=== PATIENT | male | born 1940 | race Caucasian/White ===

== ENCOUNTER 2017-02-03 17:30 | Inpatient (IN) | payer MEDICARE, BC ==
[2017-02-03 18:35] LABS: Anisocytosis Slight; Basophils % (A) 1 %; CHCM 30.7; Eosinophils # (A) 0.1 k/uL (0-0.7); Eosinophils % (A) 1 %; HCT 24.3 % (39.0-53.0); HGB 7.2 gm/dL (13.0-17.5); Hypochromasia Marked; Luc # (Auto) 0.15; Luc % (Auto) 4; Lymphocytes # (A) 0.5 k/uL (1.0-4.8); Lymphocytes % (A) 11 %; MCH 26.2 pg (25.0-35.0); MCHC 29.6 g/dL (31.0-37.0); MCV 88.5 fL (80.0-100.0); Mean Platelet Volume 10.4; Monocytes # (A) 0.5 k/uL (0-1.0); Monocytes % (A) 11 %; Neutrophils % (A) 73 %; Poikilocytosis Slight; RBC 2.75 m/uL (4.30-5.90); WBC 4.2 k/uL (3.8-10.6); WBC (Perox) 4.41
--- NOTE | 2017-02-03 18:35 | ED ---
General Adult HPI - General Chief complaint: Recheck/Abnormal Lab/Rx Stated complaint: low HGB sent by PCP Time Seen by Provider: 02/03/17 18:19 Source: patient, RN notes reviewed Mode of arrival: ambulatory Limitations: no limitations - History of Present Illness Initial comments: Patient is a 76-year-old male who presents emergency room today with a chief complaint of an abnormal lab value that occurred earlier today. He states he was told his hemoglobin was 7.1 earlier today and to come to emergency room. He does admit that over the last month they've been watching his hemoglobin closely. He doesn't that he had a recent colonoscopy to look for any bleeding which was essentially negative patient denies any symptoms to the emergency room. Denies any dizziness, shortness of breath, lightheadedness. Patient denies any recent fever, chills, shortness of breath, chest pain, back pain, abdominal pain, nausea or vomiting, numbness or tingling, dysuria or hematuria, constipation or diarrhea, headaches or visual changes, or any other complaints. - Related Data Home Medications Medication Instructions Recorded Confirmed Atorvastatin [Lipitor] 10 mg PO DAILY 03/24/14 02/03/17 Cholecalciferol [Vitamin D3] 3,000 unit PO DAILY 03/24/14 02/03/17 Potassium Chloride [Klor-Con 20] 20 meq PO TID 03/24/14 02/03/17 Tamsulosin HCl [Flomax] 0.4 mg PO DAILY 03/24/14 02/03/17 levETIRAcetam [Keppra] 1,000 mg PO BID 03/24/14 02/03/17 metFORMIN HCL [Glucophage] 500 mg PO BID 03/24/14 02/03/17 Bumetanide [BUMEX] 2 mg PO BID 02/03/17 02/03/17 Cranberry Fruit Concentrate [Azo 500 mg PO DAILY 02/03/17 02/03/17 Cranberry] Ferrous Sulfate [Feosol] 650 mg PO DAILY 02/03/17 02/03/17 Glimepiride [Amaryl] 1 mg PO DAILY 02/03/17 02/03/17 Levothyroxine Sodium [Synthroid] 200 mcg PO DAILY 02/03/17 02/03/17 Lisinopril [Zestril] 5 mg PO DAILY 02/03/17 02/03/17 Metolazone [Zaroxolyn] 5 mg PO Q48H 02/03/17 02/03/17 Omeprazole [PriLOSEC] 20 mg PO DAILY 02/03/17 02/03/17 Rivaroxaban [Xarelto] 15 mg PO HS 02/03/17 02/03/17 Sotalol HCl [Betapace] 80 mg PO Q12H 02/03/17 02/03/17 Allergies Allergy/AdvReac Type Severity Reaction Status Date / Time amiodarone Allergy Unknown Verified 02/03/17 19:09 amitriptyline Allergy Unknown Verified 02/03/17 19:09 simvastatin [From Zocor] Allergy Unknown Verified 02/03/17 19:09 Review of Systems ROS Statement: Those systems with pertinent positive or pertinent negative responses have been documented in the HPI. ROS Other: All systems not noted in ROS Statement are negative. Past Medical History Past Medical History: Atrial Fibrillation, CVA/TIA, Dementia, Prostate Disorder , Thyroid Disorder Additional Past Medical History / Comment(s): SEIZURE DISORDER, BXO (balantis Xerotica Obliterans) History of Any Multi-Drug Resistant Organisms: None Reported Past Surgical History: AICD Past Anesthesia/Blood Transfusion Reactions: No Reported Reaction Type of Cardiac Device: Permanent Pacemaker Device Placement Date:: 2011 Past Psychological History: No Psychological Hx Reported Smoking Status: Never smoker Past Alcohol Use History: Rare Past Drug Use History: None Reported - Past Family History Father Family Medical History: Myocardial Infarction ([place]) Mother Family Medical History: Myocardial Infarction ([place]) Brother(s) Additional Family Medical History / Comment(s): from [place]. It was all through his body. Unknown as to what kind General Exam - General Exam Comments Initial Comments: General: The patient is awake and alert, in no distress, and does not appear acutely ill. Eye: Pupils are equal, round and reactive to light, extra-ocular movements are intact. No nystagmus. There is normal conjunctiva bilaterally. No signs of icterus. Ears, nose, mouth and throat: There are moist mucous membranes and no oral lesions. Neck: The neck is supple, there is no tenderness or JVD. Cardiovascular: There is a regular rate and rhythm. No murmur, rub or gallop is appreciated. Respiratory: Lungs are clear to auscultation, respirations are non-labored, breath sounds are equal. No wheezes, stridor, rales, or rhonchi. Gastrointestinal: Soft, non-distended, non-tender abdomen without masses or organomegaly noted. There is no rebound or guarding present. No CVA tenderness. Bowel sounds are unremarkable. Musculoskeletal: Normal ROM, no tenderness. Strength 5/5. Sensation intact. Pulses equal bilaterally 2+. Neurological: A&O x 3. CN II-XII intact, There are no obvious motor or sensory deficits. Coordination appears grossly intact. Speech is normal. Skin: Skin is warm and dry and no rashes or lesions are noted. Psychiatric: Cooperative, appropriate mood & affect, normal judgment. Limitations: no limitations Course Vital Signs 02/03/17 02/03/17 17:42 18:54 Temperature 98.6 F Pulse Rate 104 H 116 H Respiratory 17 18 Rate Blood Pressure 131/65 117/57 O2 Sat by Pulse 94 L 96 Oximetry Medical Decision Making - Medical Decision Making Patient's labs been reviewed and does show positive for quiet test. He does admit to dark bowel movements recently. No sign of bright red blood. Patient is on a blood thinner ulcer multiple due to history of A. fib. Hemoglobin 7.2. Does have shortness of breath on exertion. Patient will be admitted for serial H and H. Patient and family are aware the plan states understanding - Lab Data Result diagrams: 02/03/17 18:20 02/03/17 18:20 Lab Results 02/03/17 02/03/17 02/03/17 Range/Units 18:20 18:20 18:20 WBC 4.2 (3.8-10.6) k/uL RBC 2.75 L (4.30-5.90) m/uL Hgb 7.2 L (13.0-17.5) gm/dL Hct 24.3 L (39.0-53.0) % MCV 88.5 (80.0-100.0) fL MCH 26.2 (25.0-35.0) pg MCHC 29.6 L (31.0-37.0) g/dL RDW 17.0 H (11.5-15.5) % Plt Count 159 (150-450) k/uL Neutrophils % 73 % Lymphocytes % 11 % Monocytes % 11 % Eosinophils % 1 % Basophils % 1 % Neutrophils # 3.0 (1.3-7.7) k/uL Lymphocytes # 0.5 L (1.0-4.8) k/uL Monocytes # 0.5 (0-1.0) k/uL Eosinophils # 0.1 (0-0.7) k/uL Basophils # 0.0 (0-0.2) k/uL Hypochromasia Marked Poikilocytosis Slight Anisocytosis Slight PT 12.2 H (9.0-12.0) sec INR 1.2 H (<1.2) APTT 23.3 (22.0-30.0) sec Sodium 142 (137-145) mmol/L Potassium 4.5 (3.5-5.1) mmol/L Chloride 106 (98-107) mmol/L Carbon Dioxide 26 (22-30) mmol/L Anion Gap 10 mmol/L BUN 26 H (9-20) mg/dL Creatinine 1.27 H (0.66-1.25) mg/dL Est GFR (MDRD) Af Amer >60 (>60 ml/min/1.73 sqM) Est GFR (MDRD) Non-Af 55 (>60 ml/min/1.73 sqM) Glucose 121 H (74-99) mg/dL Calcium 9.2 (8.4-10.2) mg/dL Total Bilirubin 0.5 (0.2-1.3) mg/dL AST 26 (17-59) U/L ALT 23 (21-72) U/L Alkaline Phosphatase 112 (38-126) U/L Total Protein 7.3 (6.3-8.2) g/dL Albumin 4.1 (3.5-5.0) g/dL Stool Occult Blood (Negative) 02/03/17 Range/Units 18:58 WBC (3.8-10.6) k/uL RBC (4.30-5.90) m/uL Hgb (13.0-17.5) gm/dL Hct (39.0-53.0) % MCV (80.0-100.0) fL MCH (25.0-35.0) pg MCHC (31.0-37.0) g/dL RDW (11.5-15.5) % Plt Count (150-450) k/uL Neutrophils % % Lymphocytes % % Monocytes % % Eosinophils % % Basophils % % Neutrophils # (1.3-7.7) k/uL Lymphocytes # (1.0-4.8) k/uL Monocytes # (0-1.0) k/uL Eosinophils # (0-0.7) k/uL Basophils # (0-0.2) k/uL Hypochromasia Poikilocytosis Anisocytosis PT (9.0-12.0) sec INR (<1.2) APTT (22.0-30.0) sec Sodium (137-145) mmol/L Potassium (3.5-5.1) mmol/L Chloride (98-107) mmol/L Carbon Dioxide (22-30) mmol/L Anion Gap mmol/L BUN (9-20) mg/dL Creatinine (0.66-1.25) mg/dL Est GFR (MDRD) Af Amer (>60 ml/min/1.73 sqM) Est GFR (MDRD) Non-Af (>60 ml/min/1.73 sqM) Glucose (74-99) mg/dL Calcium (8.4-10.2) mg/dL Total Bilirubin (0.2-1.3) mg/dL AST (17-59) U/L ALT (21-72) U/L Alkaline Phosphatase (38-126) U/L Total Protein (6.3-8.2) g/dL Albumin (3.5-5.0) g/dL Stool Occult Blood Positive (Negative) Disposition Clinical Impression: Symptomatic anemia, Guaiac positive stools Disposition: ADMITTED IP TO THIS [facility] Condition: Stable Referrals: Pernell Brower MD [Primary Care Provider] - 1-2 days Time of Disposition: 19:23
[2017-02-03 18:47] LABS: ALT 23 U/L (21-72); AST 26 U/L (17-59); Alkaline Phosphatase 112 U/L (38-126); Anion Gap 10 mmol/L; Blood Urea Nitrogen 26 mg/dL (9-20); Calcium 9.2 mg/dL (8.4-10.2); Carbon Dioxide 26 mmol/L (22-30); Chloride 106 mmol/L (98-107); Glucose 121 mg/dL (74-99); INR 1.2 (<1.2); Non-African American GFR(MDRD) 55 (>60 ml/min/1.73 sqM); Partial Thromboplastin Time 23.3 sec (22.0-30.0); Potassium 4.5 mmol/L (3.5-5.1); Prothrombin Time 12.2 sec (9.0-12.0); Sodium 142 mmol/L (137-145); Total Bilirubin 0.5 mg/dL (0.2-1.3); Total Protein 7.3 g/dL (6.3-8.2)
[2017-02-03] MEDS ORDERED: SODIUM CHLORIDE 0.9% 1,000 ML IV ONE (19:24)
[2017-02-03] MEDS ORDERED: POTASSIUM CHLORIDE ER 20 MEQ TAB.ER PO SCH (22:00)
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
[2017-02-03 23:17] LABS: Anisocytosis Slight; CH 26.1; CHCM 28.9; HCT 24.2 % (39.0-53.0); HDW 3.38; HGB 7.1 gm/dL (13.0-17.5); Hypochromasia Marked; MCH 26.5 pg (25.0-35.0); MCHC 29.3 g/dL (31.0-37.0); MCV 90.6 fL (80.0-100.0); Mean Platelet Volume 8.6; RBC 2.67 m/uL (4.30-5.90); RDW 16.2 % (11.5-15.5); WBC 4.1 k/uL (3.8-10.6)
[2017-02-03] MEDS: ATORVASTATIN 10 MG TAB PO SCH (23:39)
[2017-02-03] MEDS: levETIRAcetam 500 MG TAB PO SCH (23:39)
[2017-02-03] MEDS: PANTOPRAZOLE 40 MG TABLET PO SCH (23:39)
[2017-02-03] MEDS: SOTALOL 80 MG TAB PO SCH (23:40)
[2017-02-04] MEDS: levETIRAcetam 500 MG TAB PO SCH ×3 (00:33→22:37)
[2017-02-04] MEDS: SODIUM CHLORIDE 0.9% 1,000 ML IV SCH ×3 (00:34→17:55)
[2017-02-04] MEDS: LEVOTHYROXINE 100 MCG TAB PO SCH (06:33)
[2017-02-04] MEDS ORDERED: FERROUS SULFATE 325 MG TAB PO SCH (07:30)
[2017-02-04 07:47] LABS: Anisocytosis Slight; CH 26.1; HCT 28.5 % (39.0-53.0); HGB 8.1 gm/dL (13.0-17.5); Hypochromasia Marked; MCH 26.7 pg (25.0-35.0); MCHC 28.6 g/dL (31.0-37.0); MCV 93.6 fL (80.0-100.0); Mean Platelet Volume 9.2; RBC 3.04 m/uL (4.30-5.90); RDW 16.1 % (11.5-15.5); WBC 5.7 k/uL (3.8-10.6)
[2017-02-04] MEDS: INSULIN LISPRO (humaLOG) 300 UNIT/3 ML VIAL SQ SCH ×4 (07:54→23:16)
[2017-02-04] MEDS: SOTALOL 80 MG TAB PO SCH ×2 (07:55→22:37)
[2017-02-04 07:56] LABS: Glucose,Whole Blood 108 mg/dL (75-99)
[2017-02-04] MEDS: TAMSULOSIN 0.4 MG CAP.ER.24H PO SCH (07:56)
[2017-02-04] MEDS: ATORVASTATIN 10 MG TAB PO SCH (07:56)
[2017-02-04] MEDS: PANTOPRAZOLE 40 MG TABLET PO SCH ×2 (07:56→17:55)
[2017-02-04 07:57] LABS: ALT 28 U/L (21-72); AST 23 U/L (17-59); Alkaline Phosphatase 120 U/L (38-126); Anion Gap 12 mmol/L; Blood Urea Nitrogen 28 mg/dL (9-20); Calcium 9.4 mg/dL (8.4-10.2); Carbon Dioxide 23 mmol/L (22-30); Chloride 107 mmol/L (98-107); Glucose 101 mg/dL (74-99); Non-African American GFR(MDRD) >60 (>60 ml/min/1.73 sqM); Potassium 4.4 mmol/L (3.5-5.1); Sodium 142 mmol/L (137-145); Total Bilirubin 0.5 mg/dL (0.2-1.3); Total Protein 7.4 g/dL (6.3-8.2)
[2017-02-04] MEDS ORDERED: BUMETANIDE 1 MG TAB PO SCH (09:00)
[2017-02-04] MEDS ORDERED: LISINOPRIL 5 MG TAB PO SCH (09:00)
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
--- NOTE | 2017-02-04 10:55 | P.PN ---
Subjective Progress Note Date: 02/04/17 Principal diagnosis: Is being followed up by his PCP in the outpatient setting recently had EGD colonoscopy possibly 22 weeks ago showing gastritis and esophagitis, presented with a hemoglobin of 7.1. And a positive Hemoccult admitted for possible GI bleed and symptomatic anemia he was typed and crossed follow-up hemoglobin is 8.1. He started on PPI therapy Protonix 40 mg by mouth twice a day. The county engineer also been consulted Objective - Vital Signs Vital signs: Vital Signs Temp 97.4 F L 02/04/17 07:00 Pulse 79 02/04/17 07:00 Resp 20 02/04/17 07:00 BP 114/56 02/04/17 07:00 Pulse Ox 97 02/04/17 07:00 Intake & Output 02/03/17 02/04/17 02/04/17 18:59 06:59 18:59 Weight 81.647 kg Other: Voiding Method Toilet Toilet # Voids 3 - Exam Constitutional: No acute distress, conversant, pleasant Eyes: Anicteric sclerae, moist conjunctiva, no lid-lag, PERRLA ENMT: NC/AT,Oropharynx clear, no erythema, exudates Neck:Supple, FROM, no masses, or JVD, No carotid bruits; No thyromegaly Lungs: Clear to auscultation, Clear to percussion, Normal respiratory effort, no accessory muscle use Cardiovascular: Irregularly irregular, No murmurs, gallops, or rubs no peripheral edema Abdominal: Soft Nontender, nom distended, no guarding, no rebound or rigidity, Normoactive bowel sounds No hepatomegaly, No splenomegaly, No palpable mass No abdominal wall hernia noted Skin: Normal temperature, tone, texture, turgor, No induration No subcutaneous nodules, No rash, lesions, No ulcers Extremities:No digital cyanosis No clubbing, Pedal pulses intact and symmetrical Radial pulses intact and symmetrical Normal gait and station, No calf tenderness Psychiatric: Alert and oriented to person, place and time, Appropriate affect Intact judgement Neuro: Muscles Strength 5/5 in all 4 extremities, Sensation to light touch grossly present throughout, Cranial nerves II-XII grossly intact. No focal sensory deficits - Labs CBC & Chem 7: 02/04/17 07:19 02/04/17 07:19 Labs: Abnormal Lab Results - Last 24 Hours (Table) 02/03/17 02/03/17 02/03/17 Range/Units 18:20 18:20 18:20 RBC 2.75 L (4.30-5.90) m/uL Hgb 7.2 L (13.0-17.5) gm/dL Hct 24.3 L (39.0-53.0) % MCHC 29.6 L (31.0-37.0) g/dL RDW 17.0 H (11.5-15.5) % Lymphocytes # 0.5 L (1.0-4.8) k/uL PT 12.2 H (9.0-12.0) sec INR 1.2 H (<1.2) BUN 26 H (9-20) mg/dL Creatinine 1.27 H (0.66-1.25) mg/dL Glucose 121 H (74-99) mg/dL POC Glucose (mg/dL) (75-99) mg/dL 02/03/17 02/04/17 02/04/17 Range/Units 22:25 07:19 07:19 RBC 2.67 L 3.04 L (4.30-5.90) m/uL Hgb 7.1 L 8.1 L (13.0-17.5) gm/dL Hct 24.2 L 28.5 L (39.0-53.0) % MCHC 29.3 L 28.6 L (31.0-37.0) g/dL RDW 16.2 H 16.1 H (11.5-15.5) % Lymphocytes # (1.0-4.8) k/uL PT (9.0-12.0) sec INR (<1.2) BUN 28 H (9-20) mg/dL Creatinine (0.66-1.25) mg/dL Glucose 101 H (74-99) mg/dL POC Glucose (mg/dL) (75-99) mg/dL 02/04/17 Range/Units 07:52 RBC (4.30-5.90) m/uL Hgb (13.0-17.5) gm/dL Hct (39.0-53.0) % MCHC (31.0-37.0) g/dL RDW (11.5-15.5) % Lymphocytes # (1.0-4.8) k/uL PT (9.0-12.0) sec INR (<1.2) BUN (9-20) mg/dL Creatinine (0.66-1.25) mg/dL Glucose (74-99) mg/dL POC Glucose (mg/dL) 108 H (75-99) mg/dL Assessment and Plan (1) Symptomatic anemia Narrative/Plan: Reports of prior EGD showing gastritis and esophagitis GI consult is pending capsule endoscopy tomorrow, hemoglobin stable at 8.1 we' ll continue to monitor. Iron studies pending Continue with PPI therapy Anticoagulation for A. fib held Status: Acute (2) Guaiac positive stools Status: Acute (3) GERD with esophagitis Status: Acute (4) Afib Narrative/Plan: Stable continue beta giselle therapy Status: Chronic (5) Afib Status: Acute
[2017-02-04 11:29] LABS: Glucose,Whole Blood 488 mg/dL (75-99)
[2017-02-04 11:29] LABS: Glucose,Whole Blood 270 mg/dL (75-99)
[2017-02-04 11:37] LABS: Iron Saturation 7.01 (15.00-50.00)
--- NOTE | 2017-02-04 12:21 | ECHOF ---
Referral Reason:shortness of breath MEASUREMENTS -------- HEIGHT: 165.1 cm WEIGHT: 81.7 kg BP: 114/56 RVIDd: 3.5 cm (< 3.3) IVSd: 1.4 cm (0.6 - 1.1) LVIDd: 4.2 cm (3.9 - 5.3) LVPWd: 1.5 cm (0.6 - 1.1) IVSs: 1.7 cm LVIDs: 3.7 cm LVPWs: 1.5 cm LA Diam: 4.5 cm (2.7 - 3.8) LAESV Index (A-L): 41.24 ml/m Ao Diam: 3.1 cm (2.0 - 3.7) AV Cusp: 1.3 cm (1.5 - 2.6) LA Diam: 5.1 cm (2.7 - 3.8) MV EXCURSION: 21.020 mm (> 18.000) MV EF SLOPE: 116 mm/s (70 - 150) EPSS: 0.4 cm MV E Thuan: 0.96 m/s MV DecT: 158 ms MV A Thuan: 0.38 m/s MV E/A Ratio: 2.50 RAP: 15.00 mmHg RVSP: 97.86 mmHg FINDINGS -------- Undetermined rhythm. This was a technically adequate study. There is mild concentric left ventricular hypertrophy. There is normal global left ventricular contractility. Overall left ventricular systolic function is low-normal with, an EF between 50 - 55 %. The right ventricle is mild to moderately enlarged. LA is severely dilated >40 ml/m2 The right atrial size is normal. There is mild aortic valve sclerosis. There is no evidence of aortic regurgitation. Mild mitral annular calcification present. Moderate mitral regurgitation is present. [id number] tricuspid regurgitation present. There is moderate to severe pulmonary hypertension. The right ventricular systolic pressure, as measured by Doppler, is 97.86mmHg. Trace/mild (physiologic) pulmonic regurgitation. The aortic root size is normal. The inferior vena cava is mildly dilated. There is no pericardial effusion. CONCLUSIONS -------- 1. There is mild concentric left ventricular hypertrophy. 2. The right ventricular systolic pressure, as measured by Doppler, is 97.86mmHg. 3. Trace/mild (physiologic) pulmonic regurgitation. 4. The aortic root size is normal. 5. The inferior vena cava is mildly dilated. 6. There is no pericardial effusion. 7. There is normal global left ventricular contractility. 8. Overall left ventricular systolic function is low-normal with, an EF between 50 - 55 %. 9. The right ventricle is mild to moderately enlarged. 10. LA is severely dilated >40 ml/m2 11. There is mild aortic valve sclerosis. 12. Mild mitral annular calcification present. 13. [id number] tricuspid regurgitation present. 14. There is moderate to severe pulmonary hypertension. COVERER: Melba Lopez RDCS
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
[2017-02-04] MEDS ORDERED: MAGNESIUM CITRATE 296 ML BOTTLE PO ONE (17:00)
[2017-02-04 17:25] LABS: Glucose,Whole Blood 205 mg/dL (75-99)
[2017-02-04 20:51] LABS: Glucose,Whole Blood 262 mg/dL (75-99)
[2017-02-04] MEDS ORDERED: RIVAROXABAN 15 MG TAB PO SCH (21:00)
[2017-02-04 22:50] LABS: Glucose,Whole Blood 221 mg/dL (75-99)
[2017-02-05] MEDS: SODIUM CHLORIDE 0.9% 1,000 ML IV SCH ×4 (04:52→21:42)
[2017-02-05] MEDS: LEVOTHYROXINE 100 MCG TAB PO SCH (06:14)
[2017-02-05 07:32] LABS: Glucose,Whole Blood 129 mg/dL (75-99)
[2017-02-05] MEDS: INSULIN LISPRO (humaLOG) 300 UNIT/3 ML VIAL SQ SCH ×4 (07:34→21:38)
[2017-02-05] MEDS: PANTOPRAZOLE 40 MG TABLET PO SCH ×2 (07:34→17:44)
[2017-02-05] MEDS ORDERED: METOLAZONE 5 MG TAB PO SCH (09:00)
[2017-02-05] MEDS: TAMSULOSIN 0.4 MG CAP.ER.24H PO SCH (09:15)
--- NOTE | 2017-02-05 09:33 | P.PN ---
Subjective Progress Note Date: 02/05/17 Principal diagnosis: gi bleed anemia Capsule endoscopy scheduled this morning. Small to moderate loose black bowel movement 1 this morning. Denies abdominal pain. CBC pending. Objective - Vital Signs Vital signs: Vital Signs Temp 97.9 F 02/05/17 07:00 Pulse 71 02/05/17 07:00 Resp 20 02/05/17 07:00 BP 123/64 02/05/17 07:00 Pulse Ox 95 02/05/17 07:00 Intake & Output 02/04/17 02/05/17 02/05/17 18:59 06:59 18:59 Intake Total 1590 Balance 1590 Intake: Intake, IV Titration 1000 Amount Sodium Chloride 0.9% 1, 1000 000 ml @ 125 mls/hr IV . Q8H [facility] Rx#:[id number] Oral 590 Other: Voiding Method Toilet Toilet Toilet # Voids 2 2 # Bowel Movements 2 - Exam General appearance: The patient is alert, oriented, in no acute distress. HET: Head is normocephalic and atraumatic. Pupils are equal and reactive. Oropharynx is clear without lesions. Neck: Supple without lymphadenopathy. Trachea midline. Heart: S1 S2. Lungs: No crackles or wheezes are heard. Abdomen: Soft, nontender, nondistended with bowel sounds. No peritoneal signs. No palpable organomegaly or masses. Extremities: Normal skin color and turgor. No cyanosis, rash, ulceration, clubbing, or edema. Radial and pedal pulses are 2/4 bilaterally. Neurological: No focal deficits. Strength and sensation are grossly intact. - Labs CBC & Chem 7: 02/04/17 07:19 02/04/17 07:19 Labs: Abnormal Lab Results - Last 24 Hours (Table) 02/03/17 02/04/17 02/04/17 Range/Units 22:25 11:23 11:24 POC Glucose (mg/dL) 488 H 270 H (75-99) mg/dL Iron 27 L (65-175) ug/dL Iron Saturation 7.01 L (15.00-50.00) Ferritin 18.6 L (22.0-322.0) ng/mL 02/04/17 02/04/17 02/04/17 Range/Units 17:20 20:50 22:48 POC Glucose (mg/dL) 205 H 262 H 221 H (75-99) mg/dL Iron (65-175) ug/dL Iron Saturation (15.00-50.00) Ferritin (22.0-322.0) ng/mL 02/05/17 Range/Units 07:10 POC Glucose (mg/dL) 129 H (75-99) mg/dL Iron (65-175) ug/dL Iron Saturation (15.00-50.00) Ferritin (22.0-322.0) ng/mL Assessment and Plan (1) Symptomatic anemia Narrative/Plan: GI bleed with Hemoccult positive stools possible small bowel source status post EGD colonoscopy 2 weeks ago with no active bleeding or sources for potential bleeding. Component of acute blood loss anemia. Status: Acute (2) Guaiac positive stools Status: Acute Plan: 1. Small bowel capsule endoscopy scheduled today further recommendations forthcoming after review of study. Continue monitor CBC. GI prophylaxis. Hold anticoagulation. We'll continue to follow closely. Assessment and plan of care discussed with Dr. Boyce.
[2017-02-05 09:46] LABS: Anisocytosis Slight; CH 26.7; CHCM 28.9; HCT 25.5 % (39.0-53.0); HDW 3.45; HGB 7.5 gm/dL (13.0-17.5); Hypochromasia Marked; MCH 27.4 pg (25.0-35.0); MCHC 29.5 g/dL (31.0-37.0); MCV 92.9 fL (80.0-100.0); Mean Platelet Volume 8.6; Poikilocytosis Slight; RBC 2.74 m/uL (4.30-5.90); RDW 18.2 % (11.5-15.5); WBC 6.7 k/uL (3.8-10.6)
--- NOTE | 2017-02-05 09:55 | P.PN ---
Subjective Progress Note Date: 02/05/17 Mr. Bauer is a 76-year-old male with past medical history for atrial fibrillation on long term care pharmacist anticoagulation, CVA and diabetes mellitus. He follows regularly with a cut and print machine operator out of town. He is currently undergoing workup for anemia and GI bleeding. Anticoagulation has been on hold. He is having a capsule study today with GI. He denies chest pain, palpitations, dizziness or active bleeding. EKG still not complete from yesterday, will reorder today. Objective - Vital Signs Vital signs: Vital Signs Temp 97.9 F 02/05/17 07:00 Pulse 71 02/05/17 07:00 Resp 20 02/05/17 07:00 BP 123/64 02/05/17 07:00 Pulse Ox 95 02/05/17 07:00 Intake & Output 02/04/17 02/05/17 02/05/17 18:59 06:59 18:59 Intake Total 1590 Balance 1590 Intake: Intake, IV Titration 1000 Amount Sodium Chloride 0.9% 1, 1000 000 ml @ 125 mls/hr IV . Q8H [facility] Rx#:[id number] Oral 590 Other: Voiding Method Toilet Toilet Toilet # Voids 2 2 # Bowel Movements 2 - Exam GENERAL: Well-appearing, well-nourished and in no acute distress. NECK: Supple without JVD or thyromegaly. LUNGS: Breath sounds clear to auscultation bilaterally. Respiration equal and unlabored. No wheezes, rales or rhonchi. HEART: Irregular rate and rhythm without murmurs, rubs or gallops. S1 and S2 heard. EXTREMITIES: Normal range of motion, no edema. No clubbing or cyanosis. Peripheral pulses intact and strong. - Labs CBC & Chem 7: 02/04/17 07:19 02/04/17 07:19 Labs: Abnormal Lab Results - Last 24 Hours (Table) 02/03/17 02/04/17 02/04/17 Range/Units 22:25 11:23 11:24 POC Glucose (mg/dL) 488 H 270 H (75-99) mg/dL Iron 27 L (65-175) ug/dL Iron Saturation 7.01 L (15.00-50.00) Ferritin 18.6 L (22.0-322.0) ng/mL 02/04/17 02/04/17 02/04/17 Range/Units 17:20 20:50 22:48 POC Glucose (mg/dL) 205 H 262 H 221 H (75-99) mg/dL Iron (65-175) ug/dL Iron Saturation (15.00-50.00) Ferritin (22.0-322.0) ng/mL 02/05/17 Range/Units 07:10 POC Glucose (mg/dL) 129 H (75-99) mg/dL Iron (65-175) ug/dL Iron Saturation (15.00-50.00) Ferritin (22.0-322.0) ng/mL Assessment and Plan Plan: ASSESSMENT 1. Chronic atrial fibrillation on [facility] anticoagulation with controlled ventricular response 2. Active GI bleeding with positive stool for occult blood and low hemoglobin 3. Anemia of unknown cause 4. Sick sinus syndrome with permanent pacemaker 5. Hypertension 6. Hyperlipidemia 7. Diabetes mellitus PLAN Continue to hold Xarelto until bleeding has been controlled and source determined. Should be resumed as soon as possible to reduce the risk of stroke. His risk of stroke is high while anticoagulation is held. He should follow up with his cut and print machine operator upon discharge. We will see this patient as needed for the rest of his hospital stay. Please feel free to call with questions or concerns. The above impression and plan of care have been discussed and directed by the signing physician. Aye Becerra, nurse practitioner, acting as scribe for signing physician.
[2017-02-05] MEDS ORDERED: SIMETHICONE 40 MG/0.6 ML DROPS 2,000 MG/30 ML BOTTLE PO ONE (10:00)
--- NOTE | 2017-02-05 10:13 | P.PN ---
Subjective Progress Note Date: 02/05/17 Principal diagnosis: Is being followed up by his PCP in the outpatient setting recently had EGD colonoscopy possibly 22 weeks ago showing gastritis and esophagitis, presented with a hemoglobin of 7.1. And a positive Hemoccult admitted for possible GI bleed and symptomatic anemia he was typed and crossed follow-up hemoglobin is 7.5. He started on PPI therapy Protonix 40 mg by mouth twice a day. The assembler trim Dr. gupta has been consulted and plans a capsular endoscopy today. Patient's anticoagulation Xarelto that he was on for A. fib was held Patient feeling well and has no complaints did mention a dark melanotic stool 1. Denies any fevers chills or night sweats night light headedness or dizziness or headache No acute events overnight Objective - Vital Signs Vital signs: Vital Signs Temp 97.9 F 02/05/17 07:00 Pulse 71 02/05/17 07:00 Resp 20 02/05/17 07:00 BP 123/64 02/05/17 07:00 Pulse Ox 95 02/05/17 07:00 Intake & Output 02/04/17 02/05/17 02/05/17 18:59 06:59 18:59 Intake Total 1590 Balance 1590 Intake: Intake, IV Titration 1000 Amount Sodium Chloride 0.9% 1, 1000 000 ml @ 125 mls/hr IV . Q8H [facility] Rx#:[id number] Oral 590 Other: Voiding Method Toilet Toilet Toilet # Voids 2 2 # Bowel Movements 2 - Exam Constitutional: No acute distress, conversant, pleasant Eyes: Anicteric sclerae, moist conjunctiva, no lid-lag, PERRLA ENMT: NC/AT,Oropharynx clear, no erythema, exudates Neck:Supple, FROM, no masses, or JVD, No carotid bruits; No thyromegaly Lungs: Clear to auscultation, Clear to percussion, Normal respiratory effort, no accessory muscle use Cardiovascular: Irregularly irregular, No murmurs, gallops, or rubs no peripheral edema Abdominal: Soft Nontender, nom distended, no guarding, no rebound or rigidity, Normoactive bowel sounds No hepatomegaly, No splenomegaly, No palpable mass No abdominal wall hernia noted Skin: Normal temperature, tone, texture, turgor, No induration No subcutaneous nodules, No rash, lesions, No ulcers Extremities:No digital cyanosis No clubbing, Pedal pulses intact and symmetrical Radial pulses intact and symmetrical Normal gait and station, No calf tenderness Psychiatric: Alert and oriented to person, place and time, Appropriate affect Intact judgement Neuro: Muscles Strength 5/5 in all 4 extremities, Sensation to light touch grossly present throughout, Cranial nerves II-XII grossly intact. No focal sensory deficits - Labs CBC & Chem 7: 02/05/17 09:14 02/04/17 07:19 Labs: Abnormal Lab Results - Last 24 Hours (Table) 02/03/17 02/04/17 02/04/17 Range/Units 22:25 11:23 11:24 RBC (4.30-5.90) m/uL Hgb (13.0-17.5) gm/dL Hct (39.0-53.0) % MCHC (31.0-37.0) g/dL RDW (11.5-15.5) % POC Glucose (mg/dL) 488 H 270 H (75-99) mg/dL Iron 27 L (65-175) ug/dL Iron Saturation 7.01 L (15.00-50.00) Ferritin 18.6 L (22.0-322.0) ng/mL 02/04/17 02/04/17 02/04/17 Range/Units 17:20 20:50 22:48 RBC (4.30-5.90) m/uL Hgb (13.0-17.5) gm/dL Hct (39.0-53.0) % MCHC (31.0-37.0) g/dL RDW (11.5-15.5) % POC Glucose (mg/dL) 205 H 262 H 221 H (75-99) mg/dL Iron (65-175) ug/dL Iron Saturation (15.00-50.00) Ferritin (22.0-322.0) ng/mL 02/05/17 02/05/17 Range/Units 07:10 09:14 RBC 2.74 L (4.30-5.90) m/uL Hgb 7.5 L (13.0-17.5) gm/dL Hct 25.5 L (39.0-53.0) % MCHC 29.5 L (31.0-37.0) g/dL RDW 18.2 H (11.5-15.5) % POC Glucose (mg/dL) 129 H (75-99) mg/dL Iron (65-175) ug/dL Iron Saturation (15.00-50.00) Ferritin (22.0-322.0) ng/mL Assessment and Plan (1) Symptomatic anemia Narrative/Plan: Iron deficiecny anemia Reports of prior EGD showing gastritis and esophagitis GI consult is pending capsule endoscopy today, hemoglobin stable at 7.6 we'll continue to monitor. Continue with PPI therapy Anticoagulation for A. fib held Status: Acute (2) Guaiac positive stools Status: Acute (3) GERD with esophagitis Status: Acute (4) Afib Narrative/Plan: Stable continue beta giselle therapy Status: Chronic
[2017-02-05 11:28] LABS: Glucose,Whole Blood 115 mg/dL (75-99)
[2017-02-05] MEDS: SOTALOL 80 MG TAB PO SCH ×2 (11:57→21:39)
[2017-02-05] MEDS: ATORVASTATIN 10 MG TAB PO SCH (11:57)
[2017-02-05] MEDS: levETIRAcetam 500 MG TAB PO SCH ×2 (11:57→21:39)
[2017-02-05 17:37] LABS: Glucose,Whole Blood 208 mg/dL (75-99)
[2017-02-05 20:29] LABS: Glucose,Whole Blood 233 mg/dL (75-99)
[2017-02-05 22:09] LABS: Anisocytosis Slight; CH 26.7; CHCM 28.7; HCT 29.6 % (39.0-53.0); HDW 3.46; HGB 8.4 gm/dL (13.0-17.5); Hypochromasia Marked; MCH 26.7 pg (25.0-35.0); MCHC 28.4 g/dL (31.0-37.0); MCV 93.9 fL (80.0-100.0); Macrocytosis Slight; Mean Platelet Volume 9.7; Poikilocytosis Slight; RBC 3.15 m/uL (4.30-5.90); RDW 18.6 % (11.5-15.5)
[2017-02-06 07:32] LABS: Glucose,Whole Blood 172 mg/dL (75-99)
[2017-02-06 07:44] LABS: Anisocytosis Slight; CHCM 27.9; HCT 24.3 % (39.0-53.0); HDW 3.45; Hypochromasia Marked; MCH 27.2 pg (25.0-35.0); MCHC 28.9 g/dL (31.0-37.0); Macrocytosis Slight; Mean Platelet Volume 8.7; Poikilocytosis Slight; RBC 2.58 m/uL (4.30-5.90); RDW 17.8 % (11.5-15.5); WBC 7.8 k/uL (3.8-10.6)
[2017-02-06] MEDS: SODIUM CHLORIDE 0.9% 1,000 ML IV SCH (07:56)
[2017-02-06] MEDS: LEVOTHYROXINE 100 MCG TAB PO SCH (07:59)
[2017-02-06] MEDS: SOTALOL 80 MG TAB PO SCH ×2 (07:59→20:17)
[2017-02-06] MEDS: levETIRAcetam 500 MG TAB PO SCH ×2 (07:59→20:17)
[2017-02-06] MEDS: PANTOPRAZOLE 40 MG TABLET PO SCH ×2 (07:59→17:21)
[2017-02-06] MEDS: TAMSULOSIN 0.4 MG CAP.ER.24H PO SCH (07:59)
[2017-02-06] MEDS: ATORVASTATIN 10 MG TAB PO SCH (07:59)
[2017-02-06] MEDS: INSULIN LISPRO (humaLOG) 300 UNIT/3 ML VIAL SQ SCH ×4 (08:02→20:25)
--- NOTE | 2017-02-06 09:47 | P.PN ---
Subjective Progress Note Date: 02/06/17 Principal diagnosis: gi bleed anemia 76-year-old gentleman admitted with black colored bowel movements anemia with recent unremarkable EGD colonoscopy. Small bowel capsule endoscopy completed yesterday results are pending. Denies overt bleeding in the last 24 hours such as hematemesis hematochezia melena. Denies abdominal pain. Afebrile. Hemoglobin this morning is 7 down from 8.4 yesterday. Iron indices reviewed; iron deficiency with low iron and ferritin. Objective - Vital Signs Vital signs: Vital Signs Temp 97.8 F 02/06/17 07:00 Pulse 90 02/06/17 07:00 Resp 18 02/06/17 07:00 BP 119/63 02/06/17 07:00 Pulse Ox 90 L 02/06/17 07:00 Intake & Output 02/05/17 02/06/17 02/06/17 18:59 06:59 18:59 Intake Total 1000 250 Balance 1000 250 Intake: IV 250 Sodium Chloride 0.9% 1, 250 000 ml @ 125 mls/hr IV . Q8H [facility] Rx#:[id number] Intake, IV Titration 1000 Amount Sodium Chloride 0.9% 1, 1000 000 ml @ 125 mls/hr IV . Q8H [facility] Rx#:[id number] Other: Voiding Method Toilet Toilet # Voids 1 - Exam General appearance: The patient is alert, oriented, in no acute distress. HET: Head is normocephalic and atraumatic. Pupils are equal and reactive. Oropharynx is clear without lesions. Neck: Supple without lymphadenopathy. Trachea midline. Heart: S1 S2. Lungs: No crackles or wheezes are heard. Abdomen: Soft, nontender, nondistended with bowel sounds. No peritoneal signs. No palpable organomegaly or masses. Extremities: Normal skin color and turgor. No cyanosis, rash, ulceration, clubbing, or edema. Radial and pedal pulses are 2/4 bilaterally. Neurological: No focal deficits. Strength and sensation are grossly intact. - Labs CBC & Chem 7: 02/06/17 07:05 02/04/17 07:19 Labs: Abnormal Lab Results - Last 24 Hours (Table) 02/03/17 02/05/17 02/05/17 Range/Units 22:25 09:14 11:21 RBC 2.74 L (4.30-5.90) m/uL Hgb 7.5 L (13.0-17.5) gm/dL Hct 25.5 L (39.0-53.0) % MCHC 29.5 L (31.0-37.0) g/dL RDW 18.2 H (11.5-15.5) % POC Glucose (mg/dL) 115 H (75-99) mg/dL RBC Folate 1,890 H (280 - 791) ng/mL 02/05/17 02/05/17 02/05/17 Range/Units 17:22 20:27 21:57 RBC 3.15 L (4.30-5.90) m/uL Hgb 8.4 L (13.0-17.5) gm/dL Hct 29.6 L (39.0-53.0) % MCHC 28.4 L (31.0-37.0) g/dL RDW 18.6 H (11.5-15.5) % POC Glucose (mg/dL) 208 H 233 H (75-99) mg/dL RBC Folate (280 - 791) ng/mL 02/06/17 02/06/17 Range/Units 07:05 07:17 RBC 2.58 L (4.30-5.90) m/uL Hgb 7.0 L* (13.0-17.5) gm/dL Hct 24.3 L (39.0-53.0) % MCHC 28.9 L (31.0-37.0) g/dL RDW 17.8 H (11.5-15.5) % POC Glucose (mg/dL) 172 H (75-99) mg/dL RBC Folate (280 - 791) ng/mL Assessment and Plan (1) Symptomatic anemia Narrative/Plan: obscure GI bleed with Hemoccult positive stools possible small bowel source status post EGD colonoscopy 2 weeks ago with no active bleeding or sources for potential bleeding. Component of acute blood loss anemia. Status: Acute (2) Guaiac positive stools Status: Acute Plan: 1. Small bowel capsule endoscopy results are pending. Hemoglobin has decreased over last 24 hours without overt bleeding. 2. Continue CBC monitoring; patient is declining blood transfusion today. 3. Continue consistent carb diet. Possible repeat endoscopy tomorrow based on small bowel capsule results today. Assessment and plan of care discussed with Dr. Boyce
[2017-02-06] MEDS ORDERED: SODIUM FERRIC GLUCONAT-SUCROSE 125 MG in SODIUM CHLORIDE 0.9% 100 ML IVPB ONE (10:00)
--- NOTE | 2017-02-06 11:51 | P.PN ---
Subjective Progress Note Date: 02/06/17 Principal diagnosis: Is being followed up by his PCP in the outpatient setting recently had EGD colonoscopy possibly 2 weeks ago showing gastritis and esophagitis, presented with a hemoglobin of 7.1. And a positive Hemoccult admitted for possible GI bleed and symptomatic anemia he was typed and crossed follow-up hemoglobin is 7.5. He started on PPI therapy Protonix 40 mg by mouth twice a day. The c developer Dr. hightower has been consulted and plans a capsular endoscopy today. Patient's anticoagulation Xarelto that he was on for A. fib was held Patient feeling well and has no complaints did mention a dark melanotic stool 1 overnight hemoglobin 7 g this morning patient refusing transfusion today. Denies any fevers chills or night sweats night light headedness or dizziness or headache No acute events overnight Objective - Vital Signs Vital signs: Vital Signs Temp 97.8 F 02/06/17 07:00 Pulse 90 02/06/17 07:00 Resp 18 02/06/17 07:00 BP 119/63 02/06/17 07:00 Pulse Ox 90 L 02/06/17 07:00 Intake & Output 02/05/17 02/06/17 02/06/17 18:59 06:59 18:59 Intake Total 1000 250 Balance 1000 250 Intake: IV 250 Sodium Chloride 0.9% 1, 250 000 ml @ 125 mls/hr IV . Q8H [facility] Rx#:[id number] Intake, IV Titration 1000 Amount Sodium Chloride 0.9% 1, 1000 000 ml @ 125 mls/hr IV . Q8H [facility] Rx#:[id number] Other: Voiding Method Toilet Toilet # Voids 1 - Exam Constitutional: No acute distress, conversant, pleasant Eyes: Anicteric sclerae, moist conjunctiva, no lid-lag, PERRLA ENMT: NC/AT,Oropharynx clear, no erythema, exudates Neck:Supple, FROM, no masses, or JVD, No carotid bruits; No thyromegaly Lungs: Clear to auscultation, Clear to percussion, Normal respiratory effort, no accessory muscle use Cardiovascular: Irregularly irregular, No murmurs, gallops, or rubs no peripheral edema Abdominal: Soft Nontender, nom distended, no guarding, no rebound or rigidity, Normoactive bowel sounds No hepatomegaly, No splenomegaly, No palpable mass No abdominal wall hernia noted Skin: Normal temperature, tone, texture, turgor, No induration No subcutaneous nodules, No rash, lesions, No ulcers Extremities:No digital cyanosis No clubbing, Pedal pulses intact and symmetrical Radial pulses intact and symmetrical Normal gait and station, No calf tenderness Psychiatric: Alert and oriented to person, place and time, Appropriate affect Intact judgement Neuro: Muscles Strength 5/5 in all 4 extremities, Sensation to light touch grossly present throughout, Cranial nerves II-XII grossly intact. No focal sensory deficits - Labs CBC & Chem 7: 02/06/17 07:05 02/04/17 07:19 Labs: Abnormal Lab Results - Last 24 Hours (Table) 02/03/17 02/05/17 02/05/17 Range/Units 22:25 17:22 20:27 RBC (4.30-5.90) m/uL Hgb (13.0-17.5) gm/dL Hct (39.0-53.0) % MCHC (31.0-37.0) g/dL RDW (11.5-15.5) % POC Glucose (mg/dL) 208 H 233 H (75-99) mg/dL RBC Folate 1,890 H (280 - 791) ng/mL Crossmatch 02/05/17 02/06/17 02/06/17 Range/Units 21:57 07:05 07:17 RBC 3.15 L 2.58 L (4.30-5.90) m/uL Hgb 8.4 L 7.0 L* (13.0-17.5) gm/dL Hct 29.6 L 24.3 L (39.0-53.0) % MCHC 28.4 L 28.9 L (31.0-37.0) g/dL RDW 18.6 H 17.8 H (11.5-15.5) % POC Glucose (mg/dL) 172 H (75-99) mg/dL RBC Folate (280 - 791) ng/mL Crossmatch 02/06/17 Range/Units 08:31 RBC (4.30-5.90) m/uL Hgb (13.0-17.5) gm/dL Hct (39.0-53.0) % MCHC (31.0-37.0) g/dL RDW (11.5-15.5) % POC Glucose (mg/dL) (75-99) mg/dL RBC Folate (280 - 791) ng/mL Crossmatch See Detail Assessment and Plan (1) Symptomatic anemia Narrative/Plan: Iron deficiecny anemia Reports of prior EGD showing gastritis and esophagitis Capsule endoscopy results pending and hopefully will have the results today, hemoglobin dropped to 7 g we'll continue to monitor. 125 mg of IV venafur Continue with PPI therapy, continue to monitor hemoglobin Anticoagulation for A. fib held Status: Acute (2) Guaiac positive stools Status: Acute (3) GERD with esophagitis Status: Acute (4) Afib Status: Chronic
[2017-02-06 12:00] LABS: Glucose,Whole Blood 157 mg/dL (75-99)
[2017-02-06 17:10] LABS: Glucose,Whole Blood 243 mg/dL (75-99)
[2017-02-06 20:11] LABS: Glucose,Whole Blood 202 mg/dL (75-99)
[2017-02-07] MEDS: LEVOTHYROXINE 100 MCG TAB PO SCH (06:05)
[2017-02-07 07:49] LABS: Glucose,Whole Blood 149 mg/dL (75-99)
[2017-02-07] MEDS: INSULIN LISPRO (humaLOG) 300 UNIT/3 ML VIAL SQ SCH ×2 (08:04→11:32)
[2017-02-07] MEDS: PANTOPRAZOLE 40 MG TABLET PO SCH (08:04)
[2017-02-07] MEDS: ATORVASTATIN 10 MG TAB PO SCH (08:04)
[2017-02-07] MEDS: TAMSULOSIN 0.4 MG CAP.ER.24H PO SCH (08:04)
[2017-02-07] MEDS: levETIRAcetam 500 MG TAB PO SCH (08:04)
[2017-02-07] MEDS: SOTALOL 80 MG TAB PO SCH (08:06)
[2017-02-07 08:46] LABS: Anisocytosis Slight; Basophils % (A) 0 %; CH 26.9; CHCM 30.5; Eosinophils # (A) 0.1 k/uL (0-0.7); Eosinophils % (A) 1 %; HCT 23.8 % (39.0-53.0); HDW 3.72; HGB 7.2 gm/dL (13.0-17.5); Hypochromasia Marked; Luc # (Auto) 0.19; Luc % (Auto) 3; Lymphocytes # (A) 0.6 k/uL (1.0-4.8); Lymphocytes % (A) 8 %; MCHC 30.2 g/dL (31.0-37.0); MCV 89.3 fL (80.0-100.0); Mean Platelet Volume 9.6; Monocytes # (A) 0.9 k/uL (0-1.0); Monocytes % (A) 12 %; Neutrophils # (A) 5.8 k/uL (1.3-7.7); Neutrophils % (A) 77 %; Poikilocytosis Slight; RBC 2.67 m/uL (4.30-5.90); RDW 18.8 % (11.5-15.5); WBC 7.6 k/uL (3.8-10.6); WBC (Perox) 7.37
[2017-02-07 11:18] LABS: Glucose,Whole Blood 225 mg/dL (75-99)
--- NOTE | 2017-02-07 11:19 | P.PN ---
Subjective Progress Note Date: 02/07/17 Principal diagnosis: gi bleed anemia 76-year-old gentleman admitted with black colored bowel movements anemia with recent unremarkable EGD colonoscopy. Small bowel capsule endoscopy completed results reviewed this morning no evidence of active bleeding or bleeding sources. Denies overt bleeding in the last 48 hours such as hematemesis hematochezia melena. Denies abdominal pain. Afebrile. Hemoglobin this morning is 7.2 relatively unchanged from yesterday 7.0. Iron indices reviewed; iron deficiency with low iron and ferritin. Received IV iron yesterday. Cardiology consulted for anticoagulation recommendations; presently on hold Objective - Vital Signs Vital signs: Vital Signs Temp 97.4 F L 02/07/17 07:00 Pulse 98 02/07/17 07:00 Resp 18 02/07/17 07:00 BP 130/82 02/07/17 07:00 Pulse Ox 94 L 02/07/17 07:00 Intake & Output 02/06/17 02/07/17 02/07/17 18:59 06:59 18:59 Intake Total 590 Balance 590 Intake: Oral 590 Other: Voiding Method Toilet Toilet # Voids 1 2 - Exam General appearance: The patient is alert, oriented, in no acute distress. HET: Head is normocephalic and atraumatic. Pupils are equal and reactive. Oropharynx is clear without lesions. Neck: Supple without lymphadenopathy. Trachea midline. Heart: S1 S2. Lungs: No crackles or wheezes are heard. Abdomen: Soft, nontender, nondistended with bowel sounds. No peritoneal signs. No palpable organomegaly or masses. Extremities: Normal skin color and turgor. No cyanosis, rash, ulceration, clubbing, or edema. Radial and pedal pulses are 2/4 bilaterally. Neurological: No focal deficits. Strength and sensation are grossly intact. - Labs CBC & Chem 7: 02/07/17 07:40 02/04/17 07:19 Labs: Abnormal Lab Results - Last 24 Hours (Table) 02/06/17 02/06/17 02/06/17 Range/Units 08:31 11:58 16:56 RBC (4.30-5.90) m/uL Hgb (13.0-17.5) gm/dL Hct (39.0-53.0) % MCHC (31.0-37.0) g/dL RDW (11.5-15.5) % Lymphocytes # (1.0-4.8) k/uL POC Glucose (mg/dL) 157 H 243 H (75-99) mg/dL Crossmatch See Detail 02/06/17 02/07/17 02/07/17 Range/Units 20:10 07:40 07:44 RBC 2.67 L (4.30-5.90) m/uL Hgb 7.2 L (13.0-17.5) gm/dL Hct 23.8 L (39.0-53.0) % MCHC 30.2 L (31.0-37.0) g/dL RDW 18.8 H (11.5-15.5) % Lymphocytes # 0.6 L (1.0-4.8) k/uL POC Glucose (mg/dL) 202 H 149 H (75-99) mg/dL Crossmatch Assessment and Plan (1) Symptomatic anemia Narrative/Plan: obscure GI bleed with Hemoccult positive stools possible small bowel source status post EGD colonoscopy 2 weeks ago with no active bleeding or sources for potential bleeding. Component of acute blood loss anemia. Status post small bowel capsule endoscopy with no evidence of active bleeding or potential sources of bleeding. Status: Acute (2) Guaiac positive stools Status: Acute Plan: 1. From a GI standpoint agreeable for discharge. We'll defer to cardiology for anticoagulation guidance. Return GI office in 1 week for reevaluation. Discharge home with iron supplementation. Repeat CBC in 3-5 days. No further workup. Assessment and plan a care discussed with Dr. Boyce.
--- NOTE | 2017-02-07 13:31 | P.DS ---
Providers Date of admission: 02/03/17 19:26 Expected date of discharge: 02/07/17 Attending physician: Safia Mraquez MD Consults: 02/03/17 21:41 Consult Physician Routine Consulting Provider: Debby Boyce Consult Reason/Comments: possible GI bleeding Do you want consulting provider notified?: Yes Primary care physician: Pernell Brower - Discharge Diagnosis(es) (1) Iron deficiency anemia Current Visit: Yes Status: Acute (2) Guaiac positive stools Current Visit: Yes Status: Acute (3) GERD with esophagitis Current Visit: Yes Status: Acute (4) Afib Current Visit: Yes Status: Chronic Hospital Course: The patient is a 76-year-old male with a history of A. fib on anticoagulation was a relative that presented with an iron deficiency anemia with positive Hemoccults and was admitted for concern of GI bleed, he had previously had a colonoscopy and EGD 2 weeks ago with no source of bleeding at that time, only showed gastritis and esophagitis. GI was consulted and the patient was prepped for a capsule endoscopy, results did not find a source of bleed however the patient's hemoglobin did drop down to as low as 7. He was typed and crossed but she refuses transfusion as he was not symptomatic he denied any headache lightheadedness and presyncope or weakness. Cardiology was also consulted and they recommended that the patient continue to hold his Xarelto until following up with his primary senior graduate advisor. Patient did receive IV iron and was continued on oral iron supplementation at time of discharge. He was discharged home in stable condition and told to follow-up with his PCP in 3-5 days and to follow up with his senior graduate advisor within the week. This discharge process took less than 30 minutes Patient Condition at Discharge: Stable Plan - Discharge Summary New Discharge Prescriptions: Continue Cholecalciferol [Vitamin D3] 3,000 unit PO DAILY metFORMIN HCL [Glucophage] 500 mg PO BID Atorvastatin [Lipitor] 10 mg PO DAILY Potassium Chloride [Klor-Con 20] 20 meq PO TID levETIRAcetam [Keppra] 1,000 mg PO BID Tamsulosin HCl [Flomax] 0.4 mg PO DAILY Glimepiride [Amaryl] 1 mg PO DAILY Sotalol HCl [Betapace] 80 mg PO Q12H Lisinopril [Zestril] 5 mg PO DAILY Omeprazole [PriLOSEC] 20 mg PO DAILY Ferrous Sulfate [Iron (65 MG Elemental)] 650 mg PO DAILY Metolazone [Zaroxolyn] 5 mg PO Q48H Bumetanide [BUMEX] 2 mg PO BID Levothyroxine Sodium [Synthroid] 200 mcg PO DAILY Cranberry Fruit Concentrate [Azo Cranberry] 500 mg PO DAILY Discontinued Rivaroxaban [Xarelto] 15 mg PO HS Discharge Medication List Atorvastatin [Lipitor] 10 mg PO DAILY 03/24/14 [History] Cholecalciferol [Vitamin D3] 3,000 unit PO DAILY 03/24/14 [History] Potassium Chloride [Klor-Con 20] 20 meq PO TID 03/24/14 [History] Tamsulosin HCl [Flomax] 0.4 mg PO DAILY 03/24/14 [History] levETIRAcetam [Keppra] 1,000 mg PO BID 03/24/14 [History] metFORMIN HCL [Glucophage] 500 mg PO BID 03/24/14 [History] Bumetanide [BUMEX] 2 mg PO BID 02/03/17 [History] Cranberry Fruit Concentrate [Azo Cranberry] 500 mg PO DAILY 02/03/17 [History] Ferrous Sulfate [Iron (65 MG Elemental)] 650 mg PO DAILY 02/03/17 [History] Glimepiride [Amaryl] 1 mg PO DAILY 02/03/17 [History] Levothyroxine Sodium [Synthroid] 200 mcg PO DAILY 02/03/17 [History] Lisinopril [Zestril] 5 mg PO DAILY 02/03/17 [History] Metolazone [Zaroxolyn] 5 mg PO Q48H 02/03/17 [History] Omeprazole [PriLOSEC] 20 mg PO DAILY 02/03/17 [History] Sotalol HCl [Betapace] 80 mg PO Q12H 02/03/17 [History] Follow up Appointment(s)/Referral(s): Debby Boyce MD [STAFF PHYSICIAN] - 02/10/17 12:00 pm Pernell Brower MD [Primary Care Provider] - 1-2 days Patient Instructions/Handouts: Gastroesophageal Reflux Disease (DC), Anemia (DC )
[2017-02-07 15:42] VITALS: BP 124/63; PULSE 104; RESP 16; TEMP 97.3
== END 2017-02-07 16:00 | disposition home or self-care (01) | DRG 378 ==
LOC: EC 17:30 → 5MS5E 19:26
PROVIDERS: ADMIT Internal Medicine; ATTEND Internal Medicine
PROC: 0DJ07ZZ Inspection of Upper Intestinal Tract, Via Natural or Artificial Opening (ICD-10-PCS; principal; 2017-02-05 07:00)
DX: K92.2 Gastrointestinal hemorrhage, unspecified (principal); D62 Acute posthemorrhagic anemia; N17.9 Acute kidney failure, unspecified; I49.5 Sick sinus syndrome; I48.2 Chronic atrial fibrillation; F03.90 Unspecified dementia, unspecified severity, without behavioral disturbance, psychotic disturbance, mood disturbance, and anxiety; E11.9 Type 2 diabetes mellitus without complications; G40.909 Epilepsy, unspecified, not intractable, without status epilepticus; I10 Essential (primary) hypertension; E07.9 Disorder of thyroid, unspecified; D50.9 Iron deficiency anemia, unspecified; E78.5 Hyperlipidemia, unspecified; K21.0 Gastro-esophageal reflux disease with esophagitis; N40.0 Benign prostatic hyperplasia without lower urinary tract symptoms; N48.0 Leukoplakia of penis; Z66 Do not resuscitate; Z79.84 Long term (current) use of oral hypoglycemic drugs; Z79.01 Long term (current) use of anticoagulants; Z79.899 Other long term (current) drug therapy; Z88.8 Allergy status to other drugs, medicaments and biological substances; Z95.810 Presence of automatic (implantable) cardiac defibrillator; Z82.49 Family history of ischemic heart disease and other diseases of the circulatory system
CPT/HCPCS: 36415; 80053; 82272; 82607; 82728; 82747; 83540; 83550; 85025; 85027; 85610; 85730; 86850; 86900; 86901; 86920; 91110; 93005; 93306; 99284

== ENCOUNTER → 2017-04-16 | Outpatient (CLI) | payer MEDICARE, BC ==
--- NOTE | 2017-04-16 16:42 | CT ---
EXAMINATION TYPE: High-resolution CT chest DATE OF EXAM: 04/16/2017 COMPARISON: 03/25/2016 HISTORY: 76-year-old male follow-up fibrosis of lungs TECHNIQUE: Contiguous high-resolution axial scanning of the chest without IV contrast. 1 mm slice thi ckness with 1 cm gap was utilized per HRCT protocol. Both prone and supine imaging was performed. CT DLP: 790.6 mGycm Automated exposure control for dose reduction was used. FINDINGS: Left anterior chest wall pacemaker generator with right atrial and right ventricular leads. Heart is mildly enlarged without pericardial effusion. Ascending aorta is ectatic at 3.6 cm. There is conventional arterial vessel branching anatomy. Scattered nonenlarged mediastinal lymph nodes are present, either stable or smaller from 03/17/2016 m easuring up to 8 mm. Subcarinal lymph node is stable to slightly smaller at 1.4 cm. There is a trace left effusion and some mild to moderate peribronchial cuffing throughout. Chronic pl eural-parenchymal thickening along the lingula extending to the hilum with strandy density is unchang ed suggesting scarring. No cystic change or honeycombing. No significant thickening of the bronchovascular bundles. Mild bibasilar bronchiectasis is noted with some minimal interstitial infiltrate at the medial right base, new from prior. No dominant groundglass. A tiny 1.1 cm patch of groundglass is seen within the right upper lobe. HRCT technique limits assessment for pulmonary nodule. Mild bilateral gynecomastia. Visualized upper abdomen shows scattered moderate stool. Bones: Endplate spondylosis throughout. IMPRESSION: 1. CARDIOMEGALY AND TRACE LEFT EFFUSION. 2. CHRONIC PLEURAL-PARENCHYMAL SCARRING AT THE INFERIOR LINGULA. 3. STABLE PERIBRONCHIAL CUFFING, CORRELATE FOR BRONCHITIS OR CHRONIC ASTHMA. THERE IS MILD BIBASILAR BRONCHIECTASIS THAT COULD BE IDIOPATHIC OR ON A CHRONIC POSTINFLAMMATORY BASIS. NO DOMINANT FINDINGS OF UIP OR NSIP. 4. SOME INCREASED CENTRAL RIGHT LOWER LOBE INTERSTITIAL OPACITY. CORRELATE FOR ANY INFECTIOUS SIGNS/S YMPTOMS TO EXCLUDE ATYPICAL PNEUMONIAS. 5. A 1.1 CM AREA OF GROUNDGLASS IN THE RIGHT UPPER LOBE SUGGESTS A NONSPECIFIC SMALL INFECTIOUS/INFLA MMATORY FOCUS.
== END | disposition home or self-care (01) ==
LOC: RADCTMAIN 16:00
PROVIDERS: ATTEND Internal Medicine Critical Care Medicine
DX: I51.7 Cardiomegaly (principal); J98.4 Other disorders of lung; J47.9 Bronchiectasis, uncomplicated; R91.8 Other nonspecific abnormal finding of lung field
CPT/HCPCS: 71250

== ENCOUNTER 2018-08-03 22:16 | Inpatient (IN) | payer MEDICARE ==
[2018-08-03 22:55] LABS: Basophils % (A) 0 %; Eosinophils # (A) 0.1 k/uL (0-0.7); Eosinophils % (A) 1 %; HCT 25.3 % (39.0-53.0); HGB 8.1 gm/dL (13.0-17.5); Hypochromasia Slight; Lymphocytes # (A) 0.3 k/uL (1.0-4.8); Lymphocytes % (A) 2 %; MCH 26.8 pg (25.0-35.0); MCHC 32.2 g/dL (31.0-37.0); MCV 83.4 fL (80.0-100.0); Mean Platelet Volume 7.6; Monocytes # (A) 0.9 k/uL (0-1.0); Monocytes % (A) 6 %; Neutrophils # (A) 14.9 k/uL (1.3-7.7); Neutrophils % (A) 92 %; Platelet Count 208 k/uL (150-450); RBC 3.03 m/uL (4.30-5.90); RDW 15.6 % (11.5-15.5); WBC 16.2 k/uL (3.8-10.6)
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
[2018-08-03 23:06] LABS: Ammonia <9 umol/L (<30)
[2018-08-03 23:07] LABS: Albumin 3.5 g/dL (3.5-5.0); Calcium 8.8 mg/dL (8.4-10.2); Magnesium 1.6 mg/dL (1.6-2.3); Total Bilirubin 1.1 mg/dL (0.2-1.3); Total Protein 7.3 g/dL (6.3-8.2)
[2018-08-03 23:18] LABS: Potassium 4.1 mmol/L (3.5-5.1)
[2018-08-03 23:20] LABS: Lactic Acid, Venous 2.6 mmol/L (0.7-2.0)
--- NOTE | 2018-08-04 00:15 | XR ---
EXAM: XR Chest, 2 Views CLINICAL HISTORY: Pain TECHNIQUE: Frontal and lateral views of the chest. COMPARISON: No relevant prior studies available. FINDINGS: Lungs: Subtle diffuse airspace opacities which may represent pulmonary vascular congestion versus an inflammatory or infectious process. Stable scarring within the mid left lung. Pleural space: Unremarkable. No pneumothorax. Heart: Unremarkable. No cardiomegaly. Mediastinum: Unremarkable. Bones/joints: Unremarkable. Tubes, lines and devices: Heart is enlarged with dual-chamber cardiac pacemaker. IMPRESSION: Subtle diffuse airspace opacities which may represent pulmonary vascular congestion versus an inflammatory or infectious process.
[2018-08-04 00:19] LABS: VBG PH 7.57 (7.31-7.41)
[2018-08-04] MEDS ORDERED: cefTRIAXone IN SWFI 1,000 MG/10 ML SYRINGE IVP STA (00:28)
--- NOTE | 2018-08-04 00:46 | CT ---
EXAM: CT Head Without Intravenous Contrast CLINICAL HISTORY: Pain TECHNIQUE: Axial computed tomography images of the head/brain without intravenous contrast. CTDI is 0.085, 0.085, 49.1 mGy and DLP is 1193.4 mGy-cm. This CT exam was performed using one or more of the following dose reduction techniques: automated exposure control, adjustment of the mA and/or kV according to patient size, and/or use of iterative reconstruction technique. COMPARISON: CT head dated 03/24/2014 FINDINGS: Brain: No acute infarct, hemorrhage, mass or edema. Chronic small vessel ischemic disease and senescent changes. Patchy areas of encephalomalacia within both cerebral hemispheres in the left cerebellum. Ventricles: Unremarkable. No ventriculomegaly. Bones/joints: Unremarkable. No acute fracture. Soft tissues: Unremarkable. Sinuses: Minimal mucosal thickening in the paranasal sinuses. Mastoid air cells: Unremarkable as visualized. No mastoid effusion. IMPRESSION: No acute findings.
[2018-08-04] MEDS ORDERED: ONDANSETRON 4 MG/2 ML VIAL IVP PRN (01:10)
[2018-08-04] MEDS ORDERED: NALOXONE 0.4 MG/ML 1 ML VIAL IV PRN (01:10)
[2018-08-04] MEDS ORDERED: ACETAMINOPHEN TAB 325 MG TAB PO PRN (01:10)
[2018-08-04] MEDS ORDERED: VANCOMYCIN 1,000 MG in SODIUM CHLORIDE 0.9% 250 ML IVPB STA (01:13)
[2018-08-04] MEDS ORDERED: VANCOMYCIN 1,500 MG in SODIUM CHLORIDE 0.9% 250 ML IVPB STA (01:15)
[2018-08-04 01:30] LABS: Appearance,Urine Turbid (Clear); Bacteria,Urine Many /hpf; Bilirubin,Urine Negative (Negative); Blood,Urine Moderate (Negative); Color,Urine Yellow; Glucose,Urine (UA) Negative (Negative); Hyaline Casts,Urine 84 /lpf (0-2); Ketones,Urine Negative (Negative); Leukocyte Esterase,Urine Large (Negative); Mucus,Urine Moderate /hpf; Nitrite,Urine Negative (Negative); PH, Urine 5.5 (5.0-8.0); Protein,Urine 2+ (Negative); RBC,Urine 146 /hpf (0-5); Squamous Epithelial Cell,Urine 47 /hpf (0-4); WBC,Urine >182 /hpf (0-5)
[2018-08-04 01:34] LABS: Amphetamine Screen,Urine Not Detected (NotDetected); Barbiturate Screen,Urine Not Detected (NotDetected); Benzodiazepines Screen,Urine Not Detected (NotDetected); Cocaine Screen,Urine Not Detected (NotDetected); Methadone Screen, Urine Not Detected (NotDetected); Opiate Screen,Urine Not Detected (NotDetected); Oxycodone Screen, Urine Not Detected (NotDetected); Phencyclidine Screen,Urine Not Detected (NotDetected); Tricyclic Antidepressant,Urine Not Detected (NotDetected); Urn Cannabinoid Scrn Not Detected (NotDetected)
[2018-08-04 02:16] LABS: Specific Gravity,Urine 1.016 (1.001-1.035)
[2018-08-04 12:06] LABS: Glucose,Whole Blood 156 mg/dL (75-99)
[2018-08-04] MEDS: PANTOPRAZOLE 40 MG/10 ML VIAL IV SCH (14:17)
[2018-08-04] MEDS: BUMETANIDE 1 MG TAB PO SCH (14:17)
[2018-08-04] MEDS: SILDENAFIL 20 MG TAB PO SCH ×2 (14:18→20:53)
[2018-08-04] MEDS ORDERED: DILTIAZEM CD 180 MG CAP.ER.24H PO SCH (16:15)
[2018-08-04 16:28] LABS: Glucose,Whole Blood 148 mg/dL (75-99)
[2018-08-04] MEDS ORDERED: DILTIAZEM CD 180 MG CAP.ER.24H PO STA (16:40)
[2018-08-04] MEDS: VANCOMYCIN 1,500 MG in SODIUM CHLORIDE 0.9% 250 ML IVPB SCH (17:17)
--- NOTE | 2018-08-04 17:34 | P.CRDCN ---
History of Present Illness History of present illness: This is Dr. Hernandez dictating a consult on this patient The patient was interviewed and examined by me IMPRESSION / ASSESSMENT: Atrial fibrillation with RVR Dementia Elevated white count febrile possible UTI cough bilateral infiltrates in the lungs Patient admitted for sepsis Troponin sent in the ER and it is mildly abnormal PLAN: HPI Patient brought in by EMS for generalized weakness, febrile, altered mental status He has a history of dementia ROS: No fever chills or rigors, no cough, phlegm or expectoration, no nausea, vomiting or diarrhea, no hematuria, dysuria, no musculoskeletal complaints, no strokes or seizures, no skin lesions. EXAMINATION: Blood pressure 90/60 and 120 607 7 mmHg Heart rate 190 beats minute afebrile REVIEW OF LABS, ECG & MEDICAL DATA Twelve-lead ECG shows atrial fibrillation with RVR and occasional PVCs The patient is on ELIQUIS 0.5 mg twice daily Bumex 2 mg by mouth twice a day Diltiazem 180 mg by mouth daily Chest x-ray shows diffuse air space disease White count 16,000 hemoglobin 8.1 Sodium 138 potassium 4.1 BUN 26 creatinine 0.95 lactic acid 2.6 Troponin 0.13 Past Medical History Past Medical History: Atrial Fibrillation, CVA/TIA, Dementia, Diabetes Mellitus, GERD/Reflux, GI Bleed, Prostate Disorder, Seizure Disorder, Thyroid Disorder Additional Past Medical History / Comment(s): NIDDM type II-diet controlled, 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 History of Any Multi-Drug Resistant Organisms: None Reported Past Surgical History: AICD, Pacemaker Additional Past Surgical History / Comment(s): EGD, colonoscipy, capsule en doscopy. Past Anesthesia/Blood Transfusion Reactions: No Reported Reaction Type of Cardiac Device: Permanent Pacemaker, AICD Device Placement Date:: 2011 Smoking Status: Never smoker - Past Family History Father Family Medical History: Myocardial Infarction ([place]) Mother Family Medical History: Myocardial Infarction (CT) Brother(s) Additional Family Medical History / Comment(s): from [place]. It was all through his body. Unknown as to what kind Medications and Allergies Home Medications Medication Instructions Recorded Confirmed Type Atorvastatin [Lipitor] 10 mg PO HS@199903/24/14 08/04/18 History Potassium Chloride [Klor-Con 20] 20 meq PO BID@06,199903/24/14 08/04/18 History Tamsulosin HCl [Flomax] 0.4 mg PO DAILY@0600 03/24/14 08/04/18 History levETIRAcetam [Keppra] 1,000 mg PO BID@06,199903/24/14 08/04/18 History metFORMIN HCL [Glucophage] 500 mg PO BID@0600,199903/24/14 08/04/18 History Bumetanide [BUMEX] 2 mg PO BID@0600,1200 02/03/17 08/04/18 History Cranberry Fruit Concentrate [Azo 500 mg PO DAILY@0600 02/03/17 08/04/18 History Cranberry] Ferrous Sulfate [Iron (65 MG 325 mg PO BID@0600,199902/03/17 08/04/18 History Elemental)] Omeprazole [PriLOSEC] 20 mg PO DAILY@0600 02/03/17 08/04/18 History Apixaban [Eliquis] 2.5 mg PO BID@0600,199908/04/18 08/04/18 History Cholecalciferol (Vitamin D3) 6,000 unit PO DAILY@0600 08/04/18 08/04/18 History [Vitamin D3] Diltiazem Cd [Cardizem Cd] 180 mg PO DAILY@0600 08/04/18 08/04/18 History Levothyroxine Sodium [Synthroid] 175 mcg PO DAILY@0600 08/04/18 08/04/18 History Sildenafil [Revatio] 10 mg PO TID@0600,1200,199908/04/18 08/04/18 History Allergies Allergy/AdvReac Type Severity Reaction Status Date / Time amiodarone Allergy Unknown Verified 08/04/18 06:47 amitriptyline Allergy Unknown Verified 08/04/18 06:47 simvastatin [From Zocor] Allergy Unknown Verified 08/04/18 06:47 Physical Exam Vitals: Vital Signs Temp Pulse Pulse Resp BP BP BP 08/04/18 15:30 98.4 F 119 H 18 121/72 08/04/18 14:58 100 08/04/18 14:45 98.1 F 148 H 20 126/77 08/04/18 13:25 97.9 F 137 H 20 119/60 08/04/18 12:05 98.8 F 99 18 108/75 08/04/18 09:45 98.6 F 98 18 96/72 08/04/18 07:39 118 H 16 08/04/18 07:04 97.8 F 58 L 16 139/93 08/04/18 06:10 125/92 08/04/18 06:00 115/50 08/04/18 05:50 115/50 08/04/18 05:20 119/53 08/04/18 04:50 136/64 08/04/18 04:40 114/66 08/04/18 04:10 127/77 08/04/18 03:40 123/63 08/04/18 03:10 135/71 08/04/18 02:50 125/75 08/04/18 02:40 121/82 08/04/18 02:20 140/70 08/04/18 02:10 132/63 08/04/18 02:00 129/58 08/04/18 01:50 110 H 129/58 08/04/18 01:40 133/69 08/04/18 01:20 128/56 08/04/18 01:10 124/59 08/04/18 01:05 98.3 F 08/04/18 00:50 128/58 08/04/18 00:40 120/62 08/04/18 00:20 139/41 08/04/18 00:00 133/59 08/03/18 23:50 133/59 08/03/18 23:40 130/57 08/03/18 23:20 124/61 08/03/18 23:10 128/71 08/03/18 22:50 132/58 08/03/18 22:40 131/60 08/03/18 22:30 135/54 08/03/18 22:29 100.1 F H 123 H 16 131/60 08/03/18 22:28 Pulse Ox 08/04/18 15:30 08/04/18 14:58 08/04/18 14:45 100 08/04/18 13:25 98 08/04/18 12:05 98 08/04/18 09:45 98 08/04/18 07:39 97 08/04/18 07:04 99 08/04/18 06:10 96 08/04/18 06:00 96 08/04/18 05:50 97 08/04/18 05:20 96 08/04/18 04:50 95 08/04/18 04:40 98 08/04/18 04:10 87 L 08/04/18 03:40 95 08/04/18 03:10 81 L 08/04/18 02:50 95 08/04/18 02:40 95 08/04/18 02:20 91 L 08/04/18 02:10 84 L 08/04/18 02:00 93 L 08/04/18 01:50 97 08/04/18 01:40 97 08/04/18 01:20 97 08/04/18 01:10 97 08/04/18 01:05 08/04/18 00:50 97 08/04/18 00:40 97 08/04/18 00:20 96 08/04/18 00:00 08/03/18 23:50 92 L 08/03/18 23:40 94 L 08/03/18 23:20 92 L 08/03/18 23:10 89 L 08/03/18 22:50 91 L 08/03/18 22:40 91 L 08/03/18 22:30 89 L 08/03/18 22:29 92 L 08/03/18 22:28 92 L Intake and Output 08/04/18 08/04/18 08/04/18 06:59 14:59 22:59 Intake Total 50 Output Total 100 Balance -50 Intake: IV 50 cefTRIAXone 1 gm In 50 Sodium Chloride 0.9% 50 ml @ 100 mls/hr IVPB Q24HR [facility] Rx#:[id number] Output: Urine 100 Other: Voiding Method Urinal # Voids 1 # Bowel Movements 1 Results 08/03/18 20:44 08/03/18 20:44 Cardiac Enzymes 08/03/18 08/03/18 Range/Units 20:44 20:44 AST 69 H (17-59) U/L Troponin I 0.130 H* (0.000-0.034) ng/mL CBC 08/03/18 Range/Units 20:44 WBC 16.2 H (3.8-10.6) k/uL RBC 3.03 L (4.30-5.90) m/uL Hgb 8.1 L (13.0-17.5) gm/dL Hct 25.3 L (39.0-53.0) % Plt Count 208 (150-450) k/uL Comprehensive Metabolic Panel 08/03/18 Range/Units 20:44 Sodium 138 (137-145) mmol/L Potassium 4.1 (3.5-5.1) mmol/L Chloride 100 (98-107) mmol/L Carbon Dioxide 26 (22-30) mmol/L BUN 26 H (9-20) mg/dL Creatinine 0.95 (0.66-1.25) mg/dL Glucose 201 H (74-99) mg/dL Calcium 8.8 (8.4-10.2) mg/dL AST 69 H (17-59) U/L ALT 25 (21-72) U/L Alkaline Phosphatase 118 (38-126) U/L Total Protein 7.3 (6.3-8.2) g/dL Albumin 3.5 (3.5-5.0) g/dL Current Medications Generic Name Dose Route Start Last Admin Trade Name Freq PRN Reason Stop Dose Admin Acetaminophen 650 mg 08/04/18 01:10 Tylenol Tab PO Q6HR PRN Mild Pain or Fever > 100.5 Apixaban 2.5 mg 08/04/18 20:00 Eliquis PO BID@0600,2000 [facility] Atorvastatin Calcium 10 mg 08/04/18 20:00 Lipitor PO HS@1999 [facility] Bumetanide 2 mg 08/04/18 12:00 08/04/18 14:17 Bumex PO 2 mg BID@0600,1200 [facility] Administration Cholecalciferol 6,000 unit 08/05/18 06:00 Vitamin D3 PO DAILY@0600 [facility] Diltiazem HCl 180 mg 08/05/18 06:00 Cardizem Cd PO DAILY [facility] Ferrous Sulfate 325 mg 08/04/18 20:00 Feosol PO BID@0600,2000 [facility] Vancomycin HCl 1,500 mg/ 250 mls @ 125 mls/hr 08/04/18 18:00 08/04/18 17:17 Sodium Chloride IVPB 125 mls/hr Q16H [facility] Administration Ceftriaxone Sodium 1 gm/ 50 mls @ 100 mls/hr 08/04/18 12:00 08/04/18 14:18 Sodium Chloride IVPB 100 mls/hr Q24HR [facility] Administration Levetiracetam 1,000 mg 08/04/18 20:00 Keppra PO BID@06,1999 [facility] Levothyroxine Sodium 176 mcg 08/05/18 06:00 Synthroid PO DAILY@0600 [facility] Metformin HCl 500 mg 08/04/18 20:00 Glucophage PO BID@0600,1999 [facility] Naloxone HCl 0.2 mg 08/04/18 01:10 Narcan IV Q2M PRN Opioid Reversal Ondansetron HCl 4 mg 08/04/18 01:10 Zofran IVP Q8HR PRN Nausea And Vomiting Pantoprazole Sodium 40 mg 08/04/18 09:00 08/04/18 14:17 Protonix IV 40 mg DAILY [facility] Administration Potassium Chloride 20 meq 08/04/18 20:00 K-Dur 20 PO BID@0600,1999 [facility] Sildenafil Citrate 10 mg 08/04/18 12:00 08/04/18 14:18 Revatio PO 10 mg TID@0600,1200,1999 [facility] Administration Tamsulosin HCl 0.4 mg 08/05/18 06:00 Flomax PO DAILY@0600 [facility] Intake and Output 08/04/18 08/04/18 08/04/18 06:59 14:59 22:59 Intake Total 50 Output Total 100 Balance -50 Intake: IV 50 cefTRIAXone 1 gm In 50 Sodium Chloride 0.9% 50 ml @ 100 mls/hr IVPB Q24HR [facility] Rx#:[id number] Output: Urine 100 Other: Voiding Method Urinal # Voids 1 # Bowel Movements 1 08/03/18 20:44 08/03/18 20:44
--- NOTE | 2018-08-04 19:18 | ECHOF ---
Referral Reason:high [facility] MEASUREMENTS -------- HEIGHT: 167.6 cm WEIGHT: 78.9 kg BP: 108/75 RVIDd: 3.1 cm (< 3.3) IVSd: 1.3 cm (0.6 - 1.1) LVIDd: 4.1 cm (3.9 - 5.3) LVPWd: 1.2 cm (0.6 - 1.1) IVSs: 1.6 cm LVIDs: 3.1 cm LVPWs: 1.2 cm LA Diam: 4.3 cm (2.7 - 3.8) LAESV Index (A-L): 39.69 ml/m Ao Diam: 3.2 cm (2.0 - 3.7) AV Cusp: 1.6 cm (1.5 - 2.6) MV EXCURSION: 22.907 mm (> 18.000) MV EF SLOPE: 168 mm/s (70 - 150) EPSS: 0.4 cm AV maxP.26 mmHg AV meanP.03 mmHg RAP: 15.00 mmHg RVSP: 74.76 mmHg FINDINGS -------- Atrial fibrillation. AICD This was a technically difficult study with suboptimal apical views. The left ventricular size is normal. There is mild concentric left ventricular hypertrophy. Overa ll left ventricular systolic function is low-normal with, an EF between 50 - 55 %. The right ventricle is normal in size. LA is moderately dilated 34-39 ml/m2 The right atrium is normal in size. 3 ml of Lumason was utilized for enhancement of images. There is mild aortic valve sclerosis. There is mild aortic stenosis present. Mild mitral annular calcification present. Mild tricuspid regurgitation present. There is severe pulmonary hypertension. The right ventricul ar systolic pressure, as measured by Doppler, is 74.76mmHg. Trace/mild (physiologic) pulmonic regurgitation. The aortic root size is normal. The inferior vena cava is dilated with no significant inspiratory collapse which is consistent estima george right atrial pressure of >15 mmHg. There is no pericardial effusion. CONCLUSIONS -------- 1. Atrial fibrillation. 2. AICD 3. This was a technically difficult study with suboptimal apical views. 4. The left ventricular size is normal. 5. There is mild concentric left ventricular hypertrophy. 6. The right ventricle is normal in size. 7. LA is moderately dilated 34-39 ml/m2 8. The right atrium is normal in size. 9. 3 ml of Lumason was utilized for enhancement of images. 10. There is mild aortic valve sclerosis. 11. There is mild aortic stenosis present. 12. Mild mitral annular calcification present. 13. Mild tricuspid regurgitation present. 14. There is severe pulmonary hypertension. 15. The right ventricular systolic pressure, as measured by Doppler, is 74.76mmHg. 16. Trace/mild (physiologic) pulmonic regurgitation. 17. The aortic root size is normal. 18. The inferior vena cava is dilated with no significant inspiratory collapse which is consistent es timated right atrial pressure of >15 mmHg. 19. There is no pericardial effusion. CONTINUOUS MINING MACHINE LODE MINER: Malissa Lucas RDCS
--- NOTE | 2018-08-04 19:27 | P.CRDCN ---
History of Present Illness History of present illness: This is Dr. Hernandez dictating a consult on this patient The patient was interviewed and examined by me IMPRESSION / ASSESSMENT: Atrial fibrillation with RVR Dementia, patient is a poor historian but he states his heart was racing Elevated white count febrile possible UTI cough bilateral infiltrates in the lungs Patient admitted for sepsis Troponin sent in the ER and it is mildly abnormal PLAN: Rate control and anticoagulation for atrial fibrillation Maximize calcium channel blockers Check TSH HPI Patient brought in by EMS for generalized weakness, febrile, altered mental status He has a history of dementia ROS: No fever chills or rigors, no cough, phlegm or expectoration, no nausea, vomiting or diarrhea, no hematuria, dysuria, no musculoskeletal complaints, no strokes or seizures, no skin lesions. EXAMINATION: Blood pressure 90/60 and 120 607 7 mmHg Heart rate 190 beats minute afebrile REVIEW OF LABS, ECG & MEDICAL DATA Twelve-lead ECG shows atrial fibrillation with RVR and occasional PVCs The patient is on ELIQUIS 0.5 mg twice daily Bumex 2 mg by mouth twice a day Diltiazem 180 mg by mouth daily Chest x-ray shows diffuse air space disease White count 16,000 hemoglobin 8.1 Sodium 138 potassium 4.1 BUN 26 creatinine 0.95 lactic acid 2.6 Troponin 0.13 Past Medical History Past Medical History: Atrial Fibrillation, CVA/TIA, Dementia, Diabetes Mellitus, GERD/Reflux, GI Bleed, Prostate Disorder, Seizure Disorder, Thyroid Disorder Additional Past Medical History / Comment(s): NIDDM type II-diet controlled, 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 History of Any Multi-Drug Resistant Organisms: None Reported Past Surgical History: AICD, Pacemaker Additional Past Surgical History / Comment(s): EGD, colonoscipy, capsule endoscopy. Past Anesthesia/Blood Transfusion Reactions: No Reported Reaction Type of Cardiac Device: Permanent Pacemaker, AICD Device Placement Date:: 2011 Smoking Status: Never smoker - Past Family History Father Family Medical History: Myocardial Infarction (AL) Mother Family Medical History: Myocardial Infarction ([place]) Brother(s) Additional Family Medical History / Comment(s): from [place]. It was all through his body. Unknown as to what kind Medications and Allergies Home Medications Medication Instructions Recorded Confirmed Type Atorvastatin [Lipitor] 10 mg PO HS@199903/24/14 08/04/18 History Potassium Chloride [Klor-Con 20] 20 meq PO BID@0600,199903/24/14 08/04/18 History Tamsulosin HCl [Flomax] 0.4 mg PO DAILY@0600 03/24/14 08/04/18 History levETIRAcetam [Keppra] 1,000 mg PO BID@0600,199903/24/14 08/04/18 History metFORMIN HCL [Glucophage] 500 mg PO BID@0600,199903/24/14 08/04/18 History Bumetanide [BUMEX] 2 mg PO BID@0600,1200 02/03/17 08/04/18 History Cranberry Fruit Concentrate [Azo 500 mg PO DAILY@0600 02/03/17 08/04/18 History Cranberry] Ferrous Sulfate [Iron (65 MG 325 mg PO BID@06,199902/03/17 08/04/18 History Elemental)] Omeprazole [PriLOSEC] 20 mg PO DAILY@0600 02/03/17 08/04/18 History Apixaban [Eliquis] 2.5 mg PO BID@0600,199908/04/18 08/04/18 History Cholecalciferol (Vitamin D3) 6,000 unit PO DAILY@0600 08/04/18 08/04/18 History [Vitamin D3] Diltiazem Cd [Cardizem Cd] 180 mg PO DAILY@0600 08/04/18 08/04/18 History Levothyroxine Sodium [Synthroid] 175 mcg PO DAILY@0600 08/04/18 08/04/18 History Sildenafil [Revatio] 10 mg PO TID@0600,1199,199908/04/18 08/04/18 History Allergies Allergy/AdvReac Type Severity Reaction Status Date / Time amiodarone Allergy Unknown Verified 08/04/18 06:47 amitriptyline Allergy Unknown Verified 08/04/18 06:47 simvastatin [From Zocor] Allergy Unknown Verified 08/04/18 06:47 Physical Exam Vitals: Vital Signs Temp Pulse Pulse Resp BP BP BP 04/09/19 16:00 18 08/04/18 15:30 98.4 F 119 H 18 121/72 08/04/18 14:58 100 08/04/18 14:45 98.1 F 148 H 20 126/77 08/04/18 13:25 97.9 F 137 H 18 119/60 08/04/18 12:05 98.8 F 99 18 108/75 08/04/18 09:45 98.6 F 98 18 96/72 08/04/18 07:39 118 H 16 08/04/18 07:04 97.8 F 58 L 16 139/93 08/04/18 06:10 125/92 08/04/18 06:00 115/50 08/04/18 05:50 115/50 08/04/18 05:20 119/53 08/04/18 04:50 136/64 08/04/18 04:40 114/66 08/04/18 04:10 127/77 08/04/18 03:40 123/63 08/04/18 03:10 135/71 08/04/18 02:50 125/75 08/04/18 02:40 121/82 08/04/18 02:20 140/70 08/04/18 02:10 132/63 08/04/18 02:00 129/58 08/04/18 01:50 110 H 129/58 08/04/18 01:40 133/69 08/04/18 01:20 128/56 08/04/18 01:10 124/59 08/04/18 01:05 98.3 F 08/04/18 00:50 128/58 08/04/18 00:40 120/62 08/04/18 00:20 139/41 08/04/18 00:00 133/59 08/03/18 23:50 133/59 08/03/18 23:40 130/57 08/03/18 23:20 124/61 08/03/18 23:10 128/71 08/03/18 22:50 132/58 08/03/18 22:40 131/60 08/03/18 22:30 135/54 08/03/18 22:29 100.1 F H 123 H 16 131/60 08/03/18 22:28 Pulse Ox 08/04/18 16:00 08/04/18 15:30 08/04/18 14:58 08/04/18 14:45 100 08/04/18 13:25 98 08/04/18 12:05 98 08/04/18 09:45 98 08/04/18 07:39 97 08/04/18 07:04 99 08/04/18 06:10 96 08/04/18 06:00 96 08/04/18 05:50 97 08/04/18 05:20 96 08/04/18 04:50 95 08/04/18 04:40 98 08/04/18 04:10 87 L 08/04/18 03:40 95 08/04/18 03:10 81 L 08/04/18 02:50 95 08/04/18 02:40 95 08/04/18 02:20 91 L 08/04/18 02:10 84 L 08/04/18 02:00 93 L 08/04/18 01:50 97 08/04/18 01:40 97 08/04/18 01:20 97 08/04/18 01:10 97 08/04/18 01:05 08/04/18 00:50 97 08/04/18 00:40 97 08/04/18 00:20 96 08/04/18 00:00 08/03/18 23:50 92 L 08/03/18 23:40 94 L 08/03/18 23:20 92 L 08/03/18 23:10 89 L 08/03/18 22:50 91 L 08/03/18 22:40 91 L 08/03/18 22:30 89 L 08/03/18 22:29 92 L 08/03/18 22:28 92 L Intake and Output 08/04/18 08/04/18 08/04/18 06:59 14:59 22:59 Intake Total 410 Output Total 100 Balance 310 Intake: IV 50 cefTRIAXone 1 gm In 50 Sodium Chloride 0.9% 50 ml @ 100 mls/hr IVPB Q24HR [facility] Rx#:[id number] Oral 360 Output: Urine 100 Other: Voiding Method Urinal Urinal # Voids 1 # Bowel Movements 1 Results 08/03/18 20:44 08/03/18 20:44 Cardiac Enzymes 08/03/18 08/03/18 Range/Units 20:44 20:44 AST 69 H (17-59) U/L Troponin I 0.130 H* (0.000-0.034) ng/mL CBC 08/03/18 Range/Units 20:44 WBC 16.2 H (3.8-10.6) k/uL RBC 3.03 L (4.30-5.90) m/uL Hgb 8.1 L (13.0-17.5) gm/dL Hct 25.3 L (39.0-53.0) % Plt Count 208 (150-450) k/uL Comprehensive Metabolic Panel 08/03/18 Range/Units 20:44 Sodium 138 (137-145) mmol/L Potassium 4.1 (3.5-5.1) mmol/L Chloride 100 (98-107) mmol/L Carbon Dioxide 26 (22-30) mmol/L BUN 26 H (9-20) mg/dL Creatinine 0.95 (0.66-1.25) mg/dL Glucose 201 H (74-99) mg/dL Calcium 8.8 (8.4-10.2) mg/dL AST 69 H (17-59) U/L ALT 25 (21-72) U/L Alkaline Phosphatase 118 (38-126) U/L Total Protein 7.3 (6.3-8.2) g/dL Albumin 3.5 (3.5-5.0) g/dL Current Medications Generic Name Dose Route Start Last Admin Trade Name Freq PRN Reason Stop Dose Admin Acetaminophen 650 mg 08/04/18 01:10 Tylenol Tab PO Q6HR PRN Mild Pain or Fever > 100.5 Apixaban 2.5 mg 08/04/18 20:00 Eliquis PO BID@0600,1999 [facility] Atorvastatin Calcium 10 mg 08/04/18 20:00 Lipitor PO HS@1999 [facility] Bumetanide 2 mg 08/04/18 12:00 08/04/18 14:17 Bumex PO 2 mg BID@0600,1200 [facility] Administration Cholecalciferol 6,000 unit 08/05/18 06:00 Vitamin D3 PO DAILY@0600 [facility] Diltiazem HCl 180 mg 08/05/18 06:00 Cardizem Cd PO DAILY [facility] Ferrous Sulfate 325 mg 08/04/18 20:00 Feosol PO BID@0600,1999 [facility] Vancomycin HCl 1,500 mg/ 250 mls @ 125 mls/hr 08/04/18 18:00 08/04/18 17:17 Sodium Chloride IVPB 125 mls/hr Q16H [facility] Administration Ceftriaxone Sodium 1 gm/ 50 mls @ 100 mls/hr 08/04/18 12:00 08/04/18 14:18 Sodium Chloride IVPB 100 mls/hr Q24HR [facility] Administration Levetiracetam 1,000 mg 08/04/18 20:00 Keppra PO BID@0600,1999 [facility] Levothyroxine Sodium 176 mcg 08/05/18 06:00 Synthroid PO DAILY@0600 [facility] Metformin HCl 500 mg 08/04/18 20:00 Glucophage PO BID@0600,1999 [facility] Naloxone HCl 0.2 mg 08/04/18 01:10 Narcan IV Q2M PRN Opioid Reversal Ondansetron HCl 4 mg 08/04/18 01:10 Zofran IVP Q8HR PRN Nausea And Vomiting Pantoprazole Sodium 40 mg 08/04/18 09:00 08/04/18 14:17 Protonix IV 40 mg DAILY [facility] Administration Potassium Chloride 20 meq 08/04/18 20:00 K-Dur 20 PO BID@0600,1999 [facility] Sildenafil Citrate 10 mg 08/04/18 12:00 08/04/18 14:18 Revatio PO 10 mg TID@0600,1200,1999 [facility] Administration Tamsulosin HCl 0.4 mg 08/05/18 06:00 Flomax PO DAILY@0600 [facility] Intake and Output 08/04/18 08/04/18 08/04/18 06:59 14:59 22:59 Intake Total 410 Output Total 100 Balance 310 Intake: IV 50 cefTRIAXone 1 gm In 50 Sodium Chloride 0.9% 50 ml @ 100 mls/hr IVPB Q24HR [facility] Rx#:[id number] Oral 360 Output: Urine 100 Other: Voiding Method Urinal Urinal # Voids 1 # Bowel Movements 1 08/03/18 20:44 08/03/18 20:44
[2018-08-04] MEDS: levETIRAcetam 500 MG TAB PO SCH (20:54)
[2018-08-04] MEDS: ATORVASTATIN 10 MG TAB PO SCH (20:55)
[2018-08-04] MEDS: POTASSIUM CHLORIDE ER 20 MEQ TAB.ER PO SCH (20:55)
[2018-08-04] MEDS: APIXABAN 2.5 MG TABLET PO SCH (20:55)
[2018-08-04 20:58] LABS: Glucose,Whole Blood 217 mg/dL (75-99)
[2018-08-04] MEDS: FERROUS SULFATE 325 MG TAB PO SCH (20:58)
[2018-08-04] MEDS: metFORMIN 500 MG TAB PO SCH (21:00)
[2018-08-04 21:21] LABS: Glucose,Whole Blood 238 mg/dL (75-99)
[2018-08-04] MEDS: SODIUM CHLORIDE 0.9% 1,000 ML IV SCH (23:52)
--- NOTE | 2018-08-04 23:53 | HP ---
HISTORY AND PHYSICAL DATE OF SERVICE: 08/04/2018 CHIEF COMPLAINTS: Change in mental status and weakness. HISTORY OF PRESENT ILLNESS: This 77-year-old gentleman with a past medical history of multiple medical problems including atrial ablation, CVA, TIA, dementia, diabetes, GERD, GI bleed, history of seizures, hypothyroidism, history of AICD, pacemaker, being followed by Dr. Ibarra in the outpatient setting is an [facility] resident. The patient apparently noted to have some change in mental status, complaints of weakness and staff thought the patient was febrile and the patient taken to [facility] and admitted for further evaluation and treatment. There is no history of any headache, loss of consciousness, seizures at this time. The patient was found to have UTI. Patient is on IV antibiotics. PAST MEDICAL HISTORY: History of atrial fibrillation, history of CVA, TIA, dementia, diabetes, GERD, prostate disorder, seizure disorder, diabetes, AICD pacemaker. MEDICATIONS: Prior to admission home medications are: 1. Glucophage 500 mg p.o. b.i.d. 2. Keppra 1000 mg p.o. b.i.d. 3. Flomax 0.4 daily. 4. Revatio 10 mg p.o. t.i.d. 5. Klor-Con 20 mEq p.o. b.i.d. 6. Prilosec 20 mg p.o. daily. 7. Synthroid 175 mcg p.o. daily. 8. Iron sulfate 320 mg p.o. b.i.d. 9. Cardizem CD 180 mg p.o. daily. 10.Cranberry 1 daily. 11.Vitamin D3 6000 daily. 12.Bumex 2 mg p.o. b.i.d. 13.Lipitor 10 mg q.h.s. 14.Eliquis 2.5 mg p.o. b.i.d. ALLERGIES: AMIODARONE, AMITRIPTYLINE AND ZOCOR. FAMILY HISTORY: History of myocardial infarction in the family and cancer in the family. SOCIAL HISTORY: History of occasional alcohol. No history of smoking. REVIEW OF SYSTEMS: ENT: No diminished hearing or vision. CARDIOVASCULAR: No angina or palpitations. RESPIRATION: As mentioned earlier. GI as mentioned earlier. GENITOURINARY: As mentioned earlier. NERVOUS SYSTEM: No numbness or weakness. ALLERGY/IMMUNOLOGY: No asthma, hayfever. MUSCULOSKELETAL: As mentioned earlier. HEMATOLOGY/ONCOLOGY: No history of anemia. ENDOCRINE: Hypothyroidism. CONSTITUTIONAL: As mentioned. Dermatology: Negative. Rheumatology: Negative. Psychiatry: As mentioned earlier. PHYSICAL EXAMINATION: Alert and oriented times three. Pulse is 119, blood pressure 120/72, respiration 18, temperature 98.4, pulse ox 100 percent on 3 L. HEENT is conjunctivae normal. Oral mucosa dry. NECK is no jugular venous distention. No carotid bruit. No lymph node enlargement. CARDIOVASCULAR SYSTEM: S1, S2 muffled. No S3. No S4. Respiratory: Breath sounds diminished in the bases. A few scattered rhonchi and crackles. ABDOMEN: Soft, nontender. No mass palpable. LEGS: No edema. No swelling. NERVOUS SYSTEM: Higher functions as mentioned earlier. Moves all 4 limbs. Mild diffuse weakness. Lymphatics: No lymph nodes palpable in the neck, axillae or groin. SKIN: No ulcer. No rash. No bleeding. JOINTS: No active deforming arthropathy. LABS: At this time shows WBC 16.2, hemoglobin is 8.1, sodium 130, potassium 4.1. Lactic acid 2.6. Troponin 0.130. UA noted. ASSESSMENT: 1. Acute urinary tract infection with possible sepsis present on admission. 2. Change in mental status acute metabolic encephalopathy secondary from urinary tract infection with sepsis. 3. Increased plasma lactic acid. 4. Troponin 0.130, indeterminate. Rule out myocardial infarction. 5. Increased WBC. 6. Anemia, normocytic anemia of chronic disease. 7. History of atrial fibrillation. 8. History of cerebrovascular accident, transient ischemic attack. 9. Dementia. 10.Diabetes mellitus type 2. 11.Gastroesophageal reflux disease. 12.History of gastrointestinal bleed. 13.Seizure disorder. 14.Hypothyroidism. 15.History of cerebrovascular accident, transient ischemic attack without any residual effects. 16.History of iron deficiency anemia. 17.History of BXO. 18.History of lower gastrointestinal bleed. 19.History of AICD. 20.History of pacemaker. 21.FULL CODE. RECOMMENDATIONS AND DISCUSSION: In this 77-year-old gentleman who presented with multiple complex medical issues, we will monitor the patient closely, continue the current medications, monitoring, symptomatic treatment. I recommend IV antibiotics, cultures. Resume the home medications. Monitor blood sugars closely. I would also recommend IV fluids and repeat evaluations. I would also recommend Cardiology evaluation and for the elevated troponin and we will also recommend monitor closely on telemetry. Overall prognosis guarded because of multiple complex medical issues. Further recommendations to follow. Copy of dictation being forwarded to Stacey Fairbanks, who is the primary physician. RACHEL / GUILHERME: [id number] /
[2018-08-05] MEDS ORDERED: DILTIAZEM CD 180 MG CAP.ER.24H PO SCH (06:00)
[2018-08-05] MEDS ORDERED: NON-FORMULARY DRUG (Cranberry Fruit Concentrate [Azo Cranberry] 500 MG) PO SCH (06:00)
[2018-08-05] MEDS ORDERED: NON-FORMULARY DRUG (Omeprazole 20 MG) PO SCH (06:00)
[2018-08-05 06:19] LABS: Glucose,Whole Blood 132 mg/dL (75-99)
[2018-08-05 06:48] LABS: Basophils % (A) 0 %; Eosinophils % (A) 0 %; HCT 27.3 % (39.0-53.0); HGB 8.5 gm/dL (13.0-17.5); Hypochromasia Slight; Lymphocytes # (A) 0.3 k/uL (1.0-4.8); Lymphocytes % (A) 4 %; MCH 26.6 pg (25.0-35.0); MCHC 31.3 g/dL (31.0-37.0); MCV 84.9 fL (80.0-100.0); Mean Platelet Volume 8.5; Monocytes # (A) 0.5 k/uL (0-1.0); Monocytes % (A) 6 %; Neutrophils # (A) 7.6 k/uL (1.3-7.7); Neutrophils % (A) 88 %; Platelet Count 165 k/uL (150-450); RBC 3.22 m/uL (4.30-5.90); RDW 15.7 % (11.5-15.5); WBC 8.7 k/uL (3.8-10.6)
[2018-08-05] MEDS: CHOLECALCIFEROL 1,000 UNIT TAB PO SCH (06:50)
[2018-08-05] MEDS: SILDENAFIL 20 MG TAB PO SCH ×3 (06:51→20:04)
[2018-08-05] MEDS: APIXABAN 2.5 MG TABLET PO SCH ×2 (06:55→19:59)
[2018-08-05] MEDS: levETIRAcetam 500 MG TAB PO SCH ×2 (06:56→19:58)
[2018-08-05] MEDS: TAMSULOSIN 0.4 MG CAP.ER.24H PO SCH (06:56)
[2018-08-05] MEDS: FERROUS SULFATE 325 MG TAB PO SCH ×2 (06:56→19:59)
[2018-08-05] MEDS: POTASSIUM CHLORIDE ER 20 MEQ TAB.ER PO SCH ×2 (06:56→19:59)
[2018-08-05] MEDS: metFORMIN 500 MG TAB PO SCH ×2 (06:56→19:58)
[2018-08-05] MEDS: LEVOTHYROXINE 88 MCG TAB PO SCH (06:56)
[2018-08-05] MEDS: DILTIAZEM CD 180 MG CAP.ER.24H PO SCH ×2 (07:01→09:48)
[2018-08-05 07:04] LABS: Anion Gap 4 mmol/L; Blood Urea Nitrogen 21 mg/dL (9-20); Calcium 8.3 mg/dL (8.4-10.2); Carbon Dioxide 32 mmol/L (22-30); Chloride 103 mmol/L (98-107); Glucose 117 mg/dL (74-99); Potassium 3.6 mmol/L (3.5-5.1); Sodium 139 mmol/L (137-145)
[2018-08-05] MEDS: PANTOPRAZOLE 40 MG/10 ML VIAL IV SCH (09:48)
[2018-08-05] MEDS: BUMETANIDE 1 MG TAB PO SCH ×2 (09:48→13:17)
[2018-08-05 12:03] LABS: Glucose,Whole Blood 235 mg/dL (75-99)
[2018-08-05] MEDS: VANCOMYCIN 1,500 MG in SODIUM CHLORIDE 0.9% 250 ML IVPB SCH (12:06)
[2018-08-05] MEDS: SODIUM CHLORIDE 0.9% 1,000 ML IV SCH ×2 (12:07→17:58)
[2018-08-05 17:00] LABS: Glucose,Whole Blood 197 mg/dL (75-99)
[2018-08-05] MEDS: ATORVASTATIN 10 MG TAB PO SCH (19:58)
--- NOTE | 2018-08-05 20:06 | PN ---
PROGRESS NOTE DATE OF SERVICE: 08/05/2018 This 77-year-old gentleman who was admitted with change in mental status also with possible sepsis is being closely monitored at this time. The patient also has possible UTI with sepsis. EXAM: Alert and oriented x3. The pulse is 100, blood pressure 107/58, respiration 18, temperature 98.1. Pulse ox 100 percent on 2 L. HEENT: Conjunctivae normal. NECK: No jugular venous distention. CARDIOVASCULAR: S1, S2 muffled. RESPIRATIONS: Breath sounds diminished in the bases. A few scattered rhonchi and crackles. ABDOMEN is soft, nontender. LEGS are no edema, no swelling. CENTRAL NERVOUS SYSTEM: No focal deficits. LABS: WBC 8.2, hemoglobin is 8.5, troponin is noted. Accu-Cheks noted. The cultures are showing Aerococcus urinae. ASSESSMENT: 1. Acute urinary tract infection with possible sepsis present on admission. 2. Change in mental status acute metabolic encephalopathy secondary to urinary tract infection with sepsis. 3. Increased plasma lactic acid. 4. Troponin 0.13 indeterminate, of undetermined etiology. 5. Increased WBC. 6. Anemia, normocytic anemia of chronic disease. 7. History of atrial fibrillation. 8. History of cerebrovascular accident, transient ischemic attack. 9. Dementia. 10.Diabetes mellitus type 2. 11.Gastroesophageal reflux disease. 12.History of gastrointestinal bleed. 13.History of seizure disorder. 14.Hypothyroidism. 15.History of cerebrovascular accident, transient ischemic attack without residual effects. 16.History of iron deficiency anemia. 17.History of BXO. 18.History of lower gastrointestinal bleed. 19.History of AICD. 20.History of pacemaker. 21.FULL CODE. RECOMMENDATIONS AND DISCUSSION: Recommend to continue current medications, management and symptomatic treatment. Otherwise, at this time, I recommend closely monitor. I would also recommend antibiotics, PT/OT evaluation. Possible ECF rehab. Guarded prognosis. Further recommendations to follow. See orders for details. MMODL / IJN: [id number] /
[2018-08-05 20:09] LABS: Glucose,Whole Blood 191 mg/dL (75-99)
[2018-08-06] MEDS: VANCOMYCIN 1,500 MG in SODIUM CHLORIDE 0.9% 250 ML IVPB SCH (02:10)
[2018-08-06] MEDS: SODIUM CHLORIDE 0.9% 1,000 ML IV SCH ×3 (02:10→23:32)
[2018-08-06] MEDS: POTASSIUM CHLORIDE ER 20 MEQ TAB.ER PO SCH ×2 (05:43→19:30)
[2018-08-06] MEDS: levETIRAcetam 500 MG TAB PO SCH ×2 (05:43→19:57)
[2018-08-06] MEDS: FERROUS SULFATE 325 MG TAB PO SCH ×2 (05:43→19:30)
[2018-08-06] MEDS: LEVOTHYROXINE 88 MCG TAB PO SCH (05:43)
[2018-08-06] MEDS: TAMSULOSIN 0.4 MG CAP.ER.24H PO SCH (05:43)
[2018-08-06] MEDS: CHOLECALCIFEROL 1,000 UNIT TAB PO SCH (05:43)
[2018-08-06] MEDS: SILDENAFIL 20 MG TAB PO SCH ×3 (05:43→19:57)
[2018-08-06] MEDS: BUMETANIDE 1 MG TAB PO SCH ×2 (05:44→11:03)
[2018-08-06] MEDS: metFORMIN 500 MG TAB PO SCH ×2 (05:44→19:30)
[2018-08-06] MEDS: APIXABAN 2.5 MG TABLET PO SCH ×2 (05:44→19:30)
[2018-08-06 07:32] LABS: Glucose,Whole Blood 149 mg/dL (75-99)
[2018-08-06] MEDS: PANTOPRAZOLE 40 MG/10 ML VIAL IV SCH (07:34)
[2018-08-06] MEDS: DILTIAZEM CD 180 MG CAP.ER.24H PO SCH (08:31)
--- NOTE | 2018-08-06 09:28 | CDI ---
Documentation Clarification Form Date: 08/06/2018 9:13:42 AM From: Lyndsey AminNIRALI, CCDS Admit Date: 08/04/2018 1:11:00 AM Patient Name: Eloy Bauer Visit Number: [id number] Discharge Date: ATTENTION: The Clinical Documentation Specialists (CDI) and [facility] Coding Staff appreciate your assistance in clarifying documentation. Please respond to the clarification below the line at the bottom and electronically sign. The CDI & [facility] Coding staff will review the response and follow-up if needed. Please note: Queries are made part of the Legal Health Record. If you have any questions, please contact the author of this message via ITS. Dr. Jakob Hernandez: Per the 08/04 Cardiology Consult: "Atrial fibrillation with RVR." History/Risk Factors: Atrial fibrillation, Anemia of chronic disease, CVA, Dementia, DM II, GERD, Seizure disorder, Hypothyroidism. Clinical Indicators: Patient presented febrile and had some signs of altered mental status. Patient was also tachycardic. Patient states that he has no pain at this time, slight cough, incontinent to urine w/foul odor, chronically debilitated, diapered. EKG/telemetry: R 122 A fib w/RVR w/PVCs, nonspecific ST & T wave abnormality, probably digitalis effect. HR: 123 - 110 - 58 - 118 Treatment: Rate control & anticoagulation for atrial fibrillation, Maximize calcium channel blockers, Check TSH. PO Bumex, Cardizem, Eliquis. Also on IV Rocephin & IV Vancomycin for Sepsis with UTI. In your professional opinion, can you please clarify the type of Atrial Fibrillation, if known? Chronic/Permanent Paroxysmal Persistent Other, please specify Unable to determine (Last Revision: July 2017) MTDD
[2018-08-06 11:07] LABS: Anion Gap 9 mmol/L; Basophils % (A) 0 %; Blood Urea Nitrogen 18 mg/dL (9-20); Calcium 8.7 mg/dL (8.4-10.2); Carbon Dioxide 26 mmol/L (22-30); Chloride 104 mmol/L (98-107); Eosinophils # (A) 0.1 k/uL (0-0.7); Eosinophils % (A) 1 %; Glucose 148 mg/dL (74-99); HCT 27.9 % (39.0-53.0); HGB 8.7 gm/dL (13.0-17.5); Hypochromasia Marked; Lymphocytes # (A) 0.4 k/uL (1.0-4.8); Lymphocytes % (A) 6 %; MCH 27.4 pg (25.0-35.0); MCHC 31.1 g/dL (31.0-37.0); MCV 88.1 fL (80.0-100.0); Mean Platelet Volume 8.4; Monocytes # (A) 0.4 k/uL (0-1.0); Monocytes % (A) 6 %; Neutrophils # (A) 5.4 k/uL (1.3-7.7); Neutrophils % (A) 83 %; Platelet Count 166 k/uL (150-450); Poikilocytosis Slight; RBC 3.17 m/uL (4.30-5.90); RDW 15.5 % (11.5-15.5); Sodium 139 mmol/L (137-145); WBC 6.5 k/uL (3.8-10.6)
[2018-08-06] MEDS ORDERED: VANCOMYCIN 1,500 MG in SODIUM CHLORIDE 0.9% 250 ML IVPB SCH (12:00)
[2018-08-06 12:11] LABS: Glucose,Whole Blood 154 mg/dL (75-99)
[2018-08-06 16:38] LABS: Glucose,Whole Blood 215 mg/dL (75-99)
[2018-08-06] MEDS: AMPICILLIN-SULBACTAM 1.5 GM in SODIUM CHLORIDE 0.9% 50 ML IVPB SCH ×2 (19:29→23:35)
[2018-08-06] MEDS: ATORVASTATIN 10 MG TAB PO SCH (19:30)
--- NOTE | 2018-08-06 19:37 | PN ---
PROGRESS NOTE DATE OF SERVICE: 08/06/2018 This is a 77-year-old gentleman with a past medical history of multiple medical problems, including acute UTI with possible sepsis, present on admission. The patient was being treated with antibiotics. The patient has tachycardia. Patient also had a previous elevated heart rate. The EKG shows a suggestion of supraventricular tachycardia and the patient was admitted for further evaluation and treatment. The patient is being transferred to telemetry at this time. The patient had atrial fibrillation with fast ventricular rate yesterday. The cultures are showing Aerococcus urinae. Otherwise, patient is being closely monitored at this time. The patient is mildly confused, which is a slight improvement from admission. Past medical history reviewed. REVIEW OF SYSTEMS: CARDIOVASCULAR SYSTEM: No angina, palpitations. RESPIRATORY SYSTEM: As mentioned earlier. GI: As mentioned earlier. : No dysuria or retention. NERVOUS SYSTEM: As mentioned earlier. CURRENT MEDICATIONS: Reviewed. They include: 1. Tylenol 650 q.6 p.r.n. 2. Eliquis 2.5 mg p.o. b.i.d. 3. Lipitor 10 mg at bedtime. 4. Bumex 2 mg p.o. b.i.d. 5. Rocephin 1 gram daily. 6. Vitamin D3 6000 daily. 7. Cardizem CD 180 mg daily. 8. Iron sulfate 325 mg p.o. b.i.d. 9. Keppra 1000 mg b.i.d. 10.Synthroid 176 mcg p.o. daily. 11.Glucophage 500 mg p.o. b.i.d. 12.Vancomycin. 13.Narcan 0.2 q.2 p.r.n. 14.Zofran 4 mg daily. 15.Protonix 40 mg daily. 16.K-Dur. 17.Revatio. 18.Flomax. PHYSICAL EXAMINATION: Patient is alert, oriented x2. Pulse is 114, blood pressure 140/70, respiration 18, temperature 97.9, pulse ox normal. HEENT: Conjunctivae normal. Oral mucosa moist. NECK: No jugular venous distention. No carotid bruit. No lymph node enlargement. CARDIOVASCULAR SYSTEM: S1, S2 muffled. Tachycardic. RESPIRATORY SYSTEM: Breath sounds diminished at the bases. No rhonchi. No crackles. ABDOMEN: Soft, non-tender. No mass palpable. LEGS: No edema. No swelling. NERVOUS SYSTEM: Higher functions as mentioned earlier. Moves all 4 limbs. No focal motor or sensory deficit. LYMPHATICS: No lymph node palpable in neck, axillae or groin. SKIN: No ulcer, rash, bleeding. JOINTS: No active deforming arthropathy. LABS: WBC 6.5, hemoglobin 8.7. Sodium 139, glucose 148. ASSESSMENT: 1. Acute urinary tract infection with possible sepsis, present on admission, with change in mental status, acute metabolic encephalopathy secondary to urinary tract infection with sepsis. 2. Increased plasma lactic acid. 3. Atrial fibrillation, paroxysmal, with fast ventricular rate. 4. Supraventricular tachycardia possibly. 5. Troponin 0.13, indeterminate, of undetermined etiology. 6. Increased white count. 7. Anemia, normocytic; anemia of chronic disease. 8. History of atrial fibrillation, paroxysmal. 9. History of cerebrovascular accident, transient ischemic attack. 10.Dementia. 11.Diabetes mellitus, type 2. 12.History of gastroesophageal reflux disease. 13.Gastrointestinal bleed. 14.History of seizure disorder. 15.History of hypothyroidism. 16.History of cerebrovascular accident, transient ischemic attack without any residual effects. 17.Iron deficiency anemia. 18.History of BXO. 19.History of lower gastrointestinal bleed. 20.History of automated implantable cardioverter defibrillator. 21.History of pacemaker. 22.FULL CODE. RECOMMENDATIONS AND DISCUSSION: I recommend to continue current medications, continue symptomatic treatment. PT/OT evaluation. Otherwise, monitor the patient closely. Transfer to telemetry. Cardiology consultation. Guarded prognosis because of multiple complex medical issues. Further recommendations to follow. See orders for further details. Continue the antibiotics. Patient is on diltiazem at this time and apixaban. Further recommendations to follow. MMODL / IJN: [id number] /
[2018-08-06 20:42] LABS: Glucose,Whole Blood 150 mg/dL (75-99)
--- NOTE | 2018-08-06 22:25 | CONS ---
CONSULTATION DATE OF SERVICE: 08/06/2018. REASON FOR CONSULTATION: Urinary tract infection. HISTORY OF PRESENT ILLNESS: The patient is a 77-year-old male who was brought in to the ER at [facility] on 08/03/2018 with the patient complaining of generalized weakness. The patient who is [facility] The patient was noticed to have a fever and mental status changes at that facility. The patient apparently was also tachycardic. With these symptoms, the patient was brought into the [facility] ER where the patient has been evaluated by the ER physician. On arrival to the ER, the patient did have a fever of 100.1 degrees Fahrenheit. The patient was slightly tachycardic. His white count on admission was elevated at 16.2. The patient did have a positive UA with large leukocyte esterase with more than 1-2 WBC with many bacteria. Cultures are showing Enterococcus urinae. The patient has been treated with Rocephin and vancomycin. Infectious disease was consulted for further recommendations regarding antibiotic therapy. The patient did mention he was having some difficulty with urination, slight burning of the urine. The patient denies any suprapubic pain. No flank pain. No nausea, vomiting. No abdominal pain or any diarrhea. The patient did have evidence of SVT for which the patient has been transferred to the [facility]. REVIEW OF SYSTEMS: Positive points have been mentioned in HPI. Rest of systems are negative. PAST MEDICAL HISTORY: Significant for atrial fibrillation, CVA, TIA, dementia, prostate disorder, hypothyroidism, seizure disorder. PAST SURGICAL HISTORY: AICD placement. SOCIAL HISTORY: No history of smoking, rarely drinks. No drug use. FAMILY HISTORY: Both parents with a history of VT. ALLERGIES: TO AMIODARONE, AMITRIPTYLINE AND SIMVASTATIN. MEDICATION: Currently include the patient is on vancomycin 1500 q.12. He is on Flomax, Revatio, K- Dur, Protonix, Zofran, Narcan, Glucophage, Synthroid, iron sulfate, ceftriaxone, Bumex, Eliquis, and Tylenol. PHYSICAL EXAMINATION: Blood pressure is 114/75 with a pulse of 140, temperature 97.9. He is 91% on room air. General description is an elderly male up in the bed in no distress. No tachypnea or accessory muscles of respiration use. HEENT: Shows pallor. No scleral icterus. Oral mucous membranes dry. No pharyngeal erythema or thrush. Neck: Trachea central. No thyromegaly. Lungs unlabored breathing. Clear to auscultation anteriorly. Heart S1, S2. Regular rate and rhythm. ABDOMEN: Soft, no tenderness. No tenderness. No guarding. No rigidity. EXTREMITIES: No edema of the feet. SKIN examination: No rash or mass palpable. NEUROLOGICAL: Patient is awake, alert and oriented x2. Mood and affect normal. LABS: Hemoglobin 8.7, white count of 16.2 and admission BUN of 18, creatinine 0.69. Electrolytes have been normal. Urine has been positive. Influenza serology was negative. report negative. DIAGNOSTIC IMPRESSION AND PLAN: Patient admitted to the hospital with acute mental status changes likely multifactorial. The patient did have a low-grade fever significantly positive UA with positive urine symptoms likely representing a symptomatic urinary tract infection in this patient urine showing Enterococcus species, which is usually penicillin sensitive. PLAN: 1. Discontinue the Rocephin and vancomycin. 2. We will start the patient on Unasyn 1.5 gram q.6 hours. 3. Gentle IV fluid. 4. We will follow up on clinical condition and culture to further adjust medication if needed. Thank you for this consultation. Will follow the patient along with you. MMODL / IJN: [id number] /
[2018-08-07 06:29] LABS: Glucose,Whole Blood 121 mg/dL (75-99)
[2018-08-07 06:54] LABS: Basophils % (A) 0 %; Eosinophils # (A) 0.1 k/uL (0-0.7); Eosinophils % (A) 2 %; HCT 24.9 % (39.0-53.0); HGB 7.6 gm/dL (13.0-17.5); Hypochromasia Marked; Lymphocytes # (A) 0.4 k/uL (1.0-4.8); Lymphocytes % (A) 8 %; MCH 26.5 pg (25.0-35.0); MCHC 30.4 g/dL (31.0-37.0); MCV 87.3 fL (80.0-100.0); Mean Platelet Volume 7.8; Monocytes # (A) 0.3 k/uL (0-1.0); Monocytes % (A) 6 %; Neutrophils % (A) 81 %; Platelet Count 160 k/uL (150-450); RBC 2.85 m/uL (4.30-5.90); RDW 15.7 % (11.5-15.5); WBC 4.9 k/uL (3.8-10.6)
[2018-08-07] MEDS: AMPICILLIN-SULBACTAM 1.5 GM in SODIUM CHLORIDE 0.9% 50 ML IVPB SCH ×4 (07:03→23:42)
[2018-08-07] MEDS: metFORMIN 500 MG TAB PO SCH ×3 (07:04→20:40)
[2018-08-07] MEDS: LEVOTHYROXINE 88 MCG TAB PO SCH (07:04)
[2018-08-07 07:12] LABS: Anion Gap 5 mmol/L; Blood Urea Nitrogen 16 mg/dL (9-20); Calcium 8.4 mg/dL (8.4-10.2); Carbon Dioxide 29 mmol/L (22-30); Chloride 104 mmol/L (98-107); Glucose 111 mg/dL (74-99); Potassium 3.6 mmol/L (3.5-5.1); Sodium 138 mmol/L (137-145)
[2018-08-07] MEDS: PANTOPRAZOLE 40 MG/10 ML VIAL IV SCH (08:20)
[2018-08-07] MEDS: CHOLECALCIFEROL 1,000 UNIT TAB PO SCH (08:20)
[2018-08-07] MEDS: FERROUS SULFATE 325 MG TAB PO SCH ×2 (08:20→20:40)
[2018-08-07] MEDS: TAMSULOSIN 0.4 MG CAP.ER.24H PO SCH (08:21)
[2018-08-07] MEDS: levETIRAcetam 500 MG TAB PO SCH ×2 (08:21→20:39)
[2018-08-07] MEDS: APIXABAN 2.5 MG TABLET PO SCH ×2 (08:22→22:02)
[2018-08-07] MEDS: BUMETANIDE 1 MG TAB PO SCH ×2 (08:22→20:40)
[2018-08-07] MEDS: DILTIAZEM CD 180 MG CAP.ER.24H PO SCH (08:23)
[2018-08-07] MEDS: POTASSIUM CHLORIDE ER 20 MEQ TAB.ER PO SCH ×2 (08:23→20:39)
[2018-08-07] MEDS: SODIUM CHLORIDE 0.9% 1,000 ML IV SCH ×2 (08:32→16:14)
[2018-08-07] MEDS: SILDENAFIL 20 MG TAB PO SCH ×3 (09:54→20:40)
[2018-08-07] MEDS ORDERED: VANCOMYCIN TROUGH DUE 1 EACH MISC MISCELLANE ONE (11:00)
[2018-08-07 11:21] LABS: Glucose,Whole Blood 155 mg/dL (75-99)
[2018-08-07] MEDS ORDERED: DILTIAZEM ORAL 60 MG TAB PO STA (12:59)
--- NOTE | 2018-08-07 14:36 | P.PN ---
Subjective Patient is sitting up comfortably in the chair His heart rates are about 100 110 beats a minute irregular Afebrile 97.8F Blood pressure 129/69 mmHg Breath sounds are clear no rhonchi no crackles Heart sounds S1 and S2 are soft but irregular Abdomen soft nontender Extended is warm Impression Atrial fibrillation with RVR currently on ELIQUIS 2.5 mg twice daily I will increase the dose of diltiazem to 240 mg by mouth daily for better rate control Labs are reviewed hemoglobin 7.6 BUN 16 creatinine 0.64 TSH 3.9 Objective - Vital Signs Vital signs: Vital Signs Temp 97.8 F 08/07/18 11:37 Pulse 103 H 08/07/18 11:37 Resp 20 08/07/18 11:37 BP 109/69 08/07/18 11:37 Pulse Ox 97 08/07/18 11:37 Intake & Output 08/06/18 08/07/18 08/07/18 18:59 06:59 18:59 Intake Total 360 300 540 Output Total 400 Balance 360 300 140 Weight 86 kg Intake: Intake, IV Titration 300 Amount Sodium Chloride 0.9% 1, 300 000 ml @ 100 mls/hr IV . Q10H [facility] Rx#:[id number] Oral 360 540 Output: Urine 400 Other: Voiding Method Toilet Toilet # Voids 0 2 # Bowel Movements 0 - Labs CBC & Chem 7: 08/07/18 06:17 08/07/18 06:17 Labs: Abnormal Lab Results - Last 24 Hours (Table) 08/06/18 08/06/18 08/07/18 Range/Units 16:37 20:40 06:05 RBC (4.30-5.90) m/uL Hgb (13.0-17.5) gm/dL Hct (39.0-53.0) % MCHC (31.0-37.0) g/dL RDW (11.5-15.5) % Lymphocytes # (1.0-4.8) k/uL Creatinine (0.66-1.25) mg/dL Glucose (74-99) mg/dL POC Glucose (mg/dL) 215 H 150 H 121 H (75-99) mg/dL 08/07/18 08/07/18 08/07/18 Range/Units 06:17 06:17 11:19 RBC 2.85 L (4.30-5.90) m/uL Hgb 7.6 L (13.0-17.5) gm/dL Hct 24.9 L (39.0-53.0) % MCHC 30.4 L (31.0-37.0) g/dL RDW 15.7 H (11.5-15.5) % Lymphocytes # 0.4 L (1.0-4.8) k/uL Creatinine 0.64 L (0.66-1.25) mg/dL Glucose 111 H (74-99) mg/dL POC Glucose (mg/dL) 155 H (75-99) mg/dL Microbiology - Last 24 Hours (Table) 08/04/18 00:05 Blood Culture Gram Stain - Preliminary Blood 08/04/18 00:05 Blood Culture - Final Blood
[2018-08-07 16:02] LABS: Hemoglobin A1C 7.1 % (4.0-6.0)
[2018-08-07 17:10] LABS: Glucose,Whole Blood 178 mg/dL (75-99)
--- NOTE | 2018-08-07 18:05 | PN ---
PROGRESS NOTE DATE OF SERVICE: 08/07/2018 REASON FOR FOLLOWUP: Urinary tract infection. INTERVAL HISTORY: The patient is afebrile. The patient is more awake and alert today. He is breathing comfortably. Denies having any chest pain or cough. No abdominal pain. His urinary symptoms have improved. PHYSICAL EXAMINATION: Blood pressure 109/69 with a pulse of 103, temperature 97.8. He is 97% on room air. General description is an elderly male up in the chair in no distress. RESPIRATORY SYSTEM: Unlabored breathing. Clear to auscultation anteriorly. HEART: S1, S2. Regular rate and rhythm. ABDOMEN: Soft. No tenderness. EXTREMITIES: No edema of the feet. LABS: Hemoglobin 7.6, white count 4.9 with a BUN of 16, creatinine 0.64. DIAGNOSTIC IMPRESSION AND PLAN: Patient with enterococcus urinary tract infection. Patient now did have evidence of gram-positive bacteremia. The patient's blood cultures will be repeated to make sure there is no evidence of any persistent bacteremia. Will obtain an ultrasound of the kidneys and the bladder area to make sure there is no evidence of any structural abnormality and monitor the patient's clinical course closely. Continue with supportive care. MMODL / IJN: [id number] /
--- NOTE | 2018-08-07 19:23 | US ---
EXAMINATION TYPE: US renals and bladder DATE OF EXAM: 08/07/2018 COMPARISON: NONE CLINICAL HISTORY: uti , bacteremia , r/o structural abnormality. EXAM MEASUREMENTS: Right Kidney: 11.4 x 4.4. x 5.5 cm Left Kidney: 10.7 x 5.8 x 5.2 cm Right Kidney: cyst measuring 1.0 x 1.0 x 1.0cm Left Kidney: No hydronephrosis or masses seen Bladder: wnl IMPRESSION: No evidence of renal mass or obstruction. Normal urinary bladder. 1 cm right renal cortical cyst.
[2018-08-07] MEDS: ATORVASTATIN 10 MG TAB PO SCH (20:40)
[2018-08-07 20:52] LABS: Glucose,Whole Blood 206 mg/dL (75-99)
[2018-08-07 20:59] LABS: HCT 27.5 % (39.0-53.0); HGB 8.8 gm/dL (13.0-17.5); Hypochromasia Marked; MCH 28.2 pg (25.0-35.0); MCHC 31.9 g/dL (31.0-37.0); MCV 88.5 fL (80.0-100.0); Mean Platelet Volume 8.5; Platelet Count 204 k/uL (150-450); Poikilocytosis Slight; RBC 3.11 m/uL (4.30-5.90); RDW 15.6 % (11.5-15.5); WBC 6.1 k/uL (3.8-10.6)
--- NOTE | 2018-08-07 21:26 | PN ---
PROGRESS NOTE DATE OF SERVICE: 08/07/2018 This 77-year-old gentleman who was admitted with acute urinary tract infection with possible sepsis also had some change in mental status. Patient closely monitored. No chest pain. No palpitations. No fever. The patient also had atrial fibrillation with fast ventricular rate. EXAM: Alert and oriented x3. The pulse is 100, blood pressure 105/38, respiration 20, temperature 98.4, pulse ox 97% on room air. HEENT: Conjunctivae normal. NECK: No jugular venous distention. CARDIOVASCULAR: S1, S2 muffled. RESPIRATIONS: Breath sounds diminished in the bases. A few scattered rhonchi and crackles. Abdomen is soft. Nontender. LAB: Hemoglobin 7.6, glucose noted. ASSESSMENT: 1. Acute urinary tract infection with possible sepsis present on admission, change in mental status, acute metabolic encephalopathy secondary to urinary tract infection infection in the past. 2. Tachycardia, possibly atrial fibrillation with fast ventricular rate and as well as supraventricular tachycardia. 3. Increased plasma lactic acid. 4. Paroxysmal atrial fibrillation with fast ventricular rate. 5. Troponin 0.13, indeterminate of undetermined etiology. 6. Increased WBC. 7. Anemia, normocytic anemia of chronic disease. 8. History of atrial fibrillation paroxysmal. 9. History of cerebrovascular accident, transient ischemic attack. 10.Dementia. 11.Diabetes mellitus type 2. 12.History of gastroesophageal reflux disease. 13.History of gastrointestinal bleed. 14.History of seizure disorder. 15.History of hypothyroidism. 16.History of cerebrovascular accident, transient ischemic attack without any residual effect. 17.History of iron deficiency anemia. 18.History of BX0. 19.History of lower gastrointestinal bleed. 20.History of AICD. 21.History of pacemaker. 22.Symptomatic anemia. 23.FULL CODE. RECOMMENDATIONS AND DISCUSSION: I recommend to continue current medications and symptomatic treatment. Otherwise at this time I would recommend also one unit of transfusion because of symptomatic anemia. Otherwise, I would also recommend close follow with Cardiology. Monitor in the cardiac rhythm. Guarded prognosis because of multiple complex medical issues. Further recommendations to follow. MMODL / IJN: [id number] /
[2018-08-08] MEDS: AMPICILLIN-SULBACTAM 1.5 GM in SODIUM CHLORIDE 0.9% 50 ML IVPB SCH ×3 (06:01→16:25)
[2018-08-08] MEDS: LEVOTHYROXINE 88 MCG TAB PO SCH (06:01)
[2018-08-08] MEDS: SODIUM CHLORIDE 0.9% 1,000 ML IV SCH ×2 (06:02→16:26)
[2018-08-08 06:24] LABS: Glucose,Whole Blood 137 mg/dL (75-99)
[2018-08-08 06:41] LABS: Basophils % (A) 0 %; Eosinophils # (A) 0.1 k/uL (0-0.7); Eosinophils % (A) 2 %; HCT 27.1 % (39.0-53.0); HGB 7.9 gm/dL (13.0-17.5); Hypochromasia Marked; Lymphocytes # (A) 0.5 k/uL (1.0-4.8); Lymphocytes % (A) 9 %; MCH 25.9 pg (25.0-35.0); MCHC 29.3 g/dL (31.0-37.0); MCV 88.2 fL (80.0-100.0); Mean Platelet Volume 8.1; Monocytes # (A) 0.4 k/uL (0-1.0); Monocytes % (A) 8 %; Neutrophils # (A) 4.3 k/uL (1.3-7.7); Neutrophils % (A) 78 %; Platelet Count 196 k/uL (150-450); RBC 3.07 m/uL (4.30-5.90); RDW 15.7 % (11.5-15.5); WBC 5.5 k/uL (3.8-10.6)
[2018-08-08 06:48] LABS: Anion Gap 8 mmol/L; Blood Urea Nitrogen 13 mg/dL (9-20); Calcium 8.6 mg/dL (8.4-10.2); Carbon Dioxide 26 mmol/L (22-30); Chloride 105 mmol/L (98-107); Glucose 130 mg/dL (74-99); Potassium 3.7 mmol/L (3.5-5.1); Sodium 139 mmol/L (137-145)
[2018-08-08] MEDS: BUMETANIDE 1 MG TAB PO SCH ×2 (08:16→20:48)
[2018-08-08] MEDS: SILDENAFIL 20 MG TAB PO SCH ×3 (08:16→22:19)
[2018-08-08] MEDS: FERROUS SULFATE 325 MG TAB PO SCH ×2 (08:16→20:50)
[2018-08-08] MEDS: levETIRAcetam 500 MG TAB PO SCH ×2 (08:16→20:49)
[2018-08-08] MEDS: metFORMIN 500 MG TAB PO SCH ×2 (08:17→20:49)
[2018-08-08] MEDS: DILTIAZEM CD 240 MG CAP.ER.24H PO SCH (08:17)
[2018-08-08] MEDS: PANTOPRAZOLE 40 MG/10 ML VIAL IV SCH (08:17)
[2018-08-08] MEDS: CHOLECALCIFEROL 1,000 UNIT TAB PO SCH (08:17)
[2018-08-08] MEDS: POTASSIUM CHLORIDE ER 20 MEQ TAB.ER PO SCH ×2 (08:17→20:49)
[2018-08-08] MEDS: APIXABAN 2.5 MG TABLET PO SCH ×2 (08:17→20:49)
[2018-08-08] MEDS: TAMSULOSIN 0.4 MG CAP.ER.24H PO SCH (08:17)
[2018-08-08 11:37] LABS: Glucose,Whole Blood 135 mg/dL (75-99)
--- NOTE | 2018-08-08 11:46 | P.PN ---
Subjective this is a pleasant 77-year-old male past medical history significant for atrial fibrillation. Currently being treated for atrial fibrillation with rapid ventricular response. He is maintained on long-term anticoagulation. His dose of diltiazem was increased yesterday for better heart rate control. He is seen and examined walking around his room in no acute distress. He denies symptoms of chest discomfort, shortness of breath, dizziness or palpitations. He states yesterday after taking an additional dose of verapamil he did feel mildly dizzy. He laid down and took a nap and when he woke up he has been feeling fine with no further dizziness. Blood [id number] heart rate this morning was 112. Maintaining oxygen saturation on room air and afebrile. laboratory data reviewed, WBC 5.5, hemoglobin 7.9, platelets 196, sodium 139, potassium 3.7, creatinine 0.62. Currently maintained on Eliquis 2.5 mg twice a day, atorvastatin 10 mg daily, diltiazem 240 mg daily. GENERAL: Well-appearing, well-nourished and in no acute distress. NECK: Supple without JVD or thyromegaly. LUNGS: Breath sounds clear to auscultation bilaterally. Respiration equal and unlabored. No wheezes, rales or rhonchi. HEART: Irregular rate and rhythm without murmurs, rubs or gallops. S1 and S2 heard. EXTREMITIES: Normal range of motion, no edema. No clubbing or cyanosis. Peripheral pulses intact. ASSESSMENT chronic persistent atrial fibrillation on long-term anticoagulation with poorly controlled ventricular rates Urinary tract infection causing sepsis Hypertension Dyslipidemia Diabetes mellitus Sick sinus syndrome status post permanent pacemaker implantation PLAN Continue with verapamil at increase dose and add lopressor 25 mg BID for better heart rate control. Will continue to follow and make recommendations accordingly. Nurse Practitioner note has been reviewed, I agree with a documented findings and plan of care. Patient was seen and examined. Objective - Vital Signs Vital signs: Vital Signs Temp 98.4 F 08/08/18 08:00 Pulse 112 H 08/08/18 08:00 Resp 18 08/08/18 08:00 BP 123/71 08/08/18 08:00 Pulse Ox 98 08/08/18 08:00 Intake & Output 08/07/18 08/08/18 08/08/18 18:59 06:59 18:59 Intake Total 660 120 Output Total 400 Balance 260 120 Weight 87 kg Intake: Oral 660 120 Output: Urine 400 Other: Voiding Method Toilet # Voids 4 - Labs CBC & Chem 7: 08/08/18 06:03 08/08/18 06:03 Labs: Abnormal Lab Results - Last 24 Hours (Table) 08/07/18 08/07/18 08/07/18 Range/Units 06:17 17:09 19:11 RBC (4.30-5.90) m/uL Hgb (13.0-17.5) gm/dL Hct (39.0-53.0) % MCHC (31.0-37.0) g/dL RDW (11.5-15.5) % Lymphocytes # (1.0-4.8) k/uL Creatinine (0.66-1.25) mg/dL Glucose (74-99) mg/dL POC Glucose (mg/dL) 178 H (75-99) mg/dL Hemoglobin A1c 7.1 H (4.0-6.0) % Crossmatch See Detail 08/07/18 08/07/18 08/08/18 Range/Units 19:18 20:50 06:03 RBC 3.11 L 3.07 L (4.30-5.90) m/uL Hgb 8.8 L 7.9 L (13.0-17.5) gm/dL Hct 27.5 L 27.1 L (39.0-53.0) % MCHC 29.3 L (31.0-37.0) g/dL RDW 15.6 H 15.7 H (11.5-15.5) % Lymphocytes # 0.5 L (1.0-4.8) k/uL Creatinine (0.66-1.25) mg/dL Glucose (74-99) mg/dL POC Glucose (mg/dL) 206 H (75-99) mg/dL Hemoglobin A1c (4.0-6.0) % Crossmatch 08/08/18 08/08/18 Range/Units 06:03 06:17 RBC (4.30-5.90) m/uL Hgb (13.0-17.5) gm/dL Hct (39.0-53.0) % MCHC (31.0-37.0) g/dL RDW (11.5-15.5) % Lymphocytes # (1.0-4.8) k/uL Creatinine 0.62 L (0.66-1.25) mg/dL Glucose 130 H (74-99) mg/dL POC Glucose (mg/dL) 137 H (75-99) mg/dL Hemoglobin A1c (4.0-6.0) % Crossmatch Microbiology - Last 24 Hours (Table) 08/04/18 00:05 Blood Culture Gram Stain - Preliminary Blood 08/04/18 00:05 Blood Culture - Final Blood
[2018-08-08] MEDS: METOPROLOL TARTRATE 25 MG TAB PO SCH ×2 (12:05→21:00)
[2018-08-08 16:27] LABS: Glucose,Whole Blood 201 mg/dL (75-99)
--- NOTE | 2018-08-08 16:33 | PN ---
PROGRESS NOTE DATE OF SERVICE: 08/08/2018 REASON FOR FOLLOWUP: Enterococcus urinary tract infection bacteremia. INTERVAL HISTORY: The patient is currently afebrile. The patient is breathing comfortably. He denies having any chest pain. No shortness of breath or cough. No abdominal pain. No diarrhea. PHYSICAL EXAMINATION: Blood pressure 121/58 with a pulse of 80, temperature 98. He is 98% on room air. General description is an elderly male lying in bed in no distress. RESPIRATORY SYSTEM: Unlabored breathing. Clear to auscultation anteriorly. HEART: S1, S2. Regular rate and rhythm. ABDOMEN: Soft. No tenderness. EXTREMITIES: No edema of the feet. LABS: Hemoglobin 7.9, white count 5.5, BUN of 13, creatinine 0.62. Blood cultures with gram- positive. ID and sensitivities are pending. DIAGNOSTIC IMPRESSION AND PLAN: 1. Patient with enterococcus urinary tract infection, for which the patient is currently covered with Unasyn. 2. Positive blood culture. Waiting for the final ID to determine further workup. Repeat blood culture has been ordered, which is currently pending. MMODL / IJN: [id number] /
--- NOTE | 2018-08-08 17:54 | PN ---
PROGRESS NOTE DATE OF SERVICE: 08/08/2018 This 77-year-old gentleman who was admitted with acute urinary tract infection with possible sepsis present on admission, also had change in mental status. The patient also had metabolic encephalopathy. The patient had tachycardia, atrial fibrillation. Patient was transferred to telemetry. Cardiology saw the patient and beta blockers have been initiated. A renal ultrasound showed no evidence of any mass or obstruction. No chest pain. No palpitations. No fever. EXAM: Alert and oriented times three. Pulse 112, blood pressure 120/71, respirations 18. Temperature 98.4, pulse ox 98% on room air. HEENT is conjunctivae normal. Neck is no jugular venous distention. CARDIOVASCULAR: S1, S2 muffled. RESPIRATORY: Breath sounds diminished at the bases. A few scattered rhonchi and crackles. Abdomen is soft, nontender. Central nervous system: No focal deficits. LABORATORY DATA: WBC 5.2, hemoglobin 7.9, sodium 130, potassium 3.7. ASSESSMENT: 1. Acute urinary tract infection with Aerococcus possible sepsis present on admission with change in mental status acute metabolic encephalopathy secondary to urinary tract infection. 2. Tachycardia, possibly atrial fibrillation with fast ventricular rate as well as supraventricular tachycardia. 3. Increased plasma lactic acid. 4. Paroxysmal atrial fibrillation with fast ventricular rate. 5. Troponin 0.13, indeterminate of undetermined etiology. 6. Increased WBC. 7. Anemia, normocytic anemia of chronic disease. 8. History of atrial ablation, paroxysmal. 9. History of cerebrovascular accident, transient ischemic attack. 10.Dementia. 11.Diabetes mellitus type 2. 12.History of gastroesophageal reflux disease. 13.History of gastrointestinal bleed. 14.History of seizure disorder. 15.History of hypothyroidism. 16.History of cerebrovascular accident, transient ischemic attack without interstitial defect. 17.History of iron deficiency anemia. 18.History of BX0. 19.History of lower gastrointestinal bleed. 20.History AICD. 21.History of pacemaker. 22.History of symptomatic anemia. 23.FULL CODE. RECOMMENDATIONS AND DISCUSSION: Recommend to continue current medications, continue with monitoring, symptomatic treatment. Continue with beta blockers. Continue the rest of medications. Antibiotics per Infectious Disease. Further recommendations to follow. MMODL / IJN: [id number] / MTDD
[2018-08-08] MEDS: ATORVASTATIN 10 MG TAB PO SCH (20:49)
[2018-08-08] MEDS: AMOXIC-POT CLAV 875-125MG 1 EACH TAB PO SCH (20:50)
[2018-08-08 21:02] LABS: Glucose,Whole Blood 143 mg/dL (75-99)
[2018-08-09] MEDS: LEVOTHYROXINE 88 MCG TAB PO SCH (06:15)
[2018-08-09] MEDS: SODIUM CHLORIDE 0.9% 1,000 ML IV SCH (06:17)
[2018-08-09 06:25] LABS: Glucose,Whole Blood 132 mg/dL (75-99)
[2018-08-09 06:59] LABS: Anion Gap 7 mmol/L; Blood Urea Nitrogen 13 mg/dL (9-20); Carbon Dioxide 31 mmol/L (22-30); Chloride 102 mmol/L (98-107); Glucose 114 mg/dL (74-99); Potassium 3.9 mmol/L (3.5-5.1); Sodium 140 mmol/L (137-145)
[2018-08-09 07:03] LABS: Anisocytosis Slight; Basophils % (A) 0 %; Eosinophils # (A) 0.1 k/uL (0-0.7); Eosinophils % (A) 2 %; HCT 27.7 % (39.0-53.0); HGB 8.6 gm/dL (13.0-17.5); Hypochromasia Marked; Lymphocytes # (A) 0.7 k/uL (1.0-4.8); Lymphocytes % (A) 11 %; MCH 27.1 pg (25.0-35.0); MCHC 31.1 g/dL (31.0-37.0); Mean Platelet Volume 8.5; Monocytes # (A) 0.4 k/uL (0-1.0); Monocytes % (A) 7 %; Neutrophils # (A) 4.5 k/uL (1.3-7.7); Neutrophils % (A) 77 %; Platelet Count 234 k/uL (150-450); Poikilocytosis Slight; RBC 3.19 m/uL (4.30-5.90); RDW 16.8 % (11.5-15.5); WBC 5.9 k/uL (3.8-10.6)
[2018-08-09] MEDS: APIXABAN 2.5 MG TABLET PO SCH ×2 (08:28→20:46)
[2018-08-09] MEDS: DILTIAZEM CD 240 MG CAP.ER.24H PO SCH (08:28)
[2018-08-09] MEDS: CHOLECALCIFEROL 1,000 UNIT TAB PO SCH (08:28)
[2018-08-09] MEDS: levETIRAcetam 500 MG TAB PO SCH ×2 (08:28→20:46)
[2018-08-09] MEDS: PANTOPRAZOLE 40 MG/10 ML VIAL IV SCH (08:29)
[2018-08-09] MEDS: metFORMIN 500 MG TAB PO SCH ×2 (08:29→20:50)
[2018-08-09] MEDS: METOPROLOL TARTRATE 25 MG TAB PO SCH ×2 (08:29→20:50)
[2018-08-09] MEDS: TAMSULOSIN 0.4 MG CAP.ER.24H PO SCH (08:29)
[2018-08-09] MEDS: SILDENAFIL 20 MG TAB PO SCH ×3 (08:29→22:50)
[2018-08-09] MEDS: FERROUS SULFATE 325 MG TAB PO SCH ×2 (08:29→20:46)
[2018-08-09] MEDS: POTASSIUM CHLORIDE ER 20 MEQ TAB.ER PO SCH ×2 (08:29→20:46)
[2018-08-09] MEDS: AMOXIC-POT CLAV 875-125MG 1 EACH TAB PO SCH ×2 (08:29→20:46)
[2018-08-09] MEDS: BUMETANIDE 1 MG TAB PO SCH ×2 (10:11→20:45)
--- NOTE | 2018-08-09 10:21 | P.PN ---
Subjective this is a pleasant 77-year-old male past medical history significant for atrial fibrillation. Currently being treated for atrial fibrillation with rapid ventricular response. He is maintained on long-term anticoagulation. He is seen and examined sitting at the edge of the bed eating breakfast. He denies symptoms of chest discomfort, shortness of breath, dizziness or palpitations. Metoprolol was added yesterday and his heart rates are under much better control today. Blood pressure 99/58 heart rate 98 afebrile maintaining oxygen saturation on room air. Laboratory data reviewed, WBC 5.9, hemoglobin 8.6, platelets 234, sodium 140, potassium 3.9, creatinine 0.69. GENERAL: Well-appearing, well-nourished and in no acute distress. NECK: Supple without JVD or thyromegaly. LUNGS: Breath sounds clear to auscultation bilaterally. Respiration equal and unlabored. No wheezes, rales or rhonchi. HEART: Irregular rate and rhythm without murmurs, rubs or gallops. S1 and S2 heard. EXTREMITIES: Normal range of motion, no edema. No clubbing or cyanosis. Peripheral pulses intact. ASSESSMENT chronic persistent atrial fibrillation on long-term anticoagulation with poorly controlled ventricular rates Urinary tract infection causing sepsis Hypertension Dyslipidemia Diabetes mellitus Sick sinus syndrome status post permanent pacemaker implantation PLAN Stable from a cardiac perspective. The patient follows with Dr. Rona Gould and would like to follow-up with him upon discharge. We will continue to see as needed, please call if further questions or concerns. Nurse Practitioner note has been reviewed, I agree with a documented findings and plan of care. Patient was seen and examined. Objective - Vital Signs Vital signs: Vital Signs Temp 96.6 F L 08/09/18 08:26 Pulse 98 08/09/18 08:26 Resp 18 08/09/18 08:26 BP 99/58 08/09/18 08:26 Pulse Ox 97 08/09/18 08:26 Intake & Output 08/08/18 08/09/18 08/09/18 18:59 06:59 18:59 Intake Total 958 480 Balance 958 480 Weight 84.4 kg Intake: Oral 958 480 Other: # Voids 2 1 1 - Labs CBC & Chem 7: 08/09/18 06:16 08/09/18 06:16 Labs: Abnormal Lab Results - Last 24 Hours (Table) 08/08/18 08/08/18 08/08/18 Range/Units 11:35 16:24 20:58 RBC (4.30-5.90) m/uL Hgb (13.0-17.5) gm/dL Hct (39.0-53.0) % RDW (11.5-15.5) % Lymphocytes # (1.0-4.8) k/uL Carbon Dioxide (22-30) mmol/L Glucose (74-99) mg/dL POC Glucose (mg/dL) 135 H 201 H 143 H (75-99) mg/dL 08/09/18 08/09/18 08/09/18 Range/Units 06:16 06:16 06:24 RBC 3.19 L (4.30-5.90) m/uL Hgb 8.6 L (13.0-17.5) gm/dL Hct 27.7 L (39.0-53.0) % RDW 16.8 H (11.5-15.5) % Lymphocytes # 0.7 L (1.0-4.8) k/uL Carbon Dioxide 31 H (22-30) mmol/L Glucose 114 H (74-99) mg/dL POC Glucose (mg/dL) 132 H (75-99) mg/dL Microbiology - Last 24 Hours (Table) 08/04/18 00:05 Blood Culture Gram Stain - Final Blood Blood Culture - Final Aerococcus species 08/07/18 15:56 Blood Culture - Preliminary Blood No Growth after 24 hours
[2018-08-09 11:38] LABS: Glucose,Whole Blood 136 mg/dL (75-99)
--- NOTE | 2018-08-09 15:51 | PN ---
PROGRESS NOTE DATE OF SERVICE: 08/09/2018 This 77-year-old gentleman admitted with acute urinary tract infection with Aerococcus, also had sepsis. The patient also has irregular heart rhythm with atrial fibrillation with fast ventricular rate, which is improving at this time. No chest pain. No palpitations. No fever. EXAM: Alert and oriented x2. Pulse 83, blood pressure 112/54, respiration 18, temperature 97.9, pulse ox 98% on room air. HEENT: Conjunctivae normal. NECK: No jugular venous distention. CARDIOVASCULAR: S1, S2 muffled. RESPIRATORY: Breath sounds diminished in the bases. A few scattered rhonchi. ABDOMEN: Soft. Nontender. NERVOUS SYSTEM: No focal deficits. LABS: WBC 12.8, hemoglobin is 8.6. ASSESSMENT: 1. Acute urinary tract infection with Aerococcus possibly with sepsis, present on admission, with change in mental status acute metabolic encephalopathy secondary to urinary tract infection. 2. Tachycardia, possibly atrial fibrillation with fast ventricular rate as was supraventricular tachycardia. 3. Increased plasma lactic acid. 4. Paroxysmal atrial fibrillation with fast ventricular rate. 5. Troponin 0.13, indeterminate of undetermined etiology. 6. Increased WBC. 7. Anemia, normocytic anemia chronic disease. 8. History atrial fibrillation paroxysmal. 9. History of cerebrovascular accident, transient ischemic attack. 10.Dementia. 11.Diabetes mellitus type 2. 12.Gastroesophageal reflux disease. 13.History of gastrointestinal bleed. 14.History of seizure disorder. 15.History of hypothyroidism. 16.History of cerebrovascular accident, transient ischemic attack without. 17.History of iron deficiency anemia. 18.History of BXO. 19.History of lower gastrointestinal bleed. 20.History of AICD. 21.History of pacemaker. 22.History of symptomatic anemia. 23.FULL CODE. RECOMMENDATIONS AND DISCUSSION: I recommend to continue current management, continue monitoring and symptomatic treatment. Otherwise at this time I recommend continue with current medications. Continue with antibiotics. Follow closely with Infectious Disease and Cardiology. Further recommendations to follow. MMODL / IJN: [id number] / KAREN
[2018-08-09 16:57] LABS: Glucose,Whole Blood 248 mg/dL (75-99)
[2018-08-09] MEDS: ATORVASTATIN 10 MG TAB PO SCH (20:46)
[2018-08-09 20:53] LABS: Glucose,Whole Blood 138 mg/dL (75-99)
[2018-08-09 20:57] VITALS: RESP 16
--- NOTE | 2018-08-09 21:57 | PN ---
PROGRESS NOTE DATE OF SERVICE: 08/09/2018. REASON FOR FOLLOWUP: Enterococcus urinary tract infection with secondary bacteremia. INTERVAL HISTORY: The patient is currently afebrile. The patient did lose his IV site yesterday and nursing staff was unable to restart another IV. Hence, antibiotic has been switched over to p.o. The patient is currently breathing comfortably. Denies having any chest pain. No shortness of breath or cough. No abdominal pain. No diarrhea. PHYSICAL EXAMINATION: Blood pressure is 109/55 with a pulse of 85. Temperature 97.4. He is 96% on room air. General description is an elderly male lying in bed in no distress. Respiratory system: Unlabored breathing. Clear to auscultation anteriorly. Heart S1, S2. Regular rate and rhythm. Abdomen soft. No tenderness. Extremities: No edema of the feet. LABS: Hemoglobin 8.6, white count 5.9 with a BUN of 13, creatinine 0.69. Blood cultures finalize Enterococcus species as well as repeat blood cultures 08/07 has been negative. DIAGNOSTIC IMPRESSION AND PLAN: Patient with Enterococcus urinary intact infection with secondary bacteremia. The ultrasound of the kidneys were negative for any structural abnormality or any abscess. The patient's follow up blood culture negative. Currently on Augmentin that will be continued for another 10 days to finish a course of therapy with close outpatient followup. Continue supportive care. MMODL / IJN: [id number] /
[2018-08-10 07:01] LABS: Glucose,Whole Blood 137 mg/dL (75-99)
[2018-08-10] MEDS: LEVOTHYROXINE 88 MCG TAB PO SCH (07:49)
[2018-08-10] MEDS: levETIRAcetam 500 MG TAB PO SCH ×2 (07:50→20:44)
[2018-08-10] MEDS: CHOLECALCIFEROL 1,000 UNIT TAB PO SCH (07:50)
[2018-08-10] MEDS: METOPROLOL TARTRATE 25 MG TAB PO SCH ×2 (07:50→20:45)
[2018-08-10] MEDS: metFORMIN 500 MG TAB PO SCH ×2 (07:50→20:45)
[2018-08-10] MEDS: FERROUS SULFATE 325 MG TAB PO SCH ×2 (07:51→20:44)
[2018-08-10] MEDS: POTASSIUM CHLORIDE ER 20 MEQ TAB.ER PO SCH ×2 (07:51→20:45)
[2018-08-10] MEDS: PANTOPRAZOLE 40 MG/10 ML VIAL IV SCH (07:51)
[2018-08-10] MEDS: APIXABAN 2.5 MG TABLET PO SCH ×2 (07:51→20:44)
[2018-08-10] MEDS: TAMSULOSIN 0.4 MG CAP.ER.24H PO SCH (07:51)
[2018-08-10] MEDS: SILDENAFIL 20 MG TAB PO SCH ×3 (08:53→21:37)
[2018-08-10] MEDS: BUMETANIDE 1 MG TAB PO SCH ×2 (08:53→20:44)
[2018-08-10] MEDS: AMOXIC-POT CLAV 875-125MG 1 EACH TAB PO SCH ×2 (08:54→20:44)
[2018-08-10] MEDS: DILTIAZEM CD 240 MG CAP.ER.24H PO SCH (08:54)
[2018-08-10 11:21] LABS: Glucose,Whole Blood 135 mg/dL (75-99)
--- NOTE | 2018-08-10 16:22 | PN ---
PROGRESS NOTE DATE OF SERVICE: 08/10/2018 REASON FOR FOLLOWUP: Aerococcus urinae bacteremia and UTI. INTERVAL HISTORY: The patient is currently afebrile. Patient is breathing comfortably. He is awake, alert. Denies having any chest pain. No shortness of breath or cough. No abdominal pain or any diarrhea. PHYSICAL EXAMINATION: Blood pressure is 129/74 with a pulse of 81, temperature 97.7. He is 96% on room air. General description is an elderly male lying in bed in no distress. RESPIRATORY SYSTEM: Unlabored breathing. Clear to auscultation anteriorly. HEART: S1, S2. Regular rate and rhythm. ABDOMEN: Soft. No tenderness. LABS: No new labs have been obtained today. DIAGNOSTIC IMPRESSION AND PLAN: Patient with Aerococcus urinae bacteremia secondary to urinary source. Ultrasound was negative for any structural abnormality. Blood cultures were negative. Currently on Augmentin because of no IV access. To continue for another 10 days to finish a course of therapy with close outpatient followup. Prescription sent to the pharmacy. MMBECKL / TRUPTIN: [id number] /
[2018-08-10 16:46] LABS: Glucose,Whole Blood 168 mg/dL (75-99)
[2018-08-10 20:11] LABS: Glucose,Whole Blood 234 mg/dL (75-99)
[2018-08-10] MEDS: ATORVASTATIN 10 MG TAB PO SCH (20:44)
--- NOTE | 2018-08-10 21:40 | P.PN ---
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 foam charger saw pt as well, and plan to continue on anticoagulation , his heart rate is controlled currently and pt will follow up with his own foam charger upon discharge Objective - Vital Signs Vital signs: Vital Signs Temp 97.7 F 08/10/18 11:38 Pulse 81 08/10/18 11:38 Resp 16 08/10/18 11:38 BP 129/74 08/10/18 11:38 Pulse Ox 96 08/10/18 11:38 Intake & Output 08/10/18 08/10/18 08/11/18 06:59 18:59 06:59 Intake Total 590 840 Balance 590 840 Weight 84.4 kg Intake: Oral 590 840 Other: Voiding Method Toilet Toilet # Voids 1 3 - Exam GENERAL: The patient is alert and oriented x3, not in any acute distress. Well developed, well nourished. HEENT: Pupils are round and equally reacting to light. EOMI. No scleral icterus. No conjunctival pallor. Normocephalic, atraumatic. No pharyngeal erythema. No thyromegaly. CARDIOVASCULAR: S1 and S2 present. No murmurs, rubs, or gallops. PULMONARY: Chest is clear to auscultation, no wheezing or crackles. ABDOMEN: Soft, nontender, nondistended, normoactive bowel sounds. No palpable organomegaly. MUSCULOSKELETAL: No joint swelling or deformity. EXTREMITIES: No cyanosis, clubbing, or pedal edema. NEUROLOGICAL: Gross neurological examination did not reveal any focal deficits. SKIN: No rashes. - Labs CBC & Chem 7: 08/09/18 06:16 08/09/18 06:16 Labs: Abnormal Lab Results - Last 24 Hours (Table) 08/10/18 08/10/18 08/10/18 Range/Units 06:55 11:19 16:44 POC Glucose (mg/dL) 137 H 135 H 168 H (75-99) mg/dL 08/10/18 Range/Units 20:10 POC Glucose (mg/dL) 234 H (75-99) mg/dL Microbiology - Last 24 Hours (Table) 08/07/18 15:56 Blood Culture - Preliminary Blood No Growth after 72 hours 08/04/18 00:05 Blood Culture Gram Stain - Final Blood Blood Culture - Final Aerococcus species Assessment and Plan Assessment: chronic atrial fibrillation Aerococcus UTI h/o sick sinus syndrome on pacemaker type II diabetes Mellitus h/o dementia h/o 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 continue with same antibiotic augmentin, c/w Eliquis . cardiology and ID input is appreciated Continue with the same treatment , continue with symptomatic treatment , resume home medication , monitor lytes and vitals, . GI and DVT prophylaxis , further recommendation based upon pt clinical course and progress DVT prophylaxis eliquis GI prophylaxis Ppi Prognosis is guarded possible dc in 24-48 hours
[2018-08-11] MEDS: LEVOTHYROXINE 88 MCG TAB PO SCH (05:23)
[2018-08-11 05:31] VITALS: BP 107/63; PULSE 71; TEMP 96.7
[2018-08-11 06:48] LABS: Glucose,Whole Blood 156 mg/dL (75-99)
[2018-08-11] MEDS ORDERED: PANTOPRAZOLE 40 MG TABLET PO SCH (07:30)
[2018-08-11] MEDS: AMOXIC-POT CLAV 875-125MG 1 EACH TAB PO SCH (07:51)
[2018-08-11] MEDS: CHOLECALCIFEROL 1,000 UNIT TAB PO SCH (07:52)
[2018-08-11] MEDS: BUMETANIDE 1 MG TAB PO SCH (07:52)
[2018-08-11] MEDS: APIXABAN 2.5 MG TABLET PO SCH (07:52)
[2018-08-11] MEDS: DILTIAZEM CD 240 MG CAP.ER.24H PO SCH (07:53)
[2018-08-11] MEDS: levETIRAcetam 500 MG TAB PO SCH (07:53)
[2018-08-11] MEDS: FERROUS SULFATE 325 MG TAB PO SCH (07:53)
[2018-08-11] MEDS: POTASSIUM CHLORIDE ER 20 MEQ TAB.ER PO SCH (07:54)
[2018-08-11] MEDS: METOPROLOL TARTRATE 25 MG TAB PO SCH (07:54)
[2018-08-11] MEDS: metFORMIN 500 MG TAB PO SCH (07:54)
[2018-08-11] MEDS: SILDENAFIL 20 MG TAB PO SCH (07:54)
[2018-08-11] MEDS: TAMSULOSIN 0.4 MG CAP.ER.24H PO SCH (07:55)
--- NOTE | 2018-08-11 09:55 | P.DS ---
Providers Date of admission: 08/04/18 01:11 Attending physician: Hortencia Pink Consults: 08/04/18 11:41 Consult Physician Routine Consulting Provider: Elinor Reagan Consult Reason/Comments: high trops Do you want consulting provider notified?: Yes 08/05/18 18:21 Consult Physician Routine Consulting Provider: Swathi Fernández Consult Reason/Comments: sepsis Do you want consulting provider notified?: Yes 08/06/18 10:35 Consult Physician Urgent Consulting Provider: Jakob Hernandez Consult Reason/Comments: change in EKG, continued elevated heart rate Do you want consulting provider notified?: Yes Primary care physician: Stacey Wallace Hospital Course: Diagnoses: Aerococcus UTI Systemic inflammatory response syndrome, with tachycardia and leukocytosis, present on admission. 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 The presents with generalized weakness and urinary signs and symptoms. Patient found to have Aerococcus UTI and his been evaluated by infectious disease specialist recommended Augmentin for 10 more days. Patient felt better with no chest pain, no dyspnea. No change in bowel habits. No dysuria or polyuria. No fever. Vital signs stable. His leukocytosis is resolved and back to normal. Pile Driver Operator Helper evaluated the patient for A. fib with RVR on admission, his medication adjusted, and his Cardizem dose increased to 240 mg daily, and Lopressor to 25 mg twice a day. TSH was within normal limits at 3.9. Patient back to his baseline and on the day of discharge patient has no new symptoms. Patient was cleared by discharge by both infectious and cardiac team. Problems and management plan were discussed with the patient and he verbalized understanding and acceptance Patient was found stable to be discharged guarded prognosis, however he needs follow-up as an outpatient. Patient's wants to follow-up with his monitoring manager Dr. Rona Gould, and PCP at [place]. Patient agrees with the appointments made for him and states he will follow up. Gen: patient is a AAOx3, no distress CVS: S1-S2, RRR, no murmur Lungs: B/L CTA, no wheezing Abdomen: soft, no distention, no tenderness, positive bowel sounds Extremity: no leg edema or induration Time spent more than 35 minutes Patient Condition at Discharge: Critical Plan - Discharge Summary Discharge Rx Participant: No New Discharge Prescriptions: New Amoxicillin/Potassium Clav [Augmentin 875-125 Tablet] 1 tab PO Q12HR #20 tab Diltiazem Cd [Cardizem CD] 240 mg PO DAILY #30 cap.er.24h Metoprolol Tartrate [Lopressor] 25 mg PO BID #60 tab Continue metFORMIN HCL [Glucophage] 500 mg PO BID@599,1999 Atorvastatin [Lipitor] 10 mg PO HS@1999 Potassium Chloride [Klor-Con 20] 20 meq PO BID@599,1999 levETIRAcetam [Keppra] 1,000 mg PO BID@599,1999 Tamsulosin HCl [Flomax] 0.4 mg PO DAILY@0600 Omeprazole [PriLOSEC] 20 mg PO DAILY@0600 Ferrous Sulfate [Iron (65 MG Elemental)] 325 mg PO BID@06,1999 Bumetanide [BUMEX] 2 mg PO BID@0600,1200 Cranberry Fruit Concentrate [Azo Cranberry] 500 mg PO DAILY@0600 Apixaban [Eliquis] 2.5 mg PO BID@599,1999 Cholecalciferol (Vitamin D3) [Vitamin D3] 6,000 unit PO DAILY@0600 Levothyroxine Sodium [Synthroid] 175 mcg PO DAILY@0600 Sildenafil [Revatio] 10 mg PO TID@0600,1199,1999 Discontinued Diltiazem Cd [Cardizem Cd] 180 mg PO DAILY@0600 Discharge Medication List Atorvastatin [Lipitor] 10 mg PO HS@199903/24/14 [History] Potassium Chloride [Klor-Con 20] 20 meq PO BID@599,199903/24/14 [History] Tamsulosin HCl [Flomax] 0.4 mg PO DAILY@0600 03/24/14 [History] levETIRAcetam [Keppra] 1,000 mg PO BID@599,199903/24/14 [History] metFORMIN HCL [Glucophage] 500 mg PO BID@0600,199903/24/14 [History] Bumetanide [BUMEX] 2 mg PO BID@0600,1200 02/03/17 [History] Cranberry Fruit Concentrate [Azo Cranberry] 500 mg PO DAILY@0600 02/03/17 [History] Ferrous Sulfate [Iron (65 MG Elemental)] 325 mg PO BID@06,199902/03/17 [History] Omeprazole [PriLOSEC] 20 mg PO DAILY@0600 02/03/17 [History] Apixaban [Eliquis] 2.5 mg PO BID@599,199908/04/18 [History] Cholecalciferol (Vitamin D3) [Vitamin D3] 6,000 unit PO DAILY@0600 08/04/18 [History] Levothyroxine Sodium [Synthroid] 175 mcg PO DAILY@0600 08/04/18 [History] Sildenafil [Revatio] 10 mg PO TID@0600,1199,199908/04/18 [History] Amoxicillin/Potassium Clav [Augmentin 875-125 Tablet] 1 tab PO Q12HR #20 tab 08/10/18 [Rx] Diltiazem Cd [Cardizem CD] 240 mg PO DAILY #30 cap.er.24h 08/11/18 [Rx] Metoprolol Tartrate [Lopressor] 25 mg PO BID #60 tab 08/11/18 [Rx] Follow up Appointment(s)/Referral(s): Pernell Brower MD [REFERRING] - 08/17/18 2:00 pm Tato Rea DO [REFERRING] - 08/25/18 2:15 pm Swathi Fernández MD [STAFF PHYSICIAN] - 08/18/18 1:15 pm Patient Instructions/Handouts: Metoprolol (By mouth), Diltiazem (By mouth), Amoxicillin/Clavulanate Potassium (By mouth), Urinary Tract Infection in Men (DC), Sepsis (GEN) Care Plan Goals (MU): *Cardiac diet (Low fat, low salt) *Activity is limited until you see your doctor Discharge Disposition: HOME SELF-CARE
--- NOTE | 2018-08-13 09:34 | CDI ---
Documentation Clarification Form Date: 08/13/2018 From: Rose Olson Phone: If questions call Dulce Phelps @ [phone], Hours-8:30 am & 5 pm M- F Admit Date: 08/04/2018 1:11:00 AM Patient Name: Eloy Bauer Visit Number: [id number] Discharge Date: 08/11/2018 11:07:00 AM ATTENTION: The Clinical Documentation Specialists (CDI) and [facility] Coding Staff appreciate your assistance in clarifying documentation. Please respond to the clarification below the line at the bottom and electronically sign. The CDI & [facility] Coding staff will review the response and follow-up if needed. Please note: Queries are made part of the Legal Health Record. If you have any questions, please contact the author of this message via ITS. Dr. Foley Sheet Conflicting documentation has been found in the medical record: Acute UTI with possible sepsis, present on admission is documented in ED note, H&P, consults, and PNs. Acute UTI with Aerococcus possilbe sepsis present on admission in 08/08 PN. Per your DS - Systemic inflammatory response syndrome. History/Risk Factors: metabolic encephalopathy, persistent A fib, DM Clinical Indicators: lactic acid elevated at 2.6; lactic acid sepsis rflx - Y; WBC-16.2; neutrophils - 14.9; P-123, T-100.1, Treatment: IV fluids, IV antibiotics In your opinion, what is the most clinically appropriate diagnosis for this patient? Sepsis ruled in (Include organism if known) Sepsis ruled out Other, please specify Other explanation of clinical findings Unable to determine (no explanation for clinical findings) pt had sepsis secondary to UTI MTDD
== END 2018-08-11 11:07 | disposition home or self-care (01) | DRG 871 ==
LOC: EC 22:16 → 3SCARD 08-04 01:11 → 4MS4W 08-05 22:03 → 3SCARD 08-06 13:09 → 3NMEDONC 08-09 22:02
PROVIDERS: ADMIT Hospitalist; ATTEND Hospitalist
DX: A41.89 Other specified sepsis (principal); G93.41 Metabolic encephalopathy; N39.0 Urinary tract infection, site not specified; I48.1 Persistent atrial fibrillation; I47.1 Supraventricular tachycardia; R65.20 Severe sepsis without septic shock; D63.8 Anemia in other chronic diseases classified elsewhere; E11.9 Type 2 diabetes mellitus without complications; D50.9 Iron deficiency anemia, unspecified; F03.90 Unspecified dementia, unspecified severity, without behavioral disturbance, psychotic disturbance, mood disturbance, and anxiety; G40.909 Epilepsy, unspecified, not intractable, without status epilepticus; E78.5 Hyperlipidemia, unspecified; E03.9 Hypothyroidism, unspecified; I10 Essential (primary) hypertension; K21.9 Gastro-esophageal reflux disease without esophagitis; N40.1 Benign prostatic hyperplasia with lower urinary tract symptoms; N39.498 Other specified urinary incontinence; N48.0 Leukoplakia of penis; Z79.01 Long term (current) use of anticoagulants; Z79.890 Hormone replacement therapy; Z79.84 Long term (current) use of oral hypoglycemic drugs; Z79.899 Other long term (current) drug therapy; Z88.8 Allergy status to other drugs, medicaments and biological substances; Z95.810 Presence of automatic (implantable) cardiac defibrillator; Z86.73 Personal history of transient ischemic attack (TIA), and cerebral infarction without residual deficits; Z87.19 Personal history of other diseases of the digestive system; Z82.49 Family history of ischemic heart disease and other diseases of the circulatory system; Z80.9 Family history of malignant neoplasm, unspecified
CPT/HCPCS: 36415; 70450; 71046; 76770; 80048; 80053; 80306; 81001; 82140; 82803; 83036; 83605; 83735; 83880; 84443; 84484; 85025; 85027; 86850; 86900; 86901; 86920; 87040; 87086; 87502; 93005; 93306; 96365; 96366; 96375; 99285

== ENCOUNTER 2020-01-14 19:20 | Inpatient (IN) | payer MEDICARE, BC ==
[2020-01-14] MEDS ORDERED: FUROSEMIDE 10 MG/ML 4 ML VIAL IV STA (20:41)
--- NOTE | 2020-01-14 21:28 | XR ---
EXAMINATION TYPE: XR chest 2V DATE OF EXAM: 01/14/2020 COMPARISON: 08/04/2018 HISTORY: Chest pain TECHNIQUE: FINDINGS: There is opacification of more than 50% of the right hemithorax. There is also some airspac e infiltrate and pleural fluid in the left lower lobe. There is pulmonary vascular congestion. Heart is probably enlarged. There is left axillary pacemaker. IMPRESSION: Congestive heart failure with large right pleural effusion. Right lower lobe pneumonia is possible. Small left pleural effusion with left lower lobe mild pneumonia. Pleural fluid and heart f ailure appear new compared to old exam.
[2020-01-14] MEDS ORDERED: IPRATROPIUM-ALBUTEROL 3 ML NEB INHALATION STA (22:23)
[2020-01-14] MEDS ORDERED: PNEUMONIA PROTOCOL UTILIZED 1 EACH MISC PO PRN (22:27)
--- NOTE | 2020-01-14 22:27 | ED ---
SOB HPI - General Chief Complaint: Shortness of Breath Stated Complaint: JUDAH Time Seen by Provider: 01/14/20 20:14 Source: patient, RN notes reviewed, old records reviewed Mode of arrival: ambulatory Limitations: no limitations - History of Present Illness Initial Comments: This is a 79-year-old male DF for evaluation patient Dese for eval should've sev ere shortness of breath upon waking bilateral lower extremity swelling and edema. Patient's history of heart failure, patient feels that he is sometimes a little bit confuses actions been running low sometimes an 78 MD Complaint: shortness of breath, cough, chest pain -: days(s), week(s) Severity: severe Severity scale (1-10): 8 Quality: other (no pain) Consistency: constant Improves With: rest Worsens With: lying flat, exertion, movement, coughing Known History Of: congestive heart failure Context: recent URI Associated Symptoms: cough Treatments Prior to Arrival: none - Related Data Home Medications Medication Instructions Recorded Confirmed Atorvastatin [Lipitor] 10 mg PO HS@209903/24/14 01/14/20 Potassium Chloride [Klor-Con 20] 20 meq PO BID@0900,209903/24/14 01/14/20 Tamsulosin HCl [Flomax] 0.4 mg PO HS@209903/24/14 01/14/20 levETIRAcetam [Keppra] 1,000 mg PO BID@0900,209903/24/14 01/14/20 metFORMIN HCL [Glucophage] 500 mg PO BID@0900,1700 03/24/14 01/14/20 Ferrous Sulfate [Iron (65 MG 325 mg PO BID@0900,209902/03/17 01/14/20 Elemental)] Omeprazole [PriLOSEC] 20 mg PO DAILY@0600 02/03/17 01/14/20 Apixaban [Eliquis] 2.5 mg PO BID@0900,209908/04/18 01/14/20 Levothyroxine Sodium [Synthroid] 175 mcg PO DAILY@0600 08/04/18 01/14/20 Sildenafil [Revatio] 10 mg PO TID@0600,1400,2200 08/04/18 01/14/20 Cholecalciferol [Vitamin D3 (25 1,000 unit PO DAILY@0901/14/20 01/14/20 Mcg = 1000 Iu)] Cholecalciferol [Vitamin D3 (25 2,000 unit PO HS@209901/14/20 01/14/20 Mcg = 1000 Iu)] Cyanocobalamin [Vitamin B-12] 1,000 mcg PO DAILY@89901/14/20 01/14/20 Diltiazem Cd [Cardizem CD] 240 mg PO DAILY@89901/14/20 01/14/20 Furosemide [Lasix] 40 mg PO DAILY@89901/14/20 01/14/20 Metoprolol Tartrate [Lopressor] 25 mg PO BID@09,209901/14/20 01/14/20 Sennosides/Docusate Sodium [Senna 2 tab PO HS@209901/14/20 01/14/20 Plus 8.6-50 mg Tablet] metOLazone [Zaroxolyn] 2.5 mg PO DAILY@0600 PRN 01/14/20 01/14/20 polyethylene glycoL 3350 [Miralax] 17 gm PO DAILY PRN 01/14/20 01/14/20 Allergies Allergy/AdvReac Type Severity Reaction Status Date / Time amiodarone Allergy Unknown Verified 01/14/20 20:27 amitriptyline Allergy Unknown Verified 01/14/20 20:27 simvastatin [From Zocor] Allergy Unknown Verified 01/14/20 20:27 Review of Systems ROS Statement: Those systems with pertinent positive or pertinent negative responses have been documented in the HPI. ROS Other: All systems not noted in ROS Statement are negative. Past Medical History Past Medical History: Atrial Fibrillation, CVA/TIA, Dementia, Diabetes Mellitus, GERD/Reflux, GI Bleed, Prostate Disorder, Seizure Disorder, Thyroid Disorder Additional Past Medical History / Comment(s): NIDDM type II-diet controlled, 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 History of Any Multi-Drug Resistant Organisms: None Reported Past Surgical History: AICD, Pacemaker Additional Past Surgical History / Comment(s): EGD, colonoscipy, capsule endoscopy. Past Anesthesia/Blood Transfusion Reactions: No Reported Reaction Type of Cardiac Device: Permanent Pacemaker, AICD Device Placement Date:: 2011 Past Psychological History: No Psychological Hx Reported Smoking Status: Never smoker Past Alcohol Use History: Rare Past Drug Use History: None Reported - Past Family History Father Family Medical History: Myocardial Infarction ([place]) Mother Family Medical History: Myocardial Infarction ([place]) Brother(s) Additional Family Medical History / Comment(s): from [place]. It was all through his body. Unknown as to what kind General Exam Limitations: no limitations General appearance: alert, in no apparent distress, anxious Head exam: Present: atraumatic, normocephalic, normal inspection Eye exam: Present: normal appearance, PERRL, EOMI. Absent: scleral icterus, conjunctival injection, periorbital swelling ENT exam: Present: normal exam, mucous membranes moist Neck exam: Present: normal inspection. Absent: tenderness, meningismus, lymphadenopathy Respiratory exam: Present: respiratory distress, rales, rhonchi, decreased breath sounds, prolonged expiratory. Absent: wheezes, stridor Cardiovascular Exam: Present: regular rate, normal rhythm, normal heart sounds. Absent: systolic murmur, diastolic murmur, rubs, gallop, clicks GI/Abdominal exam: Present: soft, normal bowel sounds. Absent: distended, ten derness, guarding, rebound, rigid Extremities exam: Present: normal inspection, full ROM, normal capillary refill. Absent: tenderness, pedal edema, joint swelling, calf tenderness Back exam: Present: normal inspection Neurological exam: Present: alert, oriented X3, CN II-XII intact Psychiatric exam: Present: normal affect, normal mood Skin exam: Present: warm, dry, intact, normal color. Absent: rash Course Vital Signs 01/14/20 01/14/20 01/14/20 19:34 20:30 22:15 Temperature 97.0 F L Pulse Rate 88 75 68 Pulse Rate [ Pulse Oximetery ] Respiratory 20 20 20 Rate Blood Pressure 113/71 125/79 124/68 Blood Pressure [Right Arm] O2 Sat by Pulse 86 L 92 L 88 L Oximetry 01/14/20 01/14/20 01/14/20 22:46 23:16 23:25 Temperature 97.6 F Pulse Rate 77 71 Pulse Rate [ 76 Pulse Oximetery ] Respiratory 18 18 Rate Blood Pressure 112/67 Blood Pressure 122/72 [Right Arm] O2 Sat by Pulse 95 89 L Oximetry 01/14/20 01/14/20 23:32 23:49 Temperature 96.8 F L Pulse Rate 73 68 Pulse Rate [ Pulse Oximetery ] Respiratory 18 Rate Blood Pressure 116/67 Blood Pressure [Right Arm] O2 Sat by Pulse 98 Oximetry - Reevaluation(s) Reevaluation #1: 01/14/20 22:26 Medical record is reviewed Reevaluation #2: 01/14/20 22:26 Patient was severely short of breath on arrival improving with oxygen breathing treatment for possible BiPAP secondary to hypoxia Reevaluation #3: 01/14/20 22:26 Patient spoken with, rechecked informed results, questions answered - Consultations Consultation #1: Spoke with Dr. Vásquez agrees to admit Medical Decision Making - Medical Decision Making 79 male DF for evaluation patient presents for shortness of breath with cough 2 weeks with us for CHF and hypoxia. Patient [place] for diuresis also having significant lower extremity edema weighs about 20 pounds. - Lab Data Result diagrams: 01/14/20 22:19 01/14/20 22:19 Lab Results 01/14/20 01/14/20 01/14/20 Range/Units 22:19 22:19 22:19 WBC 5.3 (3.8-10.6) k/uL RBC 4.25 L (4.30-5.90) m/uL Hgb 12.1 L (13.0-17.5) gm/dL Hct 40.6 (39.0-53.0) % MCV 95.6 (80.0-100.0) fL MCH 28.4 (25.0-35.0) pg MCHC 29.7 L (31.0-37.0) g/dL RDW 17.1 H (11.5-15.5) % Plt Count 165 (150-450) k/uL Neutrophils % 75 % Lymphocytes % 10 % Monocytes % 12 % Eosinophils % 1 % Basophils % 0 % Neutrophils # 4.0 (1.3-7.7) k/uL Lymphocytes # 0.5 L (1.0-4.8) k/uL Monocytes # 0.6 (0-1.0) k/uL Eosinophils # 0.1 (0-0.7) k/uL Basophils # 0.0 (0-0.2) k/uL Hypochromasia Marked Anisocytosis Slight PT 10.7 (9.0-12.0) sec INR 1.0 (<1.2) APTT 27.1 (22.0-30.0) sec Sodium 137 (137-145) mmol/L Potassium 5.8 H (3.5-5.1) mmol/L Chloride 107 (98-107) mmol/L Carbon Dioxide 25 (22-30) mmol/L Anion Gap 5 mmol/L BUN 31 H (9-20) mg/dL Creatinine 0.84 (0.66-1.25) mg/dL Est GFR (CKD-EPI)AfAm >90 (>60 ml/min/1.73 sqM) Est GFR (CKD-EPI)NonAf 82 (>60 ml/min/1.73 sqM) Glucose 128 H (74-99) mg/dL Calcium 9.4 (8.4-10.2) mg/dL Magnesium 2.0 (1.6-2.3) mg/dL Total Bilirubin 0.9 (0.2-1.3) mg/dL AST 33 (17-59) U/L ALT 19 (4-49) U/L Alkaline Phosphatase 165 H (38-126) U/L Troponin I (0.000-0.034) ng/mL NT-Pro-B Natriuret Pep pg/mL Total Protein 7.3 (6.3-8.2) g/dL Albumin 3.7 (3.5-5.0) g/dL 01/14/20 01/14/20 Range/Units 22:19 22:19 WBC (3.8-10.6) k/uL RBC (4.30-5.90) m/uL Hgb (13.0-17.5) gm/dL Hct (39.0-53.0) % MCV (80.0-100.0) fL MCH (25.0-35.0) pg MCHC (31.0-37.0) g/dL RDW (11.5-15.5) % Plt Count (150-450) k/uL Neutrophils % % Lymphocytes % % Monocytes % % Eosinophils % % Basophils % % Neutrophils # (1.3-7.7) k/uL Lymphocytes # (1.0-4.8) k/uL Monocytes # (0-1.0) k/uL Eosinophils # (0-0.7) k/uL Basophils # (0-0.2) k/uL Hypochromasia Anisocytosis PT (9.0-12.0) sec INR (<1.2) APTT (22.0-30.0) sec Sodium (137-145) mmol/L Potassium (3.5-5.1) mmol/L Chloride (98-107) mmol/L Carbon Dioxide (22-30) mmol/L Anion Gap mmol/L BUN (9-20) mg/dL Creatinine (0.66-1.25) mg/dL Est GFR (CKD-EPI)AfAm (>60 ml/min/1.73 sqM) Est GFR (CKD-EPI)NonAf (>60 ml/min/1.73 sqM) Glucose (74-99) mg/dL Calcium (8.4-10.2) mg/dL Magnesium (1.6-2.3) mg/dL Total Bilirubin (0.2-1.3) mg/dL AST (17-59) U/L ALT (4-49) U/L Alkaline Phosphatase (38-126) U/L Troponin I <0.012 (0.000-0.034) ng/mL NT-Pro-B Natriuret Pep 2850 pg/mL Total Protein (6.3-8.2) g/dL Albumin (3.5-5.0) g/dL - EKG Data -: EKG Interpreted by Me (EKG shows paced rhythm 90 SC 2:30 QRS 176 QTc 557) - Radiology Data Radiology results: report reviewed (Chest x-ray shows significant pleural effusion significant CHF likely underlying pneumonia), image reviewed Critical Care Time Critical Care Time: Yes Total Critical Care Time: 31 Disposition Clinical Impression: Afib, Congestive heart failure, Acute pulmonary edema, Community acquired pneumonia, Pleural effusion Disposition: ADMITTED IP TO THIS [facility] Condition: Serious
[2020-01-14] MEDS ORDERED: FUROSEMIDE 10 MG/ML 4 ML VIAL IV SCH (22:30)
[2020-01-14] MEDS ORDERED: AZITHROMYCIN 500 MG in SODIUM CHLORIDE 0.9% 250 ML IVPB ONE (22:30)
[2020-01-14 22:38] LABS: Anisocytosis Slight; Basophils % (A) 0 %; Eosinophils # (A) 0.1 k/uL (0-0.7); Eosinophils % (A) 1 %; HCT 40.6 % (39.0-53.0); HGB 12.1 gm/dL (13.0-17.5); Hypochromasia Marked; Lymphocytes # (A) 0.5 k/uL (1.0-4.8); Lymphocytes % (A) 10 %; MCH 28.4 pg (25.0-35.0); MCHC 29.7 g/dL (31.0-37.0); MCV 95.6 fL (80.0-100.0); Monocytes # (A) 0.6 k/uL (0-1.0); Monocytes % (A) 12 %; Neutrophils % (A) 75 %; Platelet Count 165 k/uL (150-450); RBC 4.25 m/uL (4.30-5.90); RDW 17.1 % (11.5-15.5); WBC 5.3 k/uL (3.8-10.6)
[2020-01-14 22:52] LABS: Partial Thromboplastin Time 27.1 sec (22.0-30.0); Prothrombin Time 10.7 sec (9.0-12.0)
[2020-01-14 22:53] LABS: ALT 19 U/L (4-49); African American GFR (CKD) >90 (>60 ml/min/1.73 sqM); Albumin 3.7 g/dL (3.5-5.0); Anion Gap 5 mmol/L; Blood Urea Nitrogen 31 mg/dL (9-20); Calcium 9.4 mg/dL (8.4-10.2); Carbon Dioxide 25 mmol/L (22-30); Chloride 107 mmol/L (98-107); Glucose 128 mg/dL (74-99); Non-African American GFR(CKD) 82 (>60 ml/min/1.73 sqM); Sodium 137 mmol/L (137-145); Total Bilirubin 0.9 mg/dL (0.2-1.3); Total Protein 7.3 g/dL (6.3-8.2)
[2020-01-14 23:11] LABS: AST 33 U/L (17-59); Alkaline Phosphatase 165 U/L (38-126); Potassium 5.8 mmol/L (3.5-5.1)
[2020-01-15] MEDS ORDERED: AZITHROMYCIN 500 MG in SODIUM CHLORIDE 0.9% 250 ML IVPB ONE (02:00)
[2020-01-15 06:04] LABS: Glucose,Whole Blood 235 mg/dL (75-99)
[2020-01-15] MEDS: IPRATROPIUM-ALBUTEROL 3 ML NEB INHALATION PRN ×2 (08:43→20:19)
[2020-01-15] MEDS: FUROSEMIDE 10 MG/ML 4 ML VIAL IV SCH ×2 (08:44→17:12)
[2020-01-15] MEDS ORDERED: polyethylene glycoL 3350 17 GM POWD.PACK PO PRN (09:09)
[2020-01-15] MEDS ORDERED: APIXABAN 2.5 MG TABLET PO SCH (09:09)
--- NOTE | 2020-01-15 09:24 | XR ---
EXAMINATION TYPE: XR chest 1V portable DATE OF EXAM: 01/15/2020 CLINICAL HISTORY: Difficulty breathing progress study. TECHNIQUE: Single AP portable upright view of the chest is obtained. COMPARISON: Chest x-ray from one day earlier and older studies. CT chest April 16, 2017. FINDINGS: Persistent cardiomegaly with dual lead pacemaker and atherosclerotic thoracic aorta. Persi stent moderate to large size right pleural effusion and associated right lung compressive atelectasis . Background chronic parenchymal fibrotic changes with left mid lung linear scarring and/or atelectas is redemonstrated. Phoebe B lines in the periphery are noted. Osseous structures remain demineralized . IMPRESSION: Background chronic parenchymal fibrotic changes. Suspect CHF exacerbation with cardiomega ly and mild to moderate interstitial edema on background chronic change. Persistent moderate to large size right pleural effusion. No significant change from one day earlier.
[2020-01-15] MEDS: levETIRAcetam 500 MG TAB PO SCH ×2 (10:08→20:59)
--- NOTE | 2020-01-15 10:53 | P.CRDCN ---
History of Present Illness History of present illness: HISTORY OF PRESENTING ILLNESS This is a pleasant 79-year-old male past medical history significant for dementia, chronic persistent atrial fibrillation on long-term anticoagulation, sick sinus syndrome status post permanent pacemaker implantation, diabetes mellitus, history of CVA, pulmonary hypertension and chronic diastolic heart failure. We have been asked to see in consultation for heart failure. He is seen and examined resting comfortably laying flat in bed in no acute distress. He is a poor historian. Information is obtained from the nursing staff and medical record. He presented to the hospital secondary to shortness of breath and lower extremity edema. He was noted to be hypoxic with a pulse ox of 86% on room air. Chest x-ray revealed congestive heart failure with a large right pleural effusion and a small left pleural effusion, pneumonia cannot be excluded. He was initiated on Lasix IV 40 mg twice a day and IV antibiotics in the emergency department. Repeat chest x-ray this morning reveals ongoing exacerbation of CHF with moderate interstitial edema with persistent moderate to large size right pleural effusion. No significant change from previous exam. DIAGNOSTICS EKG reveals paced with underlying A. fib. Laboratory reviewed, WBC 5.3, hemoglobin 12.1, platelets 165, sodium 137, potassium 5.8, creatinine 0.84, magnesium 2.0, cardiac enzymes negative 3, NT proBNP 2850. Current cardiac medications include atorvastatin 10 mg daily, Cardizem 240 mg daily, Lasix 40 mg daily, Zaroxolyn 2.5 mg daily as needed, Eliquis 2.5 mg twice a day and Lopressor 25 mg twice a day. Most recent echocardiogram obtained in 2019 reveals preserved LV systolic function with ejection fraction 50-55%, mild aortic stenosis, mild tricuspid regurgitation and severe pulmonary hypertension with an RVSP of 74 mmHg. REVIEW OF SYSTEMS At the time of my exam: Unable to obtain accurate review of systems PHYSICAL EXAMINATION Blood pressure 128/65 heart rate 76 afebrile and maintaining oxygen saturation on BiPAP. CONSTITUTIONAL: No apparent distress. HEENT: Head is normocephalic. Pupils are equal, round. Sclerae anicteric. Mucous membranes of the mouth are moist. No JVD. No carotid bruit. CHEST EXAMINATION: Bibasilar rales, scattered rhonchi, no wheezes. No chest wall tenderness is noted on palpation or with deep breathing. HEART EXAMINATION: Irregular rate and rhythm. S1, S2 heard. Systolic ejection murmur at the left sternal border, no gallops or rub. ABDOMEN: Soft, nontender. Positive bowel sounds. EXTREMITIES: 2+ peripheral pulses, bilateral lower extremity 2+ pitting edema and no calf tenderness. ASSESSMENT Acute on chronic diastolic heart failure Pulmonary hypertension Hypoxia Chronic persistent A. fib on long-term anticoagulation Sick sinus syndrome s/p pacemaker implantation Hyperkalemia PLAN Increase lasix to TID dosing. Document accurate intake lung with daily weights. Follow renal function and electrolytes in the morning. Repeat 2-D echocardiogram and Doppler study to assess cardiac structure and function. Further recommendations to follow based upon clinical course. Thank you kindly for this consultation. Nurse Practitioner note has been reviewed, I agree with a documented findings and plan of care. Patient was seen and examined. Past Medical History Past Medical History: Atrial Fibrillation, CVA/TIA, Dementia, Diabetes Mellitus, GERD/Reflux, GI Bleed, Prostate Disorder, Seizure Disorder, Thyroid Disorder Additional Past Medical History / Comment(s): NIDDM type II-diet controlled, CVA and TIA with no residual, last seizure years ago per pt, iron deficiency anemia- has had iron infusions, BPH, UTI with sepsis, BXO (balantis Xerotica Obliteran s), lower GI bleed. History of Any Multi-Drug Resistant Organisms: None Reported Past Surgical History: AICD, Pacemaker Additional Past Surgical History / Comment(s): EGD, colonoscipy, capsule endoscopy. Past Anesthesia/Blood Transfusion Reactions: No Reported Reaction Type of Cardiac Device: Permanent Pacemaker, AICD Device Placement Date:: 2011 Past Psychological History: No Psychological Hx Reported Smoking Status: Never smoker Past Alcohol Use History: Rare Past Drug Use History: None Reported - Past Family History Father Family Medical History: Myocardial Infarction ([place]) Mother Family Medical History: Myocardial Infarction ([place]) Brother(s) Additional Family Medical History / Comment(s): from [place]. It was all through his body. Unknown as to what kind Medications and Allergies Home Medications Medication Instructions Recorded Confirmed Type Atorvastatin [Lipitor] 10 mg PO HS@2100 03/24/14 01/14/20 History Potassium Chloride [Klor-Con 20] 20 meq PO BID@0900,2100 03/24/14 01/14/20 History Tamsulosin HCl [Flomax] 0.4 mg PO HS@2100 03/24/14 01/14/20 History levETIRAcetam [Keppra] 1,000 mg PO BID@0900,2100 03/24/14 01/14/20 History metFORMIN HCL [Glucophage] 500 mg PO BID@0900,1700 03/24/14 01/14/20 History Ferrous Sulfate [Iron (65 MG 325 mg PO BID@0900,2100 02/03/17 01/14/20 History Elemental)] Omeprazole [PriLOSEC] 20 mg PO DAILY@0600 02/03/17 01/14/20 History Apixaban [Eliquis] 2.5 mg PO BID@0900,2100 08/04/18 01/14/20 History Levothyroxine Sodium [Synthroid] 175 mcg PO DAILY@0600 08/04/18 01/14/20 History Sildenafil [Revatio] 10 mg PO TID@0600,1400,2200 08/04/18 01/14/20 History Cholecalciferol [Vitamin D3 (25 1,000 unit PO DAILY@89901/14/20 01/14/20 History Mcg = 1000 Iu)] Cholecalciferol [Vitamin D3 (25 2,000 unit PO HS@209901/14/20 01/14/20 History Mcg = 1000 Iu)] Cyanocobalamin [Vitamin B-12] 1,000 mcg PO DAILY@89901/14/20 01/14/20 History Diltiazem Cd [Cardizem CD] 240 mg PO DAILY@0901/14/20 01/14/20 History Furosemide [Lasix] 40 mg PO DAILY@89901/14/20 01/14/20 History Metoprolol Tartrate [Lopressor] 25 mg PO BID@0900,209901/14/20 01/14/20 History Sennosides/Docusate Sodium [Senna 2 tab PO HS@209901/14/20 01/14/20 History Plus 8.6-50 mg Tablet] metOLazone [Zaroxolyn] 2.5 mg PO DAILY@0600 PRN 01/14/20 01/14/20 History polyethylene glycoL 3350 [Miralax] 17 gm PO DAILY PRN 01/14/20 01/14/20 History Allergies Allergy/AdvReac Type Severity Reaction Status Date / Time amiodarone Allergy Unknown Verified 01/14/20 20:27 amitriptyline Allergy Unknown Verified 01/14/20 20:27 simvastatin [From Zocor] Allergy Unknown Verified 01/14/20 20:27 Physical Exam Vitals: Vital Signs Temp Pulse Pulse Resp BP BP Pulse Ox 01/15/20 08:52 76 01/15/20 08:45 80 01/15/20 08:00 97.9 F 80 24 128/65 95 01/15/20 04:00 97.6 F 82 18 121/69 97 01/14/20 23:49 96.8 F L 68 18 116/67 98 01/14/20 23:32 73 01/14/20 23:25 71 01/14/20 23:16 77 18 112/67 89 L 01/14/20 22:46 97.6 F 76 18 122/72 95 01/14/20 22:15 68 20 124/68 88 L 01/14/20 20:30 75 20 125/79 92 L 01/14/20 19:34 97.0 F L 88 20 113/71 86 L Intake and Output 01/14/20 01/15/20 01/15/20 22:59 06:59 14:59 Intake Total 300 Output Total 100 300 Balance -100 0 Intake: Intake, IV Titration 300 Amount Azithromycin 500 mg In 250 Sodium Chloride 0.9% 250 ml @ 250 mls/hr IVPB ONCE ONE Rx#:[id number] cefTRIAXone 2 gm In 50 Sodium Chloride 0.9% 50 ml @ 100 mls/hr IVPB ONCE ONE Rx#:[id number] Output: Urine 100 300 Other: Voiding Method Urinal Urinal Diaper Diaper # Voids 1 Weight 91.762 kg 91.2 kg Results 01/14/20 22:19 01/14/20 22:19 Cardiac Enzymes 01/14/20 01/14/20 01/15/20 Range/Units 22:19 22:19 01:38 AST 33 (17-59) U/L Troponin I <0.012 <0.012 (0.000-0.034) ng/mL 01/15/20 Range/Units 04:17 AST (17-59) U/L Troponin I 0.012 (0.000-0.034) ng/mL Coagulation 01/14/20 Range/Units 22:19 PT 10.7 (9.0-12.0) sec APTT 27.1 (22.0-30.0) sec CBC 01/14/20 Range/Units 22:19 WBC 5.3 (3.8-10.6) k/uL RBC 4.25 L (4.30-5.90) m/uL Hgb 12.1 L (13.0-17.5) gm/dL Hct 40.6 (39.0-53.0) % Plt Count 165 (150-450) k/uL Comprehensive Metabolic Panel 01/14/20 Range/Units 22:19 Sodium 137 (137-145) mmol/L Potassium 5.8 H (3.5-5.1) mmol/L Chloride 107 (98-107) mmol/L Carbon Dioxide 25 (22-30) mmol/L BUN 31 H (9-20) mg/dL Creatinine 0.84 (0.66-1.25) mg/dL Glucose 128 H (74-99) mg/dL Calcium 9.4 (8.4-10.2) mg/dL AST 33 (17-59) U/L ALT 19 (4-49) U/L Alkaline Phosphatase 165 H (38-126) U/L Total Protein 7.3 (6.3-8.2) g/dL Albumin 3.7 (3.5-5.0) g/dL Current Medications Generic Name Dose Route Start Last Admin Trade Name Freq PRN Reason Stop Dose Admin Albuterol/Ipratropium 3 ml 01/14/20 22:23 01/15/20 08:43 Ipratropium-Albuterol 3 Ml Neb INHALATION 3 ml RT-QID PRN Administration Shortness Of Breath Or Wheezing Apixaban 2.5 mg 01/15/20 09:09 Apixaban 2.5 Mg Tablet PO BID@0900,2100 [facility] Atorvastatin Calcium 10 mg 01/15/20 21:00 Atorvastatin 10 Mg Tab PO HS@2100 [facility] Cholecalciferol 1,000 unit 01/16/20 09:00 Cholecalciferol 1,000 Unit Tab PO DAILY@0900 [facility] Cholecalciferol 2,000 unit 01/15/20 21:00 Cholecalciferol 1,000 Unit Tab PO HS@2100 [facility] Cyanocobalamin 1,000 mcg 01/16/20 09:00 Cyanocobalamin 500 Mcg Tab PO DAILY@0900 [facility] Diltiazem HCl 240 mg 01/16/20 09:00 Diltiazem Cd 240 Mg Cap.Er.24h PO DAILY@0900 [facility] Ferrous Sulfate 325 mg 01/15/20 21:00 Ferrous Sulfate 325 Mg Tab PO BID@0900,2100 [facility] Furosemide 40 mg 01/15/20 08:00 01/15/20 08:44 Furosemide 10 Mg/Ml 4 Ml Vial IV 40 mg Q8HR [facility] Administration Ceftriaxone Sodium 2 gm/ 50 mls @ 100 mls/hr 01/15/20 22:00 Sodium Chloride IVPB Q24H [facility] Levetiracetam 1,000 mg 01/15/20 09:10 Levetiracetam 500 Mg Tab PO BID@0900,2100 [facility] Levothyroxine Sodium 100 mcg 01/16/20 06:00 Levothyroxine 100 Mcg Tab PO DAILY@0600 [facility] Levothyroxine Sodium 75 mcg 01/16/20 06:00 Levothyroxine 75 Mcg Tab PO DAILY@0600 [facility] Metformin HCl 500 mg 01/15/20 17:00 Metformin 500 Mg Tab PO BID@0900,1700 [facility] Metolazone 2.5 mg 01/16/20 06:00 Metolazone 2.5 Mg Tab PO 01/17/20 06:01 DAILY@0600 PRN FOR 3 DAYS Metoprolol Tartrate 25 mg 01/15/20 21:00 Metoprolol Tartrate 25 Mg Tab PO BID@0900,2100 [facility] Miscellaneous Information 1 each 01/14/20 22:27 Pneumonia Protocol Utilized 1 Each Misc PO ONCE PRN Per Protocol Pantoprazole Sodium 40 mg 01/16/20 06:00 Pantoprazole 40 Mg Tablet PO DAILY@0600 [facility] Polyethylene Glycol 17 gm 01/15/20 09:09 Polyethylene Glycol 3350 17 Gm Powd.Pack PO DAILY PRN Constipation Senna/Docusate Sodium 2 each 01/15/20 21:00 Sennosides-Docusate Sodium 1 Each Tab PO HS@2100 [facility] Sildenafil Citrate 10 mg 01/15/20 14:00 Sildenafil 20 Mg Tab PO TID@0600,1400,2200 [facility] Tamsulosin HCl 0.4 mg 01/15/20 21:00 Tamsulosin 0.4 Mg Cap.Er.24h PO HS@2100 [facility] Intake and Output 01/14/20 01/15/20 01/15/20 22:59 06:59 14:59 Intake Total 300 Output Total 100 300 Balance -100 0 Intake: Intake, IV Titration 300 Amount Azithromycin 500 mg In 250 Sodium Chloride 0.9% 250 ml @ 250 mls/hr IVPB ONCE ONE Rx#:[id number] cefTRIAXone 2 gm In 50 Sodium Chloride 0.9% 50 ml @ 100 mls/hr IVPB ONCE ONE Rx#:[id number] Output: Urine 100 300 Other: Voiding Method Urinal Urinal Diaper Diaper # Voids 1 Weight 91.762 kg 91.2 kg 01/14/20 22:19 01/14/20 22:19
[2020-01-15 11:49] LABS: Glucose,Whole Blood 157 mg/dL (75-99)
--- NOTE | 2020-01-15 12:47 | CT ---
EXAMINATION TYPE: CT chest wo con DATE OF EXAM: 01/15/2020 COMPARISON: Chest CT April 16, 2017. Chest x-ray earlier today. HISTORY: Post thoracentesis CT DLP: 526 mGycm. Automated Exposure Control for Dose Reduction was Utilized. TECHNIQUE: CT scan of the thorax is performed without IV contrast. FINDINGS: LUNGS: There is persistent moderate to large right pleural effusion stable or slightly more prominent after attempted right-sided thoracentesis. There is associated right lung compressive atelectasis. T here is small left pleural effusion. There is bilateral perihilar consolidation. No pneumothorax seen bilaterally. MEDIASTINUM: Lack of IV contrast is noted to limit evaluation for mediastinal and especially hilar ad enopathy. There are stable prominent thoracic lymph nodes borderline enlarged in size. Enlarged main pulmonary artery redemonstrated consistent with underlying pulmonary hypertension. Persistent mild c ardiomegaly with dual lead pacemaker. No new pericardial effusion. OTHER: Persistent [id number] multilevel bridging osteophytes in the thoracic spine. There is moderate to severe diffuse soft tissue anasarca greatest inferiorly. New focus of air right posterior soft tissue axial image 22 presumed product of attempted thoracentesis. IMPRESSION: Moderate to large right pleural effusion stable or slightly larger after attempted right- sided thoracentesis verses most recent x-ray.
[2020-01-15] MEDS: SILDENAFIL 20 MG TAB PO SCH ×2 (13:04→21:01)
--- NOTE | 2020-01-15 13:14 | P.CNPUL ---
History of Present Illness Consult date: 01/15/20 Reason for consult: pleural effusion History of present illness: 79-year-old male patient, came in for worsening shortness of breath. The patien t is known to have diastolic heart failure in addition to severe pulmonary hypertension and right-sided heart failure. He has chronic atrial fibrillation. He has sick sinus syndrome has a pacemaker in place. He has diabetes, previous CVA and history of dementia. He has had previous right-sided pleural effusion and according to the family has had previous thoracentesis an outside facilities. He came in worsening shortness of breath and lower extremity edema. He was briefly placed on BiPAP. Currently is on IV Lasix. Chest x-ray shows a large right-sided pleural effusion and needs to be drained. The patient on Eliquis for now which will placed on hold. No other significant events. He is able to communicate well. His proBNP level is 2850. Troponin times she has been negative. White cell count is at 5.3. Cardiac rhythm is atrial fibrillation. Review of Systems Constitutional: Reports fatigue, Reports weight gain Eyes: bilateral decreased vision, denies as per HPI, denies blurred vision Ears: bilateral: decreased hearing, deny: ear discharge, earache, tinnitus Ears, nose, mouth and throat: Denies headache, Denies sore throat Breasts: absent: as per HPI, gynecomastia Cardiovascular: Reports decreased exercise tolerance, Reports dyspnea on exertion Respiratory: Reports dyspnea Gastrointestinal: Reports as per HPI Genitourinary: Reports as per HPI Musculoskeletal: Reports as per HPI Musculoskeletal: bilateral: ankle swelling, absent: ankle pain, ankle stiffness Neurological: Reports as per HPI, Reports balance difficulties, Reports gait dysfunction, Reports visual changes Psychiatric: Reports as per HPI Endocrine: Reports as per HPI Hematologic/Lymphatic: Reports as per HPI Allergic/Immunologic: Reports as per HPI Past Medical History Past Medical History: Atrial Fibrillation, CVA/TIA, Dementia, Diabetes Mellitus, GERD/Reflux, GI Bleed, Prostate Disorder, Seizure Disorder, Thyroid Disorder Additional Past Medical History / Comment(s): NIDDM type II-diet controlled, CVA and TIA with no residual, last seizure years ago per pt, iron deficiency anemia- has had iron infusions, BPH, UTI with sepsis, BXO (balantis Xerotica Obliterans), lower GI bleed, sick sinus syndrome history of pacemaker insertion History of Any Multi-Drug Resistant Organisms: None Reported Past Surgical History: Pacemaker Additional Past Surgical History / Comment(s): EGD, colonoscipy, capsule endoscopy, pacemaker insertion Past Anesthesia/Blood Transfusion Reactions: No Reported Reaction Type of Cardiac Device: Permanent Pacemaker, AICD Device Placement Date:: 2011 Past Psychological History: No Psychological Hx Reported Smoking Status: Never smoker Past Alcohol Use History: Rare Past Drug Use History: None Reported - Past Family History Father Family Medical History: Myocardial Infarction ([place]) Mother Family Medical History: Myocardial Infarction ([place]) Brother(s) Additional Family Medical History / Comment(s): from [place]. It was all through his body. Unknown as to what kind Medications and Allergies Home Medications Medication Instructions Recorded Confirmed Type Atorvastatin [Lipitor] 10 mg PO HS@209903/24/14 01/14/20 History Potassium Chloride [Klor-Con 20] 20 meq PO BID@0900,209903/24/14 01/14/20 History Tamsulosin HCl [Flomax] 0.4 mg PO HS@209903/24/14 01/14/20 History levETIRAcetam [Keppra] 1,000 mg PO BID@0900,209903/24/14 01/14/20 History metFORMIN HCL [Glucophage] 500 mg PO BID@0900,1700 03/24/14 01/14/20 History Ferrous Sulfate [Iron (65 MG 325 mg PO BID@0900,2100 02/03/17 01/14/20 History Elemental)] Omeprazole [PriLOSEC] 20 mg PO DAILY@0600 02/03/17 01/14/20 History Apixaban [Eliquis] 2.5 mg PO BID@0900,209908/04/18 01/14/20 History Levothyroxine Sodium [Synthroid] 175 mcg PO DAILY@0600 08/04/18 01/14/20 History Sildenafil [Revatio] 10 mg PO TID@0600,1400,2200 08/04/18 01/14/20 History Cholecalciferol [Vitamin D3 (25 1,000 unit PO DAILY@0900 01/14/20 01/14/20 History Mcg = 1000 Iu)] Cholecalciferol [Vitamin D3 (25 2,000 unit PO HS@209901/14/20 01/14/20 History Mcg = 1000 Iu)] Cyanocobalamin [Vitamin B-12] 1,000 mcg PO DAILY@89901/14/20 01/14/20 History Diltiazem Cd [Cardizem CD] 240 mg PO DAILY@89901/14/20 01/14/20 History Furosemide [Lasix] 40 mg PO DAILY@89901/14/20 01/14/20 History Metoprolol Tartrate [Lopressor] 25 mg PO BID@09,209901/14/20 01/14/20 History Sennosides/Docusate Sodium [Senna 2 tab PO HS@209901/14/20 01/14/20 History Plus 8.6-50 mg Tablet] metOLazone [Zaroxolyn] 2.5 mg PO DAILY@0600 PRN 01/14/20 01/14/20 History polyethylene glycoL 3350 [Miralax] 17 gm PO DAILY PRN 01/14/20 01/14/20 History Allergies Allergy/AdvReac Type Severity Reaction Status Date / Time amiodarone Allergy Unknown Verified 01/14/20 20:27 amitriptyline Allergy Unknown Verified 01/14/20 20:27 simvastatin [From Zocor] Allergy Unknown Verified 01/14/20 20:27 Physical Exam Vitals: Vital Signs Temp Pulse Pulse Resp BP BP Pulse Ox 01/15/20 11:01 97.6 F 94 24 127/71 92 L 01/15/20 08:52 76 01/15/20 08:45 80 01/15/20 08:00 97.9 F 80 24 128/65 95 01/15/20 04:00 97.6 F 82 18 121/69 97 01/14/20 23:49 96.8 F L 68 18 116/67 98 01/14/20 23:32 73 01/14/20 23:25 71 01/14/20 23:16 77 18 112/67 89 L 01/14/20 22:46 97.6 F 76 18 122/72 95 01/14/20 22:15 68 20 124/68 88 L 01/14/20 20:30 75 20 125/79 92 L 01/14/20 19:34 97.0 F L 88 20 113/71 86 L Intake and Output 01/14/20 01/15/20 01/15/20 22:59 06:59 14:59 Intake Total 300 80 Output Total 100 300 Balance -100 0 80 Intake: IV 80 0.9 80 Intake, IV Titration 300 Amount Azithromycin 500 mg In 250 Sodium Chloride 0.9% 250 ml @ 250 mls/hr IVPB ONCE ONE Rx#:[id number] cefTRIAXone 2 gm In 50 Sodium Chloride 0.9% 50 ml @ 100 mls/hr IVPB ONCE ONE Rx#:[id number] Output: Urine 100 300 Other: Voiding Method Urinal Urinal Diaper Diaper # Voids 1 Weight 91.762 kg 91.2 kg 91.2 kg Gen. appearance, comfortable likely distress Head exam was generally normal. There was no scleral icterus or corneal arcus. Mucous membranes were moist. Neck was supple and without jugular venous distension, thyromegaly, or carotid bruits. Carotids were easily palpable bilaterally. There was no adenopathy. Lung sounds are diminished on the right along with dullness to percussion. Diminished breath on the right lung base compared to the left. Heart sounds are irregular consistent with atrial fibrillation, positive S1, accentuation of the second heart sound S2 and there is a systolic ejection murmur along left upper sternal border grade 3/6. Abdominal exam revealed normal bowel sounds. The abdomen was soft, non-tender, and without masses, organomegaly, or appreciable enlargement of the abdominal aorta. Extremities revealed +1 edema and there is no cyanosis or clubbing Examination of the skin revealed no evidence of significant rashes, suspicious appearing nevi or other concerning lesions. Neurologically, the patient is awake and alert and the patient does not have any focal neurological deficit. Cranial nerves are essentially intact. Results - Laboratory Findings CBC and BMP: 01/14/20 22:19 01/14/20 22:19 PT/INR, D-dimer PT 10.7 sec (9.0-12.0) 01/14/20 22:19 INR 1.0 (<1.2) 01/14/20 22:19 Abnormal lab findings: Abnormal Labs 01/14/20 01/14/20 01/15/20 22:19 22:19 05:57 RBC 4.25 L Hgb 12.1 L MCHC 29.7 L RDW 17.1 H Lymphocytes # 0.5 L Potassium 5.8 H BUN 31 H Glucose 128 H POC Glucose (mg/dL) 235 H Alkaline Phosphatase 165 H 01/15/20 11:47 RBC Hgb MCHC RDW Lymphocytes # Potassium BUN Glucose POC Glucose (mg/dL) 157 H Alkaline Phosphatase - Diagnostic Findings Chest x-ray: image reviewed Assessment and Plan Plan: 1 CHF with diastolic heart failure and severe pulmonary potential and evidence of right-sided heart failure 2 large right-sided pleural effusion 3 lower extremity edema secondary to CHF 4 chronic atrial fibrillation maintained on Eliquis on outpatient basis 5 acute hypoxic respiratory failure secondary to above 6 sick sinus syndrome and the patient has a pacemaker in place 7dementia 8 diabetes mellitus type 2 9 previous history of GI bleed 10 previous history of seizure disorder currently inactive in stable 11 hypothyroidism 12 BPH 13 history of iron deficiency anemia 14 remote history of CVA without any residual deficits Plan Continue diuretics with IV Lasix Hold Eliquis for 24 hours Proceed with a CAT scan of the chest no contrast Thoracentesis in a.m. of the right lung. This is most likely a transudate effusion related to CHF. We'll continue to follow. Cardiology consultation Resume all medications currently on 3 L of oxygen by nasal cannula
[2020-01-15 16:53] LABS: Glucose,Whole Blood 152 mg/dL (75-99)
[2020-01-15] MEDS: metFORMIN 500 MG TAB PO SCH (17:12)
--- NOTE | 2020-01-15 19:45 | P.HPIM ---
History of Present Illness H&P Date: 01/15/20 Chief Complaint: Short of breath, edema History of presenting complaint: This is a pleasant 79-year-old patient, being followed with Dr. Ramsey. Chronic stable medical conditions include atrial fibrillation, diabetes, GERD, seizure disorder, hypothyroid, iron deficiency anemia, BPH sick sinus syndrome with a pacemaker. Resident at assisted living. Does use oxygen 2 L at home. Presents with progressive shortness of breath increasing edema. Decreased appetite. Some abdominal distention. Some orthopnea. No fever no chills. Review of systems: GEN.: Tired EYES: None HEENT: None NECK: None RESPIRATORY: As above CARDIOVASCULAR: As above GASTROINTESTINAL: None GENITOURINARY: None MUSCULOSKELETAL: Joint pains LYMPHATICS: None HEMATOLOGICAL: None PSYCHIATRY: None NEUROLOGICAL: None Past medical history to include: Atrial fibrillation, diabetes, GERD, GI bleed, VPH, seizure disorder, hypothyroid, diet controlled diabetes, iron deficiency anemia, last seizure was many years ago, sick sinus syndrome with a pacemaker, Social history: No history of smoking. Alcohol rarely. Lives at [facility]. Independent Physical examination: VITAL SIGNS: 97, 88, 20, 113/71, 86% on room air GENERAL: BMI 32.5, sitting up in a chair, tired. EYES: Pupils equal. Conjunctiva normal. HEENT: External appearance of nose and ears normal, oral cavity grossly normal. NECK: JVD unable to assess; masses not palpable. HEART: [Heart sounds are normal; edema present, but stocking. LUNGS: Respiratory rate increased decreased breath sounds. ABDOMEN: Soft, nontender, liver spleen not palpable, no masses palpable. PSYCH: Alert and oriented x3; mood and affect normal. NEUROLOGICAL: Cranial nerves grossly intact; no facial asymmetry, power and sensation grossly intact. LYMPHATICS: No lymph nodes palpable in the axilla and neck. INVESTIGATIONS, reviewed in the clinical context: White count 5.3 hemoglobin 12.1 platelets 165 potassium 5.8 bun 31 creatinine 0.84 EKG tracing pacemaker rhythm Chest x-ray film personally reviewed by me-large right pleural effusion with pulmonary edema 2-D echocardiogram from July 2018 shows a EF of 50-55% Assessment: -Acute on chronic congestive heart file exacerbation from diastolic dysfunction EF 50-55% -Large right pleural effusion from CHF -Acute on chronic hypoxic respiratory failure, patient is on 2 L of oxygen at home -Sick sinus syndrome with a permanent pacemaker -GERD -BPH -Diabetes mellitus type 2 on oral hypoglycemic -Chronic seizure disorder -Hypothyroid -Obesity BMI 32.5 Plan: Patient's significant hypoxic and significantly fluid overloaded. We'll put the patient on a Lasix drip. Strict I's and O's. . Home medications resumed. Accu-Cheks to be followed. Cardiology consulted. Care is discussed with the patient question also. 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 History of Any Multi-Drug Resistant Organisms: None Reported Past Surgical History: AICD, Pacemaker Additional Past Surgical History / Comment(s): EGD, colonoscipy, capsule endoscopy. Past Anesthesia/Blood Transfusion Reactions: No Reported Reaction Type of Cardiac Device: Permanent Pacemaker, AICD Device Placement Date:: 2011 Past Psychological History: No Psychological Hx Reported Smoking Status: Never smoker Past Alcohol Use History: Rare Past Drug Use History: None Reported - Past Family History Father Family Medical History: Myocardial Infarction ([place]) Mother Family Medical History: Myocardial Infarction ([place]) Brother(s) Additional Family Medical History / Comment(s): from [place]. It was all through his body. Unknown as to what kind Medications and Allergies Home Medications Medication Instructions Recorded Confirmed Type Atorvastatin [Lipitor] 10 mg PO HS@209903/24/14 01/14/20 History Potassium Chloride [Klor-Con 20] 20 meq PO BID@0900,209903/24/14 01/14/20 History Tamsulosin HCl [Flomax] 0.4 mg PO HS@209903/24/14 01/14/20 History levETIRAcetam [Keppra] 1,000 mg PO BID@0900,2100 03/24/14 01/14/20 History metFORMIN HCL [Glucophage] 500 mg PO BID@0900,1700 03/24/14 01/14/20 History Ferrous Sulfate [Iron (65 MG 325 mg PO BID@0900,2100 02/03/17 01/14/20 History Elemental)] Omeprazole [PriLOSEC] 20 mg PO DAILY@0600 02/03/17 01/14/20 History Apixaban [Eliquis] 2.5 mg PO BID@0900,2100 08/04/18 01/14/20 History Levothyroxine Sodium [Synthroid] 175 mcg PO DAILY@0600 08/04/18 01/14/20 History Sildenafil [Revatio] 10 mg PO TID@0600,1400,2200 08/04/18 01/14/20 History Cholecalciferol [Vitamin D3 (25 1,000 unit PO DAILY@89901/14/20 01/14/20 History Mcg = 1000 Iu)] Cholecalciferol [Vitamin D3 (25 2,000 unit PO HS@209901/14/20 01/14/20 History Mcg = 1000 Iu)] Cyanocobalamin [Vitamin B-12] 1,000 mcg PO DAILY@89901/14/20 01/14/20 History Diltiazem Cd [Cardizem CD] 240 mg PO DAILY@89901/14/20 01/14/20 History Furosemide [Lasix] 40 mg PO DAILY@89901/14/20 01/14/20 History Metoprolol Tartrate [Lopressor] 25 mg PO BID@0900,209901/14/20 01/14/20 History Sennosides/Docusate Sodium [Senna 2 tab PO HS@209901/14/20 01/14/20 History Plus 8.6-50 mg Tablet] metOLazone [Zaroxolyn] 2.5 mg PO DAILY@0600 PRN 01/14/20 01/14/20 History polyethylene glycoL 3350 [Miralax] 17 gm PO DAILY PRN 01/14/20 01/14/20 History Allergies Allergy/AdvReac Type Severity Reaction Status Date / Time amiodarone Allergy Unknown Verified 01/14/20 20:27 amitriptyline Allergy Unknown Verified 01/14/20 20:27 simvastatin [From Zocor] Allergy Unknown Verified 01/14/20 20:27 Physical Exam Vitals: Vital Signs Temp Pulse Pulse Resp BP BP Pulse Ox 01/15/20 11:01 97.6 F 94 24 127/71 92 L 01/15/20 08:52 76 01/15/20 08:45 80 01/15/20 08:00 97.9 F 80 24 128/65 95 01/15/20 04:00 97.6 F 82 18 121/69 97 01/14/20 23:49 96.8 F L 68 18 116/67 98 01/14/20 23:32 73 01/14/20 23:25 71 01/14/20 23:16 77 18 112/67 89 L 01/14/20 22:46 97.6 F 76 18 122/72 95 01/14/20 22:15 68 20 124/68 88 L 01/14/20 20:30 75 20 125/79 92 L 01/14/20 19:34 97.0 F L 88 20 113/71 86 L Intake and Output 01/14/20 01/15/20 01/15/20 22:59 06:59 14:59 Intake Total 300 Output Total 100 300 Balance -100 0 Intake: Intake, IV Titration 300 Amount Azithromycin 500 mg In 250 Sodium Chloride 0.9% 250 ml @ 250 mls/hr IVPB ONCE ONE Rx#:[id number] cefTRIAXone 2 gm In 50 Sodium Chloride 0.9% 50 ml @ 100 mls/hr IVPB ONCE ONE Rx#:[id number] Output: Urine 100 300 Other: Voiding Method Urinal Urinal Diaper Diaper # Voids 1 Weight 91.762 kg 91.2 kg Results CBC & Chem 7: 01/14/20 22:19 01/14/20 22:19 Labs: Abnormal Lab Results - Last 24 Hours (Table) 01/14/20 01/14/20 01/15/20 Range/Units 22:19 22:19 05:57 RBC 4.25 L (4.30-5.90) m/uL Hgb 12.1 L (13.0-17.5) gm/dL MCHC 29.7 L (31.0-37.0) g/dL RDW 17.1 H (11.5-15.5) % Lymphocytes # 0.5 L (1.0-4.8) k/uL Potassium 5.8 H (3.5-5.1) mmol/L BUN 31 H (9-20) mg/dL Glucose 128 H (74-99) mg/dL POC Glucose (mg/dL) 235 H (75-99) mg/dL Alkaline Phosphatase 165 H (38-126) U/L Thrombosis Risk Factor Assmnt - Choose All That Apply Each Factor Represents 1 point: Obesity (BMI >25) Each Risk Factor Represents 3 Points: Age 75 years or older Other congenital or acquired thrombophilia - If yes, enter type in comment: No Thrombosis Risk Factor Assessment Total Risk Factor Score: 4 Thrombosis Risk Factor Assessment Level: Moderate Risk
[2020-01-15] MEDS: FUROSEMIDE 100 MG in SODIUM CHLORIDE 0.9% 90 ML IV SCH (20:58)
[2020-01-15] MEDS: SENNOSIDES-DOCUSATE SODIUM 1 EACH TAB PO SCH (20:59)
[2020-01-15] MEDS: FERROUS SULFATE 325 MG TAB PO SCH (20:59)
[2020-01-15] MEDS: ATORVASTATIN 10 MG TAB PO SCH (20:59)
[2020-01-15] MEDS: CHOLECALCIFEROL 1,000 UNIT TAB PO SCH (20:59)
[2020-01-15] MEDS: TAMSULOSIN 0.4 MG CAP.ER.24H PO SCH (20:59)
[2020-01-15] MEDS: METOPROLOL TARTRATE 25 MG TAB PO SCH (20:59)
[2020-01-15 21:00] LABS: Calcium 8.6 mg/dL (8.4-10.2); Potassium 5.6 mmol/L (3.5-5.1)
[2020-01-15 21:11] LABS: Glucose,Whole Blood 159 mg/dL (75-99)
[2020-01-16] MEDS ORDERED: metOLazone 2.5 MG TAB PO PRN (06:00)
[2020-01-16] MEDS: LEVOTHYROXINE 75 MCG TAB PO SCH (06:02)
[2020-01-16] MEDS: PANTOPRAZOLE 40 MG TABLET PO SCH (06:02)
[2020-01-16] MEDS: SILDENAFIL 20 MG TAB PO SCH ×3 (06:02→21:50)
[2020-01-16] MEDS: FUROSEMIDE 100 MG in SODIUM CHLORIDE 0.9% 90 ML IV SCH (06:02)
[2020-01-16] MEDS: LEVOTHYROXINE 100 MCG TAB PO SCH (06:02)
[2020-01-16 06:21] LABS: Glucose,Whole Blood 166 mg/dL (75-99)
[2020-01-16] MEDS: FERROUS SULFATE 325 MG TAB PO SCH ×2 (07:36→21:48)
[2020-01-16] MEDS: metFORMIN 500 MG TAB PO SCH ×2 (07:36→17:25)
[2020-01-16] MEDS: levETIRAcetam 500 MG TAB PO SCH ×2 (07:36→21:47)
[2020-01-16] MEDS: METOPROLOL TARTRATE 25 MG TAB PO SCH ×2 (07:36→21:46)
[2020-01-16] MEDS: CHOLECALCIFEROL 1,000 UNIT TAB PO SCH ×2 (07:37→21:49)
[2020-01-16] MEDS: CYANOCOBALAMIN 500 MCG TAB PO SCH (07:37)
[2020-01-16] MEDS: DILTIAZEM CD 240 MG CAP.ER.24H PO SCH (07:37)
[2020-01-16 07:44] LABS: African American GFR (CKD) >90 (>60 ml/min/1.73 sqM); Anion Gap 4 mmol/L; Blood Urea Nitrogen 21 mg/dL (9-20); Calcium 8.2 mg/dL (8.4-10.2); Carbon Dioxide 33 mmol/L (22-30); Chloride 104 mmol/L (98-107); Glucose 94 mg/dL (74-99); Non-African American GFR(CKD) 83 (>60 ml/min/1.73 sqM); Potassium 3.2 mmol/L (3.5-5.1); Sodium 141 mmol/L (137-145)
[2020-01-16] MEDS ORDERED: Potassium Replacement Protocol 1 EACH MISC MISCELLANE PRN (09:23)
--- NOTE | 2020-01-16 10:14 | P.PCN ---
Date of Procedure: 01/16/20 Preoperative Diagnosis: pleural effusion, right Postoperative Diagnosis: pleural effusion, right Procedure(s) Performed: thoracentesis Surgeon: Kalee Blanchard Pathology: other Condition: stable Disposition: floor Operative Findings: Indication: Pleural effusion. A time-out was completed verifying correct patient, procedure, site, positioning, and implant (s) or special equipment if applicable. Ultrasound guidance was not used and appropriate fluid pocket was identified and marked. Patient was positioned, prepped and draped in usual sterile fashion. Lidocaine was used to anesthetize the area. A Thoracentesis catheter was introduced into the pleural space and fluid was removed. Blood loss was none. A chest x-ray was ordered to evaluate for pneumothorax. Total Fluid Removed: 2.1 l Color of Fluid: turbid yellow Fluid was sent for appropriate laboratory tests. Patient tolerated the procedure well and there were no complications.
[2020-01-16] MEDS: POTASSIUM CHLORIDE ER 20 MEQ TAB.ER PO SCH ×2 (10:35→12:26)
--- NOTE | 2020-01-16 10:53 | XR ---
EXAMINATION TYPE: XR chest 1V DATE OF EXAM: 01/16/2020 COMPARISON: Prior chest x-ray 01/15/2020 HISTORY: Postthoracentesis TECHNIQUE: Single frontal view of the chest is obtained. FINDINGS: There is interval improved visualization of the right hemidiaphragm. No evident pneumothor ax. Chin is overlying the upper right chest. Heart remains enlarged. Interstitium is increased. Centr al vascularity appears improved. Patient is rotated on the defibrillator is stable. IMPRESSION: No evident complication status post thoracentesis.
--- NOTE | 2020-01-16 11:47 | P.PN ---
Subjective HISTORY OF PRESENTING ILLNESS This is a pleasant 79-year-old male past medical history significant for dementia, chronic persistent atrial fibrillation on long-term anticoagulation, sick sinus syndrome status post permanent pacemaker impl antation, diabetes mellitus, history of CVA, pulmonary hypertension and chronic diastolic heart failure. He is seen and examined sitting up in bed in no acute distress. He continues to be mildly tachypneic and complain of shortness of breath however improved since yesterday according to the patient. He is much more alert. Dr. Blanchard is at the bedside currently preparing to perform a thoracentesis. An attempt was made yesterday however given the patient's mental status and anticoagulation the procedure was aborted. Blood pressure today 105/67 heart rate 123 afebrile maintaining oxygen saturation on nasal cannula. Lasix has been changed to an infusion per Dr. Vásquez. Laboratory data reviewed, sodium 141, potassium 3.2, creatinine 0.81. Currently maintained on Lasix drip at 10 mg per hour, Eliquis 2.5 mg twice a day, atorvastatin 10 mg at bedtime, diltiazem 240 mg daily, metoprolol 25 mg twice a day, Zaroxolyn 2.5 Mg Daily and Sildenafil 10 Mg TID. Patient is incontinent and inaccurate output documentation. PHYSICAL EXAMINATION CONSTITUTIONAL: No apparent distress. HEENT: Head is normocephalic. Pupils are equal, round. Sclerae anicteric. Mucous membranes of the mouth are moist. No JVD. No carotid bruit. CHEST EXAMINATION: Bibasilar rales, scattered rhonchi, no wheezes. No chest wall tenderness is noted on palpation or with deep breathing. HEART EXAMINATION: Irregular rate and rhythm. S1, S2 heard. Systolic ejection murmur at the left sternal border, no gallops or rub. EXTREMITIES: 2+ peripheral pulses, bilateral lower extremity 2+ pitting edema and no calf tenderness. ASSESSMENT Acute on chronic diastolic heart failure Pulmonary hypertension Hypoxia Chronic persistent A. fib on long-term anticoagulation Sick sinus syndrome s/p pacemaker implantation Hyperkalemia PLAN Discontinue lasix gtt and initiate IV lasix TID. Follow renal function and electrolytes in the morning. Resume eliquis after thoracentesis. Nurse Practitioner note has been reviewed, I agree with a documented findings and plan of care. Patient was seen and examined. Objective - Vital Signs Vital signs: Vital Signs Temp 97.6 F 01/16/20 07:32 Pulse 123 H 01/16/20 07:32 Resp 1 L 01/16/20 08:00 BP 105/67 01/16/20 07:32 Pulse Ox 96 01/16/20 07:32 Intake & Output 01/15/20 01/16/20 01/16/20 18:59 06:59 18:59 Intake Total 800 90.667 240 Balance 800 90.667 240 Weight 91.2 kg 107 kg Intake: IV 80 0.9 80 Intake, IV Titration 90.667 Amount Furosemide 100 mg In 90.667 Sodium Chloride 0.9% 90 ml @ 10 MG/HR 10 mls/hr IV .Q10H [facility] Rx#: [id number] Oral 720 240 Other: Voiding Method Urinal Diaper Diaper Diaper # Voids 2 2 - Labs CBC & Chem 7: 01/14/20 22:19 01/16/20 06:35 Labs: Abnormal Lab Results - Last 24 Hours (Table) 01/15/20 01/15/20 01/15/20 Range/Units 11:47 16:52 20:10 Sodium 136 L (137-145) mmol/L Potassium 5.6 H (3.5-5.1) mmol/L Carbon Dioxide (22-30) mmol/L BUN 25 H (9-20) mg/dL Glucose 162 H (74-99) mg/dL POC Glucose (mg/dL) 157 H 152 H (75-99) mg/dL Calcium (8.4-10.2) mg/dL 01/15/20 01/16/20 01/16/20 Range/Units 20:55 05:58 06:35 Sodium (137-145) mmol/L Potassium 3.2 L (3.5-5.1) mmol/L Carbon Dioxide 33 H (22-30) mmol/L BUN 21 H (9-20) mg/dL Glucose (74-99) mg/dL POC Glucose (mg/dL) 159 H 166 H (75-99) mg/dL Calcium 8.2 L (8.4-10.2) mg/dL Microbiology - Last 24 Hours (Table) 01/14/20 23:40 Blood Culture - Preliminary Blood No Growth after 24 hours
--- NOTE | 2020-01-16 11:56 | ECHOF ---
Referral Reason:sob, MEASUREMENTS -------- HEIGHT: 167.6 cm WEIGHT: 91.2 kg BP: RVIDd: 3.5 cm (< 3.3) IVSd: 1.1 cm (0.6 - 1.1) LVIDd: 3.8 cm (3.9 - 5.3) LVPWd: 1.2 cm (0.6 - 1.1) IVSs: 1.5 cm LVIDs: 1.8 cm LVPWs: 1.8 cm LAESV Index (A-L): 24.79 ml/m Ao Diam: 2.8 cm (2.0 - 3.7) AV Cusp: 1.0 cm (1.5 - 2.6) LA Diam: 4.1 cm (2.7 - 3.8) MV EXCURSION: 17.354 mm (> 18.000) MV EF SLOPE: 150 mm/s (70 - 150) EPSS: 0.7 cm MV E Thuan: 1.18 m/s MV DecT: 238 ms MV A Thuan: 0.30 m/s MV E/A Ratio: 3.90 AV maxP.58 mmHg AV meanP.11 mmHg RAP: 15.00 mmHg RVSP: 92.69 mmHg FINDINGS -------- This was a technically adequate study. The left ventricular size is normal. There is mild concentric left ventricular hypertrophy. Overa ll left ventricular systolic function is normal with, an EF between 55 - 60 %. Increased LAP. Grade 2 Diastolic Dysfuntion. The right ventricle is mildly enlarged. The left atrial size is normal. Normal LA size by volume 22+/-6 ml/m2. The right atrial size is normal. Aortic valve is trileaflet and is mildly thickened. There is mild aortic stenosis present. Peak/m kishore gradient across the Aortic Valve is 14.58mmHg / 8.11mmHg. The mitral valve is normal. Moderate mitral regurgitation is present. The tricuspid valve appears structurally normal. Kxas-iq-grshzxxe tricuspid regurgitation present. There is severe pulmonary hypertension. The right ventricular systolic pressure, as measured by D oppler, is 92.69mmHg. There is no pulmonic regurgitation present. The aortic root size is normal. The inferior vena cava is dilated with no significant inspiratory collapse which is consistent estima george right atrial pressure of >20 mmHg. There is no pericardial effusion. CONCLUSIONS -------- 1. The left ventricular size is normal. 2. There is mild concentric left ventricular hypertrophy. 3. Overall left ventricular systolic function is normal with, an EF between 55 - 60 %. 4. Increased LAP. Grade 2 Diastolic Dysfuntion. 5. The right ventricle is mildly enlarged. 6. Aortic valve is trileaflet and is mildly thickened. 7. There is mild aortic stenosis present. 8. Peak/mean gradient across the Aortic Valve is 14.58mmHg / 8.11mmHg. 9. Moderate mitral regurgitation is present. 10. Msan-wa-pmqydrtx tricuspid regurgitation present. 11. There is severe pulmonary hypertension. 12. The right ventricular systolic pressure, as measured by Doppler, is 92.69mmHg. 13. The inferior vena cava is dilated with no significant inspiratory collapse which is consistent es timated right atrial pressure of >20 mmHg. 14. There is no pericardial effusion. CHISEL GRINDER: Johanne Chandler RDCS
[2020-01-16 12:07] LABS: Glucose,Whole Blood 147 mg/dL (75-99)
--- NOTE | 2020-01-16 13:22 | P.PN ---
Subjective Progress Note Date: 01/16/20 Principal diagnosis: Acute exacerbation of diastolic congestive heart failure with severe pulmonary hypertension and evidence of right-sided heart failure 79-year-old male patient, came in for worsening shortness of breath. The patient is known to have diastolic heart failure in addition to severe pulmonary hypertension and right-sided heart failure. He has chronic atrial fibrillation. He has sick sinus syndrome has a pacemaker in place. He has diabetes, previous CVA and history of dementia. He has had previous right-sided pleural effusion and according to the family has had previous thoracentesis an outside facilities. He came in worsening shortness of breath and lower extremity edema. He was briefly placed on BiPAP. Currently is on IV Lasix. Chest x-ray shows a large right-sided pleural effusion and needs to be drained. The patient on Eliquis for now which will placed on hold. No other significant events. He is able to communicate well. His proBNP level is 2850. Troponin times she has been negative. White cell count is at 5.3. Cardiac rhythm is atrial fibrillation. The patient is seen today 01/16/2020 in follow-up on the selective care unit. He is awake and alert in no acute distress. Breathing a bit easier today compared to yesterday. He did undergo a right-sided thoracentesis by Dr. Chavesn was 2.1 L of turbid yellow fluid removed. Fluid analysis and cytology pending. He is maintaining good O2 saturations in the mid 90s on 3 L/m per nasal cannula. He's been afebrile. Blood culture reveals no growth to date. Sodium 141. Potassium 3.2. Creatinine 0.81. He remains on IV diuretics. No accurate I know. The patient is incontinent. Objective - Vital Signs Vital signs: Vital Signs Temp 98 F 01/16/20 11:33 Pulse 80 01/16/20 11:33 Resp 18 01/16/20 11:33 BP 98/56 01/16/20 11:33 Pulse Ox 96 01/16/20 10:35 Intake & Output 01/15/20 01/16/20 01/16/20 18:59 06:59 18:59 Intake Total 800 90.667 240 Balance 800 90.667 240 Weight 91.2 kg 107 kg Intake: IV 80 0.9 80 Intake, IV Titration 90.667 Amount Furosemide 100 mg In 90.667 Sodium Chloride 0.9% 90 ml @ 10 MG/HR 10 mls/hr IV .Q10H [facility] Rx#: [id number] Oral 720 240 Other: Voiding Method Urinal Diaper Diaper Diaper # Voids 2 2 - Exam Gen. appearance, very pleasant 79-year-old gentleman, currently on 3 L/m per nasal cannula, comfortable in no acute distress Head exam was generally normal. There was no scleral icterus or corneal arcus. Mucous membranes were moist. Neck was supple and without jugular venous distension, thyromegaly, or carotid bruits. Carotids were easily palpable bilaterally. There was no adenopathy. Lung sounds are diminished on the right along with dullness to percussion. Diminished breath on the right lung base compared to the left. Heart sounds are irregular consistent with atrial fibrillation, positive S1, accentuation of the second heart sound S2 and there is a systolic ejection murmur along left upper sternal border grade 3/6. Abdominal exam revealed normal bowel sounds. The abdomen was soft, non-tender, and without masses, organomegaly, or appreciable enlargement of the abdominal aorta. Extremities revealed +1 edema and there is no cyanosis or clubbing Examination of the skin revealed no evidence of significant rashes, suspicious appearing nevi or other concerning lesions. Neurologically, the patient is awake and alert and the patient does not have any focal neurological deficit. Cranial nerves are essentially intact. - Labs CBC & Chem 7: 01/14/20 22:19 01/16/20 06:35 Labs: Abnormal Lab Results - Last 24 Hours (Table) 01/15/20 01/15/20 01/15/20 Range/Units 16:52 20:10 20:55 Sodium 136 L (137-145) mmol/L Potassium 5.6 H (3.5-5.1) mmol/L Carbon Dioxide (22-30) mmol/L BUN 25 H (9-20) mg/dL Glucose 162 H (74-99) mg/dL POC Glucose (mg/dL) 152 H 159 H (75-99) mg/dL Calcium (8.4-10.2) mg/dL 01/16/20 01/16/20 01/16/20 Range/Units 05:58 06:35 12:00 Sodium (137-145) mmol/L Potassium 3.2 L (3.5-5.1) mmol/L Carbon Dioxide 33 H (22-30) mmol/L BUN 21 H (9-20) mg/dL Glucose (74-99) mg/dL POC Glucose (mg/dL) 166 H 147 H (75-99) mg/dL Calcium 8.2 L (8.4-10.2) mg/dL Microbiology - Last 24 Hours (Table) 01/14/20 23:40 Blood Culture - Preliminary Blood No Growth after 24 hours Assessment and Plan Assessment: 1 acute exacerbation of diastolic congestive heart failure with severe pulmonary hypertension and evidence of right-sided heart failure 2 large right-sided pleural effusion, status post thoracentesis with 2.1 L of turbid yellow fluid removed on 01/16/2020, fluid analysis and cytology are pending 3 lower extremity edema secondary to CHF 4 chronic atrial fibrillation maintained on Eliquis on outpatient basis 5 acute hypoxic respiratory failure secondary to above 6 sick sinus syndrome and the patient has a pacemaker in place 7dementia 8 diabetes mellitus type 2 9 previous history of GI bleed 10 previous history of seizure disorder currently inactive in stable 11 hypothyroidism 12 BPH 13 history of iron deficiency anemia 14 remote history of CVA without any residual deficits Plan The patient was seen and evaluated by Dr. Blanchard He did perform a right-sided thoracentesis today with 2.1 L turbid yellow fluid removed Fluid analysis and cytology pending Continue diuretics Titrate down the FiO2 as tolerated We'll continue to follow I, the cosigning physician, performed a history & physical examination of the patient. Lungs sounds managed in the bilateral bases right greater than left. Maintaining good O2 saturations in the 90s on 3 L/m per nasal. I discussed the assessment and plan of care with my nurse practitioner, Isa Grier. I attest to the above note as dictated by her.
[2020-01-16 14:31] LABS: Appearance,BF Cloudy; Color,BF Orange; Nucleated Cells, Body Fluid 150 /uL; RBC, Body Fluid 10050 /uL
[2020-01-16 14:33] LABS: Mononuclear WBC,Body Fluid 98 %; Polynuclear WBC,Body Fluid 2 %; Total Cells Counted,Body Fluid 100
[2020-01-16] MEDS: FUROSEMIDE 10 MG/ML 4 ML VIAL IV SCH ×2 (15:15→23:40)
[2020-01-16 17:01] LABS: Glucose,Whole Blood 214 mg/dL (75-99)
[2020-01-16 18:25] LABS: Glucose, BF Source Pleural Fluid; Glucose, Body Fluid 125 mg/dL; LDH, Body Fluid Source Pleural Fluid; Total Protein, Body Fluid 2300 mg/dL
--- NOTE | 2020-01-16 19:48 | P.PN ---
Progress Note - Text Progress Note Date: 01/16/20 Chief Complaint: Short of breath, edema History of presenting complaint: This is a pleasant 79-year-old patient, being followed with Dr. Ramsey. Chronic stable medical conditions include atrial fibrillation, diabetes, GERD, seizure disorder, hypothyroid, iron deficiency anemia, BPH sick sinus syndrome with a pacemaker. Resident at assisted living. Does use oxygen 2 L at home. Presents with progressive shortness of breath increasing edema. Decreased appetite. So me abdominal distention. Some orthopnea. No fever no chills. Admitted with acute on chronic CHF exacerbation from diastolic dysfunction EF 50-55%. Started on Lasix drip. Today-had right-sided thoracentesis 2.1 L of yellow fluid removed by Dr. Blanchard. Breathing better. Changed from Lasix to 2 IV Lasix bolus 40 mg every 8. Did tolerate some diet. Review of systems: Was done for constitutional, cardiovascular, GI, pulmonary. relevant finding as above Active Medications Albuterol/Ipratropium (Ipratropium-Albuterol 3 Ml Neb) 3 ml INHALATION RT-QID PRN PRN Reason: Shortness Of Breath Or Wheezing Last Admin: 01/15/20 20:19 Dose: 3 ml Documented by: Apixaban (Apixaban 2.5 Mg Tablet) 2.5 mg PO BID [facility] Atorvastatin Calcium (Atorvastatin 10 Mg Tab) 10 mg PO HS@2100 [facility] Last Admin: 01/15/20 20:59 Dose: 10 mg Documented by: Cholecalciferol (Cholecalciferol 1,000 Unit Tab) 1,000 unit PO DAILY@0900 [facility] Last Admin: 01/16/20 07:37 Dose: 1,000 unit Documented by: Cholecalciferol (Cholecalciferol 1,000 Unit Tab) 2,000 unit PO HS@2100 [facility] Last Admin: 01/15/20 20:59 Dose: 2,000 unit Documented by: Cyanocobalamin (Cyanocobalamin 500 Mcg Tab) 1,000 mcg PO DAILY@0900 [facility] Last Admin: 01/16/20 07:37 Dose: 1,000 mcg Documented by: Diltiazem HCl (Diltiazem Cd 240 Mg Cap.Er.24h) 240 mg PO DAILY@0900 [facility] Last Admin: 01/16/20 07:37 Dose: 240 mg Documented by: Ferrous Sulfate (Ferrous Sulfate 325 Mg Tab) 325 mg PO BID@0900,2100 [facility] Last Admin: 01/16/20 07:36 Dose: 325 mg Documented by: Furosemide (Furosemide 10 Mg/Ml 4 Ml Vial) 40 mg IV Q8HR [facility] Last Admin: 01/16/20 15:15 Dose: 40 mg Documented by: Levetiracetam (Levetiracetam 500 Mg Tab) 1,000 mg PO BID@0900,2100 [facility] Last Admin: 01/16/20 07:36 Dose: 1,000 mg Documented by: Levothyroxine Sodium (Levothyroxine 100 Mcg Tab) 100 mcg PO DAILY@0600 [facility] Last Admin: 01/16/20 06:02 Dose: 100 mcg Documented by: Levothyroxine Sodium (Levothyroxine 75 Mcg Tab) 75 mcg PO DAILY@06 [facility] Last Admin: 01/16/20 06:02 Dose: 75 mcg Documented by: Metformin HCl (Metformin 500 Mg Tab) 500 mg PO BID@0900,1700 [facility] Last Admin: 01/16/20 17:25 Dose: 500 mg Documented by: Metolazone (Metolazone 2.5 Mg Tab) 2.5 mg PO DAILY@0600 PRN PRN Reason: FOR 3 DAYS Stop: 01/17/20 06:01 Metoprolol Tartrate (Metoprolol Tartrate 25 Mg Tab) 25 mg PO BID@0900,2099 [facility] Last Admin: 01/16/20 07:36 Dose: 25 mg Documented by: Miscellaneous Information (Pneumonia Protocol Utilized 1 Each [facility]) 1 each PO ONCE PRN PRN Reason: Per Protocol Miscellaneous Information (Potassium Replacement Protocol 1 Each [facility]) 1 each MISCELLANE DAILY PRN; Protocol PRN Reason: Per Protocol Pantoprazole Sodium (Pantoprazole 40 Mg Tablet) 40 mg PO DAILY@0600 [facility] Last Admin: 01/16/20 06:02 Dose: 40 mg Documented by: Polyethylene Glycol (Polyethylene Glycol 3350 17 Gm Powd.Pack) 17 gm PO DAILY PRN PRN Reason: Constipation Senna/Docusate Sodium (Sennosides-Docusate Sodium 1 Each Tab) 2 each PO HS@2100 [facility] Last Admin: 01/15/20 20:59 Dose: 2 each Documented by: Sildenafil Citrate (Sildenafil 20 Mg Tab) 10 mg PO TID@0600,1400,2200 [facility] Last Admin: 01/16/20 12:26 Dose: 10 mg Documented by: Tamsulosin HCl (Tamsulosin 0.4 Mg Cap.Er.24h) 0.4 mg PO HS@2100 [facility] Last Admin: 01/15/20 20:59 Dose: 0.4 mg Documented by: Physical examination: VITAL SIGNS: 98, 80, 18, 98/56, 94% on 3 L GENERAL: Sitting up, tired EYES: Pupils equal. Conjunctiva normal. HEENT: External appearance of nose and ears normal, oral cavity grossly normal. NECK: JVD unable to assess; masses not palpable. HEART: [Heart sounds are normal; edema present, but stocking. LUNGS: Respiratory rate increased decreased breath sounds. ABDOMEN: Soft, nontender, liver spleen not palpable, no masses palpable. PSYCH: Alert and oriented x3; mood and affect normal. INVESTIGATIONS, reviewed in the clinical context: Potassium 3.2 creatinine 0.81 Previous testing White count 5.3 hemoglobin 12.1 platelets 165 potassium 5.8 bun 31 creatinine 0.84 EKG tracing pacemaker rhythm Chest x-ray film personally reviewed by me-large right pleural effusion with pulmonary edema 2-D echocardiogram from July 2018 shows a EF of 50-55% Assessment: -Acute on chronic congestive heart file exacerbation from diastolic dysfunction EF 50-55% -Large right pleural effusion from CHF-status post right-sided thoracentesis 2.1 L rosy liquid removed -Acute on chronic hypoxic respiratory failure, patient is on 2 L of oxygen at home -Sick sinus syndrome with a permanent pacemaker -GERD -BPH -Diabetes mellitus type 2 on oral hypoglycemic -Chronic seizure disorder -Hypothyroid -Obesity BMI 32.5 Plan: Continue current medication treatment plan-changed to bolus Lasix 40 mg every 8. Discussed with the patient. Patient diuresing well. Other medications to continue.
[2020-01-16 20:39] LABS: Glucose,Whole Blood 196 mg/dL (75-99)
[2020-01-16] MEDS: SENNOSIDES-DOCUSATE SODIUM 1 EACH TAB PO SCH (21:45)
[2020-01-16] MEDS: TAMSULOSIN 0.4 MG CAP.ER.24H PO SCH (21:46)
[2020-01-16] MEDS: ATORVASTATIN 10 MG TAB PO SCH (21:48)
[2020-01-16] MEDS: APIXABAN 2.5 MG TABLET PO SCH (21:48)
--- NOTE | 2020-01-17 00:56 | XR ---
EXAMINATION TYPE: XR chest 1V portable DATE OF EXAM: 01/17/2020 COMPARISON: Yesterday HISTORY: Person T6 TECHNIQUE: FINDINGS: There is moderate size right pleural effusion. There is small left pleural effusion. There is pulmonary vascular congestion. There is left axillary pacemaker. There are chest leads. IMPRESSION: There is significant increase in the right pleural effusion compared to yesterday. There is evidence for congestive heart failure that is increased compared to yesterday. Small left pleural effusion unchanged.
--- NOTE | 2020-01-17 00:57 | XR ---
EXAMINATION TYPE: XR abdomen 1V DATE OF EXAM: 01/17/2020 COMPARISON: NONE HISTORY: Thoracentesis. Pain. TECHNIQUE: 2 views FINDINGS: There is some increased density over the abdomen suggestive of abdominal ascites. There is no evidence of free air. I see no sign of a bowel obstruction. IMPRESSION: There is probably abdominal ascites. No sign of mechanical bowel obstruction.
[2020-01-17 01:01] LABS: Anisocytosis Slight; Basophils % (A) 0 %; Eosinophils # (A) 0.1 k/uL (0-0.7); Eosinophils % (A) 1 %; HCT 40.8 % (39.0-53.0); HGB 12.1 gm/dL (13.0-17.5); Hypochromasia Marked; Lymphocytes # (A) 0.5 k/uL (1.0-4.8); Lymphocytes % (A) 8 %; MCHC 29.7 g/dL (31.0-37.0); MCV 97.9 fL (80.0-100.0); Macrocytosis Slight; Monocytes # (A) 0.5 k/uL (0-1.0); Monocytes % (A) 8 %; Neutrophils % (A) 80 %; Platelet Count 181 k/uL (150-450); RBC 4.16 m/uL (4.30-5.90); RDW 16.9 % (11.5-15.5); WBC 6.3 k/uL (3.8-10.6)
[2020-01-17 01:19] LABS: ALT 15 U/L (4-49); AST 24 U/L (17-59); African American GFR (CKD) >90 (>60 ml/min/1.73 sqM); Albumin 3.1 g/dL (3.5-5.0); Alkaline Phosphatase 144 U/L (38-126); Anion Gap 3 mmol/L; Blood Urea Nitrogen 22 mg/dL (9-20); Calcium 8.5 mg/dL (8.4-10.2); Carbon Dioxide 32 mmol/L (22-30); Chloride 102 mmol/L (98-107); Glucose 153 mg/dL (74-99); Non-African American GFR(CKD) 81 (>60 ml/min/1.73 sqM); Potassium 4.2 mmol/L (3.5-5.1); Sodium 137 mmol/L (137-145); Total Bilirubin 0.5 mg/dL (0.2-1.3); Total Protein 6.3 g/dL (6.3-8.2)
[2020-01-17 05:58] LABS: Glucose,Whole Blood 119 mg/dL (75-99)
[2020-01-17] MEDS: LEVOTHYROXINE 75 MCG TAB PO SCH (06:18)
[2020-01-17] MEDS: LEVOTHYROXINE 100 MCG TAB PO SCH (06:18)
[2020-01-17] MEDS: SILDENAFIL 20 MG TAB PO SCH ×3 (06:18→21:14)
[2020-01-17] MEDS: PANTOPRAZOLE 40 MG TABLET PO SCH (06:19)
[2020-01-17] MEDS: FUROSEMIDE 10 MG/ML 4 ML VIAL IV SCH ×3 (08:01→21:13)
[2020-01-17] MEDS: DILTIAZEM CD 240 MG CAP.ER.24H PO SCH (08:02)
[2020-01-17] MEDS: CHOLECALCIFEROL 1,000 UNIT TAB PO SCH ×2 (08:02→21:12)
[2020-01-17] MEDS: levETIRAcetam 500 MG TAB PO SCH ×2 (08:02→21:12)
[2020-01-17] MEDS: CYANOCOBALAMIN 500 MCG TAB PO SCH (08:02)
[2020-01-17] MEDS: METOPROLOL TARTRATE 25 MG TAB PO SCH ×2 (08:02→21:12)
[2020-01-17] MEDS: metFORMIN 500 MG TAB PO SCH ×2 (08:02→16:54)
[2020-01-17] MEDS: FERROUS SULFATE 325 MG TAB PO SCH ×2 (08:02→21:12)
[2020-01-17] MEDS: APIXABAN 2.5 MG TABLET PO SCH ×2 (08:02→21:12)
[2020-01-17 08:14] LABS: African American GFR (CKD) >90 (>60 ml/min/1.73 sqM); Anion Gap 2 mmol/L; Blood Urea Nitrogen 21 mg/dL (9-20); Calcium 8.1 mg/dL (8.4-10.2); Carbon Dioxide 33 mmol/L (22-30); Chloride 104 mmol/L (98-107); Glucose 104 mg/dL (74-99); Non-African American GFR(CKD) 83 (>60 ml/min/1.73 sqM); Potassium 3.9 mmol/L (3.5-5.1); Sodium 139 mmol/L (137-145)
--- NOTE | 2020-01-17 10:15 | P.PN ---
Subjective Progress Note Date: 01/17/20 This is an 79-year-old male patient, came in for worsening shortness of breath. The patient is known to have diastolic heart failure in addition to severe pulmonary hypertension and right-sided heart failure. He has chronic atrial fibrillation. He has sick sinus syndrome has a pacemaker in place. He has diabetes, previous CVA and history of dementia. He has had previous right-sided pleural effusion and according to the family has had previous thoracentesis an outside facilities. He came in worsening shortness of breath and lower extremity edema. Patient was seen and examined this morning, continues to feel mildly short of breath. Blood pressure 114/60 with a heart rate of 90, 95% on 4 L of oxygen. Sodium 139, potassium 3.9, BUN 21, creatinine 0.8. Patient underwent a right-sided thoracentesis yesterday. Objective - Vital Signs Vital signs: Vital Signs Temp 98.3 F 01/17/20 07:40 Pulse 102 H 01/17/20 07:40 Resp 22 01/17/20 07:40 BP 114/62 01/17/20 07:40 Pulse Ox 95 01/17/20 07:40 Intake & Output 01/16/20 01/17/20 01/17/20 18:59 06:59 18:59 Intake Total 760 125 Balance 760 125 Weight 92 kg Intake: IV 40 Furosemide 100 mg In 40 Sodium Chloride 0.9% 90 ml @ 10 MG/HR 10 mls/hr IV .Q10H [facility] Rx#: [id number] Oral 720 125 Other: Voiding Method Diaper Diaper Diaper # Voids 1 - Exam Gen. appearance, very pleasant 79-year-old gentleman, currently on 3 L/m per nasal cannula, comfortable in no acute distress Head exam was generally normal. There was no scleral icterus or corneal arcus. Mucous membranes were moist. Neck was supple and without jugular venous distension, thyromegaly, or carotid bruits. Carotids were easily palpable bilaterally. There was no adenopathy. Lung sounds are diminished on the right along with dullness to percussion. Diminished breath on the right lung base compared to the left. Heart sounds are irregular consistent with atrial fibrillation, positive S1, accentuation of the second heart sound S2 and there is a systolic ejection murmur along left upper sternal border grade 3/6. Abdominal exam revealed normal bowel sounds. The abdomen was soft, non-tender, and without masses, organomegaly, or appreciable enlargement of the abdominal aorta. Extremities revealed +1 edema and there is no cyanosis or clubbing Examination of the skin revealed no evidence of significant rashes, suspicious appearing nevi or other concerning lesions. Neurologically, the patient is awake and alert and the patient does not have any focal neurological deficit. Cranial nerves are essentially intact. - Labs CBC & Chem 7: 01/17/20 00:28 01/17/20 06:29 Labs: Abnormal Lab Results - Last 24 Hours (Table) 01/16/20 01/16/20 01/16/20 Range/Units 12:00 16:38 20:29 RBC (4.30-5.90) m/uL Hgb (13.0-17.5) gm/dL MCHC (31.0-37.0) g/dL RDW (11.5-15.5) % Lymphocytes # (1.0-4.8) k/uL Carbon Dioxide (22-30) mmol/L BUN (9-20) mg/dL Glucose (74-99) mg/dL POC Glucose (mg/dL) 147 H 214 H 196 H (75-99) mg/dL Calcium (8.4-10.2) mg/dL Alkaline Phosphatase (38-126) U/L Albumin (3.5-5.0) g/dL 01/17/20 01/17/20 01/17/20 Range/Units 00:28 00:28 05:53 RBC 4.16 L (4.30-5.90) m/uL Hgb 12.1 L (13.0-17.5) gm/dL MCHC 29.7 L (31.0-37.0) g/dL RDW 16.9 H (11.5-15.5) % Lymphocytes # 0.5 L (1.0-4.8) k/uL Carbon Dioxide 32 H (22-30) mmol/L BUN 22 H (9-20) mg/dL Glucose 153 H (74-99) mg/dL POC Glucose (mg/dL) 119 H (75-99) mg/dL Calcium (8.4-10.2) mg/dL Alkaline Phosphatase 144 H (38-126) U/L Albumin 3.1 L (3.5-5.0) g/dL 01/17/20 Range/Units 06:29 RBC (4.30-5.90) m/uL Hgb (13.0-17.5) gm/dL MCHC (31.0-37.0) g/dL RDW (11.5-15.5) % Lymphocytes # (1.0-4.8) k/uL Carbon Dioxide 33 H (22-30) mmol/L BUN 21 H (9-20) mg/dL Glucose 104 H (74-99) mg/dL POC Glucose (mg/dL) (75-99) mg/dL Calcium 8.1 L (8.4-10.2) mg/dL Alkaline Phosphatase (38-126) U/L Albumin (3.5-5.0) g/dL Microbiology - Last 24 Hours (Table) 01/14/20 23:40 Blood Culture - Preliminary Blood No Growth after 48 hours Assessment and Plan Plan: Assessment and plan #1 acute exacerbation of diastolic congestive heart failure with severe pulmonary hypertension and evidence of right-sided heart failure #2 large right-sided pleural effusion, status post thoracentesis with 2.1 L of turbid yellow fluid removed on 01/16/2020, fluid analysis and cytology are pending #3 lower extremity edema secondary to CHF #4 chronic atrial fibrillation maintained on Eliquis on outpatient basis #5 acute hypoxic respiratory failure secondary to above #6 sick sinus syndrome and the patient has a pacemaker in place #7dementia #8 diabetes mellitus type 2 #9 previous history of GI bleed #10 previous history of seizure disorder currently inactive in stable #11 hypothyroidism #12 BPH #13 history of iron deficiency anemia #14 remote history of CVA without any residual deficits Plan From cardiology's perspective, we will recommend to continue the patient on current dose of IV Lasix, continue to monitor the intake and output along with daily weights and daily lytes BUN and creatinine. DNP note has been reviewed, I agree with a documented findings and plan of care. Patient was seen and examined.
--- NOTE | 2020-01-17 11:08 | US ---
EXAMINATION TYPE: US abdomen limited DATE OF EXAM: 01/17/2020 COMPARISON: NONE CLINICAL HISTORY: ascites. No ascites visualized IMPRESSION: No evidence of ascites
[2020-01-17 11:54] LABS: Glucose,Whole Blood 215 mg/dL (75-99)
[2020-01-17] MEDS ORDERED: LIDOCAINE URO-JET JELLY 2% 5 ML KIT URETHRAL ONE (11:55)
--- NOTE | 2020-01-17 13:15 | P.PN ---
Subjective Progress Note Date: 01/17/20 Principal diagnosis: Acute exacerbation of diastolic CHF with severe pulmonary hypertension and evidence of right-sided heart failure 79-year-old male patient, came in for worsening shortness of breath. The patient is known to have diastolic heart failure in addition to severe pulmonary hypertension and right-sided heart failure. He has chronic atrial fibrillation. He has sick sinus syndrome has a pacemaker in place. He has diabetes, previous CVA and history of dementia. He has had previous right-sided pleural effusion and according to the family has had previous thoracentesis an outside facilities. He came in worsening shortness of breath and lower extremity edema. He was briefly placed on BiPAP. Currently is on IV Lasix. Chest x-ray shows a large right-sided pleural effusion and needs to be drained. The patient on Eliquis for now which will placed on hold. No other significant events. He is able to communicate well. His proBNP level is 2850. Troponin times she has been negative. White cell count is at 5.3. Cardiac rhythm is atrial fibrillation. The patient is seen today 01/16/2020 in follow-up on the selective care unit. He is awake and alert in no acute distress. Breathing a bit easier today compared to yesterday. He did undergo a right-sided thoracentesis by Dr. Chavesn was 2.1 L of turbid yellow fluid removed. Fluid analysis and cytology pending. He is maintaining good O2 saturations in the mid 90s on 3 L/m per nasal cannula. He's been afebrile. Blood culture reveals no growth to date. Sodium 141. Potassium 3.2. Creatinine 0.81. He remains on IV diuretics. No accurate I know. The patient is incontinent. On 01/17/2020 patient seen in follow-up on selective care unit. Patient is resting in bed, he is generally weak, is currently on 4 L of oxygen is pulse ox 92%, hemodynamically she is stable, his respirations are nonlabored, however patient is mostly bedbound, and he does get very short of breath with any exer tion. Has had no fever or chills since admission, he denies any chest pain, continues on Lasix of 40 mg every 8 hours, net fluid balance is very difficult to estimate because patient is incontinent into his brief, going to the recorded weight he is -15 kg in the last 24 hours, although on physical exam there is still significant lower extremity edema, and crackles in both lungs. Patient is status post right-sided thoracentesis with removal of 2.1 L of turbid yellow fluid. Pleural fluid analysis revealed transudative fluid. Cytology is pending. Patient remains in atrial fibrillation with a controlled rate, he is on oral Eliquis for anticoagulation. Abdominal ultrasound revealed no evidence of ascites. Objective - Vital Signs Vital signs: Vital Signs Temp 98.3 F 01/17/20 07:40 Pulse 74 01/17/20 12:00 Resp 22 01/17/20 12:00 BP 107/56 01/17/20 12:00 Pulse Ox 92 L 01/17/20 12:00 Intake & Output 01/16/20 01/17/20 01/17/20 18:59 06:59 18:59 Intake Total 760 125 Balance 760 125 Weight 92 kg Intake: IV 40 Furosemide 100 mg In 40 Sodium Chloride 0.9% 90 ml @ 10 MG/HR 10 mls/hr IV .Q10H [facility] Rx#: [id number] Oral 720 125 Other: Voiding Method Diaper Diaper Diaper # Voids 1 - Exam GENERAL EXAM: Alert, very pleasant, 79-year-old white male, appears generally weak, he is currently on 3 L of oxygen the pulse ox 96% comfortable in no apparent distress. HEAD: Normocephalic/atraumatic. EYES: Normal reaction of pupils, equal size. Conjunctiva pink, sclera white. NOSE: Clear with pink turbinates. THROAT: No erythema or exudates. NECK: No masses, no JVD, no thyroid enlargement, no adenopathy. CHEST: No chest wall deformity. Symmetrical expansion. LUNGS: Equal air entry with bibasilar crackles, wheeze, rhonchi or dullness. CVS: Regular rate and rhythm, normal S1 and S2, no gallops, no murmurs, no rubs ABDOMEN: Soft, nontender. No hepatosplenomegaly, normal bowel sounds, no guarding or rigidity. EXTREMITIES: No clubbing, 1+ edema, no cyanosis, 2+ pulses and upper and lower extremities. MUSCULOSKELETAL: Muscle strength and tone normal. SPINE: No scoliosis or deformity SKIN: No rashes CENTRAL NERVOUS SYSTEM: Alert and oriented -3. No focal deficits, tone is normal in all 4 extremities. PSYCHIATRIC: Alert and oriented -3. Appropriate affect. Intact judgment and insight. - Labs CBC & Chem 7: 01/17/20 00:28 01/17/20 06:29 Labs: Abnormal Lab Results - Last 24 Hours (Table) 01/16/20 01/16/20 01/17/20 Range/Units 16:38 20:29 00:28 RBC 4.16 L (4.30-5.90) m/uL Hgb 12.1 L (13.0-17.5) gm/dL MCHC 29.7 L (31.0-37.0) g/dL RDW 16.9 H (11.5-15.5) % Lymphocytes # 0.5 L (1.0-4.8) k/uL Carbon Dioxide (22-30) mmol/L BUN (9-20) mg/dL Glucose (74-99) mg/dL POC Glucose (mg/dL) 214 H 196 H (75-99) mg/dL Calcium (8.4-10.2) mg/dL Alkaline Phosphatase (38-126) U/L Albumin (3.5-5.0) g/dL 01/17/20 01/17/20 01/17/20 Range/Units 00:28 05:53 06:29 RBC (4.30-5.90) m/uL Hgb (13.0-17.5) gm/dL MCHC (31.0-37.0) g/dL RDW (11.5-15.5) % Lymphocytes # (1.0-4.8) k/uL Carbon Dioxide 32 H 33 H (22-30) mmol/L BUN 22 H 21 H (9-20) mg/dL Glucose 153 H 104 H (74-99) mg/dL POC Glucose (mg/dL) 119 H (75-99) mg/dL Calcium 8.1 L (8.4-10.2) mg/dL Alkaline Phosphatase 144 H (38-126) U/L Albumin 3.1 L (3.5-5.0) g/dL 01/17/20 Range/Units 11:49 RBC (4.30-5.90) m/uL Hgb (13.0-17.5) gm/dL MCHC (31.0-37.0) g/dL RDW (11.5-15.5) % Lymphocytes # (1.0-4.8) k/uL Carbon Dioxide (22-30) mmol/L BUN (9-20) mg/dL Glucose (74-99) mg/dL POC Glucose (mg/dL) 215 H (75-99) mg/dL Calcium (8.4-10.2) mg/dL Alkaline Phosphatase (38-126) U/L Albumin (3.5-5.0) g/dL Microbiology - Last 24 Hours (Table) 01/14/20 23:40 Blood Culture - Preliminary Blood No Growth after 48 hours Assessment and Plan Plan: Assessment: 1 acute exacerbation of diastolic congestive heart failure with severe pulmonary hypertension and evidence of right-sided heart failure 2 large right-sided pleural effusion, status post thoracentesis with 2.1 L of turbid yellow fluid removed on 01/16/2020, fluid analysis revealed transudative fluid and cytology are pending 3 lower extremity edema secondary to CHF 4 chronic atrial fibrillation maintained on Eliquis on outpatient basis 5 acute hypoxic respiratory failure secondary to above 6 sick sinus syndrome and the patient has a pacemaker in place 7dementia 8 diabetes mellitus type 2 9 previous history of GI bleed 10 previous history of seizure disorder currently inactive in stable 11 hypothyroidism 12 BPH 13 history of iron deficiency anemia 14 remote history of CVA without any residual deficits Plan: Continue with IV diuretics, patient still has significant amount of peripheral edema, accurate intake and output, daily weights, suggest inserting a Wilson catheter for accurate intake and output, or applying a condom catheter if unable to place a Wilson catheter. Follow-up chest x-ray in the morning, BiPAP support as needed. Follow-up electrolytes and renal profile. Abdominal ultrasound has been ordered and reviewed, revealing no evidence of abdominal ascites. We'll continue with medical treatment, pleural fluid analysis revealed transudate con sistent with exacerbation of CHF. We will continue to follow and make further recommendations I performed a history & physical examination of the patient and discussed their management with my nurse practitioner, Samantha Holden. I reviewed the nurse practitioner's note and agree with the documented findings and plan of care. Lung sounds are positive for crackles at bilateral bases. The findings and the impression was discussed with the patient. I attest to the documentation by the nurse practitioner. Time with Patient: Less than 30
[2020-01-17 16:44] LABS: Glucose,Whole Blood 134 mg/dL (75-99)
--- NOTE | 2020-01-17 17:15 | P.PN ---
Progress Note - Text Progress Note Date: 01/17/20 Chief Complaint: Short of breath, edema History of presenting complaint: This is a pleasant 79-year-old patient, being followed with Dr. Ramsey. Chronic stable medical conditions include atrial fibrillation, diabetes, GERD, seizure disorder, hypothyroid, iron deficiency anemia, BPH sick sinus syndrome with a pacemaker. Resident at assisted living. Does use oxygen 2 L at home. Presents with progressive shortness of breath increasing edema. Decreased appetite. So me abdominal distention. Some orthopnea. No fever no chills. Admitted with acute on chronic CHF exacerbation from diastolic dysfunction EF 50-55%. Started on Lasix drip. right-sided thoracentesis 2.1 L of yellow fluid removed by Dr. Blanchard. Changed to IV bolus Lasix. Today-tired. Short of breath. Eating some. Edema present. Sitting up in a chair. Urine output is not being able to be recorded because of incontinence. Oral intake is fairly good Review of systems: Was done for constitutional, cardiovascular, GI, pulmonary. relevant finding as above Active Medications Albuterol/Ipratropium (Ipratropium-Albuterol 3 Ml Neb) 3 ml INHALATION RT-QID PRN PRN Reason: Shortness Of Breath Or Wheezing Last Admin: 01/15/20 20:19 Dose: 3 ml Documented by: Apixaban (Apixaban 2.5 Mg Tablet) 2.5 mg PO BID [facility] Last Admin: 01/17/20 08:02 Dose: 2.5 mg Documented by: Atorvastatin Calcium (Atorvastatin 10 Mg Tab) 10 mg PO HS@2100 [facility] Last Admin: 01/16/20 21:48 Dose: 10 mg Documented by: Cholecalciferol (Cholecalciferol 1,000 Unit Tab) 1,000 unit PO DAILY@0900 [facility] Last Admin: 01/17/20 08:02 Dose: 1,000 unit Documented by: Cholecalciferol (Cholecalciferol 1,000 Unit Tab) 2,000 unit PO HS@2100 [facility] Last Admin: 01/16/20 21:49 Dose: 2,000 unit Documented by: Cyanocobalamin (Cyanocobalamin 500 Mcg Tab) 1,000 mcg PO DAILY@0900 [facility] Last Admin: 01/17/20 08:02 Dose: 1,000 mcg Documented by: Diltiazem HCl (Diltiazem Cd 240 Mg Cap.Er.24h) 240 mg PO DAILY@0900 [facility] Last Admin: 01/17/20 08:02 Dose: 240 mg Documented by: Ferrous Sulfate (Ferrous Sulfate 325 Mg Tab) 325 mg PO BID@899,2099 [facility] Last Admin: 01/17/20 08:02 Dose: 325 mg Documented by: Furosemide (Furosemide 10 Mg/Ml 4 Ml Vial) 40 mg IV Q8HR [facility] Last Admin: 01/17/20 16:54 Dose: 40 mg Documented by: Levetiracetam (Levetiracetam 500 Mg Tab) 1,000 mg PO BID@899,2099 [facility] Last Admin: 01/17/20 08:02 Dose: 1,000 mg Documented by: Levothyroxine Sodium (Levothyroxine 100 Mcg Tab) 100 mcg PO DAILY@06 [facility] Last Admin: 01/17/20 06:18 Dose: 100 mcg Documented by: Levothyroxine Sodium (Levothyroxine 75 Mcg Tab) 75 mcg PO DAILY@06 [facility] Last Admin: 01/17/20 06:18 Dose: 75 mcg Documented by: Metformin HCl (Metformin 500 Mg Tab) 500 mg PO BID@0900,1700 [facility] Last Admin: 01/17/20 16:54 Dose: 500 mg Documented by: Metoprolol Tartrate (Metoprolol Tartrate 25 Mg Tab) 25 mg PO BID@899,2099 [facility] Last Admin: 01/17/20 08:02 Dose: 25 mg Documented by: Miscellaneous Information (Pneumonia Protocol Utilized 1 Each Mis) 1 each PO ONCE PRN PRN Reason: Per Protocol Miscellaneous Information (Potassium Replacement Protocol 1 Each Mis) 1 each MISCELLANE DAILY PRN; Protocol PRN Reason: Per Protocol Pantoprazole Sodium (Pantoprazole 40 Mg Tablet) 40 mg PO DAILY@0600 [facility] Last Admin: 01/17/20 06:19 Dose: 40 mg Documented by: Polyethylene Glycol (Polyethylene Glycol 3350 17 Gm Powd.Pack) 17 gm PO DAILY PRN PRN Reason: Constipation Senna/Docusate Sodium (Sennosides-Docusate Sodium 1 Each Tab) 2 each PO HS@2099 [facility] Last Admin: 01/16/20 21:45 Dose: 2 each Documented by: Sildenafil Citrate (Sildenafil 20 Mg Tab) 10 mg PO TID@0600,1400,2200 [facility] Last Admin: 01/17/20 14:29 Dose: 10 mg Documented by: Tamsulosin HCl (Tamsulosin 0.4 Mg Cap.Er.24h) 0.4 mg PO HS@2100 [facility] Last Admin: 01/16/20 21:46 Dose: 0.4 mg Documented by: Physical examination: VITAL SIGNS: 97.6, 71, 18, 112/56, 95% on 4 L GENERAL: Sitting up in a recliner. Tired EYES: Pupils equal. Conjunctiva normal. HEENT: External appearance of nose and ears normal, oral cavity grossly normal. NECK: JVD unable to assess; masses not palpable. HEART: [Heart sounds are normal; edema present, . LUNGS: Respiratory rate increased decreased breath sounds. ABDOMEN: Soft, nontender, liver spleen not palpable, no masses palpable. PSYCH: Alert and oriented x3; mood and affect normal. INVESTIGATIONS, reviewed in the clinical context: Potassium 3.9 creatinine 0.82 Abdominal ultrasound-no evidence of ascites Previous testing White count 5.3 hemoglobin 12.1 platelets 165 potassium 5.8 bun 31 creatinine 0.84 EKG tracing pacemaker rhythm Chest x-ray film personally reviewed by me-large right pleural effusion with pulmonary edema 2-D echocardiogram from July 2018 shows a EF of 50-55% Assessment: -Acute on chronic congestive heart file exacerbation from diastolic dysfunction EF 50-55%-slow to respond -Large right pleural effusion from CHF-status post right-sided thoracentesis 2.1 L rosy liquid removed -Acute on chronic hypoxic respiratory failure, patient is on (2 L of oxygen at home)-currently in 4 L -Sick sinus syndrome with a permanent pacemaker -GERD -BPH -Diabetes mellitus type 2 on oral hypoglycemic -Chronic seizure disorder -Hypothyroid -Obesity BMI 32.5 Plan: Remains on bolus Lasix 40 mg every 8. She may need a catheter. Other medications to continue.
--- NOTE | 2020-01-17 20:01 | P.GSCN ---
History of Present Illness Consult date: 01/17/20 Reason for Consult: Weak urinary stream Requesting physician: Jori Vásquez History of present illness: The patient is an 79-year-old white male with multiple medical problems, admitted with congestive heart failure. A Wilson catheter has been requested for accurate monitoring of I's and O's. Attempts by the nursing staff to place the catheter were unsuccessful. The patient is a vague historian. However, he states that he underwent a procedure under anesthesia approximately [address] Colvin in [place]. He describes his urinary stream is being weak. 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 History of Any Multi-Drug Resistant Organisms: None Reported Past Surgical History: AICD, Pacemaker Additional Past Surgical History / Comment(s): EGD, colonoscipy, capsule endoscopy. Past Anesthesia/Blood Transfusion Reactions: No Reported Reaction Type of Cardiac Device: Permanent Pacemaker, AICD Device Placement Date:: 2011 Past Psychological History: No Psychological Hx Reported Smoking Status: Never smoker Past Alcohol Use History: Rare Past Drug Use History: None Reported - Past Family History Father Family Medical History: Myocardial Infarction (NM) Mother Family Medical History: Myocardial Infarction (NM) Brother(s) Additional Family Medical History / Comment(s): from [place]. It was all through his body. Unknown as to what kind Medications and Allergies Home Medications Medication Instructions Recorded Confirmed Type Atorvastatin [Lipitor] 10 mg PO HS@2100 03/24/14 01/14/20 History Potassium Chloride [Klor-Con 20] 20 meq PO BID@0900,2100 03/24/14 01/14/20 History Tamsulosin HCl [Flomax] 0.4 mg PO HS@2100 03/24/14 01/14/20 History levETIRAcetam [Keppra] 1,000 mg PO BID@0900,2100 03/24/14 01/14/20 History metFORMIN HCL [Glucophage] 500 mg PO BID@0900,1700 03/24/14 01/14/20 History Ferrous Sulfate [Iron (65 MG 325 mg PO BID@0900,2100 02/03/17 01/14/20 History Elemental)] Omeprazole [PriLOSEC] 20 mg PO DAILY@0600 02/03/17 01/14/20 History Apixaban [Eliquis] 2.5 mg PO BID@0900,2100 08/04/18 01/14/20 History Levothyroxine Sodium [Synthroid] 175 mcg PO DAILY@0600 08/04/18 01/14/20 History Sildenafil [Revatio] 10 mg PO TID@0600,1400,2200 08/04/18 01/14/20 History Cholecalciferol [Vitamin D3 (25 1,000 unit PO DAILY@89901/14/20 01/14/20 History Mcg = 1000 Iu)] Cholecalciferol [Vitamin D3 (25 2,000 unit PO HS@209901/14/20 01/14/20 History Mcg = 1000 Iu)] Cyanocobalamin [Vitamin B-12] 1,000 mcg PO DAILY@89901/14/20 01/14/20 History Diltiazem Cd [Cardizem CD] 240 mg PO DAILY@0900 01/14/20 01/14/20 History Furosemide [Lasix] 40 mg PO DAILY@89901/14/20 01/14/20 History Metoprolol Tartrate [Lopressor] 25 mg PO BID@0900,209901/14/20 01/14/20 History Sennosides/Docusate Sodium [Senna 2 tab PO HS@209901/14/20 01/14/20 History Plus 8.6-50 mg Tablet] metOLazone [Zaroxolyn] 2.5 mg PO DAILY@0600 PRN 01/14/20 01/14/20 History polyethylene glycoL 3350 [Miralax] 17 gm PO DAILY PRN 01/14/20 01/14/20 History Allergies Allergy/AdvReac Type Severity Reaction Status Date / Time amiodarone Allergy Unknown Verified 01/14/20 20:27 amitriptyline Allergy Unknown Verified 01/14/20 20:27 simvastatin [From Zocor] Allergy Unknown Verified 01/14/20 20:27 Surgical - Exam Vital Signs Temp Pulse Resp BP Pulse Ox 97.0 F L 88 20 113/71 86 L 01/14/20 19:34 01/14/20 19:34 01/14/20 19:34 01/14/20 19:34 01/14/20 19:34 - General well developed, well nourished, no distress - Respiratory normal respiratory effort - Abdomen Abdomen: soft, non tender, no guarding, no rigid, no rebound - Genitourinary other (Mild penoscrotal edema. The urethral meatus appears normal.) - Psychiatric oriented to time, oriented to person, oriented to place, speech is normal, memory intact Results - Labs 01/17/20 00:28 01/17/20 06:29 Abnormal Lab Results - Last 24 Hours (Table) 01/16/20 01/17/20 01/17/20 Range/Units 20:29 00:28 00:28 RBC 4.16 L (4.30-5.90) m/uL Hgb 12.1 L (13.0-17.5) gm/dL MCHC 29.7 L (31.0-37.0) g/dL RDW 16.9 H (11.5-15.5) % Lymphocytes # 0.5 L (1.0-4.8) k/uL Carbon Dioxide 32 H (22-30) mmol/L BUN 22 H (9-20) mg/dL Glucose 153 H (74-99) mg/dL POC Glucose (mg/dL) 196 H (75-99) mg/dL Calcium (8.4-10.2) mg/dL Alkaline Phosphatase 144 H (38-126) U/L Albumin 3.1 L (3.5-5.0) g/dL 01/17/20 01/17/20 01/17/20 Range/Units 05:53 06:29 11:49 RBC (4.30-5.90) m/uL Hgb (13.0-17.5) gm/dL MCHC (31.0-37.0) g/dL RDW (11.5-15.5) % Lymphocytes # (1.0-4.8) k/uL Carbon Dioxide 33 H (22-30) mmol/L BUN 21 H (9-20) mg/dL Glucose 104 H (74-99) mg/dL POC Glucose (mg/dL) 119 H 215 H (75-99) mg/dL Calcium 8.1 L (8.4-10.2) mg/dL Alkaline Phosphatase (38-126) U/L Albumin (3.5-5.0) g/dL 01/17/20 Range/Units 16:42 RBC (4.30-5.90) m/uL Hgb (13.0-17.5) gm/dL MCHC (31.0-37.0) g/dL RDW (11.5-15.5) % Lymphocytes # (1.0-4.8) k/uL Carbon Dioxide (22-30) mmol/L BUN (9-20) mg/dL Glucose (74-99) mg/dL POC Glucose (mg/dL) 134 H (75-99) mg/dL Calcium (8.4-10.2) mg/dL Alkaline Phosphatase (38-126) U/L Albumin (3.5-5.0) g/dL Microbiology - Last 24 Hours (Table) 01/14/20 23:40 Blood Culture - Preliminary Blood No Growth after 48 hours Diabetes panel 01/17/20 01/17/20 Range/Units 00:28 06:29 Sodium 137 139 (137-145) mmol/L Potassium 4.2 3.9 (3.5-5.1) mmol/L Chloride 102 104 (98-107) mmol/L Carbon Dioxide 32 H 33 H (22-30) mmol/L BUN 22 H 21 H (9-20) mg/dL Creatinine 0.88 0.82 (0.66-1.25) mg/dL Glucose 153 H 104 H (74-99) mg/dL Calcium 8.5 8.1 L (8.4-10.2) mg/dL AST 24 (17-59) U/L ALT 15 (4-49) U/L Alkaline Phosphatase 144 H (38-126) U/L Total Protein 6.3 (6.3-8.2) g/dL Albumin 3.1 L (3.5-5.0) g/dL Calcium panel 01/17/20 01/17/20 Range/Units 00:28 06:29 Calcium 8.5 8.1 L (8.4-10.2) mg/dL Albumin 3.1 L (3.5-5.0) g/dL Pituitary panel 01/17/20 01/17/20 Range/Units 00:28 06:29 Sodium 137 139 (137-145) mmol/L Potassium 4.2 3.9 (3.5-5.1) mmol/L Chloride 102 104 (98-107) mmol/L Carbon Dioxide 32 H 33 H (22-30) mmol/L BUN 22 H 21 H (9-20) mg/dL Creatinine 0.88 0.82 (0.66-1.25) mg/dL Glucose 153 H 104 H (74-99) mg/dL Calcium 8.5 8.1 L (8.4-10.2) mg/dL Adrenal panel 01/17/20 01/17/20 Range/Units 00:28 06:29 Sodium 137 139 (137-145) mmol/L Potassium 4.2 3.9 (3.5-5.1) mmol/L Chloride 102 104 (98-107) mmol/L Carbon Dioxide 32 H 33 H (22-30) mmol/L BUN 22 H 21 H (9-20) mg/dL Creatinine 0.88 0.82 (0.66-1.25) mg/dL Glucose 153 H 104 H (74-99) mg/dL Calcium 8.5 8.1 L (8.4-10.2) mg/dL Total Bilirubin 0.5 (0.2-1.3) mg/dL AST 24 (17-59) U/L ALT 15 (4-49) U/L Alkaline Phosphatase 144 H (38-126) U/L Total Protein 6.3 (6.3-8.2) g/dL Albumin 3.1 L (3.5-5.0) g/dL Assessment and Plan (1) Bulbous urethral stricture Current Visit: Yes Status: Acute Code(s): N35.912 - UNSPECIFIED BULBOUS URETHRAL STRICTURE, MALE SNOMED Code(s): 96366353 Plan: The penis was prepped and draped sterilely. 2% lidocaine gel was administered intraurethrally. An attempt was made to insert a 16-[place] Wilson catheter, but resistance was met within the proximal urethra. Likewise, a 12-[place]ian coud-tip Wilson catheter met resistance in this area. Therefore, filiforms and followers were used to dilate what appeared to be a urethral stricture. A 3-Ghanaian spiral tip filiform was advanced through the stricture and into the bladder. It was possible to pass an 8-Ghanaian follower into the bladder, with return of clear yel low urine. It was then possible to pass a 10-[place]ian follower into the bladder, but with significant resistance. It is apparent that the stricture cannot be dilated further, and if it is essential that a Wilson catheter be placed he will require a direct visual internal urethrotomy under anesthesia. I am hopeful that the urethral dilation I performed, though suboptimal, will improve his ability to void. Please notify me if any further intervention is required. I did advise the patient to follow-up with Dr. Colvin upon discharge.
[2020-01-17 20:48] LABS: Glucose,Whole Blood 175 mg/dL (75-99)
[2020-01-17] MEDS: ATORVASTATIN 10 MG TAB PO SCH (21:12)
[2020-01-17] MEDS: SENNOSIDES-DOCUSATE SODIUM 1 EACH TAB PO SCH (21:13)
[2020-01-17] MEDS: TAMSULOSIN 0.4 MG CAP.ER.24H PO SCH (21:13)
[2020-01-18 06:29] LABS: Glucose,Whole Blood 117 mg/dL (75-99)
[2020-01-18] MEDS: LEVOTHYROXINE 75 MCG TAB PO SCH (06:43)
[2020-01-18] MEDS: LEVOTHYROXINE 100 MCG TAB PO SCH (06:43)
[2020-01-18] MEDS: PANTOPRAZOLE 40 MG TABLET PO SCH (06:43)
[2020-01-18] MEDS: SILDENAFIL 20 MG TAB PO SCH ×2 (06:44→13:34)
[2020-01-18] MEDS: metFORMIN 500 MG TAB PO SCH ×2 (08:51→17:12)
[2020-01-18] MEDS: CYANOCOBALAMIN 500 MCG TAB PO SCH (08:51)
[2020-01-18] MEDS: APIXABAN 2.5 MG TABLET PO SCH ×2 (08:52→20:28)
[2020-01-18] MEDS: DILTIAZEM CD 240 MG CAP.ER.24H PO SCH (08:52)
[2020-01-18] MEDS: FUROSEMIDE 10 MG/ML 4 ML VIAL IV SCH ×2 (08:52→17:12)
[2020-01-18] MEDS: levETIRAcetam 500 MG TAB PO SCH ×2 (08:52→20:28)
[2020-01-18] MEDS: METOPROLOL TARTRATE 25 MG TAB PO SCH ×2 (08:52→20:28)
[2020-01-18] MEDS: CHOLECALCIFEROL 1,000 UNIT TAB PO SCH ×2 (08:52→20:28)
[2020-01-18] MEDS: FERROUS SULFATE 325 MG TAB PO SCH ×2 (08:52→20:28)
[2020-01-18 11:25] LABS: African American GFR (CKD) >90 (>60 ml/min/1.73 sqM); Anion Gap 2 mmol/L; Blood Urea Nitrogen 22 mg/dL (9-20); Calcium 8.3 mg/dL (8.4-10.2); Carbon Dioxide 35 mmol/L (22-30); Chloride 100 mmol/L (98-107); Glucose 133 mg/dL (74-99); Non-African American GFR(CKD) 85 (>60 ml/min/1.73 sqM); Potassium 3.8 mmol/L (3.5-5.1); Sodium 137 mmol/L (137-145)
[2020-01-18 11:43] LABS: Glucose,Whole Blood 140 mg/dL (75-99)
--- NOTE | 2020-01-18 13:16 | XR ---
EXAMINATION TYPE: XR chest 2V DATE OF EXAM: 01/18/2020 COMPARISON: 01/17/2020 TECHNIQUE: PA and lateral views submitted. HISTORY: Shortness of breath FINDINGS: Bilateral infiltrate and pleural effusion with cardiomegaly and cardiac device. No pneumothorax. Diff use interstitial pattern. Findings similar to prior exam. IMPRESSION: 1. Diffuse pleural-parenchymal changes stable from prior exam correlate for CHF.
--- NOTE | 2020-01-18 14:03 | P.PN ---
Subjective Progress Note Date: 01/18/20 This is an 79-year-old male patient, came in for worsening shortness of breath. The patient is known to have diastolic heart failure in addition to severe pulmonary hypertension and right-sided heart failure. He has chronic atrial fibrillation. He has sick sinus syndrome has a pacemaker in place. He has diabetes, previous CVA and history of dementia. He has had previous right-sided pleural effusion and according to the family has had previous thoracentesis an outside facilities. He came in worsening shortness of breath and lower extremity edema. Patient was seen and examined this morning, continues to feel mildly short of breath. Blood pressure 114/60 with a heart rate of 90, 95% on 4 L of oxygen. Sodium 139, potassium 3.9, BUN 21, creatinine 0.8. Patient underwent a right-sided thoracentesis yesterday. 01/18/2020 Patient was seen and examined this morning, sitting up in the chair at bedside. Blood pressure 102/56, heart rate in the 80s, 93% on 3 L of oxygen. Continues to be on IV Lasix. Intake and output is difficult to accurately monitor because the patient does wear a diaper. Sodium 137, potassium 3.8, BUN 22, creatinine 0.7. Repeat chest x-ray performed today showed diffuse pleural parenchymal changes stable from prior exam. Correlate for CHF Objective - Vital Signs Vital signs: Vital Signs Temp 97.4 F L 01/18/20 11:44 Pulse 97 01/18/20 11:44 Resp 20 01/18/20 11:44 BP 116/70 01/18/20 11:44 Pulse Ox 95 01/18/20 11:44 Intake & Output 01/17/20 01/18/20 01/18/20 18:59 06:59 18:59 Intake Total 250 360 Output Total 100 Balance 250 -100 360 Weight 71 kg Intake: Oral 250 360 Output: Urine 100 Other: Voiding Method Diaper Urinal Urinal Diaper Diaper - Exam Gen. appearance, very pleasant 79-year-old gentleman, currently on 3 L/m per nasal cannula, comfortable in no acute distress Head exam was generally normal. There was no scleral icterus or corneal arcus. Mucous membranes were moist. Neck was supple and without jugular venous distension, thyromegaly, or carotid bruits. Carotids were easily palpable bilaterally. There was no adenopathy. Lung sounds are diminished on the right along with dullness to percussion. Diminished breath on the right lung base compared to the left. Heart sounds are irregular consistent with atrial fibrillation, positive S1, accentuation of the second heart sound S2 and there is a systolic ejection murmur along left upper sternal border grade 3/6. Abdominal exam revealed normal bowel sounds. The abdomen was soft, non-tender, and without masses, organomegaly, or appreciable enlargement of the abdominal aorta. Extremities revealed trace to +1 edema and there is no cyanosis or clubbing Examination of the skin revealed no evidence of significant rashes, suspicious appearing nevi or other concerning lesions. Neurologically, the patient is awake and alert and the patient does not have any focal neurological deficit. Cranial nerves are essentially intact. - Labs CBC & Chem 7: 01/17/20 00:28 01/18/20 10:38 Labs: Abnormal Lab Results - Last 24 Hours (Table) 01/17/20 01/17/20 01/18/20 Range/Units 16:42 20:47 06:28 Carbon Dioxide (22-30) mmol/L BUN (9-20) mg/dL Glucose (74-99) mg/dL POC Glucose (mg/dL) 134 H 175 H 117 H (75-99) mg/dL Calcium (8.4-10.2) mg/dL 01/18/20 01/18/20 Range/Units 10:38 11:40 Carbon Dioxide 35 H (22-30) mmol/L BUN 22 H (9-20) mg/dL Glucose 133 H (74-99) mg/dL POC Glucose (mg/dL) 140 H (75-99) mg/dL Calcium 8.3 L (8.4-10.2) mg/dL Microbiology - Last 24 Hours (Table) 01/14/20 23:40 Blood Culture - Preliminary Blood No Growth after 72 hours Assessment and Plan Plan: Assessment and plan #1 acute exacerbation of diastolic congestive heart failure with severe pulmonary hypertension and evidence of right-sided heart failure #2 large right-sided pleural effusion, status post thoracentesis with 2.1 L of turbid yellow fluid removed on 01/16/2020, fluid analysis and cytology are pending #3 lower extremity edema secondary to CHF #4 chronic atrial fibrillation maintained on Eliquis on outpatient basis #5 acute hypoxic respiratory failure secondary to above #6 sick sinus syndrome and the patient has a pacemaker in place #7dementia #8 diabetes mellitus type 2 #9 previous history of GI bleed #10 previous history of seizure disorder currently inactive in stable #11 hypothyroidism #12 BPH #13 history of iron deficiency anemia #14 remote history of CVA without any residual deficits Plan From cardiology's perspective, we will recommend to continue the patient on current dose of IV Lasix for 24 hours, continue to monitor the intake and output along with daily weights and daily lytes BUN and creatinine. DNP note has been reviewed, I agree with a documented findings and plan of care. Patient was seen and examined.
--- NOTE | 2020-01-18 14:40 | P.PN ---
Subjective Progress Note Date: 01/18/20 Principal diagnosis: Acute exacerbation of diastolic CHF with severe pulmonary hypertension and evidence of right-sided heart failure 79-year-old male patient, came in for worsening shortness of breath. The patient is known to have diastolic heart failure in addition to severe pulmonary hypertension and right-sided heart failure. He has chronic atrial fibrillation. He has sick sinus syndrome has a pacemaker in place. He has diabetes, previous CVA and history of dementia. He has had previous right-sided pleural effusion and according to the family has had previous thoracentesis an outside facilities. He came in worsening shortness of breath and lower extremity edema. He was briefly placed on BiPAP. Currently is on IV Lasix. Chest x-ray shows a large right-sided pleural effusion and needs to be drained. The patient on Eliquis for now which will placed on hold. No other significant events. He is able to communicate well. His proBNP level is 2850. Troponin times she has been negative. White cell count is at 5.3. Cardiac rhythm is atrial fibrillation. The patient is seen today 01/16/2020 in follow-up on the selective care unit. He is awake and alert in no acute distress. Breathing a bit easier today compared to yesterday. He did undergo a right-sided thoracentesis by Dr. Chavesn was 2.1 L of turbid yellow fluid removed. Fluid analysis and cytology pending. He is maintaining good O2 saturations in the mid 90s on 3 L/m per nasal cannula. He's been afebrile. Blood culture reveals no growth to date. Sodium 141. Potassium 3.2. Creatinine 0.81. He remains on IV diuretics. No accurate I know. The patient is incontinent. On 01/17/2020 patient seen in follow-up on selective care unit. Patient is resting in bed, he is generally weak, is currently on 4 L of oxygen is pulse ox 92%, hemodynamically she is stable, his respirations are nonlabored, however patient is mostly bedbound, and he does get very short of breath with any exer tion. Has had no fever or chills since admission, he denies any chest pain, continues on Lasix of 40 mg every 8 hours, net fluid balance is very difficult to estimate because patient is incontinent into his brief, going to the recorded weight he is -15 kg in the last 24 hours, although on physical exam there is still significant lower extremity edema, and crackles in both lungs. Patient is status post right-sided thoracentesis with removal of 2.1 L of turbid yellow fluid. Pleural fluid analysis revealed transudative fluid. Cytology is pending. Patient remains in atrial fibrillation with a controlled rate, he is on oral Eliquis for anticoagulation. Abdominal ultrasound revealed no evidence of ascites. On 01/18/2020 patient seen in follow-up on the selective care unit, he continues on Lasix 40 mg every 8 hours. Yesterday we asked nursing staff to place a Wilson catheter however in view of patient's past history of difficulty placing a Wilson catheter urology service was consulted, and apparently patient has multiple strictures and we decided to leave the Wilson catheter out. Fluid balance is difficult to estimate as the patient is incontinent. However he is breathing easier today, he sitting up in the recliner, appears to be no acute distress, currently on 3 L of oxygen the pulse ox of 95%. Today's labs have been reviewed, showing CO2 35, increased electrolytes are within normal limits, BUN of 22 creatinine of 0.78. Patient is status post right-sided thoracentesis, whi ch was transudate of fluid. Cytology still pending. Remains in atrial fibrillation with a controlled rate. On oral anticoagulation the form of Eliquis. Objective - Vital Signs Vital signs: Vital Signs Temp 97.4 F L 01/18/20 11:44 Pulse 97 01/18/20 11:44 Resp 20 01/18/20 11:44 BP 116/70 01/18/20 11:44 Pulse Ox 95 01/18/20 11:44 Intake & Output 01/17/20 01/18/20 01/18/20 18:59 06:59 18:59 Intake Total 250 360 Output Total 100 Balance 250 -100 360 Weight 71 kg Intake: Oral 250 360 Output: Urine 100 Other: Voiding Method Diaper Urinal Urinal Diaper Diaper - Exam GENERAL EXAM: Alert, very pleasant, 79-year-old white male, sitting up in the chair appears generally weak, he is currently on 3 L of oxygen the pulse ox 96% comfortable in no apparent distress. HEAD: Normocephalic/atraumatic. EYES: Normal reaction of pupils, equal size. Conjunctiva pink, sclera white. NOSE: Clear with pink turbinates. THROAT: No erythema or exudates. NECK: No masses, no JVD, no thyroid enlargement, no adenopathy. CHEST: No chest wall deformity. Symmetrical expansion. LUNGS: Equal air entry with bibasilar crackles, wheeze, rhonchi or dullness. CVS: Regular rate and rhythm, normal S1 and S2, no gallops, no murmurs, no rubs ABDOMEN: Soft, nontender. No hepatosplenomegaly, normal bowel sounds, no guarding or rigidity. EXTREMITIES: No clubbing, 1+ edema, no cyanosis, 2+ pulses and upper and lower extremities. MUSCULOSKELETAL: Muscle strength and tone normal. SPINE: No scoliosis or deformity SKIN: No rashes CENTRAL NERVOUS SYSTEM: Alert and oriented -3. No focal deficits, tone is normal in all 4 extremities. PSYCHIATRIC: Alert and oriented -3. Appropriate affect. Intact judgment and insight. - Labs CBC & Chem 7: 01/17/20 00:28 01/18/20 10:38 Labs: Abnormal Lab Results - Last 24 Hours (Table) 01/17/20 01/17/20 01/18/20 Range/Units 16:42 20:47 06:28 Carbon Dioxide (22-30) mmol/L BUN (9-20) mg/dL Glucose (74-99) mg/dL POC Glucose (mg/dL) 134 H 175 H 117 H (75-99) mg/dL Calcium (8.4-10.2) mg/dL 01/18/20 01/18/20 Range/Units 10:38 11:40 Carbon Dioxide 35 H (22-30) mmol/L BUN 22 H (9-20) mg/dL Glucose 133 H (74-99) mg/dL POC Glucose (mg/dL) 140 H (75-99) mg/dL Calcium 8.3 L (8.4-10.2) mg/dL Microbiology - Last 24 Hours (Table) 01/14/20 23:40 Blood Culture - Preliminary Blood No Growth after 72 hours Assessment and Plan Plan: Assessment: 1 acute exacerbation of diastolic congestive heart failure with severe pulmonary hypertension and evidence of right-sided heart failure 2 large right-sided pleural effusion, status post thoracentesis with 2.1 L of turbid yellow fluid removed on 01/16/2020, fluid analysis revealed transudative fluid and cytology are pending 3 lower extremity edema secondary to CHF 4 chronic atrial fibrillation maintained on Eliquis on outpatient basis 5 acute hypoxic respiratory failure secondary to above 6 sick sinus syndrome and the patient has a pacemaker in place 7dementia 8 diabetes mellitus type 2 9 previous history of GI bleed 10 previous history of seizure disorder currently inactive in stable 11 hypothyroidism 12 BPH 13 history of iron deficiency anemia 14 remote history of CVA without any residual deficits Plan: Continue with IV Lasix, patient is breathing easier today, accurate intake and output, daily weights, daily electrolytes and renal profile. Cytology the pleural effusion is still pending, but the fluid was transudative consistent with patient's history of CHF. Repeat chest x-ray in the morning I performed a history & physical examination of the patient and discussed their management with my nurse practitioner, Samantha Holden. I reviewed the nurse practitioner's note and agree with the documented findings and plan of care. Lung sounds are positive for crackles at bilateral bases. The findings and the impression was discussed with the patient. I attest to the documentation by the nurse practitioner. Time with Patient: Less than 30
[2020-01-18 16:42] LABS: Glucose,Whole Blood 181 mg/dL (75-99)
--- NOTE | 2020-01-18 17:23 | P.PN ---
Progress Note - Text Progress Note Date: 01/18/20 Chief Complaint: Short of breath, edema History of presenting complaint: This is a pleasant 79-year-old patient, being followed with Dr. Ramsey. Chronic stable medical conditions include atrial fibrillation, diabetes, GERD, seizure disorder, hypothyroid, iron deficiency anemia, BPH sick sinus syndrome with a pacemaker. Resident at assisted living. Does use oxygen 2 L at home. Presents with progressive shortness of breath increasing edema. Decreased appetite. So me abdominal distention. Some orthopnea. No fever no chills. Admitted with acute on chronic CHF exacerbation from diastolic dysfunction EF 50-55%. Started on Lasix drip. right-sided thoracentesis 2.1 L of yellow fluid removed by Dr. Blanchard.-Came back as a transudate. Changed to IV bolus Lasix. Today-breathing a bit better. On IV bolus Lasix. Oral intake improving. Sitting up in a chair. Review of systems: Was done for constitutional, cardiovascular, GI, pulmonary. relevant finding as above Active Medications Albuterol/Ipratropium (Ipratropium-Albuterol 3 Ml Neb) 3 ml INHALATION RT-QID PRN PRN Reason: Shortness Of Breath Or Wheezing Last Admin: 01/15/20 20:19 Dose: 3 ml Documented by: Apixaban (Apixaban 2.5 Mg Tablet) 2.5 mg PO BID [facility] [place] Last Admin: 01/18/20 08:52 Dose: 2.5 mg Documented by: Atorvastatin Calcium (Atorvastatin 10 Mg Tab) 10 mg PO HS@2100 [facility] [place] Last Admin: 01/17/20 21:12 Dose: 10 mg Documented by: Cholecalciferol (Cholecalciferol 1,000 Unit Tab) 1,000 unit PO DAILY@0900 [facility] [place] Last Admin: 01/18/20 08:52 Dose: 1,000 unit Documented by: Cholecalciferol (Cholecalciferol 1,000 Unit Tab) 2,000 unit PO HS@2100 [facility] [place] Last Admin: 01/17/20 21:12 Dose: 2,000 unit Documented by: Cyanocobalamin (Cyanocobalamin 500 Mcg Tab) 1,000 mcg PO DAILY@0900 [facility] [place] Last Admin: 01/18/20 08:51 Dose: 1,000 mcg Documented by: Diltiazem HCl (Diltiazem Cd 240 Mg Cap.Er.24h) 240 mg PO DAILY@09 [facility] [place] Last Admin: 01/18/20 08:52 Dose: 240 mg Documented by: Ferrous Sulfate (Ferrous Sulfate 325 Mg Tab) 325 mg PO BID@899,2099 [facility] [place] Last Admin: 01/18/20 08:52 Dose: 325 mg Documented by: Furosemide (Furosemide 10 Mg/Ml 4 Ml Vial) 40 mg IV Q8HR [facility] [place] Last Admin: 01/18/20 17:12 Dose: 40 mg Documented by: Levetiracetam (Levetiracetam 500 Mg Tab) 1,000 mg PO BID@899,2099 [facility] [place] Last Admin: 01/18/20 08:52 Dose: 1,000 mg Documented by: Levothyroxine Sodium (Levothyroxine 100 Mcg Tab) 100 mcg PO DAILY@06 [facility] [place] Last Admin: 01/18/20 06:43 Dose: 100 mcg Documented by: Levothyroxine Sodium (Levothyroxine 75 Mcg Tab) 75 mcg PO DAILY@06 [facility] [place] Last Admin: 01/18/20 06:43 Dose: 75 mcg Documented by: Metformin HCl (Metformin 500 Mg Tab) 500 mg PO BID@0900,1700 [facility] [place] Last Admin: 01/18/20 17:12 Dose: 500 mg Documented by: Metoprolol Tartrate (Metoprolol Tartrate 25 Mg Tab) 25 mg PO BID@899,2099 [facility] [place] Last Admin: 01/18/20 08:52 Dose: 25 mg Documented by: Miscellaneous Information (Pneumonia Protocol Utilized 1 Each Misc) 1 each PO ONCE PRN PRN Reason: Per Protocol Miscellaneous Information (Potassium Replacement Protocol 1 Each Misc) 1 each MISCELLANE DAILY PRN; Protocol PRN Reason: Per Protocol Pantoprazole Sodium (Pantoprazole 40 Mg Tablet) 40 mg PO DAILY@0600 [facility] [place] Last Admin: 01/18/20 06:43 Dose: 40 mg Documented by: Polyethylene Glycol (Polyethylene Glycol 3350 17 Gm Powd.Pack) 17 gm PO DAILY PRN PRN Reason: Constipation Senna/Docusate Sodium (Sennosides-Docusate Sodium 1 Each Tab) 2 each PO HS@2099 [facility] [place] Last Admin: 01/17/20 21:13 Dose: 2 each Documented by: Sildenafil Citrate (Sildenafil 20 Mg Tab) 10 mg PO TID@0600,1400,2200 [facility] [place] Last Admin: 01/18/20 13:34 Dose: 10 mg Documented by: Tamsulosin HCl (Tamsulosin 0.4 Mg Cap.Er.24h) 0.4 mg PO HS@2100 [facility] Last Admin: 01/17/20 21:13 Dose: 0.4 mg Documented by: Physical examination: VITAL SIGNS: 97.6, 70, 20, 118/65, 92% on 3 L GENERAL: Sitting up in a recliner. More comfortable EYES: Pupils equal. Conjunctiva normal. HEENT: External appearance of nose and ears normal, oral cavity grossly normal. NECK: JVD unable to assess; masses not palpable. HEART: [Heart sounds are normal; edema present, . LUNGS: Respiratory rate increased decreased breath sounds. ABDOMEN: Soft, nontender, liver spleen not palpable, no masses palpable. PSYCH: Alert and oriented x3; mood and affect normal. INVESTIGATIONS, reviewed in clinical context: Potassium 3.8 creatinine 0.78 Chest x-ray film personally reviewed by me-pulmonary edema, right pleural effusion Previous testing White count 5.3 hemoglobin 12.1 platelets 165 potassium 5.8 bun 31 creatinine 0.84 EKG tracing pacemaker rhythm Chest x-ray film personally reviewed by me-large right pleural effusion with pulmonary edema 2-D echocardiogram from July 2018 shows a EF of 50-55% Abdominal ultrasound-no evidence of ascites Assessment: -Acute on chronic congestive heart file exacerbation from diastolic dysfunction EF 50-55%-slow to respond -Large right pleural effusion from CHF-status post right-sided thoracentesis 2.1 L rosy liquid removed-transudate -Acute on chronic hypoxic respiratory failure, patient is on (2 L of oxygen at home)-currently in 4 L -Sick sinus syndrome with a permanent pacemaker -GERD -BPH -Diabetes mellitus type 2 on oral hypoglycemic -Chronic seizure disorder -Hypothyroid -Obesity BMI 32.5 -Disposition: Resident of [facility] Plan: Continue IV Lasix 40 mg every 8. Other medications to continue.
[2020-01-18 20:22] LABS: Glucose,Whole Blood 155 mg/dL (75-99)
[2020-01-18] MEDS: ATORVASTATIN 10 MG TAB PO SCH (20:28)
[2020-01-18] MEDS: SENNOSIDES-DOCUSATE SODIUM 1 EACH TAB PO SCH (20:28)
[2020-01-18] MEDS: TAMSULOSIN 0.4 MG CAP.ER.24H PO SCH (20:28)
[2020-01-19] MEDS: FUROSEMIDE 10 MG/ML 4 ML VIAL IV SCH ×3 (01:15→16:10)
[2020-01-19] MEDS: SILDENAFIL 20 MG TAB PO SCH ×4 (01:15→23:12)
[2020-01-19 06:08] LABS: Glucose,Whole Blood 129 mg/dL (75-99)
[2020-01-19] MEDS: PANTOPRAZOLE 40 MG TABLET PO SCH (06:10)
[2020-01-19] MEDS: LEVOTHYROXINE 75 MCG TAB PO SCH (06:10)
[2020-01-19] MEDS: LEVOTHYROXINE 100 MCG TAB PO SCH (06:10)
[2020-01-19 08:10] LABS: African American GFR (CKD) >90 (>60 ml/min/1.73 sqM); Anion Gap 3 mmol/L; Blood Urea Nitrogen 25 mg/dL (9-20); Calcium 8.5 mg/dL (8.4-10.2); Carbon Dioxide 34 mmol/L (22-30); Chloride 100 mmol/L (98-107); Glucose 164 mg/dL (74-99); Non-African American GFR(CKD) 85 (>60 ml/min/1.73 sqM); Potassium 3.7 mmol/L (3.5-5.1); Sodium 137 mmol/L (137-145)
[2020-01-19] MEDS: APIXABAN 2.5 MG TABLET PO SCH ×2 (10:07→20:00)
[2020-01-19] MEDS: METOPROLOL TARTRATE 25 MG TAB PO SCH ×2 (10:07→20:00)
[2020-01-19] MEDS: CHOLECALCIFEROL 1,000 UNIT TAB PO SCH ×2 (10:07→19:59)
[2020-01-19] MEDS: DILTIAZEM CD 240 MG CAP.ER.24H PO SCH (10:07)
[2020-01-19] MEDS: levETIRAcetam 500 MG TAB PO SCH ×2 (10:07→20:00)
[2020-01-19] MEDS: CYANOCOBALAMIN 500 MCG TAB PO SCH (10:07)
[2020-01-19] MEDS: FERROUS SULFATE 325 MG TAB PO SCH ×2 (10:07→20:00)
[2020-01-19] MEDS: metFORMIN 500 MG TAB PO SCH ×2 (10:07→16:09)
--- NOTE | 2020-01-19 10:49 | P.PN ---
Subjective Progress Note Date: 01/19/20 CHIEF COMPLAINT: Shortness of breath HISTORY OF PRESENT ILLNESS: Patient examined this morning. He is sitting up in the chair. He continues to report shortness of breath with exertion, but denies SOB at rest. His oxygen was increased to 4 L today. He remains on IV Lasix 40 mg every 8 hours. Fluid balance over the last 24 hours is +460 mL. He continues to report lower extremity edema. Blood pressure stable. PHYSICAL EXAM: VITAL SIGNS: Reviewed. GENERAL: Well-developed in no acute distress. NECK: Supple. No JVD or thyromegaly LUNGS: Respirations even and unlabored. Lungs diminished with rales to bilateral bases HEART: Irregular rate and rhythm. S1 and S2 heard. EXTREMITIES: Normal range of motion. No clubbing or cyanosis. Peripheral pulses intact. 2+ lower extremity edema ASSESSMENT: Acute exacerbation of diastolic congestive heart failure Right-sided pleural effusion, status post thoracentesis with 2.1 L removed Chronic persistent atrial fibrillation, on long-term anticoagulation with Eliqu is History of sick sinus syndrome, status post pacemaker Diabetes mellitus, type II Pulmonary hypertension PLAN: Continue IV lasix due to continued SOB, lower extremity edema, and increased oxygen requirements Monitor kidney function Daily weights Accurate I&O Further recommendations pending Nurse practitioner note has been reviewed by physician. Signing provider agrees with the documented findings, assessment, and plan of care. Objective - Vital Signs Vital signs: Vital Signs Temp 97.6 F 01/19/20 08:00 Pulse 82 01/19/20 08:00 Resp 18 01/19/20 08:00 BP 113/59 01/19/20 08:00 Pulse Ox 88 L 01/19/20 08:00 Intake & Output 01/18/20 01/19/20 01/19/20 18:59 06:59 18:59 Intake Total 460 120 Output Total 100 Balance 460 20 Weight 75.5 kg Intake: Oral 460 120 Output: Urine 100 Other: Voiding Method Urinal Urinal Urinal Diaper Diaper Diaper # Voids 1 1 # Bowel Movements 1 - Labs CBC & Chem 7: 01/17/20 00:28 01/19/20 07:03 Labs: Abnormal Lab Results - Last 24 Hours (Table) 01/18/20 01/18/20 01/18/20 Range/Units 10:38 11:40 16:39 Carbon Dioxide 35 H (22-30) mmol/L BUN 22 H (9-20) mg/dL Glucose 133 H (74-99) mg/dL POC Glucose (mg/dL) 140 H 181 H (75-99) mg/dL Calcium 8.3 L (8.4-10.2) mg/dL 01/18/20 01/19/20 01/19/20 Range/Units 20:20 06:06 07:03 Carbon Dioxide 34 H (22-30) mmol/L BUN 25 H (9-20) mg/dL Glucose 164 H (74-99) mg/dL POC Glucose (mg/dL) 155 H 129 H (75-99) mg/dL Calcium (8.4-10.2) mg/dL Microbiology - Last 24 Hours (Table) 01/14/20 23:40 Blood Culture - Preliminary Blood No Growth after 96 hours
[2020-01-19 12:05] LABS: Glucose,Whole Blood 136 mg/dL (75-99)
--- NOTE | 2020-01-19 12:44 | P.PN ---
Subjective Progress Note Date: 01/19/20 Principal diagnosis: Acute exacerbation of diastolic CHF with severe pulmonary hypertension and evidence of right-sided heart failure 79-year-old male patient, came in for worsening shortness of breath. The patient is known to have diastolic heart failure in addition to severe pulmonary hypertension and right-sided heart failure. He has chronic atrial fibrillation. He has sick sinus syndrome has a pacemaker in place. He has diabetes, previous CVA and history of dementia. He has had previous right-sided pleural effusion and according to the family has had previous thoracentesis an outside facilities. He came in worsening shortness of breath and lower extremity edema. He was briefly placed on BiPAP. Currently is on IV Lasix. Chest x-ray shows a large right-sided pleural effusion and needs to be drained. The patient on Eliquis for now which will placed on hold. No other significant events. He is able to communicate well. His proBNP level is 2850. Troponin times she has been negative. White cell count is at 5.3. Cardiac rhythm is atrial fibrillation. The patient is seen today 01/16/2020 in follow-up on the selective care unit. He is awake and alert in no acute distress. Breathing a bit easier today compared to yesterday. He did undergo a right-sided thoracentesis by Dr. Chavesn was 2.1 L of turbid yellow fluid removed. Fluid analysis and cytology pending. He is maintaining good O2 saturations in the mid 90s on 3 L/m per nasal cannula. He's been afebrile. Blood culture reveals no growth to date. Sodium 141. Potassium 3.2. Creatinine 0.81. He remains on IV diuretics. No accurate I know. The patient is incontinent. On 01/17/2020 patient seen in follow-up on selective care unit. Patient is resting in bed, he is generally weak, is currently on 4 L of oxygen is pulse ox 92%, hemodynamically she is stable, his respirations are nonlabored, however patient is mostly bedbound, and he does get very short of breath with any exer tion. Has had no fever or chills since admission, he denies any chest pain, continues on Lasix of 40 mg every 8 hours, net fluid balance is very difficult to estimate because patient is incontinent into his brief, going to the recorded weight he is -15 kg in the last 24 hours, although on physical exam there is still significant lower extremity edema, and crackles in both lungs. Patient is status post right-sided thoracentesis with removal of 2.1 L of turbid yellow fluid. Pleural fluid analysis revealed transudative fluid. Cytology is pending. Patient remains in atrial fibrillation with a controlled rate, he is on oral Eliquis for anticoagulation. Abdominal ultrasound revealed no evidence of ascites. On 01/18/2020 patient seen in follow-up on the selective care unit, he continues on Lasix 40 mg every 8 hours. Yesterday we asked nursing staff to place a Wilson catheter however in view of patient's past history of difficulty placing a Wilson catheter urology service was consulted, and apparently patient has multiple strictures and we decided to leave the Wilson catheter out. Fluid balance is difficult to estimate as the patient is incontinent. However he is breathing easier today, he sitting up in the recliner, appears to be no acute distress, currently on 3 L of oxygen the pulse ox of 95%. Today's labs have been reviewed, showing CO2 35, increased electrolytes are within normal limits, BUN of 22 creatinine of 0.78. Patient is status post right-sided thoracentesis, whi ch was transudate of fluid. Cytology still pending. Remains in atrial fibrillation with a controlled rate. On oral anticoagulation the form of Eliquis. On 01/19/2020 patient seen in follow-up on selective care unit, remains on IV Lasix, 40 mg every 8 hours, net fluid balance is extremely difficult to estimate, patient has had quite varying weights recorded, and consistency of the weight recording is questionable. But overall patient is feeling better, seems to be more awake and alert, and conversant on today's exam, he even walked with therapy down the gleason, tolerated activity very well, he states his lower extremity edema is improving, exertional dyspnea is improving, occasional cough with production of yellowish sputum, his had no fevers. His blood and sputum cultures have been negative. Remains in A. fib, he is on oral anticoagulation the form of Eliquis. Objective - Vital Signs Vital signs: Vital Signs Temp 97.6 F 01/19/20 08:00 Pulse 82 01/19/20 08:00 Resp 18 01/19/20 08:00 BP 113/59 01/19/20 08:00 Pulse Ox 88 L 01/19/20 08:00 Intake & Output 01/18/20 01/19/20 01/19/20 18:59 06:59 18:59 Intake Total 460 120 Output Total 100 Balance 460 20 Weight 75.5 kg Intake: Oral 460 120 Output: Urine 100 Other: Voiding Method Urinal Urinal Urinal Diaper Diaper Diaper # Voids 1 1 # Bowel Movements 1 - Exam GENERAL EXAM: Alert, very pleasant, 79-year-old white male, sitting up in the chair appears generally weak, he is currently on 3 L of oxygen the pulse ox 91% comfortable in no apparent distress. HEAD: Normocephalic/atraumatic. EYES: Normal reaction of pupils, equal size. Conjunctiva pink, sclera white. NOSE: Clear with pink turbinates. THROAT: No erythema or exudates. NECK: No masses, no JVD, no thyroid enlargement, no adenopathy. CHEST: No chest wall deformity. Symmetrical expansion. LUNGS: Equal air entry with bibasilar crackles, but no wheeze, rhonchi or dullness. CVS: Regular rate and rhythm, normal S1 and S2, no gallops, no murmurs, no rubs ABDOMEN: Soft, nontender. No hepatosplenomegaly, normal bowel sounds, no guarding or rigidity. EXTREMITIES: No clubbing, 1+ edema, no cyanosis, 2+ pulses and upper and lower extremities. MUSCULOSKELETAL: Muscle strength and tone normal. SPINE: No scoliosis or deformity SKIN: No rashes CENTRAL NERVOUS SYSTEM: Alert and oriented -3. No focal deficits, tone is normal in all 4 extremities. PSYCHIATRIC: Alert and oriented -3. Appropriate affect. Intact judgment and insight. - Labs CBC & Chem 7: 01/17/20 00:28 01/19/20 07:03 Labs: Abnormal Lab Results - Last 24 Hours (Table) 01/18/20 01/18/20 01/19/20 Range/Units 16:39 20:20 06:06 Carbon Dioxide (22-30) mmol/L BUN (9-20) mg/dL Glucose (74-99) mg/dL POC Glucose (mg/dL) 181 H 155 H 129 H (75-99) mg/dL 01/19/20 01/19/20 Range/Units 07:03 11:42 Carbon Dioxide 34 H (22-30) mmol/L BUN 25 H (9-20) mg/dL Glucose 164 H (74-99) mg/dL POC Glucose (mg/dL) 136 H (75-99) mg/dL Microbiology - Last 24 Hours (Table) 01/19/20 00:30 Sputum Culture - Preliminary Sputum 01/14/20 23:40 Blood Culture - Preliminary Blood No Growth after 96 hours Assessment and Plan Plan: Assessment: 1 acute exacerbation of diastolic congestive heart failure with severe pulmonary hypertension and evidence of right-sided heart failure 2 large right-sided pleural effusion, status post thoracentesis with 2.1 L of turbid yellow fluid removed on 01/16/2020, fluid analysis revealed transudative fluid and cytology are pending 3 lower extremity edema secondary to CHF 4 chronic atrial fibrillation maintained on Eliquis on outpatient basis 5 acute hypoxic respiratory failure secondary to above 6 sick sinus syndrome and the patient has a pacemaker in place 7dementia 8 diabetes mellitus type 2 9 previous history of GI bleed 10 previous history of seizure disorder currently inactive in stable 11 hypothyroidism 12 BPH 13 history of iron deficiency anemia 14 remote history of CVA without any residual deficits Plan: Continue diuretics, accurate intake and output, daily weights. Patient is feeling better, follow-up chest x-ray in the morning, wean FiO2, pleural fluid from the right-sided pleural effusion was a transudate consistent with CHF. Clinically patient is improving, tolerating ambulation. No complaints chest pain, states lower extremity edema is improving. Discharge planning is in progress for possible ECF placement after discharge I performed a history & physical examination of the patient and discussed their management with my nurse practitioner, Samantha Holden. I reviewed the nurse practitioner's note and agree with the documented findings and plan of care. Lung sounds are positive for crackles at bilateral bases. The findings and the impression was discussed with the patient. I attest to the documentation by the nurse practitioner. Time with Patient: Less than 30
[2020-01-19 16:26] LABS: Glucose,Whole Blood 139 mg/dL (75-99)
--- NOTE | 2020-01-19 19:53 | P.PN ---
Progress Note - Text Progress Note Date: 01/19/20 Chief Complaint: Short of breath, edema History of presenting complaint: This is a pleasant 79-year-old patient, being followed with Dr. Ramsey. Chronic stable medical conditions include atrial fibrillation, diabetes, GERD, seizure disorder, hypothyroid, iron deficiency anemia, BPH sick sinus syndrome with a pacemaker. Resident at assisted living. Does use oxygen 2 L at home. Presents with progressive shortness of breath increasing edema. Decreased appetite. So me abdominal distention. Some orthopnea. No fever no chills. Admitted with acute on chronic CHF exacerbation from diastolic dysfunction EF 50-55%. Started on Lasix drip. right-sided thoracentesis 2.1 L of yellow fluid removed by Dr. Blanchard.-- transudate. Changed to IV bolus Lasix. Today-some improvement in appetite. Remains on IV Lasix. Tired. Breathing slowly improving. Up in a chair. Review of systems: Was done for constitutional, cardiovascular, GI, pulmonary. relevant finding as above Active Medications Albuterol/Ipratropium (Ipratropium-Albuterol 3 Ml Neb) 3 ml INHALATION RT-QID PRN PRN Reason: Shortness Of Breath Or Wheezing Last Admin: 01/15/20 20:19 Dose: 3 ml Documented by: Apixaban (Apixaban 2.5 Mg Tablet) 2.5 mg PO BID [facility] Last Admin: 01/19/20 10:07 Dose: 2.5 mg Documented by: Atorvastatin Calcium (Atorvastatin 10 Mg Tab) 10 mg PO HS@2100 [facility] Last Admin: 01/18/20 20:28 Dose: 10 mg Documented by: Cholecalciferol (Cholecalciferol 1,000 Unit Tab) 1,000 unit PO DAILY@0900 [facility] Last Admin: 01/19/20 10:07 Dose: 1,000 unit Documented by: Cholecalciferol (Cholecalciferol 1,000 Unit Tab) 2,000 unit PO HS@2100 [facility] Last Admin: 01/18/20 20:28 Dose: 2,000 unit Documented by: Cyanocobalamin (Cyanocobalamin 500 Mcg Tab) 1,000 mcg PO DAILY@0900 [facility] Last Admin: 01/19/20 10:07 Dose: 1,000 mcg Documented by: Diltiazem HCl (Diltiazem Cd 240 Mg Cap.Er.24h) 240 mg PO DAILY@09 [facility] Last Admin: 01/19/20 10:07 Dose: 240 mg Documented by: Ferrous Sulfate (Ferrous Sulfate 325 Mg Tab) 325 mg PO BID@899,2099 [facility] Last Admin: 01/19/20 10:07 Dose: 325 mg Documented by: Furosemide (Furosemide 10 Mg/Ml 4 Ml Vial) 40 mg IV Q8HR [facility] Last Admin: 01/19/20 16:10 Dose: 40 mg Documented by: Levetiracetam (Levetiracetam 500 Mg Tab) 1,000 mg PO BID@899,2099 [facility] Last Admin: 01/19/20 10:07 Dose: 1,000 mg Documented by: Levothyroxine Sodium (Levothyroxine 100 Mcg Tab) 100 mcg PO DAILY@599 [facility] Last Admin: 01/19/20 06:10 Dose: 100 mcg Documented by: Levothyroxine Sodium (Levothyroxine 75 Mcg Tab) 75 mcg PO DAILY@06 [facility] Last Admin: 01/19/20 06:10 Dose: 75 mcg Documented by: Metformin HCl (Metformin 500 Mg Tab) 500 mg PO BID@0900,1700 [facility] Last Admin: 01/19/20 16:09 Dose: 500 mg Documented by: Metoprolol Tartrate (Metoprolol Tartrate 25 Mg Tab) 25 mg PO BID@899,2099 [facility] Last Admin: 01/19/20 10:07 Dose: 25 mg Documented by: Miscellaneous Information (Pneumonia Protocol Utilized 1 Each Misc) 1 each PO ONCE PRN PRN Reason: Per Protocol Miscellaneous Information (Potassium Replacement Protocol 1 Each Mis) 1 each MISCELLANE DAILY PRN; Protocol PRN Reason: Per Protocol Pantoprazole Sodium (Pantoprazole 40 Mg Tablet) 40 mg PO DAILY@0600 [facility] Last Admin: 01/19/20 06:10 Dose: 40 mg Documented by: Polyethylene Glycol (Polyethylene Glycol 3350 17 Gm Powd.Pack) 17 gm PO DAILY PRN PRN Reason: Constipation Senna/Docusate Sodium (Sennosides-Docusate Sodium 1 Each Tab) 2 each PO HS@2099 [facility] Last Admin: 01/18/20 20:28 Dose: 2 each Documented by: Sildenafil Citrate (Sildenafil 20 Mg Tab) 10 mg PO TID@0600,1400,2200 [facility] Last Admin: 01/19/20 16:09 Dose: 10 mg Documented by: Tamsulosin HCl (Tamsulosin 0.4 Mg Cap.Er.24h) 0.4 mg PO HS@2100 [facility] Last Admin: 01/18/20 20:28 Dose: 0.4 mg Documented by: Physical examination: VITAL SIGNS: 97.6, 82, 18, [id number], 80% on 3 L GENERAL: Sitting up in a recliner. Tired EYES: Pupils equal. Conjunctiva normal. HEENT: External appearance of nose and ears normal, oral cavity grossly normal. NECK: JVD unable to assess; masses not palpable. HEART: [Heart sounds are normal; edema present, . LUNGS: Respiratory rate increased decreased breath sounds. ABDOMEN: Soft, nontender, liver spleen not palpable, no masses palpable. PSYCH: Alert and oriented x3; mood and affect normal. INVESTIGATIONS, reviewed in clinical context: Potassium 3.7 creatinine 0.78 proBNP 3540 Previous testing White count 5.3 hemoglobin 12.1 platelets 165 potassium 5.8 bun 31 creatinine 0.84 EKG tracing pacemaker rhythm Chest x-ray film personally reviewed by me-large right pleural effusion with pulmonary edema 2-D echocardiogram from July 2018 shows a EF of 50-55% Abdominal ultrasound-no evidence of ascites Chest x-ray film personally reviewed by me-pulmonary edema, right pleural effusion Assessment: -Acute on chronic congestive heart file exacerbation from diastolic dysfunction EF 50-55%-slow to respond -Large right pleural effusion from CHF-status post right-sided thoracentesis 2.1 L rosy liquid removed-transudate -Acute on chronic hypoxic respiratory failure, patient is on (2 L of oxygen at home)-currently in 4 L-slow to respond -Sick sinus syndrome with a permanent pacemaker -GERD -BPH -Diabetes mellitus type 2 on oral hypoglycemic -Chronic seizure disorder -Hypothyroid -Obesity BMI 32.5 -Disposition: Resident of [facility] Plan: Increase IV Lasix 60 mg every 8. Other medications to continue. Follow electro lytes.
[2020-01-19] MEDS: SENNOSIDES-DOCUSATE SODIUM 1 EACH TAB PO SCH (19:59)
[2020-01-19] MEDS: TAMSULOSIN 0.4 MG CAP.ER.24H PO SCH (20:00)
[2020-01-19] MEDS: ATORVASTATIN 10 MG TAB PO SCH (20:00)
[2020-01-19] MEDS: FUROSEMIDE 10 MG/ML 10 ML VIAL IV SCH (20:02)
[2020-01-19 20:08] LABS: Glucose,Whole Blood 166 mg/dL (75-99)
[2020-01-20] MEDS: FUROSEMIDE 10 MG/ML 10 ML VIAL IV SCH ×2 (01:18→08:48)
[2020-01-20 06:11] LABS: Glucose,Whole Blood 108 mg/dL (75-99)
[2020-01-20] MEDS: LEVOTHYROXINE 100 MCG TAB PO SCH (06:44)
[2020-01-20] MEDS: LEVOTHYROXINE 75 MCG TAB PO SCH (06:44)
[2020-01-20] MEDS: PANTOPRAZOLE 40 MG TABLET PO SCH (06:44)
[2020-01-20] MEDS: SILDENAFIL 20 MG TAB PO SCH ×3 (06:45→22:20)
[2020-01-20 08:23] LABS: African American GFR (CKD) >90 (>60 ml/min/1.73 sqM); Anion Gap 2 mmol/L; Blood Urea Nitrogen 23 mg/dL (9-20); Calcium 8.4 mg/dL (8.4-10.2); Carbon Dioxide 38 mmol/L (22-30); Chloride 98 mmol/L (98-107); Glucose 114 mg/dL (74-99); Non-African American GFR(CKD) 87 (>60 ml/min/1.73 sqM); Potassium 3.5 mmol/L (3.5-5.1); Sodium 138 mmol/L (137-145)
[2020-01-20] MEDS: METOPROLOL TARTRATE 25 MG TAB PO SCH ×2 (08:48→22:20)
[2020-01-20] MEDS: CHOLECALCIFEROL 1,000 UNIT TAB PO SCH ×2 (08:48→22:18)
[2020-01-20] MEDS: FERROUS SULFATE 325 MG TAB PO SCH ×2 (08:48→22:19)
[2020-01-20] MEDS: APIXABAN 2.5 MG TABLET PO SCH ×2 (08:48→22:17)
[2020-01-20] MEDS: DILTIAZEM CD 240 MG CAP.ER.24H PO SCH (08:48)
[2020-01-20] MEDS: CYANOCOBALAMIN 500 MCG TAB PO SCH (08:48)
[2020-01-20] MEDS: metFORMIN 500 MG TAB PO SCH ×2 (08:48→18:58)
[2020-01-20] MEDS: levETIRAcetam 500 MG TAB PO SCH ×2 (08:48→22:19)
--- NOTE | 2020-01-20 09:05 | US ---
EXAMINATION TYPE: US chest DATE OF EXAM: 01/20/2020 COMPARISON: Chest x-ray earlier today CLINICAL HISTORY: Markings for thoracentesis by pulmonary staff. Chest marking TECHNIQUE: Targeted ultrasound of the posterior lower bilateral hemithoraces EXAM MEASUREMENTS: Right Pleural Effusion pocket size: 5.6 cm Right skin surface to fluid distance: 3.0 cm Left Pleural Effusion pocket size: 1.8 cm Left skin surface to fluid distance: 3.6 cm Right side MARKED for possible thoracentesis outside the dept. Left side NOT MARKED for possible thoracentesis outside the dept. Pulmonologists are able to review the images in the patient?s EMR. IMPRESSIONS: Confirmation of small to moderate size right pleural fluid collection correlating with x -ray earlier today.
--- NOTE | 2020-01-20 10:35 | P.PN ---
Subjective Progress Note Date: 01/20/20 This is an 79-year-old male patient, came in for worsening shortness of breath. The patient is known to have diastolic heart failure in addition to severe pulmonary hypertension and right-sided heart failure. He has chronic atrial fibrillation. He has sick sinus syndrome has a pacemaker in place. He has diabetes, previous CVA and history of dementia. He has had previous right-sided pleural effusion and according to the family has had previous thoracentesis an outside facilities. He came in worsening shortness of breath and lower extremity edema. Patient was seen and examined this morning, continues to feel mildly short of breath. Blood pressure 114/60 with a heart rate of 90, 95% on 4 L of oxygen. Sodium 139, potassium 3.9, BUN 21, creatinine 0.8. Patient underwent a right-sided thoracentesis yesterday. 01/18/2020 Patient was seen and examined this morning, sitting up in the chair at bedside. Blood pressure 102/56, heart rate in the 80s, 93% on 3 L of oxygen. Continues to be on IV Lasix. Intake and output is difficult to accurately monitor because the patient does wear a diaper. Sodium 137, potassium 3.8, BUN 22, creatinine 0.7. Repeat chest x-ray performed today showed diffuse pleural parenchymal changes stable from prior exam. Correlate for CHF 01/20/2020 Patient seen and examined this morning, continues to do better overall. Still complaining of some mild shortness of breath. Continues at this time to be on IV Lasix. Blood pressure 114/58 with a heart rate in the 70s, weight is down 1 kg today. Sodium 138, potassium 3.5, BUN 23, creatinine 0.7. Objective - Vital Signs Vital signs: Vital Signs Temp 97.8 F 01/20/20 08:03 Pulse 78 01/20/20 08:03 Resp 18 01/20/20 08:03 BP 113/58 01/20/20 08:03 Pulse Ox 90 L 01/20/20 08:03 Intake & Output 01/19/20 01/20/20 01/20/20 18:59 06:59 18:59 Intake Total 120 Output Total 100 Balance 20 Weight 74.5 kg Intake: Oral 120 Output: Urine 100 Other: Voiding Method Urinal Urinal Diaper Diaper # Voids 0 3 - Exam Gen. appearance, very pleasant 79-year-old gentleman, currently on 3 L/m per nasal cannula, comfortable in no acute distress Head exam was generally normal. There was no scleral icterus or corneal arcus. Mucous membranes were moist. Neck was supple and without jugular venous distension, thyromegaly, or carotid bruits. Carotids were easily palpable bilaterally. There was no adenopathy. Lung sounds are diminished on the right along with dullness to percussion. Diminished breath on the right lung base compared to the left. Heart sounds are irregular consistent with atrial fibrillation, positive S1, accentuation of the second heart sound S2 and there is a systolic ejection murmur along left upper sternal border grade 3/6. Abdominal exam revealed normal bowel sounds. The abdomen was soft, non-tender, and without masses, organomegaly, or appreciable enlargement of the abdominal aorta. Extremities revealed trace to +1 edema and there is no cyanosis or clubbing Examination of the skin revealed no evidence of significant rashes, suspicious appearing nevi or other concerning lesions. Neurologically, the patient is awake and alert and the patient does not have any focal neurological deficit. Cranial nerves are essentially intact. - Labs CBC & Chem 7: 01/17/20 00:28 01/20/20 07:42 Labs: Abnormal Lab Results - Last 24 Hours (Table) 01/19/20 01/19/20 01/19/20 Range/Units 11:42 16:20 20:04 Carbon Dioxide (22-30) mmol/L BUN (9-20) mg/dL Glucose (74-99) mg/dL POC Glucose (mg/dL) 136 H 139 H 166 H (75-99) mg/dL 01/20/20 01/20/20 Range/Units 06:09 07:42 Carbon Dioxide 38 H (22-30) mmol/L BUN 23 H (9-20) mg/dL Glucose 114 H (74-99) mg/dL POC Glucose (mg/dL) 108 H (75-99) mg/dL Microbiology - Last 24 Hours (Table) 01/14/20 23:40 Blood Culture - Preliminary Blood No Growth after 120 hours 01/19/20 00:30 Gram Stain - Preliminary Sputum Sputum Culture - Preliminary Assessment and Plan Plan: Assessment and plan #1 acute exacerbation of diastolic congestive heart failure with severe pulmonary hypertension and evidence of right-sided heart failure #2 large right-sided pleural effusion, status post thoracentesis with 2.1 L of turbid yellow fluid removed on 01/16/2020, fluid analysis and cytology are pending #3 lower extremity edema secondary to CHF #4 chronic atrial fibrillation maintained on Eliquis on outpatient basis #5 acute hypoxic respiratory failure secondary to above #6 sick sinus syndrome and the patient has a pacemaker in place #7dementia #8 diabetes mellitus type 2 #9 previous history of GI bleed #10 previous history of seizure disorder currently inactive in stable #11 hypothyroidism #12 BPH #13 history of iron deficiency anemia #14 remote history of CVA without any residual deficits Plan From cardiology's perspective, we will recommend to continue the patient on current dose of IV Lasix for 24 hours, await results of chest x-ray and u ltrasound of chest DNP note has been reviewed, I agree with a documented findings and plan of care. Patient was seen and examined.
--- NOTE | 2020-01-20 11:27 | XR ---
EXAMINATION TYPE: XR chest 2V DATE OF EXAM: 01/20/2020 COMPARISON: Prior chest x-ray 01/18/2020 HISTORY: Shortness of breath, pleural effusion TECHNIQUE: Frontal and lateral views of the chest are obtained. FINDINGS: Right pleural effusion is thought to have progressed in the interval. There is thickening along the right lateral pleural margin, the right hemidiaphragm is obscured. There is thickening of t he minor fissure. Heart is enlarged. Interstitium is increased. There is some minimal blunting the le ft costophrenic angle. Aorta is dense. Generators present in left pectoral region, there are leads in the right atrium and ventricle. IMPRESSION: Correlate for congestive heart failure, there is worsening pleural effusion on the right . Pneumonia not excluded, follow-up recommended.
[2020-01-20 11:50] LABS: Glucose,Whole Blood 134 mg/dL (75-99)
[2020-01-20 12:59] VITALS: BMI 26.5
--- NOTE | 2020-01-20 13:22 | P.PN ---
Subjective Progress Note Date: 01/20/20 Principal diagnosis: Acute exacerbation of diastolic congestive heart failure with severe pulmonary hypertension and evidence of right-sided heart failure 79-year-old male patient, came in for worsening shortness of breath. The patient is known to have diastolic heart failure in addition to severe pulmonary hypertension and right-sided heart failure. He has chronic atrial fibrillation. He has sick sinus syndrome has a pacemaker in place. He has diabetes, previous CVA and history of dementia. He has had previous right-sided pleural effusion and according to the family has had previous thoracentesis an outside facilities. He came in worsening shortness of breath and lower extremity edema. He was briefly placed on BiPAP. Currently is on IV Lasix. Chest x-ray shows a large right-sided pleural effusion and needs to be drained. The patient on Eliquis for now which will placed on hold. No other significant events. He is able to communicate well. His proBNP level is 2850. Troponin times she has been negative. White cell count is at 5.3. Cardiac rhythm is atrial fibrillation. The patient is seen today 01/16/2020 in follow-up on the selective care unit. He is awake and alert in no acute distress. Breathing a bit easier today compared to yesterday. He did undergo a right-sided thoracentesis by Dr. Blanchard was 2.1 L of turbid yellow fluid removed. Fluid analysis and cytology pending. He is maintaining good O2 saturations in the mid 90s on 3 L/m per nasal cannula. He's been afebrile. Blood culture reveals no growth to date. Sodium 141. Potassium 3.2. Creatinine 0.81. He remains on IV diuretics. No accurate I know. The patient is incontinent. On 01/17/2020 patient seen in follow-up on selective care unit. Patient is resting in bed, he is generally weak, is currently on 4 L of oxygen is pulse ox 92%, hemodynamically she is stable, his respirations are nonlabored, however patient is mostly bedbound, and he does get very short of breath with any exertion. Has had no fever or chills since admission, he denies any chest pain, continues on Lasix of 40 mg every 8 hours, net fluid balance is very difficult to estimate because patient is incontinent into his brief, going to the recorded weight he is -15 kg in the last 24 hours, although on physical exam there is still significant lower extremity edema, and crackles in both lungs. Patient is status post right-sided thoracentesis with removal of 2.1 L of turbid yellow fluid. Pleural fluid analysis revealed transudative fluid. Cytology is pending. Patient remains in atrial fibrillation with a controlled rate, he is on oral Eliquis for anticoagulation. Abdominal ultrasound revealed no evidence of ascites. On 01/18/2020 patient seen in follow-up on the selective care unit, he continues on Lasix 40 mg every 8 hours. Yesterday we asked nursing staff to place a Wilson catheter however in view of patient's past history of difficulty placing a Wilson catheter urology service was consulted, and apparently patient has multiple strictures and we decided to leave the Wilson catheter out. Fluid balance is difficult to estimate as the patient is incontinent. However he is breathing easier today, he sitting up in the recliner, appears to be no acute distress, currently on 3 L of oxygen the pulse ox of 95%. Today's labs have been reviewed, showing CO2 35, increased electrolytes are within normal limits, BUN of 22 creatinine of 0.78. Patient is status post right-sided thoracentesis, which was transudate of fluid. Cytology still pending. Remains in atrial fibrillation with a controlled rate. On oral anticoagulation the form of Eliquis. On 01/19/2020 patient seen in follow-up on selective care unit, remains on IV Lasix, 40 mg every 8 hours, net fluid balance is extremely difficult to estimate, patient has had quite varying weights recorded, and consistency of the weight recording is questionable. But overall patient is feeling better, seems to be more awake and alert, and conversant on today's exam, he even walked with therapy down the gleason, tolerated activity very well, he states his lower extremity edema is improving, exertional dyspnea is improving, occasional cough with production of yellowish sputum, his had no fevers. His blood and sputum c ultures have been negative. Remains in A. fib, he is on oral anticoagulation the form of Eliquis. Patient was seen today 01/20/2020 in follow-up on the selective care unit. He is currently sitting up in a chair at the bedside. Alert in no acute distress. Chest x-ray continues to show right-sided pleural effusion. Ultrasound measuring at 5.6 cm. The patient is reluctant to undergo another thoracentesis. He denies any worsening shortness of breath. He is maintaining O2 saturations in the low 90s on 3 L/m per nasal cannula. He is afebrile. Blood culture reveals no growth. Sputum culture pending. Sodium 138. Potassium 3.5. Creatinine 0.74. Currently on Lasix 60 mg IV every 8 hours. Anticoagulated with Eliquis. He remains on bronchodilators. Objective - Vital Signs Vital signs: Vital Signs Temp 98.8 F 01/20/20 12:26 Pulse 74 01/20/20 12:26 Resp 18 01/20/20 12:26 BP 114/61 01/20/20 12:26 Pulse Ox 90 L 01/20/20 08:03 Intake & Output 01/19/20 01/20/20 01/20/20 18:59 06:59 18:59 Intake Total 120 230 Output Total 100 Balance 20 230 Weight 74.5 kg 74.5 kg Intake: Oral 120 230 Output: Urine 100 Other: Voiding Method Urinal Urinal Diaper Diaper # Voids 0 3 - Exam Gen. appearance, very pleasant 79-year-old gentleman, currently on 3 L/m per nasal cannula, comfortable in no acute distress, sitting up in a chair at the bedside Head exam was generally normal. There was no scleral icterus or corneal arcus. Mucous membranes were moist. Neck was supple and without jugular venous distension, thyromegaly, or carotid bruits. Carotids were easily palpable bilaterally. There was no adenopathy. Lung sounds are diminished on the right along with dullness to percussion. Diminished breath on the right lung base compared to the left. Heart sounds are irregular consistent with atrial fibrillation, positive S1, accentuation of the second heart sound S2 and there is a systolic ejection murmur along left upper sternal border grade 3/6. Abdominal exam revealed normal bowel sounds. The abdomen was soft, non-tender, and without masses, organomegaly, or appreciable enlargement of the abdominal aorta. Extremities revealed +1 edema and there is no cyanosis or clubbing Examination of the skin revealed no evidence of significant rashes, suspicious appearing nevi or other concerning lesions. Neurologically, the patient is awake and alert and the patient does not have any focal neurological deficit. Cranial nerves are essentially intact. - Labs CBC & Chem 7: 01/17/20 00:28 01/20/20 07:42 Labs: Abnormal Lab Results - Last 24 Hours (Table) 01/19/20 01/19/20 01/20/20 Range/Units 16:20 20:04 06:09 Carbon Dioxide (22-30) mmol/L BUN (9-20) mg/dL Glucose (74-99) mg/dL POC Glucose (mg/dL) 139 H 166 H 108 H (75-99) mg/dL 01/20/20 01/20/20 Range/Units 07:42 11:47 Carbon Dioxide 38 H (22-30) mmol/L BUN 23 H (9-20) mg/dL Glucose 114 H (74-99) mg/dL POC Glucose (mg/dL) 134 H (75-99) mg/dL Microbiology - Last 24 Hours (Table) 01/14/20 23:40 Blood Culture - Preliminary Blood No Growth after 120 hours 01/19/20 00:30 Gram Stain - Preliminary Sputum Sputum Culture - Preliminary Assessment and Plan Assessment: 1 acute exacerbation of diastolic congestive heart failure with severe pulmonary hypertension and evidence of right-sided heart failure 2 large right-sided pleural effusion, status post thoracentesis with 2.1 L of turbid yellow fluid removed on 01/16/2020, transudate, negative for malignancy 3 lower extremity edema secondary to CHF 4 chronic atrial fibrillation maintained on Eliquis on outpatient basis 5 acute hypoxic respiratory failure secondary to above 6 sick sinus syndrome and the patient has a pacemaker in place 7dementia 8 diabetes mellitus type 2 9 previous history of GI bleed 10 previous history of seizure disorder currently inactive in stable 11 hypothyroidism 12 BPH 13 history of iron deficiency anemia 14 remote history of CVA without any residual deficits Plan The patient was seen and evaluated by Dr. Holman Ultrasound and chest x-ray reviewed 5.6 cm pocket on the right Patient declines thoracentesis at this time We will initiate a Lasix drip at 10 mg per hour Chest x-ray in a.m. Titrate down the FiO2 as tolerated Overall prognosis remains quite guarded and poor We'll continue to follow I, the cosigning physician, performed a history & physical examination of the patient. Lungs sounds diminished in the bilateral bases right greater than left. Maintaining good O2 saturations in the 90s on 3 L/m per nasal. I discussed the assessment and plan of care with my nurse practitioner, Isa Grier. I attest to the above note as dictated by her.
[2020-01-20] MEDS: FUROSEMIDE 100 MG in SODIUM CHLORIDE 0.9% 90 ML IV SCH (16:15)
[2020-01-20 16:48] LABS: Glucose,Whole Blood 197 mg/dL (75-99)
[2020-01-20] MEDS ORDERED: Potassium Replacement Protocol 1 EACH MISC MISCELLANE PRN ×2 (17:17→17:18)
[2020-01-20] MEDS: POTASSIUM CHLORIDE ER 20 MEQ TAB.ER PO SCH ×2 (18:59→19:00)
--- NOTE | 2020-01-20 19:31 | P.PN ---
Progress Note - Text Progress Note Date: 01/20/20 Chief Complaint: Short of breath, edema History of presenting complaint: This is a pleasant 79-year-old patient, being followed with Dr. Ramsey. Chronic stable medical conditions include atrial fibrillation, diabetes, GERD, seizure disorder, hypothyroid, iron deficiency anemia, BPH sick sinus syndrome with a pacemaker. Resident at assisted living. Does use oxygen 2 L at home. Presents with progressive shortness of breath increasing edema. Decreased appetite. So me abdominal distention. Some orthopnea. No fever no chills. Admitted with acute on chronic CHF exacerbation from diastolic dysfunction EF 50-55%. Started on Lasix drip. right-sided thoracentesis 2.1 L of yellow fluid removed by Dr. Blanchard.-- transudate. Changed to IV bolus Lasix. Today-tired. Sitting up in a chair. Edema present. X-ray showing increasing fluid effusion. Initially refused thoracentesis offered by Dr. Urena today. . Review of systems: Was done for constitutional, cardiovascular, GI, pulmonary. relevant finding as above Active Medications Albuterol/Ipratropium (Ipratropium-Albuterol 3 Ml Neb) 3 ml INHALATION RT-QID PRN PRN Reason: Shortness Of Breath Or Wheezing Last Admin: 01/15/20 20:19 Dose: 3 ml Documented by: Apixaban (Apixaban 2.5 Mg Tablet) 2.5 mg PO BID [facility] Last Admin: 01/20/20 08:48 Dose: 2.5 mg Documented by: Atorvastatin Calcium (Atorvastatin 10 Mg Tab) 10 mg PO HS@2100 [facility] Last Admin: 01/19/20 20:00 Dose: 10 mg Documented by: Cholecalciferol (Cholecalciferol 1,000 Unit Tab) 1,000 unit PO DAILY@0900 [facility] Last Admin: 01/20/20 08:48 Dose: 1,000 unit Documented by: Cholecalciferol (Cholecalciferol 1,000 Unit Tab) 2,000 unit PO HS@2100 [facility] Last Admin: 01/19/20 19:59 Dose: 2,000 unit Documented by: Cyanocobalamin (Cyanocobalamin 500 Mcg Tab) 1,000 mcg PO DAILY@0900 [facility] Last Admin: 01/20/20 08:48 Dose: 1,000 mcg Documented by: Diltiazem HCl (Diltiazem Cd 240 Mg Cap.Er.24h) 240 mg PO DAILY@0900 [facility] Last Admin: 01/20/20 08:48 Dose: 240 mg Documented by: Ferrous Sulfate (Ferrous Sulfate 325 Mg Tab) 325 mg PO BID@0900,2100 [facility] Last Admin: 01/20/20 08:48 Dose: 325 mg Documented by: Furosemide 100 mg/ Sodium (Chloride) 100 mls @ 10 mls/hr IV .Q10H [facility] Last Admin: 01/20/20 16:15 Dose: 10 mg/hr, 10 mls/hr Documented by: Levetiracetam (Levetiracetam 500 Mg Tab) 1,000 mg PO BID@899,2099 [facility] Last Admin: 01/20/20 08:48 Dose: 1,000 mg Documented by: Levothyroxine Sodium (Levothyroxine 100 Mcg Tab) 100 mcg PO DAILY@0600 [facility] Last Admin: 01/20/20 06:44 Dose: 100 mcg Documented by: Levothyroxine Sodium (Levothyroxine 75 Mcg Tab) 75 mcg PO DAILY@06 [facility] Last Admin: 01/20/20 06:44 Dose: 75 mcg Documented by: Metformin HCl (Metformin 500 Mg Tab) 500 mg PO BID@0900,1700 [facility] Last Admin: 01/20/20 18:58 Dose: 500 mg Documented by: Metoprolol Tartrate (Metoprolol Tartrate 25 Mg Tab) 25 mg PO BID@0900,2100 [facility] Last Admin: 01/20/20 08:48 Dose: 25 mg Documented by: Miscellaneous Information (Pneumonia Protocol Utilized 1 Each Misc) 1 each PO ONCE PRN PRN Reason: Per Protocol Miscellaneous Information (Potassium Replacement Protocol 1 Each Misc) 1 each MISCELLANE DAILY PRN; Protocol PRN Reason: Per Protocol Miscellaneous Information (Potassium Replacement Protocol 1 Each Misc) 1 each MISCELLANE DAILY PRN; Protocol PRN Reason: Per Protocol Miscellaneous Information (Potassium Replacement Protocol 1 Each Misc) 1 each MISCELLANE DAILY PRN; Protocol PRN Reason: Per Protocol Pantoprazole Sodium (Pantoprazole 40 Mg Tablet) 40 mg PO DAILY@0600 [facility] Last Admin: 01/20/20 06:44 Dose: 40 mg Documented by: Polyethylene Glycol (Polyethylene Glycol 3350 17 Gm Powd.Pack) 17 gm PO DAILY PRN PRN Reason: Constipation Senna/Docusate Sodium (Sennosides-Docusate Sodium 1 Each Tab) 2 each PO HS@2100 [facility] Last Admin: 01/19/20 19:59 Dose: 2 each Documented by: Sildenafil Citrate (Sildenafil 20 Mg Tab) 10 mg PO TID@0600,1400,2200 [facility] Last Admin: 01/20/20 16:31 Dose: 10 mg Documented by: Tamsulosin HCl (Tamsulosin 0.4 Mg Cap.Er.24h) 0.4 mg PO HS@2100 [facility] Last Admin: 01/19/20 20:00 Dose: 0.4 mg Documented by: Physical examination: VITAL SIGNS: 98.8, 74, 18, and 14/61, 90% on 3 L GENERAL: Sitting up in a recliner. Tired EYES: Pupils equal. Conjunctiva normal. HEENT: External appearance of nose and ears normal, oral cavity grossly normal. NECK: JVD unable to assess; masses not palpable. HEART: [Heart sounds are normal; edema present, . LUNGS: Respiratory rate increased decreased breath sounds. ABDOMEN: Soft, nontender, liver spleen not palpable, no masses palpable. PSYCH: Alert and oriented x3; mood and affect normal. INVESTIGATIONS, reviewed in clinical context: Potassium 3.5 creatinine 0.74 Chest x-ray film personally reviewed by me-increasing right pleural effusion Previous testing White count 5.3 hemoglobin 12.1 platelets 165 potassium 5.8 bun 31 creatinine 0.84 EKG tracing pacemaker rhythm Chest x-ray film personally reviewed by me-large right pleural effusion with pulmonary edema 2-D echocardiogram from July 2018 shows a EF of 50-55% Abdominal ultrasound-no evidence of ascites Chest x-ray film personally reviewed by me-pulmonary edema, right pleural effusion proBNP 3540 Assessment: -Acute on chronic congestive heart file exacerbation from diastolic dysfunction EF 50-55%-slow to respond -Large right pleural effusion from CHF-status post right-sided thoracentesis 2.1 L rosy liquid [id number] again -Acute on chronic hypoxic respiratory failure, patient is on (2 L of oxygen at home)-currently in 3 L -Sick sinus syndrome with a permanent pacemaker -GERD -BPH -Diabetes mellitus type 2 on oral hypoglycemic -Chronic seizure disorder -Hypothyroid -Obesity BMI 32.5 -Disposition: Resident of [facility] Plan: I spoke to the patient this afternoon. Explained to him his clinical status scenario. He is agreed to proceed with thoracentesis. Nurse to inform Dr. Holman. He was interventional radiology to the same day been consulted. Patient is put back on Lasix drip.
[2020-01-20 20:00] LABS: Glucose,Whole Blood 205 mg/dL (75-99)
[2020-01-20] MEDS: ATORVASTATIN 10 MG TAB PO SCH (22:17)
[2020-01-20] MEDS: TAMSULOSIN 0.4 MG CAP.ER.24H PO SCH (22:20)
[2020-01-20] MEDS: SENNOSIDES-DOCUSATE SODIUM 1 EACH TAB PO SCH (22:20)
[2020-01-21 06:11] LABS: Glucose,Whole Blood 195 mg/dL (75-99)
[2020-01-21] MEDS: PANTOPRAZOLE 40 MG TABLET PO SCH (06:28)
[2020-01-21] MEDS: LEVOTHYROXINE 100 MCG TAB PO SCH (06:29)
[2020-01-21] MEDS: FUROSEMIDE 100 MG in SODIUM CHLORIDE 0.9% 90 ML IV SCH ×3 (06:29→20:30)
[2020-01-21] MEDS: LEVOTHYROXINE 75 MCG TAB PO SCH (06:29)
[2020-01-21] MEDS: SILDENAFIL 20 MG TAB PO SCH ×3 (06:29→21:06)
[2020-01-21] MEDS: CYANOCOBALAMIN 500 MCG TAB PO SCH (09:03)
[2020-01-21] MEDS: levETIRAcetam 500 MG TAB PO SCH ×2 (09:03→20:32)
[2020-01-21] MEDS: FERROUS SULFATE 325 MG TAB PO SCH ×2 (09:04→20:33)
[2020-01-21] MEDS: CHOLECALCIFEROL 1,000 UNIT TAB PO SCH ×2 (09:04→20:36)
[2020-01-21] MEDS: METOPROLOL TARTRATE 25 MG TAB PO SCH ×2 (09:04→20:33)
[2020-01-21] MEDS: APIXABAN 2.5 MG TABLET PO SCH ×2 (09:04→20:33)
[2020-01-21] MEDS: metFORMIN 500 MG TAB PO SCH ×2 (09:04→16:43)
[2020-01-21] MEDS: DILTIAZEM CD 240 MG CAP.ER.24H PO SCH (09:04)
--- NOTE | 2020-01-21 10:37 | XR ---
EXAMINATION TYPE: XR chest 1V portable DATE OF EXAM: 01/21/2020 CLINICAL HISTORY: CHF, right pleural effusion TECHNIQUE: Portable upright view of the chest COMPARISON: 01/20/2020 FINDINGS: Left-sided dual-chamber pacemaker. Cardiomegaly somewhat obscured by large right pleural e ffusion. Small left pleural effusion. Increased interstitial markings. No pneumothorax. Degenerative changes of the shoulders. IMPRESSION: Findings likely represent CHF. Large right pleural effusion not significantly changed kimmy sigifredo 01/20/2020.
[2020-01-21 11:56] LABS: Glucose,Whole Blood 135 mg/dL (75-99)
--- NOTE | 2020-01-21 11:56 | P.PN ---
Subjective Progress Note Date: 01/21/20 This is an 79-year-old male patient, came in for worsening shortness of breath. The patient is known to have diastolic heart failure in addition to severe pulmonary hypertension and right-sided heart failure. He has chronic atrial fibrillation. He has sick sinus syndrome has a pacemaker in place. He has diabetes, previous CVA and history of dementia. He has had previous right-sided pleural effusion and according to the family has had previous thoracentesis an outside facilities. He came in worsening shortness of breath and lower extremity edema. Patient was seen and examined this morning, continues to feel mildly short of breath. Blood pressure 114/60 with a heart rate of 90, 95% on 4 L of oxygen. Sodium 139, potassium 3.9, BUN 21, creatinine 0.8. Patient underwent a right-sided thoracentesis yesterday. 01/18/2020 Patient was seen and examined this morning, sitting up in the chair at bedside. Blood pressure 102/56, heart rate in the 80s, 93% on 3 L of oxygen. Continues to be on IV Lasix. Intake and output is difficult to accurately monitor because the patient does wear a diaper. Sodium 137, potassium 3.8, BUN 22, creatinine 0.7. Repeat chest x-ray performed today showed diffuse pleural parenchymal changes stable from prior exam. Correlate for CHF 01/20/2020 Patient seen and examined this morning, continues to do better overall. Still complaining of some mild shortness of breath. Continues at this time to be on IV Lasix. Blood pressure 114/58 with a heart rate in the 70s, weight is down 1 kg today. Sodium 138, potassium 3.5, BUN 23, creatinine 0.7. 01/21/2020 Ultrasound of the chest was performed yesterday showed a right-sided pleural effusion of 5.6 cm. Chest x-ray from this morning shows findings representing CHF. Large right-sided pleural effusion not significantly changed. Blood pressure 116/70 with a heart rate in the 70s, 94% on 3 L of oxygen. Patient has been initiated on IV Lasix drip. We will put in lytes BUN and creatinine for today. Objective - Vital Signs Vital signs: Vital Signs Temp 98.2 F 01/21/20 07:28 Pulse 71 01/21/20 07:30 Resp 20 01/21/20 07:28 BP 116/71 01/21/20 07:28 Pulse Ox 94 L 01/21/20 07:28 Intake & Output 01/20/20 01/21/20 01/21/20 18:59 06:59 18:59 Intake Total 590 165.833 120 Output Total 650 Balance 590 -484.167 120 Weight 74.5 kg 70 kg Intake: Intake, IV Titration 165.833 Amount Furosemide 100 mg In 165.833 Sodium Chloride 0.9% 90 ml @ 10 MG/HR 10 mls/hr IV .Q10H [facility] Rx#: [id number] Oral 590 0 120 Output: Urine 650 Other: Voiding Method Urinal Incontinent Diaper - Exam Gen. appearance, very pleasant 79-year-old gentleman, currently on 3 L/m per nasal cannula, comfortable in no acute distress Head exam was generally normal. There was no scleral icterus or corneal arcus. Mucous membranes were moist. Neck was supple and without jugular venous distension, thyromegaly, or carotid bruits. Carotids were easily palpable bilaterally. There was no adenopathy. Lung sounds are diminished on the right along with dullness to percussion. Diminished breath on the right lung base compared to the left. Heart sounds are irregular consistent with atrial fibrillation, positive S1, accentuation of the second heart sound S2 and there is a systolic ejection murmur along left upper sternal border grade 3/6. Abdominal exam revealed normal bowel sounds. The abdomen was soft, non-tender, and without masses, organomegaly, or appreciable enlargement of the abdominal aorta. Extremities revealed trace to +1 edema and there is no cyanosis or clubbing Examination of the skin revealed no evidence of significant rashes, suspicious appearing nevi or other concerning lesions. Neurologically, the patient is awake and alert and the patient does not have any focal neurological deficit. Cranial nerves are essentially intact. - Labs CBC & Chem 7: 01/17/20 00:28 01/20/20 07:42 Labs: Abnormal Lab Results - Last 24 Hours (Table) 01/20/20 01/20/20 01/21/20 Range/Units 16:47 19:59 06:08 POC Glucose (mg/dL) 197 H 205 H 195 H (75-99) mg/dL Microbiology - Last 24 Hours (Table) 01/19/20 00:30 Gram Stain - Final Sputum Sputum Culture - Final 01/14/20 23:40 Blood Culture - Final Blood No Growth after 144 hours Assessment and Plan Plan: Assessment and plan #1 acute exacerbation of diastolic congestive heart failure with severe pulmonary hypertension and evidence of right-sided heart failure #2 large right-sided pleural effusion, status post thoracentesis with 2.1 L of turbid yellow fluid removed on 01/16/2020, fluid analysis and cytology are pending #3 lower extremity edema secondary to CHF #4 chronic atrial fibrillation maintained on Eliquis on outpatient basis #5 acute hypoxic respiratory failure secondary to above #6 sick sinus syndrome and the patient has a pacemaker in place #7dementia #8 diabetes mellitus type 2 #9 previous history of GI bleed #10 previous history of seizure disorder currently inactive in stable #11 hypothyroidism #12 BPH #13 history of iron deficiency anemia #14 remote history of CVA without any residual deficits Plan From cardiology's perspective, we will recommend to continue the patient on current dose of IV Lasix gtt as per pulmonary. Check lytes BUN and creatinine today and daily DNP note has been reviewed, I agree with a documented findings and plan of care. Patient was seen and examined.
[2020-01-21 12:01] LABS: Mean Platelet Volume 8.1; Platelet Count 186 k/uL (150-450)
[2020-01-21 12:11] LABS: African American GFR (CKD) >90 (>60 ml/min/1.73 sqM); Blood Urea Nitrogen 20 mg/dL (9-20); Calcium 8.7 mg/dL (8.4-10.2); Chloride 97 mmol/L (98-107); Glucose 130 mg/dL (74-99); Non-African American GFR(CKD) 85 (>60 ml/min/1.73 sqM); Potassium 3.8 mmol/L (3.5-5.1); Sodium 139 mmol/L (137-145)
[2020-01-21 12:12] LABS: Prothrombin Time 10.7 sec (9.0-12.0)
--- NOTE | 2020-01-21 12:14 | P.PN ---
Subjective Progress Note Date: 01/21/20 Principal diagnosis: Acute exacerbation of diastolic CHF with severe pulmonary hypertension and evidence of right-sided heart failure 79-year-old male patient, came in for worsening shortness of breath. The patient is known to have diastolic heart failure in addition to severe pulmonary hypertension and right-sided heart failure. He has chronic atrial fibrillation. He has sick sinus syndrome has a pacemaker in place. He has diabetes, previous CVA and history of dementia. He has had previous right-sided pleural effusion and according to the family has had previous thoracentesis an outside facilities. He came in worsening shortness of breath and lower extremity edema. He was briefly placed on BiPAP. Currently is on IV Lasix. Chest x-ray shows a large right-sided pleural effusion and needs to be drained. The patient on Eliquis for now which will placed on hold. No other significant events. He is able to communicate well. His proBNP level is 2850. Troponin times she has been negative. White cell count is at 5.3. Cardiac rhythm is atrial fibrillation. The patient is seen today 01/16/2020 in follow-up on the selective care unit. He is awake and alert in no acute distress. Breathing a bit easier today compared to yesterday. He did undergo a right-sided thoracentesis by Dr. Chavesn was 2.1 L of turbid yellow fluid removed. Fluid analysis and cytology pending. He is maintaining good O2 saturations in the mid 90s on 3 L/m per nasal cannula. He's been afebrile. Blood culture reveals no growth to date. Sodium 141. Potassium 3.2. Creatinine 0.81. He remains on IV diuretics. No accurate I know. The patient is incontinent. On 01/17/2020 patient seen in follow-up on selective care unit. Patient is resting in bed, he is generally weak, is currently on 4 L of oxygen is pulse ox 92%, hemodynamically she is stable, his respirations are nonlabored, however patient is mostly bedbound, and he does get very short of breath with any exer tion. Has had no fever or chills since admission, he denies any chest pain, continues on Lasix of 40 mg every 8 hours, net fluid balance is very difficult to estimate because patient is incontinent into his brief, going to the recorded weight he is -15 kg in the last 24 hours, although on physical exam there is still significant lower extremity edema, and crackles in both lungs. Patient is status post right-sided thoracentesis with removal of 2.1 L of turbid yellow fluid. Pleural fluid analysis revealed transudative fluid. Cytology is pending. Patient remains in atrial fibrillation with a controlled rate, he is on oral Eliquis for anticoagulation. Abdominal ultrasound revealed no evidence of ascites. On 01/18/2020 patient seen in follow-up on the selective care unit, he continues on Lasix 40 mg every 8 hours. Yesterday we asked nursing staff to place a Wilson catheter however in view of patient's past history of difficulty placing a Wilson catheter urology service was consulted, and apparently patient has multiple strictures and we decided to leave the Wilson catheter out. Fluid balance is difficult to estimate as the patient is incontinent. However he is breathing easier today, he sitting up in the recliner, appears to be no acute distress, currently on 3 L of oxygen the pulse ox of 95%. Today's labs have been reviewed, showing CO2 35, increased electrolytes are within normal limits, BUN of 22 creatinine of 0.78. Patient is status post right-sided thoracentesis, whi ch was transudate of fluid. Cytology still pending. Remains in atrial fibrillation with a controlled rate. On oral anticoagulation the form of Eliquis. On 01/19/2020 patient seen in follow-up on selective care unit, remains on IV Lasix, 40 mg every 8 hours, net fluid balance is extremely difficult to estimate, patient has had quite varying weights recorded, and consistency of the weight recording is questionable. But overall patient is feeling better, seems to be more awake and alert, and conversant on today's exam, he even walked with therapy down the gleason, tolerated activity very well, he states his lower extremity edema is improving, exertional dyspnea is improving, occasional cough with production of yellowish sputum, his had no fevers. His blood and sputum cultures have been negative. Remains in A. fib, he is on oral anticoagulation the form of Eliquis. On 01/21/2020 patient seen in follow-up on selective care unit. Patient is a bit lethargic today, but arousable to voice, his breathing is nonlabored, he remains on 3 L of oxygen with pulse ox of 94%, he is afebrile, yesterday we started the patient on Lasix infusion at 10 mg per hour, we asked a condom cath to be applied for accurate intake and output. His net fluid balance is still difficult to estimate because both with a condom cath was applied patient was incontinent of urine. However his weight is down by 4.5 kg in the last 24 hours. Lung sounds reveal diminished breath sounds some limited crackles. To day's chest x-ray shows large right-sided pleural effusion, small left pleural effusion, and a right-sided pleural effusion not significantly changed since yesterday's chest x-ray. Patient remains in atrial fibrillation with a controlled rate, he is on oral anticoagulation in the form of Eliquis Objective - Vital Signs Vital signs: Vital Signs Temp 98.2 F 01/21/20 07:28 Pulse 71 01/21/20 07:30 Resp 20 01/21/20 07:28 BP 116/71 01/21/20 07:28 Pulse Ox 94 L 01/21/20 07:28 Intake & Output 01/20/20 01/21/20 01/21/20 18:59 06:59 18:59 Intake Total 590 165.833 120 Output Total 650 Balance 590 -484.167 120 Weight 74.5 kg 70 kg Intake: Intake, IV Titration 165.833 Amount Furosemide 100 mg In 165.833 Sodium Chloride 0.9% 90 ml @ 10 MG/HR 10 mls/hr IV .Q10H [facility] Rx#: [id number] Oral 590 0 120 Output: Urine 650 Other: Voiding Method Urinal Incontinent Diaper - Exam GENERAL EXAM: Alert, very pleasant, 79-year-old white male, sitting up in the chair appears generally weak, he is currently on 3 L of oxygen the pulse ox 94% comfortable in no apparent distress. HEAD: Normocephalic/atraumatic. EYES: Normal reaction of pupils, equal size. Conjunctiva pink, sclera white. NOSE: Clear with pink turbinates. THROAT: No erythema or exudates. NECK: No masses, no JVD, no thyroid enlargement, no adenopathy. CHEST: No chest wall deformity. Symmetrical expansion. LUNGS: Equal air entry with bibasilar crackles, but no wheeze, rhonchi or dullness. CVS: Regular rate and rhythm, normal S1 and S2, no gallops, no murmurs, no rubs ABDOMEN: Soft, nontender. No hepatosplenomegaly, normal bowel sounds, no guarding or rigidity. EXTREMITIES: No clubbing, 1+ edema, no cyanosis, 2+ pulses and upper and lower extremities. MUSCULOSKELETAL: Muscle strength and tone normal. SPINE: No scoliosis or deformity SKIN: No rashes CENTRAL NERVOUS SYSTEM: Alert and oriented -3. No focal deficits, tone is normal in all 4 extremities. PSYCHIATRIC: Alert and oriented -3. Appropriate affect. Intact judgment and insight. - Labs CBC & Chem 7: 01/17/20 00:28 01/20/20 07:42 Labs: Abnormal Lab Results - Last 24 Hours (Table) 01/20/20 01/20/20 01/21/20 Range/Units 16:47 19:59 06:08 POC Glucose (mg/dL) 197 H 205 H 195 H (75-99) mg/dL 01/21/20 Range/Units 11:47 POC Glucose (mg/dL) 135 H (75-99) mg/dL Microbiology - Last 24 Hours (Table) 01/19/20 00:30 Gram Stain - Final Sputum Sputum Culture - Final 01/14/20 23:40 Blood Culture - Final Blood No Growth after 144 hours Assessment and Plan Plan: Assessment: 1 acute exacerbation of diastolic congestive heart failure with severe pulmonary hypertension and evidence of right-sided heart failure 2 large right-sided pleural effusion, status post thoracentesis with 2.1 L of turbid yellow fluid removed on 01/16/2020, fluid analysis revealed transudative fluid and cytology are pending 3 lower extremity edema secondary to CHF 4 chronic atrial fibrillation maintained on Eliquis on outpatient basis 5 acute hypoxic respiratory failure secondary to above 6 sick sinus syndrome and the patient has a pacemaker in place 7dementia 8 diabetes mellitus type 2 9 previous history of GI bleed 10 previous history of seizure disorder currently inactive in stable 11 hypothyroidism 12 BPH 13 history of iron deficiency anemia 14 remote history of CVA without any residual deficits Plan: Continue Lasix infusion for another 24 hours, follow-up blood work in the morning, follow-up chest x-ray in the morning, breathing seems to be comfortable, no acute distress, today's chest x-ray has been reviewed, still showing large right-sided pleural effusion, not significantly changed since yesterday, with follow-up chest x-ray tomorrow, interventional radiology has been consulted for possibility of right-sided thoracentesis. I performed a history & physical examination of the patient and discussed their management with my nurse practitioner, Samantha Holden. I reviewed the nurse practitioner's note and agree with the documented findings and plan of care. Lung sounds are positive for crackles at bilateral bases. The findings and the impression was discussed with the patient. I attest to the documentation by the nurse practitioner. Time with Patient: Less than 30
[2020-01-21 12:17] LABS: Anion Gap 1 mmol/L
[2020-01-21 12:22] LABS: Carbon Dioxide 41 mmol/L (22-30)
--- NOTE | 2020-01-21 15:26 | XR ---
EXAMINATION TYPE: XR chest 1V portable DATE OF EXAM: 01/21/2020 CLINICAL HISTORY: Post right thoracentesis TECHNIQUE: Frontal view of the chest COMPARISON: 01/21/2020 chest radiograph at 6:47 AM FINDINGS: Significant interval decrease in size of right pleural effusion status post thoracentesis, with small residual right pleural effusion. Small left pleural effusion. No pneumothorax. Left-sided dual-chamber pacemaker. Cardiomegaly. Pulmonary vascular congestion. Degenerative changes of the shahrzad ulders. IMPRESSION: Significantly decreased size of right pleural effusion status post right thoracentesis, w ith small residual pleural effusion. No pneumothorax.
--- NOTE | 2020-01-21 15:30 | US ---
EXAMINATION TYPE: US thoracentesis DATE OF EXAM: 01/21/2020 COMPARISON: 01/21/2020 chest radiograph HISTORY: Right Pleural effusion. HEATING TECHNICIAN: Dr. Kacy Rowe PROCEDURE: The procedure was discussed with the patient. The risks, complications, benefits, and alternatives we re discussed and any questions were answered. Informed consent was obtained. Preprocedure preliminary imaging demonstrated large right pleural effusion. Maximal barrier technique was utilized. The skin overlying a suitable pocket of fluid of the right ch est was localized and the overlying skin prepped and draped. Lidocaine was used for local anesthesia. Ultrasound was used with sterile technique. A 5FR 7 cm one-step centesis catheter was advanced into the pleural fluid collection using ultrasound guidance. Approximately 1.7 liter(s) of serous fluid wa s removed. Catheter was withdrawn and hemostasis achieved. A sterile bandage was applied. Postprocedure imaging demonstrated small residual pleural effusion. There is no immediate complicatio n. The patient was discharged in stable condition without complication. IMPRESSION: 1. Status post ultrasound-guided right thoracentesis, with removal of 1.7 L of clear serous fluid. 2. Postprocedure chest x-ray pending.
[2020-01-21 17:04] LABS: Glucose,Whole Blood 155 mg/dL (75-99)
--- NOTE | 2020-01-21 18:17 | P.PN ---
Progress Note - Text Progress Note Date: 01/21/20 Chief Complaint: Short of breath, edema History of presenting complaint: This is a pleasant 79-year-old patient, being followed with Dr. Ramsey. Chronic stable medical conditions include atrial fibrillation, diabetes, GERD, seizure disorder, hypothyroid, iron deficiency anemia, BPH sick sinus syndrome with a pacemaker. Resident at assisted living. Does use oxygen 2 L at home. Presents with progressive shortness of breath increasing edema. Decreased appetite. So me abdominal distention. Some orthopnea. No fever no chills. Admitted with acute on chronic CHF exacerbation from diastolic dysfunction EF 50-55%. Started on Lasix drip. right-sided thoracentesis 2.1 L of yellow fluid removed by Dr. Blanchard.-- transudate. Changed to IV bolus Lasix.because of increasing shortness of breath edema patient's put back on Lasix drip. Today-patient been back for thoracentesis by interventional radiology today 1.7 L of yellow-colored fluid was removed. Breathing better. Tired. Patient has a condom catheter. making good urine. Output cannot be measured well. Eating better. Review of systems: Was done for constitutional, cardiovascular, GI, pulmonary. relevant finding as above Active Medications Albuterol/Ipratropium (Ipratropium-Albuterol 3 Ml Neb) 3 ml INHALATION RT-QID PRN PRN Reason: Shortness Of Breath Or Wheezing Last Admin: 01/15/20 20:19 Dose: 3 ml Documented by: Apixaban (Apixaban 2.5 Mg Tablet) 2.5 mg PO BID [facility] Last Admin: 01/21/20 09:04 Dose: 2.5 mg Documented by: Atorvastatin Calcium (Atorvastatin 10 Mg Tab) 10 mg PO HS@2100 [facility] Last Admin: 01/20/20 22:17 Dose: 10 mg Documented by: Cholecalciferol (Cholecalciferol 1,000 Unit Tab) 1,000 unit PO DAILY@0900 [facility] Last Admin: 01/21/20 09:04 Dose: 1,000 unit Documented by: Cholecalciferol (Cholecalciferol 1,000 Unit Tab) 2,000 unit PO HS@2100 [facility] Last Admin: 01/20/20 22:18 Dose: 2,000 unit Documented by: Cyanocobalamin (Cyanocobalamin 500 Mcg Tab) 1,000 mcg PO DAILY@0900 [facility] Last Admin: 01/21/20 09:03 Dose: 1,000 mcg Documented by: Diltiazem HCl (Diltiazem Cd 240 Mg Cap.Er.24h) 240 mg PO DAILY@899 [facility] Last Admin: 01/21/20 09:04 Dose: 240 mg Documented by: Ferrous Sulfate (Ferrous Sulfate 325 Mg Tab) 325 mg PO BID@899,2099 [facility] Last Admin: 01/21/20 09:04 Dose: 325 mg Documented by: Furosemide 100 mg/ Sodium (Chloride) 100 mls @ 10 mls/hr IV .Q10H [facility] Last Admin: 01/21/20 14:27 Dose: 10 mg/hr, 10 mls/hr Documented by: Levetiracetam (Levetiracetam 500 Mg Tab) 1,000 mg PO BID@899,2099 [facility] Last Admin: 01/21/20 09:03 Dose: 1,000 mg Documented by: Levothyroxine Sodium (Levothyroxine 100 Mcg Tab) 100 mcg PO DAILY@599 [facility] Last Admin: 01/21/20 06:29 Dose: 100 mcg Documented by: Levothyroxine Sodium (Levothyroxine 75 Mcg Tab) 75 mcg PO DAILY@599 [facility] Last Admin: 01/21/20 06:29 Dose: 75 mcg Documented by: Metformin HCl (Metformin 500 Mg Tab) 500 mg PO BID@0900,1700 [facility] Last Admin: 01/21/20 16:43 Dose: 500 mg Documented by: Metoprolol Tartrate (Metoprolol Tartrate 25 Mg Tab) 25 mg PO BID@899,2099 [facility] Last Admin: 01/21/20 09:04 Dose: 25 mg Documented by: Miscellaneous Information (Pneumonia Protocol Utilized 1 Each Misc) 1 each PO ONCE PRN PRN Reason: Per Protocol Miscellaneous Information (Potassium Replacement Protocol 1 Each Misc) 1 each MISCELLANE DAILY PRN; Protocol PRN Reason: Per Protocol Miscellaneous Information (Potassium Replacement Protocol 1 Each Misc) 1 each MISCELLANE DAILY PRN; Protocol PRN Reason: Per Protocol Miscellaneous Information (Potassium Replacement Protocol 1 Each Misc) 1 each MISCELLANE DAILY PRN; Protocol PRN Reason: Per Protocol Pantoprazole Sodium (Pantoprazole 40 Mg Tablet) 40 mg PO DAILY@0600 [facility] Last Admin: 01/21/20 06:28 Dose: 40 mg Documented by: Polyethylene Glycol (Polyethylene Glycol 3350 17 Gm Powd.Pack) 17 gm PO DAILY PRN PRN Reason: Constipation Senna/Docusate Sodium (Sennosides-Docusate Sodium 1 Each Tab) 2 each PO HS@2100 [facility] Last Admin: 01/20/20 22:20 Dose: 2 each Documented by: Sildenafil Citrate (Sildenafil 20 Mg Tab) 10 mg PO TID@0600,1400,2200 [facility] Last Admin: 01/21/20 14:26 Dose: 10 mg Documented by: Tamsulosin HCl (Tamsulosin 0.4 Mg Cap.Er.24h) 0.4 mg PO HS@2100 [facility] Last Admin: 01/20/20 22:20 Dose: 0.4 mg Documented by: Physical examination: VITAL SIGNS: 97.6, 70, 17, 119/64, 96% on 3 Jose Carlos GENERAL: Sitting up in a recliner. Tired EYES: Pupils equal. Conjunctiva normal. HEENT: External appearance of nose and ears normal, oral cavity grossly normal. NECK: JVD unable to assess; masses not palpable. HEART: [Heart sounds are normal; edema present, . LUNGS: Respiratory rate increased decreased breath sounds. ABDOMEN: Soft, nontender, liver spleen not palpable, no masses palpable. PSYCH: Alert and oriented x3; mood and affect normal. INVESTIGATIONS, reviewed in clinical context: potassium 3.8 creatinine 0.78 bicarb 41 Previous testing White count 5.3 hemoglobin 12.1 platelets 165 potassium 5.8 bun 31 creatinine 0.84 EKG tracing pacemaker rhythm Chest x-ray film personally reviewed by me-large right pleural effusion with pulmonary edema 2-D echocardiogram from July 2018 shows a EF of 50-55% Abdominal ultrasound-no evidence of ascites Chest x-ray film personally reviewed by me-pulmonary edema, right pleural effusion proBNP 3540 Assessment: -Acute on chronic congestive heart file exacerbation from diastolic dysfunction EF 50-55%-slow to respond-a Lasix drip -Large right pleural effusion from CHF-status post right-sided thoracentesis 2.1 L rosy liquid [id number] thoracentesiss done on January 20 ;1.7 L removed -Acute on chronic hypoxic respiratory failure, patient is on (2 L of oxygen at home)-currently in 3 L -Sick sinus syndrome with a permanent pacemaker -GERD -BPH -Diabetes mellitus type 2 on oral hypoglycemic -Chronic seizure disorder -Hypothyroid -Obesity BMI 32.5 -Disposition: Resident of [facility] Plan: continue with Lasix drip. Status post thoracentesis today. patient possibly need inpatient rehab upon discharge. Likely discharge Friday.
[2020-01-21 20:04] LABS: Glucose,Whole Blood 205 mg/dL (75-99)
[2020-01-21] MEDS: TAMSULOSIN 0.4 MG CAP.ER.24H PO SCH (20:32)
[2020-01-21] MEDS: ATORVASTATIN 10 MG TAB PO SCH (20:32)
[2020-01-21] MEDS: SENNOSIDES-DOCUSATE SODIUM 1 EACH TAB PO SCH (20:33)
[2020-01-22] MEDS: LEVOTHYROXINE 75 MCG TAB PO SCH (06:01)
[2020-01-22] MEDS: PANTOPRAZOLE 40 MG TABLET PO SCH (06:01)
[2020-01-22] MEDS: LEVOTHYROXINE 100 MCG TAB PO SCH (06:01)
[2020-01-22] MEDS: SILDENAFIL 20 MG TAB PO SCH ×3 (06:01→21:53)
[2020-01-22 06:06] LABS: Glucose,Whole Blood 127 mg/dL (75-99)
[2020-01-22] MEDS: FUROSEMIDE 100 MG in SODIUM CHLORIDE 0.9% 90 ML IV SCH (07:04)
--- NOTE | 2020-01-22 07:24 | XR ---
EXAMINATION TYPE: XR chest 1V portable DATE OF EXAM: 01/22/2020 CLINICAL HISTORY: Difficulty breathing progress study. TECHNIQUE: Single AP portable upright view of the chest is obtained. COMPARISON: Chest x-ray from one day earlier and older studies. CT chest January 15, 2020 FINDINGS: There is persistent cardiomegaly with dual lead pacemaker and atherosclerotic thoracic aor ta. Background chronic emphysematous and pulmonary fibrotic change redemonstrated. Worsening left mid lung opacity could reflect developing acute infiltrate on background chronic scarring. Worsening rec urrent right-sided pleural effusion noted. Osseous structures remain demineralized. IMPRESSION: Recurrent fairly moderate size right pleural effusion increased in size from one day marcelino ier. Background chronic emphysematous change and cardiomegaly redemonstrated. Developing left mid anthony g acute infiltrate and/or atelectasis on background chronic scarring noted. Stable right basilar atel ectasis and/or infiltrate.
[2020-01-22 08:11] LABS: African American GFR (CKD) >90 (>60 ml/min/1.73 sqM); Blood Urea Nitrogen 19 mg/dL (9-20); Calcium 8.2 mg/dL (8.4-10.2); Chloride 94 mmol/L (98-107); Glucose 111 mg/dL (74-99); Non-African American GFR(CKD) 85 (>60 ml/min/1.73 sqM); Potassium 3.6 mmol/L (3.5-5.1); Sodium 140 mmol/L (137-145)
[2020-01-22 08:19] LABS: Anion Gap 1 mmol/L
[2020-01-22 08:24] LABS: Carbon Dioxide 45 mmol/L (22-30)
[2020-01-22] MEDS: CYANOCOBALAMIN 500 MCG TAB PO SCH (10:12)
[2020-01-22] MEDS: levETIRAcetam 500 MG TAB PO SCH ×2 (10:12→21:53)
[2020-01-22] MEDS: FERROUS SULFATE 325 MG TAB PO SCH ×2 (10:13→21:54)
[2020-01-22] MEDS: metFORMIN 500 MG TAB PO SCH ×2 (10:13→16:10)
[2020-01-22] MEDS: CHOLECALCIFEROL 1,000 UNIT TAB PO SCH ×2 (10:13→21:54)
[2020-01-22] MEDS: APIXABAN 2.5 MG TABLET PO SCH ×2 (10:13→21:54)
[2020-01-22] MEDS: DILTIAZEM CD 240 MG CAP.ER.24H PO SCH (10:13)
[2020-01-22] MEDS: METOPROLOL TARTRATE 25 MG TAB PO SCH ×2 (10:13→21:53)
--- NOTE | 2020-01-22 10:15 | P.PN ---
Subjective Progress Note Date: 01/22/20 This is an 79-year-old male patient, came in for worsening shortness of breath. The patient is known to have diastolic heart failure in addition to severe pulmonary hypertension and right-sided heart failure. He has chronic atrial fibrillation. He has sick sinus syndrome has a pacemaker in place. He has diabetes, previous CVA and history of dementia. He has had previous right-sided pleural effusion and according to the family has had previous thoracentesis an outside facilities. He came in worsening shortness of breath and lower extremity edema. Patient was seen and examined this morning, continues to feel mildly short of breath. Blood pressure 114/60 with a heart rate of 90, 95% on 4 L of oxygen. Sodium 139, potassium 3.9, BUN 21, creatinine 0.8. Patient underwent a right-sided thoracentesis yesterday. 01/18/2020 Patient was seen and examined this morning, sitting up in the chair at bedside. Blood pressure 102/56, heart rate in the 80s, 93% on 3 L of oxygen. Continues to be on IV Lasix. Intake and output is difficult to accurately monitor because the patient does wear a diaper. Sodium 137, potassium 3.8, BUN 22, creatinine 0.7. Repeat chest x-ray performed today showed diffuse pleural parenchymal changes stable from prior exam. Correlate for CHF 01/20/2020 Patient seen and examined this morning, continues to do better overall. Still complaining of some mild shortness of breath. Continues at this time to be on IV Lasix. Blood pressure 114/58 with a heart rate in the 70s, weight is down 1 kg today. Sodium 138, potassium 3.5, BUN 23, creatinine 0.7. 01/21/2020 Ultrasound of the chest was performed yesterday showed a right-sided pleural effusion of 5.6 cm. Chest x-ray from this morning shows findings representing CHF. Large right-sided pleural effusion not significantly changed. Blood pressure 116/70 with a heart rate in the 70s, 94% on 3 L of oxygen. Patient has been initiated on IV Lasix drip. We will put in lytes BUN and creatinine for today. 01/21: Yesterday, the patient underwent thoracentesis with removal of 1.7 L of clear serous fluid on the right by interventional radiology. Repeat chest x-ray reveals recurrent fairly moderate size right pleural effusion increased in size from one day earlier. Background chronic emphysematous change and cardiomegaly redemonstrated. Developing left midlung acute infiltrate and/or atelectasis on background of chronic scarring. Stable right basilar atelectasis and/or infiltrate. Patient states that his breathing is about the same as yesterday. Patient is incontinent of urine and condom catheter is not staying in place. desk monitor has been paced rhythm with episodes of atrial fibrillation. Repeat blood work reveals sodium 140, potassium 3.6, chloride 94, CO2 45, BUN 19 and creatinine 0.77. Patient has been afebrile, heart rate 70, blood pressure 117/61, pulse ox 90% on 3 L nasal cannula. Patient is continued on Lasix drip. Weight appears to not be accurate. Objective - Vital Signs Vital signs: Vital Signs Temp 97.9 F 01/22/20 04:00 Pulse 78 01/22/20 04:00 Resp 18 01/22/20 04:00 BP 117/61 01/22/20 04:00 Pulse Ox 98 01/22/20 04:00 Intake & Output 01/21/20 01/22/20 01/22/20 18:59 06:59 18:59 Intake Total 439.667 160.5 180 Output Total 300 Balance 439.667 -139.5 180 Weight 85.7 kg Intake: Intake, IV Titration 79.667 160.5 Amount Furosemide 100 mg In 79.667 160.5 Sodium Chloride 0.9% 90 ml @ 10 MG/HR 10 mls/hr IV .Q10H [facility] Rx#: [id number] Oral 360 180 Output: Urine 300 Other: Voiding Method Incontinent Incontinent # Voids 1 - Exam Gen: This is an 79-year-old male. He is resting in a recliner with legs elevated. He appears to be in no acute distress. HEENT: Head is atraumatic, normocephalic. Pupils equal, round. Sclerae is anicteric. Oral mucous membranes are moist. NECK: Supple. No JVD. No lymphadenopathy. No thyromegaly. LUNGS: Clear to auscultation. No wheezes or rhonchi. No intercostal retractions. HEART: Regular rate and rhythm. Systolic ejection murmur at the left upper sternal border 07/01. ABDOMEN: Soft. Bowel sounds are present. No masses. No tenderness. EXTREMITIES: 2+ pedal edema. No calf tenderness. His wraps in place bilaterally. NEUROLOGICAL: Patient is awake, alert and oriented x3. Cranial nerves 2 through 12 are grossly intact. - Labs CBC & Chem 7: 01/21/20 11:18 01/22/20 07:02 Labs: Abnormal Lab Results - Last 24 Hours (Table) 01/21/20 01/21/20 01/21/20 Range/Units 11:18 11:47 16:54 Chloride 97 L (98-107) mmol/L Carbon Dioxide 41 H* (22-30) mmol/L Glucose 130 H (74-99) mg/dL POC Glucose (mg/dL) 135 H 155 H (75-99) mg/dL Calcium (8.4-10.2) mg/dL 01/21/20 01/22/20 01/22/20 Range/Units 20:02 06:05 07:02 Chloride 94 L (98-107) mmol/L Carbon Dioxide 45 H* (22-30) mmol/L Glucose 111 H (74-99) mg/dL POC Glucose (mg/dL) 205 H 127 H (75-99) mg/dL Calcium 8.2 L (8.4-10.2) mg/dL Microbiology - Last 24 Hours (Table) 01/19/20 00:30 Gram Stain - Final Sputum Sputum Culture - Final Assessment and Plan Plan: #1 acute exacerbation of diastolic congestive heart failure with severe pulmonary hypertension and evidence of right-sided heart failure #2 large right-sided pleural effusion, status post thoracentesis with 2.1 L of turbid yellow fluid removed on 01/16/2020, repeat thoracentesis 01/22/2020 of 1.7 L. Cytology is reactive mesothelial cells, pigmented histiocytes and scattered inflammatory cells consistent with effusion and heart failure. #3 lower extremity edema secondary to CHF #4 chronic atrial fibrillation maintained on Eliquis on outpatient basis #5 acute hypoxic respiratory failure secondary to above #6 sick sinus syndrome and the patient has a pacemaker in place #7dementia #8 diabetes mellitus type 2 #9 previous history of GI bleed #10 previous history of seizure disorder currently inactive in stable #11 hypothyroidism #12 BPH #13 history of iron deficiency anemia #14 remote history of CVA without any residual deficits Plan From cardiology's perspective, we will recommend to continue the patient on current dose of IV Lasix gtt transition to IV push as per pulmonary. Check lytes BUN and creatinine daily. Impression and plan of care have been directed as dictated by the signing physician. Mary Grey nurse practitioner acting as scribe for signing physician.
--- NOTE | 2020-01-22 10:31 | P.PN ---
Subjective This is a pleasant 79-year-old patient, being followed with Dr. Ramsey. Chronic stable medical conditions include atrial fibrillation, diabetes, GERD, seizure disorder, hypothyroid, iron deficiency anemia, BPH sick sinus syndrome with a pacemaker. Resident at assisted living. Does use oxygen 2 L at home. Presents with progressive shortness of breath increasing edema. Decreased appetite. Some abdominal distention. Some orthopnea. No fever no chills. Admitted with acute on chronic CHF exacerbation from diastolic dysfunction EF 50-55%. Started on Lasix drip. right-sided thoracentesis 2.1 L of yellow fluid removed by Dr. Blanchard.-- transudate. Changed to IV bolus Lasix.because of increasing shortness of breath edema patient's put back on Lasix drip. Today-patient been back for thoracentesis by interventional radiology today 1.7 L of yellow-colored fluid was removed. Breathing better. Tired. Patient has a condom catheter. making good urine. Output cannot be measured well. Eating better. 01/22/2020 Patient is hemodynamically stable he is saturating 98% and a 3 L oxygen. Last CBC looks his stable from 01/16. With normal WBC. BMP is unremarkable except for worsening carbon dioxide up to 45. Creatinine is normal 0.7 as well as electrolytes. [place] was [address] troponins were negative. Recurrent moderate right-sided pleural effusion increased in size from one day earlier. Background chronic emphysematous changes with cardiomegaly. Developing left midlung acute infiltrate and/or atelectasis on background of chronic scarring noted. Objective - Vital Signs Vital signs: Vital Signs Temp 97.9 F 01/22/20 04:00 Pulse 78 01/22/20 04:00 Resp 18 01/22/20 04:00 BP 117/61 01/22/20 04:00 Pulse Ox 98 01/22/20 04:00 Intake & Output 01/21/20 01/22/20 01/22/20 18:59 06:59 18:59 Intake Total 439.667 160.5 180 Output Total 300 Balance 439.667 -139.5 180 Weight 85.7 kg Intake: Intake, IV Titration 79.667 160.5 Amount Furosemide 100 mg In 79.667 160.5 Sodium Chloride 0.9% 90 ml @ 10 MG/HR 10 mls/hr IV .Q10H [facility] Rx#: [id number] Oral 360 180 Output: Urine 300 Other: Voiding Method Incontinent Incontinent # Voids 1 - Exam GENERAL: The patient is alert and oriented x3, not in any acute distress. Well developed, well nourished. HEENT: Pupils are round and equally reacting to light. EOMI. No scleral icterus. No conjunctival pallor. Normocephalic, atraumatic. No pharyngeal erythema. No thyromegaly. CARDIOVASCULAR: S1 and S2 present. No murmurs, rubs, or gallops. -PULMONARY: Chest is clear to auscultation, no bilateral crepitation and decreased breath sounds more on the right side ABDOMEN: Soft, nontender, nondistended, normoactive bowel sounds. No palpable organomegaly. MUSCULOSKELETAL: No joint swelling or deformity. -EXTREMITIES: No cyanosis, clubbing,. Bilateral leg edema NEUROLOGICAL: Gross neurological examination did not reveal any focal deficits. SKIN: No rashes. no petechiae. - Labs CBC & Chem 7: 01/21/20 11:18 01/22/20 07:02 Labs: Abnormal Lab Results - Last 24 Hours (Table) 01/21/20 01/21/20 01/21/20 Range/Units 11:18 11:47 16:54 Chloride 97 L (98-107) mmol/L Carbon Dioxide 41 H* (22-30) mmol/L Glucose 130 H (74-99) mg/dL POC Glucose (mg/dL) 135 H 155 H (75-99) mg/dL Calcium (8.4-10.2) mg/dL 01/21/20 01/22/20 01/22/20 Range/Units 20:02 06:05 07:02 Chloride 94 L (98-107) mmol/L Carbon Dioxide 45 H* (22-30) mmol/L Glucose 111 H (74-99) mg/dL POC Glucose (mg/dL) 205 H 127 H (75-99) mg/dL Calcium 8.2 L (8.4-10.2) mg/dL Microbiology - Last 24 Hours (Table) 01/19/20 00:30 Gram Stain - Final Sputum Sputum Culture - Final Assessment and Plan Assessment: -Acute on chronic congestive heart file exacerbation from diastolic dysfunction EF 50-55%-slow to respond-a Lasix drip -Large right pleural effusion from CHF-status post right-sided thoracentesis -Acute on chronic hypoxic respiratory failure, patient is on (2 L of oxygen at home)-currently in 3 L -Sick sinus syndrome with a permanent pacemaker -Chronic atrial fibrillation on Eliquis -Dementia -GERD -BPH -Diabetes mellitus type 2 on oral hypoglycemic -Chronic seizure disorder -Hypothyroid -Obesity BMI 32.5 -Disposition: Resident of [facility] Plan: This is a pleasant 79 years old male who presents with CHF and right-sided pleural effusion. Cartilage and pulmonary team of the case. Patient remains on IV Lasix. He is status post thoracocentesis. Labs and medication were reviewed.. Continue same treatment. Continue with symptomatic treatment. Resume home medication. Monitor lytes and vitals. DVT and GI prophylaxis. Further recommendationsas per clinical course of the patient DVT prophylaxis: Eliquis GI Prophylaxis: PPI Prognosis is guarded
[2020-01-22 12:15] LABS: Glucose,Whole Blood 201 mg/dL (75-99)
--- NOTE | 2020-01-22 13:28 | P.PN ---
Subjective Progress Note Date: 01/22/20 Principal diagnosis: Acute exacerbation of diastolic congestive heart failure 79-year-old male patient, came in for worsening shortness of breath. The patient is known to have diastolic heart failure in addition to severe pulmonary hypertension and right-sided heart failure. He has chronic atrial fibrillation. He has sick sinus syndrome has a pacemaker in place. He has diabetes, previous CVA and history of dementia. He has had previous right-sided pleural effusion and according to the family has had previous thoracentesis an outside facilities. He came in worsening shortness of breath and lower extremity edema. He was briefly placed on BiPAP. Currently is on IV Lasix. Chest x-ray shows a large right-sided pleural effusion and needs to be drained. The patient on Eliquis for now which will placed on hold. No other significant events. He is able to communicate well. His proBNP level is 2850. Troponin times she has been negative. White cell count is at 5.3. Cardiac rhythm is atrial fibrillation. The patient is seen today 01/16/2020 in follow-up on the selective care unit. He is awake and alert in no acute distress. Breathing a bit easier today com pared to yesterday. He did undergo a right-sided thoracentesis by Dr. Blanchard was 2.1 L of turbid yellow fluid removed. Fluid analysis and cytology pending. He is maintaining good O2 saturations in the mid 90s on 3 L/m per nasal cannula. He's been afebrile. Blood culture reveals no growth to date. Sodium 141. Potassium 3.2. Creatinine 0.81. He remains on IV diuretics. No accurate I know. The patient is incontinent. On 01/17/2020 patient seen in follow-up on selective care unit. Patient is resting in bed, he is generally weak, is currently on 4 L of oxygen is pulse ox 92%, hemodynamically she is stable, his respirations are nonlabored, however patient is mostly bedbound, and he does get very short of breath with any exertion. Has had no fever or chills since admission, he denies any chest pain, continues on Lasix of 40 mg every 8 hours, net fluid balance is very difficult t o estimate because patient is incontinent into his brief, going to the recorded weight he is -15 kg in the last 24 hours, although on physical exam there is still significant lower extremity edema, and crackles in both lungs. Patient is status post right-sided thoracentesis with removal of 2.1 L of turbid yellow fluid. Pleural fluid analysis revealed transudative fluid. Cytology is pending. Patient remains in atrial fibrillation with a controlled rate, he is on oral Eliquis for anticoagulation. Abdominal ultrasound revealed no evidence of ascites. On 01/18/2020 patient seen in follow-up on the selective care unit, he continues on Lasix 40 mg every 8 hours. Yesterday we asked nursing staff to place a Wilson catheter however in view of patient's past history of difficulty placing a Wilson catheter urology service was consulted, and apparently patient has multiple strictures and we decided to leave the Wilson catheter out. Fluid balance is difficult to estimate as the patient is incontinent. However he is breathing easier today, he sitting up in the recliner, appears to be no acute distress, currently on 3 L of oxygen the pulse ox of 95%. Today's labs have been reviewed, showing CO2 35, increased electrolytes are within normal limits, BUN of 22 creatinine of 0.78. Patient is status post right-sided thoracentesis, which was transudate of fluid. Cytology still pending. Remains in atrial fibrillation with a controlled rate. On oral anticoagulation the form of Eliquis. On 01/19/2020 patient seen in follow-up on selective care unit, remains on IV Lasix, 40 mg every 8 hours, net fluid balance is extremely difficult to estimate, patient has had quite varying weights recorded, and consistency of the weight recording is questionable. But overall patient is feeling better, seems to be more awake and alert, and conversant on today's exam, he even walked with therapy down the gleason, tolerated activity very well, he states his lower extremity edema is improving, exertional dyspnea is improving, occasional cough with production of yellowish sputum, his had no fevers. His blood and sputum cultures have been negative. Remains in A. fib, he is on oral anticoagulation the form of Eliquis. On 01/21/2020 patient seen in follow-up on selective care unit. Patient is a bit lethargic today, but arousable to voice, his breathing is nonlabored, he remains on 3 L of oxygen with pulse ox of 94%, he is afebrile, yesterday we started the patient on Lasix infusion at 10 mg per hour, we asked a condom cath to be applied for accurate intake and output. His net fluid balance is still difficult to estimate because both with a condom cath was applied patient was incontinent of urine. However his weight is down by 4.5 kg in the last 24 hours. Lung sounds reveal diminished breath sounds some limited crackles. Today's chest x-ray shows large right-sided pleural effusion, small left pleural effusion, and a right-sided pleural effusion not significantly changed since y 's chest x-ray. Patient remains in atrial fibrillation with a controlled rate, he is on oral anticoagulation in the form of Eliquis Patient was reevaluated today on 01/22/20, remains on the cardiac unit, patient is basically about the same, feeling slightly better since he had right-sided t horacentesis and 1.7 L of fluid drained again from the right pleural space. Patient remains on Lasix drip and I switch him today to IV Lasix at 40 mg IV push every 8 hours, however I have a feeling that the patient is not making a dramatic improvement, he continues to go back into congestive heart failure no matter what. Patient underwent thoracentesis already twice, and the fluid seems to reaccumulate in spite of diuretics. There is no accurate recording of his fluid balance and there is no accurate recording of his weights. I have a feeling that the patient is not making much progress. And this is all related to his underlying diastolic congestive heart failure. Labs today were reviewed. His bicarb is 45. Renal profile is normal Objective - Vital Signs Vital signs: Vital Signs Temp 97.1 F L 01/22/20 08:00 Pulse 80 01/22/20 08:00 Resp 18 01/22/20 08:00 BP 103/51 01/22/20 08:00 Pulse Ox 96 01/22/20 08:00 Intake & Output 01/21/20 01/22/20 01/22/20 18:59 06:59 18:59 Intake Total 439.667 160.5 180 Output Total 300 Balance 439.667 -139.5 180 Weight 85.7 kg Intake: Intake, IV Titration 79.667 160.5 Amount Furosemide 100 mg In 79.667 160.5 Sodium Chloride 0.9% 90 ml @ 10 MG/HR 10 mls/hr IV .Q10H [facility] Rx#: [id number] Oral 360 180 Output: Urine 300 Other: Voiding Method Incontinent Incontinent Incontinent # Voids 1 - Exam GENERAL EXAM: Revealed 79-year-old white male, on 3 L nasal cannula, sitting in a recliner. In no distress. HEAD: Normocephalic/atraumatic. HEENT: PERRLA, EOMI, no icterus. CHEST: No chest wall deformity. Symmetrical expansion. LUNGS: Equal air entry with bibasilar crackles, but no wheeze, rhonchi or dullness. CVS: Regular rate and rhythm, normal S1 and S2, no gallops, no murmurs, no rubs ABDOMEN: Soft, nontender. No hepatosplenomegaly, normal bowel sounds, no guarding or rigidity. EXTREMITIES: No clubbing, 1+ edema, no cyanosis, 2+ pulses and upper and lower extremities. MUSCULOSKELETAL: Muscle strength and tone normal. SPINE: No scoliosis or deformity SKIN: No rashes CENTRAL NERVOUS SYSTEM: Alert and oriented 3 focal deficits. PSYCHIATRIC: Normal mood and affect, mental status examination isn't - Labs CBC & Chem 7: 01/21/20 11:18 01/22/20 07:02 Labs: Abnormal Lab Results - Last 24 Hours (Table) 01/21/20 01/21/20 01/22/20 Range/Units 16:54 20:02 06:05 Chloride (98-107) mmol/L Carbon Dioxide (22-30) mmol/L Glucose (74-99) mg/dL POC Glucose (mg/dL) 155 H 205 H 127 H (75-99) mg/dL Calcium (8.4-10.2) mg/dL 01/22/20 01/22/20 Range/Units 07:02 12:05 Chloride 94 L (98-107) mmol/L Carbon Dioxide 45 H* (22-30) mmol/L Glucose 111 H (74-99) mg/dL POC Glucose (mg/dL) 201 H (75-99) mg/dL Calcium 8.2 L (8.4-10.2) mg/dL Microbiology - Last 24 Hours (Table) 01/19/20 00:30 Gram Stain - Final Sputum Sputum Culture - Final Assessment and Plan Assessment: 1 acute exacerbation of diastolic congestive heart failure with severe pulmonary hypertension and evidence of right-sided heart failure 2 large right-sided pleural effusion, status post thoracentesis with 2.1 L of turbid yellow fluid removed on 01/16/2020, fluid analysis revealed transudative fluid and cytology are pending 3 lower extremity edema secondary to CHF 4 chronic atrial fibrillation maintained on Eliquis on outpatient basis 5 acute hypoxic respiratory failure secondary to above 6 sick sinus syndrome and the patient has a pacemaker in place 7dementia 8 diabetes mellitus type 2 9 previous history of GI bleed 10 previous history of seizure disorder currently inactive in stable 11 hypothyroidism 12 BPH 13 history of iron deficiency anemia 14 remote history of CVA without any residual deficits Plan: Continue present treatment plan as per different consultants on the case including cardiology. Patient will continue to have reaccumulation of the pleural effusion considering his cardiac status is not improving with diuretics. Should seriously consider hospice on this patient, prognosis is extremely poor and guarded. We will sign off for now, and see the patient on when necessary basis. Time with Patient: Less than 30
[2020-01-22] MEDS: acetaZOLAMIDE 250 MG TAB PO SCH ×2 (16:10→21:54)
[2020-01-22] MEDS: FUROSEMIDE 10 MG/ML 4 ML VIAL IV SCH (16:11)
[2020-01-22 17:03] LABS: Glucose,Whole Blood 159 mg/dL (75-99)
[2020-01-22 20:12] LABS: Glucose,Whole Blood 169 mg/dL (75-99)
[2020-01-22] MEDS: SENNOSIDES-DOCUSATE SODIUM 1 EACH TAB PO SCH (21:53)
[2020-01-22] MEDS: TAMSULOSIN 0.4 MG CAP.ER.24H PO SCH (21:54)
[2020-01-22] MEDS: ATORVASTATIN 10 MG TAB PO SCH (21:54)
[2020-01-23] MEDS: FUROSEMIDE 10 MG/ML 4 ML VIAL IV SCH ×5 (00:15→23:32)
[2020-01-23] MEDS: SILDENAFIL 20 MG TAB PO SCH ×3 (05:47→21:23)
[2020-01-23] MEDS: LEVOTHYROXINE 100 MCG TAB PO SCH (05:47)
[2020-01-23] MEDS: PANTOPRAZOLE 40 MG TABLET PO SCH (05:47)
[2020-01-23] MEDS: LEVOTHYROXINE 75 MCG TAB PO SCH (05:47)
[2020-01-23 06:15] LABS: Glucose,Whole Blood 149 mg/dL (75-99)
[2020-01-23 08:35] LABS: Calcium 8.7 mg/dL (8.4-10.2); Magnesium 1.7 mg/dL (1.6-2.3); Potassium 3.8 mmol/L (3.5-5.1)
[2020-01-23] MEDS: levETIRAcetam 500 MG TAB PO SCH ×2 (10:23→21:20)
[2020-01-23] MEDS: METOPROLOL TARTRATE 25 MG TAB PO SCH ×2 (10:24→21:22)
[2020-01-23] MEDS: acetaZOLAMIDE 250 MG TAB PO SCH ×2 (10:24→21:21)
[2020-01-23] MEDS: DILTIAZEM CD 240 MG CAP.ER.24H PO SCH (10:24)
[2020-01-23] MEDS: FERROUS SULFATE 325 MG TAB PO SCH ×2 (10:24→21:24)
[2020-01-23] MEDS: metFORMIN 500 MG TAB PO SCH ×2 (10:24→15:54)
[2020-01-23] MEDS: APIXABAN 2.5 MG TABLET PO SCH ×2 (10:25→21:21)
[2020-01-23] MEDS: CYANOCOBALAMIN 500 MCG TAB PO SCH (10:25)
[2020-01-23] MEDS: CHOLECALCIFEROL 1,000 UNIT TAB PO SCH ×2 (10:25→21:21)
--- NOTE | 2020-01-23 10:42 | P.PN ---
Subjective Progress Note Date: 01/23/20 This is an 79-year-old male patient, came in for worsening shortness of breath. The patient is known to have diastolic heart failure in addition to severe pulmonary hypertension and right-sided heart failure. He has chronic atrial fibrillation. He has sick sinus syndrome has a pacemaker in place. He has diabetes, previous CVA and history of dementia. He has had previous right-sided pleural effusion and according to the family has had previous thoracentesis an outside facilities. He came in worsening shortness of breath and lower extremity edema. Patient was seen and examined this morning, continues to feel mildly short of breath. Blood pressure 114/60 with a heart rate of 90, 95% on 4 L of oxygen. Sodium 139, potassium 3.9, BUN 21, creatinine 0.8. Patient underwent a right-sided thoracentesis yesterday. 01/18/2020 Patient was seen and examined this morning, sitting up in the chair at bedside. Blood pressure 102/56, heart rate in the 80s, 93% on 3 L of oxygen. Continues to be on IV Lasix. Intake and output is difficult to accurately monitor because the patient does wear a diaper. Sodium 137, potassium 3.8, BUN 22, creatinine 0.7. Repeat chest x-ray performed today showed diffuse pleural parenchymal changes stable from prior exam. Correlate for CHF 01/20/2020 Patient seen and examined this morning, continues to do better overall. Still complaining of some mild shortness of breath. Continues at this time to be on IV Lasix. Blood pressure 114/58 with a heart rate in the 70s, weight is down 1 kg today. Sodium 138, potassium 3.5, BUN 23, creatinine 0.7. 01/21/2020 Ultrasound of the chest was performed yesterday showed a right-sided pleural effusion of 5.6 cm. Chest x-ray from this morning shows findings representing CHF. Large right-sided pleural effusion not significantly changed. Blood pressure 116/70 with a heart rate in the 70s, 94% on 3 L of oxygen. Patient has been initiated on IV Lasix drip. We will put in lytes BUN and creatinine for today. 01/21: Yesterday, the patient underwent thoracentesis with removal of 1.7 L of clear serous fluid on the right by interventional radiology. Repeat chest x-ray reveals recurrent fairly moderate size right pleural effusion increased in size from one day earlier. Background chronic emphysematous change and cardiomegaly redemonstrated. Developing left midlung acute infiltrate and/or atelectasis on background of chronic scarring. Stable right basilar atelectasis and/or infiltrate. Patient states that his breathing is about the same as yesterday. Patient is incontinent of urine and condom catheter is not staying in place. desk monitor has been paced rhythm with episodes of atrial fibrillation. Repeat blood work reveals sodium 140, potassium 3.6, chloride 94, CO2 45, BUN 19 and creatinine 0.77. Patient has been afebrile, heart rate 70, blood pressure 117/61, pulse ox 90% on 3 L nasal cannula. Patient is continued on Lasix drip. Weight appears to not be accurate. 01/22: Patient is currently on Lasix 40 mg IV every 8 hours and Diamox 250 mg twice daily was added yesterday by pulmonary medicine. Pulmonary medicine has recommended hospice care and signed off. Weight is unchanged from yesterday. He has had good urine output and is incontinent. Repeat blood work reveals so dium 137, potassium 3.8, chloride 92, CO2 44, creatinine 0.96. Magnesium 1.7. Patient has been afebrile, heart rate 85, blood pressure 102/56, pulse ox 94% 2 L nasal cannula. Patient was found without oxygen pulse ox 85%. He denies any new complaints. He did well standing to pivot from chair to bed. He states his shortness of breath is about the same. Objective - Vital Signs Vital signs: Vital Signs Temp 98.2 F 01/22/20 20:00 Pulse 85 01/23/20 04:00 Resp 20 01/23/20 04:00 BP 102/56 01/23/20 04:00 Pulse Ox 94 L 01/23/20 04:00 Intake & Output 01/22/20 01/23/20 01/23/20 18:59 06:59 18:59 Intake Total 640 Balance 640 Weight 85.7 kg Intake: Oral 640 Other: Voiding Method Incontinent Diaper Incontinent # Voids 2 1 # Bowel Movements 1 - Exam Gen: This is an 79-year-old male. He is resting in bed. He appears to be in no acute distress. HEENT: Head is atraumatic, normocephalic. Pupils equal, round. Sclerae is anicteric. Oral mucous membranes are moist. NECK: Supple. No JVD. No lymphadenopathy. No thyromegaly. LUNGS: Clear to auscultation. No wheezes or rhonchi. No intercostal retractions. HEART: Regular rate and rhythm. Systolic ejection murmur at the left upper sternal border 3/6. ABDOMEN: Soft. Bowel sounds are present. No masses. No tenderness. EXTREMITIES: 1+ pedal edema. No calf tenderness. His wraps in place bilaterally. NEUROLOGICAL: Patient is awake, alert and oriented x3. Cranial nerves 2 through 12 are grossly intact. - Labs CBC & Chem 7: 01/21/20 11:18 01/23/20 07:42 Labs: Abnormal Lab Results - Last 24 Hours (Table) 01/22/20 01/22/20 01/22/20 Range/Units 12:05 16:53 20:11 Chloride (98-107) mmol/L Carbon Dioxide (22-30) mmol/L Glucose (74-99) mg/dL POC Glucose (mg/dL) 201 H 159 H 169 H (75-99) mg/dL 01/23/20 01/23/20 Range/Units 06:13 07:42 Chloride 92 L (98-107) mmol/L Carbon Dioxide 44 H* (22-30) mmol/L Glucose 117 H (74-99) mg/dL POC Glucose (mg/dL) 149 H (75-99) mg/dL Assessment and Plan Plan: #1 acute exacerbation of diastolic congestive heart failure with severe pulmonary hypertension and evidence of right-sided heart failure #2 large right-sided pleural effusion, status post thoracentesis with 2.1 L of turbid yellow fluid removed on 01/16/2020, repeat thoracentesis 01/22/2020 of 1.7 L. Cytology is reactive mesothelial cells, pigmented histiocytes and scattered inflammatory cells consistent with effusion and heart failure. #3 lower extremity edema secondary to CHF #4 chronic atrial fibrillation maintained on Eliquis on outpatient basis #5 acute hypoxic respiratory failure secondary to above #6 sick sinus syndrome and the patient has a pacemaker in place #7dementia #8 diabetes mellitus type 2 #9 previous history of GI bleed #10 previous history of seizure disorder currently inactive in stable #11 hypothyroidism #12 BPH #13 history of iron deficiency anemia #14 remote history of CVA without any residual deficits Plan Continue IV Lasix 40 mg every 8 hours, Diamox 250 mg twice daily Continue Lopressor 25 mg twice daily and eliquis 2.5 mg twice daily Monitor electrolytes, BUN/creatinine and less patient is transition to hospice care Further recommendations to follow based upon clinical course. Impression and plan of care have been directed as dictated by the signing physician. Mary Grey nurse practitioner acting as scribe for signing physician.
[2020-01-23 12:36] LABS: Glucose,Whole Blood 150 mg/dL (75-99)
--- NOTE | 2020-01-23 13:02 | P.PN ---
Subjective This is a pleasant 79-year-old patient, being followed with Dr. Ramsey. Chronic stable medical conditions include atrial fibrillation, diabetes, GERD, seizure disorder, hypothyroid, iron deficiency anemia, BPH sick sinus syndrome with a pacemaker. Resident at assisted living. Does use oxygen 2 L at home. Presents with progressive shortness of breath increasing edema. Decreased appetite. Some abdominal distention. Some orthopnea. No fever no chills. Admitted with acute on chronic CHF exacerbation from diastolic dysfunction EF 50-55%. Started on Lasix drip. right-sided thoracentesis 2.1 L of yellow fluid removed by Dr. Blanchard.-- transudate. Changed to IV bolus Lasix.because of increasing shortness of breath edema patient's put back on Lasix drip. Today-patient been back for thoracentesis by interventional radiology today 1.7 L of yellow-colored fluid was removed. Breathing better. Tired. Patient has a condom catheter. making good urine. Output cannot be measured well. Eating better. 01/22/2020 Patient is hemodynamically stable he is saturating 98% and a 3 L oxygen. Last CBC looks his stable from 01/16. With normal WBC. BMP is unremarkable except for worsening carbon dioxide up to 45. Creatinine is normal 0.7 as well as electrolytes. [place] [address] troponins were negative. Recurrent moderate right-sided pleural effusion increased in size from one day earlier. Background chronic emphysematous changes with cardiomegaly. Developing left midlung acute infiltrate and/or atelectasis on background of chronic scarring noted. 01/23/2020 Patient is awake. He is more oriented today and more calm. He knows he is in [facility], 2019 and the name of the president. Is still have some dyspnea although it's improving. Patient is afebrile and vitals are stable. BMP is unremarkable. Sugar is co ntrolled. Magnesium 1.7 Patient has atrial fibrillation of fluid in his lung, although clinically he looks calm with only minimal dyspnea or coughing. Pulmonary of the case they think patient should be considered for hospice. Pulmonary team signed off. Currently patient is saturating 95% in 2 L oxygen. Cardiology on the case as well, continue with Lasix 40 mg 3 times a day the size Diamox Objective - Vital Signs Vital signs: Vital Signs Temp 97.3 F L 01/23/20 08:00 Pulse 81 01/23/20 08:00 Resp 22 01/23/20 08:00 BP 112/56 01/23/20 08:00 Pulse Ox 95 01/23/20 08:00 Intake & Output 01/22/20 01/23/20 01/23/20 18:59 06:59 18:59 Intake Total 640 Balance 640 Weight 85.7 kg Intake: Oral 640 Other: Voiding Method Incontinent Diaper Diaper Incontinent Incontinent # Voids 2 1 # Bowel Movements 1 - Exam GENERAL: The patient is alert and oriented x3, not in any acute distress. Well developed, well nourished. HEENT: Pupils are round and equally reacting to light. EOMI. No scleral icterus. No conjunctival pallor. Normocephalic, atraumatic. No pharyngeal erythema. No thyromegaly. CARDIOVASCULAR: S1 and S2 present. No murmurs, rubs, or gallops. -PULMONARY: Chest is clear to auscultation, no bilateral crepitation and decreased breath sounds more on the right side ABDOMEN: Soft, nontender, nondistended, normoactive bowel sounds. No palpable organomegaly. MUSCULOSKELETAL: No joint swelling or deformity. -EXTREMITIES: No cyanosis, clubbing,. Bilateral leg edema NEUROLOGICAL: Gross neurological examination did not reveal any focal deficits. SKIN: No rashes. no petechiae. - Labs CBC & Chem 7: 01/21/20 11:18 01/23/20 07:42 Labs: Abnormal Lab Results - Last 24 Hours (Table) 01/22/20 01/22/20 01/23/20 Range/Units 16:53 20:11 06:13 Chloride (98-107) mmol/L Carbon Dioxide (22-30) mmol/L Glucose (74-99) mg/dL POC Glucose (mg/dL) 159 H 169 H 149 H (75-99) mg/dL 01/23/20 01/23/20 Range/Units 07:42 12:11 Chloride 92 L (98-107) mmol/L Carbon Dioxide 44 H* (22-30) mmol/L Glucose 117 H (74-99) mg/dL POC Glucose (mg/dL) 150 H (75-99) mg/dL Assessment and Plan Assessment: -Acute on chronic congestive heart file exacerbation from diastolic dysfunction EF 50-55%-slow to respond-a Lasix drip -Large right pleural effusion from CHF-status post right-sided thoracentesis -Acute on chronic hypoxic respiratory failure, patient is on (2 L of oxygen at home)-currently in 3 L -Sick sinus syndrome with a permanent pacemaker -Chronic atrial fibrillation on Eliquis -Dementia -GERD -BPH -Diabetes mellitus type 2 on oral hypoglycemic -Chronic seizure disorder -Hypothyroid -Obesity BMI 32.5 -Disposition: Resident of [facility] Plan: This is a pleasant 79 years old male who presents with CHF and right-sided pleural effusion. Cartilage and pulmonary team of the case. Patient remains on IV Lasix. He is status post thoracocentesis. Labs and medication were reviewed.. Continue same treatment. Continue with symptomatic treatment. Resume home medication. Monitor lytes and vitals. DVT and GI prophylaxis. Further recommendationsas per clinical course of the patient DVT prophylaxis: Eliquis GI Prophylaxis: PPI Prognosis is guarded, hospice is recommended by consultants
[2020-01-23] MEDS: MAGNESIUM OXIDE 400 MG TAB PO SCH ×2 (15:54→21:23)
[2020-01-23 17:24] LABS: Glucose,Whole Blood 163 mg/dL (75-99)
[2020-01-23 20:07] LABS: Glucose,Whole Blood 158 mg/dL (75-99)
[2020-01-23] MEDS: SENNOSIDES-DOCUSATE SODIUM 1 EACH TAB PO SCH (21:20)
[2020-01-23] MEDS: ATORVASTATIN 10 MG TAB PO SCH (21:21)
[2020-01-23] MEDS: TAMSULOSIN 0.4 MG CAP.ER.24H PO SCH (21:21)
[2020-01-24] MEDS: LEVOTHYROXINE 75 MCG TAB PO SCH (05:57)
[2020-01-24] MEDS: PANTOPRAZOLE 40 MG TABLET PO SCH (05:57)
[2020-01-24] MEDS: LEVOTHYROXINE 100 MCG TAB PO SCH (05:57)
[2020-01-24] MEDS: SILDENAFIL 20 MG TAB PO SCH ×2 (05:57→16:36)
[2020-01-24 06:10] LABS: Glucose,Whole Blood 125 mg/dL (75-99)
[2020-01-24 08:20] LABS: Calcium 8.9 mg/dL (8.4-10.2); Magnesium 1.8 mg/dL (1.6-2.3); Potassium 3.9 mmol/L (3.5-5.1)
[2020-01-24] MEDS: APIXABAN 2.5 MG TABLET PO SCH (09:22)
[2020-01-24] MEDS: CHOLECALCIFEROL 1,000 UNIT TAB PO SCH (09:22)
[2020-01-24] MEDS: acetaZOLAMIDE 250 MG TAB PO SCH (09:22)
[2020-01-24] MEDS: DILTIAZEM CD 240 MG CAP.ER.24H PO SCH (09:23)
[2020-01-24] MEDS: levETIRAcetam 500 MG TAB PO SCH (09:23)
[2020-01-24] MEDS: FERROUS SULFATE 325 MG TAB PO SCH (09:23)
[2020-01-24] MEDS: MAGNESIUM OXIDE 400 MG TAB PO SCH (09:23)
[2020-01-24] MEDS: CYANOCOBALAMIN 500 MCG TAB PO SCH (09:23)
[2020-01-24] MEDS: FUROSEMIDE 10 MG/ML 4 ML VIAL IV SCH (09:24)
[2020-01-24] MEDS: METOPROLOL TARTRATE 25 MG TAB PO SCH (09:24)
[2020-01-24] MEDS: metFORMIN 500 MG TAB PO SCH (09:24)
--- NOTE | 2020-01-24 10:28 | P.PN ---
Subjective Progress Note Date: 01/24/20 This is an 79-year-old male patient, came in for worsening shortness of breath. The patient is known to have diastolic heart failure in addition to severe pulmonary hypertension and right-sided heart failure. He has chronic atrial fibrillation. He has sick sinus syndrome has a pacemaker in place. He has diabetes, previous CVA and history of dementia. He has had previous right-sided pleural effusion and according to the family has had previous thoracentesis an outside facilities. He came in worsening shortness of breath and lower extremity edema. Patient was seen and examined this morning, continues to feel mildly short of breath. Blood pressure 114/60 with a heart rate of 90, 95% on 4 L of oxygen. Sodium 139, potassium 3.9, BUN 21, creatinine 0.8. Patient underwent a right-sided thoracentesis yesterday. 01/18/2020 Patient was seen and examined this morning, sitting up in the chair at bedside. Blood pressure 102/56, heart rate in the 80s, 93% on 3 L of oxygen. Continues to be on IV Lasix. Intake and output is difficult to accurately monitor because the patient does wear a diaper. Sodium 137, potassium 3.8, BUN 22, creatinine 0.7. Repeat chest x-ray performed today showed diffuse pleural parenchymal changes stable from prior exam. Correlate for CHF 01/20/2020 Patient seen and examined this morning, continues to do better overall. Still complaining of some mild shortness of breath. Continues at this time to be on IV Lasix. Blood pressure 114/58 with a heart rate in the 70s, weight is down 1 kg today. Sodium 138, potassium 3.5, BUN 23, creatinine 0.7. 01/21/2020 Ultrasound of the chest was performed yesterday showed a right-sided pleural effusion of 5.6 cm. Chest x-ray from this morning shows findings representing CHF. Large right-sided pleural effusion not significantly changed. Blood pressure 116/70 with a heart rate in the 70s, 94% on 3 L of oxygen. Patient has been initiated on IV Lasix drip. We will put in lytes BUN and creatinine for today. 01/24/2020 Patient was seen and examined this morning, the plan is for him to go to [facility] with positive care today. He still getting Lasix IV every 8 hours along with the Diamox. Blood pressure 112/50 with a heart rate in the 70s, 94% on 2 L of oxygen. Sodium 136, potassium 3.9, chloride 92, CO2 41, BUN 25, creatinine 1.1, magnesium 1.8. Objective - Vital Signs Vital signs: Vital Signs Temp 98.2 F 01/23/20 20:00 Pulse 71 01/24/20 04:00 Resp 20 01/24/20 04:00 BP 112/58 01/24/20 04:00 Pulse Ox 94 L 01/24/20 04:00 Intake & Output 01/23/20 01/24/20 01/24/20 18:59 06:59 18:59 Intake Total 560 540 240 Output Total 0 350 Balance 560 190 240 Weight 86.5 kg Intake: Oral 560 540 240 Output: Urine 0 350 Other: Voiding Method Diaper Diaper Incontinent Incontinent # Voids 3 - Exam Gen. appearance, very pleasant 79-year-old gentleman, currently on 3 L/m per nasal cannula, comfortable in no acute distress Head exam was generally normal. There was no scleral icterus or corneal arcus. Mucous membranes were moist. Neck was supple and without jugular venous distension, thyromegaly, or carotid bruits. Carotids were easily palpable bilaterally. There was no adenopathy. Lungs reveal fine crackles to bilateral bases. Heart sounds are irregular consistent with atrial fibrillation, positive S1, accentuation of the second heart sound S2 and there is a systolic ejection murmur along left upper sternal border grade 3/6. Abdominal exam revealed normal bowel sounds. The abdomen was soft, non-tender, and without masses, organomegaly, or appreciable enlargement of the abdominal aorta. Extremities revealed trace to +1 edema and there is no cyanosis or clubbing Examination of the skin revealed no evidence of significant rashes, suspicious appearing nevi or other concerning lesions. Neurologically, the patient is awake and alert and the patient does not have any focal neurological deficit. Cranial nerves are essentially intact. - Labs CBC & Chem 7: 01/21/20 11:18 01/24/20 07:20 Labs: Abnormal Lab Results - Last 24 Hours (Table) 01/23/20 01/23/20 01/23/20 Range/Units 12:11 17:06 20:06 Sodium (137-145) mmol/L Chloride (98-107) mmol/L Carbon Dioxide (22-30) mmol/L BUN (9-20) mg/dL Glucose (74-99) mg/dL POC Glucose (mg/dL) 150 H 163 H 158 H (75-99) mg/dL 01/24/20 01/24/20 Range/Units 06:08 07:20 Sodium 136 L (137-145) mmol/L Chloride 92 L (98-107) mmol/L Carbon Dioxide 41 H* (22-30) mmol/L BUN 25 H (9-20) mg/dL Glucose 126 H (74-99) mg/dL POC Glucose (mg/dL) 125 H (75-99) mg/dL Assessment and Plan Plan: Assessment and plan #1 acute exacerbation of diastolic congestive heart failure with severe pulmonary hypertension and evidence of right-sided heart failure #2 large right-sided pleural effusion, status post thoracentesis with 2.1 L of turbid yellow fluid removed on 01/16/2020, fluid analysis and cytology are pending #3 lower extremity edema secondary to CHF #4 chronic atrial fibrillation maintained on Eliquis on outpatient basis #5 acute hypoxic respiratory failure secondary to above #6 sick sinus syndrome and the patient has a pacemaker in place #7dementia #8 diabetes mellitus type 2 #9 previous history of GI bleed #10 previous history of seizure disorder currently inactive in stable #11 hypothyroidism #12 BPH #13 history of iron deficiency anemia #14 remote history of CVA without any residual deficits Plan From cardiology's perspective, we will leave the diuretic management to pulmonary. Patient will be transferred to ECF today under palliative care. We will follow him now on an as-needed basis only please don't hesitate to call with any questions. DNP note has been reviewed, I agree with a documented findings and plan of care. Patient was seen and examined.
[2020-01-24 11:11] VITALS: TEMP 97.5
[2020-01-24 11:46] LABS: Glucose,Whole Blood 128 mg/dL (75-99)
[2020-01-24 13:31] VITALS: BP 97/37; PULSE 81; RESP 18
--- NOTE | 2020-01-24 14:18 | P.DS ---
Providers Date of admission: 01/14/20 22:24 Attending physician: Jori Vásquez Consults: 01/14/20 22:23 Consult Physician Routine Consulting Provider: Kianna Priest Consult Reason/Comments: chf Do you want consulting provider notified?: Yes 01/14/20 22:27 Consult Physician Routine Consulting Provider: Kalee Blanchard Consult Reason/Comments: effusion Do you want consulting provider notified?: Yes 01/17/20 10:32 Consult Physician Routine Consulting Provider: Collins Pina Consult Reason/Comments: catheter placement Do you want consulting provider notified?: Yes 01/20/20 13:25 Consult Physician Routine Consulting Provider: [facility] Consult Reason/Comments: AICD needs interigated, possible battery change Do you want consulting provider notified?: Yes Primary care physician: Harsh Ramsey [facility] Course: Diagnoses: -Acute on chronic congestive heart file exacerbation from diastolic dysfunction EF 50-55%-slow to respond-a Lasix drip -Large right pleural effusion from CHF-status post right-sided thoracentesis -Acute on chronic hypoxic respiratory failure, patient is on (2 L of oxygen at home)-currently in 3 L -Sick sinus syndrome with a permanent pacemaker -Chronic atrial fibrillation on Eliquis -Dementia -GERD -BPH -Diabetes mellitus type 2 on oral hypoglycemic -Chronic seizure disorder -Hypothyroid -Obesity BMI 32.5 -Disposition: Resident of [facility] course: This is a pleasant 79-year-old patient, being followed with Dr. Ramsey. Chronic stable medical conditions include atrial fibrillation, diabetes, GERD, seizure disorder, hypothyroid, iron deficiency anemia, BPH sick sinus syndrome with a pacemaker. Resident at assisted living. Does use oxygen 2 L at home. Presents with progressive shortness of breath increasing edema. Found to have an acute CHF with severe pulmonary hypertension and large side pleural effusion status post thoracocentesis, with recurrence of pleural fluid on the right side, pulmonary were following the case closely, however due to multiple comorbidities and recurrent pleural effusion they recommended hospice care for the patient. However patient remained saturating 90 on 2 L oxygen at rest, no significant dyspnea. Patient also has been followed by cardiology team. He received treatment with IV Lasix and Diamox. Also patient was on Eliquis renal dose. Patient showed interval improvement Patient was found stable for discharge to snf. to finish his rehab therapy Palliative consult as an outpatient discussed with the patient and he agrees to see them as outpatient Problems and management plan were discussed with the patient and he verbalized understanding and acceptance Patient was found stable and can be discharged home however he needs follow-up as an outpatient. Patient was instructed to follow up with PCP Dr. Ramsey within one week and patient agrees. Patient also instructed to follow up with his director weights and measures within 2 weeks and identity management developer dr. cleveland in 2 weeks and he agrees i called the son Mr.Michael Bauer on [phone] and left a message Gen: patient is a AAOx3, no distress CVS: S1-S2, RRR, no murmur Lungs: B/L CTA, no wheezing Abdomen: soft, no distention, no tenderness, positive bowel sounds Extremity: no leg edema or induration Time spent more than 35 minutes Patient Condition at Discharge: Serious Plan - Discharge Summary Discharge Rx Participant: No New Discharge Prescriptions: New acetaZOLAMIDE [Diamox] 250 mg PO BID tab Ipratropium-Albuterol Nebulize [Duoneb 0.5 mg-3 mg/3 ml Soln] 3 ml INHALATION RT-QID PRN ml PRN Reason: Shortness Of Breath Or Wheezing Continue metFORMIN HCL [Glucophage] 500 mg PO BID@0900,1700 Atorvastatin [Lipitor] 10 mg PO HS@2100 Potassium Chloride [Klor-Con 20] 20 meq PO BID@0900,2100 levETIRAcetam [Keppra] 1,000 mg PO BID@0900,2100 Tamsulosin HCl [Flomax] 0.4 mg PO HS@2100 Omeprazole [PriLOSEC] 20 mg PO DAILY@0600 Ferrous Sulfate [Iron (65 MG Elemental)] 325 mg PO BID@0900,2100 Apixaban [Eliquis] 2.5 mg PO BID@0900,2100 Levothyroxine Sodium [Synthroid] 175 mcg PO DAILY@0600 Sildenafil [Revatio] 10 mg PO TID@0600,1400,2200 Cholecalciferol [Vitamin D3 (25 Mcg = 1000 Iu)] 2,000 unit PO HS@2100 Cholecalciferol [Vitamin D3 (25 Mcg = 1000 Iu)] 1,000 unit PO DAILY@0900 Cyanocobalamin [Vitamin B-12] 1,000 mcg PO DAILY@0900 Diltiazem Cd [Cardizem CD] 240 mg PO DAILY@09 Sennosides/Docusate Sodium [Senna Plus 8.6-50 mg Tablet] 2 tab PO HS@2099 Metoprolol Tartrate [Lopressor] 25 mg PO BID@899,2099 polyethylene glycoL 3350 [Miralax] 17 gm PO DAILY PRN PRN Reason: Constipation Changed Furosemide [Lasix] 40 mg PO BID #0 Discontinued metOLazone [Zaroxolyn] 2.5 mg PO DAILY@0600 PRN PRN Reason: FOR 3 DAYS Discharge Medication List Atorvastatin [Lipitor] 10 mg PO HS@209903/24/14 [History] Potassium Chloride [Klor-Con 20] 20 meq PO BID@899,209903/24/14 [History] Tamsulosin HCl [Flomax] 0.4 mg PO HS@209903/24/14 [History] levETIRAcetam [Keppra] 1,000 mg PO BID@0900,209903/24/14 [History] metFORMIN HCL [Glucophage] 500 mg PO BID@0900,1700 03/24/14 [History] Ferrous Sulfate [Iron (65 MG Elemental)] 325 mg PO BID@0900,209902/03/17 [History] Omeprazole [PriLOSEC] 20 mg PO DAILY@0602/03/17 [History] Apixaban [Eliquis] 2.5 mg PO BID@0900,209908/04/18 [History] Levothyroxine Sodium [Synthroid] 175 mcg PO DAILY@0600 08/04/18 [History] Sildenafil [Revatio] 10 mg PO TID@0600,1400,2200 08/04/18 [History] Cholecalciferol [Vitamin D3 (25 Mcg = 1000 Iu)] 1,000 unit PO DAILY@89901/14/20 [History] Cholecalciferol [Vitamin D3 (25 Mcg = 1000 Iu)] 2,000 unit PO HS@209901/14/20 [History] Cyanocobalamin [Vitamin B-12] 1,000 mcg PO DAILY@89901/14/20 [History] Diltiazem Cd [Cardizem CD] 240 mg PO DAILY@89901/14/20 [History] Metoprolol Tartrate [Lopressor] 25 mg PO BID@0900,2100 01/14/20 [History] Sennosides/Docusate Sodium [Senna Plus 8.6-50 mg Tablet] 2 tab PO HS@209901/14/20 [History] polyethylene glycoL 3350 [Miralax] 17 gm PO DAILY PRN 01/14/20 [History] Furosemide [Lasix] 40 mg PO BID #0 01/24/20 [Rx] Ipratropium-Albuterol Nebulize [Duoneb 0.5 mg-3 mg/3 ml Soln] 3 ml INHALATION RT-QID PRN ml 01/24/20 [Rx] acetaZOLAMIDE [Diamox] 250 mg PO BID tab 01/24/20 [Rx] Follow up Appointment(s)/Referral(s): Kianna Priest MD [STAFF PHYSICIAN] - 2 Weeks Harsh Ramsey MD [Primary Care Provider] - 1-2 days Nayan Cleveland DO [Doctor of Osteopathic Medicine] - 2 Weeks Activity/Diet/Wound Care/Special Instructions: [facility] healthy diet with fluid and salt restriction (sodium chloride restriction) Activity is limited till you see your doctor
[2020-01-24 19:20] LABS: Hemoglobin A1C 6.8 % (4.0-6.0)
== END 2020-01-24 16:47 | DRG 291 ==
LOC: EC 19:20 → 3SCARD 22:24
PROVIDERS: ADMIT Hospitalist; ATTEND Hospitalist
PROC: 5A09357 Assistance with Respiratory Ventilation, Less than 24 Consecutive Hours, Continuous Positive Airway Pressure (ICD-10-PCS; 2020-01-14)
PROC: 0W993ZX Drainage of Right Pleural Cavity, Percutaneous Approach, Diagnostic (ICD-10-PCS; principal; 2020-01-16)
PROC: 0T7D7ZZ Dilation of Urethra, Via Natural or Artificial Opening (ICD-10-PCS; 2020-01-17)
PROC: 0W993ZZ Drainage of Right Pleural Cavity, Percutaneous Approach (ICD-10-PCS; 2020-01-21)
DX: I50.33 Acute on chronic diastolic (congestive) heart failure (principal); J96.21 Acute and chronic respiratory failure with hypoxia; J18.9 Pneumonia, unspecified organism; I48.19 Other persistent atrial fibrillation; J91.8 Pleural effusion in other conditions classified elsewhere; I27.22 Pulmonary hypertension due to left heart disease; I49.5 Sick sinus syndrome; F03.90 Unspecified dementia, unspecified severity, without behavioral disturbance, psychotic disturbance, mood disturbance, and anxiety; G40.909 Epilepsy, unspecified, not intractable, without status epilepticus; E11.9 Type 2 diabetes mellitus without complications; I50.82 Biventricular heart failure; E87.5 Hyperkalemia; E03.9 Hypothyroidism, unspecified; D50.9 Iron deficiency anemia, unspecified; N40.1 Benign prostatic hyperplasia with lower urinary tract symptoms; N39.498 Other specified urinary incontinence; R39.12 Poor urinary stream; N35.912 Unspecified bulbous urethral stricture, male; Z53.8 Procedure and treatment not carried out for other reasons; K21.9 Gastro-esophageal reflux disease without esophagitis; R14.0 Abdominal distension (gaseous); E66.9 Obesity, unspecified; Z68.32 Body mass index [BMI] 32.0-32.9, adult; Z79.01 Long term (current) use of anticoagulants; Z79.890 Hormone replacement therapy; Z79.84 Long term (current) use of oral hypoglycemic drugs; Z79.899 Other long term (current) drug therapy; Z87.440 Personal history of urinary (tract) infections; Z86.19 Personal history of other infectious and parasitic diseases; Z95.810 Presence of automatic (implantable) cardiac defibrillator; Z86.73 Personal history of transient ischemic attack (TIA), and cerebral infarction without residual deficits; Z87.19 Personal history of other diseases of the digestive system; Z74.01 Bed confinement status; Z71.3 Dietary counseling and surveillance; Z98.890 Other specified postprocedural states; Z88.8 Allergy status to other drugs, medicaments and biological substances; Z82.49 Family history of ischemic heart disease and other diseases of the circulatory system; Z80.9 Family history of malignant neoplasm, unspecified
CPT/HCPCS: 32555; 36415; 71045; 71046; 71250; 74018; 76604; 76705; 80048; 80053; 82945; 83036; 83615; 83735; 83880; 84132; 84157; 84484; 85025; 85049; 85610; 85730; 87040; 87070; 87205; 88108; 88305; 89050; 93005; 93306; 94640; 94660; 96374; 99291